=== PATIENT | male | born 1955 | race Caucasian/White ===

== ENCOUNTER 2016-10-04 11:50 | Day surgery (SDC) | payer BC ==
[2016-10-02 17:14] VITALS: BMI 31.6
[~2016-10-04 11:50] MED LIST: LACTATED RINGERS 1,000 ML IV SCH
[2016-10-04 12:15] VITALS: TEMP 97
[2016-10-04] MEDS ORDERED: LIDOCAINE 1% 20 ML VIAL (10MG/ML) FOR IV START INTRADERMA ONE (12:27)
[2016-10-04] MEDS ORDERED: PROPOFOL 10 MG/ML 20 ML VIAL IV ONE (13:26)
[2016-10-04] MEDS ORDERED: LIDOCAINE 1% INJ 10MG/ML (20 ML MDV) ONE (13:26)
--- NOTE | 2016-10-04 13:55 | P.PCN ---
Date of Procedure: 10/04/16 Preoperative Diagnosis: Postoperative Diagnosis: Procedure(s) Performed: Procedure: Esophagogastroduodenoscopy and biopsy. Preoperative diagnosis: Dysphagia. Postoperative diagnosis: 1. Abnormal area in the distal esophagus with slight encroachment on the lumen likely representing cancer multiple biopsies obtained. 2. 2. Hiatal hernia. 3. Gastritis. 4. Multiple biopsies obtained from the antrum as well as from the distal esophagus. Preparation sedation: Were provided by anesthesia. Brief clinical history: The patient is a 61-year-old male who is referred for this evaluation because of dysphagia that he has been experiencing since around [facility]. The patient reports dysphagia to solid food. Has lost around 9 pounds over the last 6 months. There is history of acid reflux for which he has taken acid suppressive therapy. Procedure: With the patient on his left lateral decubitus position and after informed consent and adequate sedation, I passed the Olympus-GIF 160 video upper endoscope through the cricopharyngeus down the esophagus. The distal esophagus starting around 31 cm from the incisors and extending for 4-5 cm showed nodularity and friability and mild encroachment on the lumen. There was a 3 cm hiatal hernia. No definite Stroud's esophagus appreciated as there was exudation covering the distal esophagus and obscuring the mucosa. I then advanced the endoscope into the stomach which was insufflated with air and inspected in detail including the retroflex view in the cardia. There was no mass appreciated in the cardia. There was some mottling and erythema in the antrum with no ulcers or erosions. Pyloric channel, duodenal bulb, post bulbar area and descending duodenum appeared within normal limits. I obtained multiple biopsies from the antrum as well as from the distal esophagus and I obtained a picture from the distal esophagus before the endoscope was withdrawn. The patient tolerated the procedure well. Plan: We will await pathology results and make further recommendations. Implants: Indications for Procedure: Operative Findings: Description of Procedure:
[2016-10-04 14:07] VITALS: BP 140/81; PULSE 85; RESP 18
== END 2016-10-04 14:29 | disposition home or self-care (01) ==
LOC: ORWHC2ENDO 11:50
DX: C15.5 Malignant neoplasm of lower third of esophagus (principal); K29.50 Unspecified chronic gastritis without bleeding; K44.9 Diaphragmatic hernia without obstruction or gangrene; K21.9 Gastro-esophageal reflux disease without esophagitis; I10 Essential (primary) hypertension; E78.5 Hyperlipidemia, unspecified; I47.1 Supraventricular tachycardia; G47.33 Obstructive sleep apnea (adult) (pediatric); Z79.899 Other long term (current) drug therapy
CPT/HCPCS: 88305; 88342; 88341; 43239; J2001; J2704

== ENCOUNTER → 2016-10-20 | Outpatient (CLI) | payer BC ==
--- NOTE | 2016-10-20 19:21 | PE ---
EXAMINATION TYPE: PET CT fusion skull to thigh DATE OF EXAM: 10/20/2016 COMPARISON: NONE HISTORY: Esophageal cancer initial staging study. TECHNIQUE: Following the intravenous administration of 13.67 mCi of F-18 FDG, whole body images are performed from the skull base to the midthigh. Images are reviewed on the computer in the coronal, a xial, and sagittal planes. Reconstructed rotating images are created on independent workstation and reviewed on the computer. A localization and attenuation correction CT is performed in conjunction with the PET scan. SCAN: Initial Scan FINDINGS: SKULL BASE AND NECK: No suspicious hypermetabolic uptake is seen in the neck. CHEST, MEDIASTINUM, AND HILAR REGION: There is hypermetabolic uptake and moderate to severe focal wal l thickening for short segment of esophagus beginning subcarinal level on axial image 102 extending d own to axial image 115, max SUV is 7.62. Length of abnormal hypermetabolic uptake is approximately 6 cm on sagittal images. There is suspicious ametabolic adjacent left paraesophageal lymph node measur ing 12 x 8 mm on axial image 109. There is small to moderate size paraesophageal hiatal hernia distal to this. No additional areas of abnormal hypermetabolic uptake in the thorax are seen. ABDOMEN AND PELVIS: No suspicious hypermetabolic uptake is present in the abdomen or pelvis. OSSEOUS STRUCTURES: No suspicious hypermetabolic uptake is seen in osseous structures OTHER CT: Some linear scarring or atelectasis in the right middle lobe is present. There is mild cardiomegaly identified. Dependent density in gallbladder is consistent with small stones or gallbladder sludge. There are 1-3 small calculi scattered throughout both kidneys measuring 2 mm or smaller in size. Ther e is right-sided pelvic phlebolith. There is oval fat density in the left superior scrotum measuring 4.2 cm transversely on axial image 2 69 suspicious for subcutaneous lipomas there is local mass effect noted. There is facet arthropathy in the lower lumbar spine. Osseous structures are demineralized. There is multilevel spurring in the thoracic spine. IMPRESSION: Biopsy-proven neoplasm in the mid to distal esophagus is confirmed. There is adjacent rachid picious left paraesophageal lymph node based on size without abnormal hypermetabolic uptake. No metas tatic disease is evident.
== END | disposition home or self-care (01) ==
LOC: RADPETMAIN 14:16
PROVIDERS: ATTEND Internal Medicine Hematology & Oncology
DX: C15.5 Malignant neoplasm of lower third of esophagus (principal)
CPT/HCPCS: 78815; A9552

== ENCOUNTER → 2017-01-05 | Outpatient (CLI) | payer BC ==
--- NOTE | 2017-01-06 10:04 | PE ---
EXAMINATION TYPE: PET CT fusion skull to thigh DATE OF EXAM: 01/05/2017 COMPARISON: PET/CT dated 10/20/2016 HISTORY: Esophageal cancer. Undergoing treatment with chemotherapy and radiation with last treatment 3 weeks ago. Follow-up examination. TECHNIQUE: Following the intravenous administration of 15.11 mCi of F-18 FDG, whole body images are performed from the skull base to the midthigh. Images are reviewed on the computer in the coronal, a xial, and sagittal planes. Reconstructed rotating images are created on independent workstation and reviewed on the computer. A localization and attenuation correction CT is performed in conjunction with the PET scan. SCAN: Second FINDINGS: SKULL BASE AND NECK: No suspicious hypermetabolic uptake. CHEST, MEDIASTINUM, AND HILAR REGION: Background mediastinal uptake measures a maximal SUV of 2.4. Although there is again circumferential distal esophageal mucosal thickening measuring up to 1 cm lef t eccentric lead on series 3 image 112 with extent of approximately 6 cm in length extending from the subcarinal region to just above the gastroesophageal junction there is improvement in degree of wall thickening in comparison to the prior. Additionally there is decreased uptake in comparison to the p rior with a maximum SUV of 4.6 as compared to 7.62 on the prior. The prominent left lateral paraesophageal lymph node is decreased in size and no longer hypermetaboli c with a maximum SUV of 1.5. This now measures 0.8 x 0.5 mm and previously measured 12 x 8 mm. There is an unchanged moderate paraesophageal hiatal hernia distally. Prominent right hilar lymph node measures 8 mm in short axis on series 3 image 100 and demonstrates a maximum SUV of 3.3, however this is adjacent to pulmonary vasculature and volume averaging or misreg istration are possible. No additional areas of abnormal hypermetabolic uptake in the thorax are seen. ABDOMEN AND PELVIS: Background abdominal uptake measures a maximal SUV of 3.4. No suspicious areas of hypermetabolic uptake are seen within the abdomen or pelvis. OSSEOUS STRUCTURES: Symmetric sclerosis and lucency are seen at the sacroiliac joints with avidity of the sacroiliac joints up to 2.3 on the left and 1.8 on the right, not above mediastinal background. OTHER CT: Scattered areas of subsegmental atelectasis are seen. New anterior medial right upper lobe opacity has maximal SUV uptake similar to that of mediastinal background with a maximal SUV of 2.5 an d could relate to radiation pneumonitis or pneumonia. No new pulmonary masses are identified. Cardiomegaly is redemonstrated as are multifocal bibasilar pleural parenchymal scars. Within the abdo men there are few layering gallstones within the gallbladder body and redemonstration of punctate non obstructing bilateral renal calculi with a single calculus in the right midpole measuring 2 mm and 2- 3 left lower pole renal calculi measuring 1 to 2 mm. Bilateral renal sinus cysts are again appreciate d. The unenhanced liver, spleen, adrenal glands, and pancreas are unremarkable. Abdominal aorta is of normal course and caliber with minimal atheromatous changes. No evidence of bowel obstruction. Large fat filled left inguinal hernia is noted. Multilevel moderate degenerative change of the thoracolumb ar spine is present as well as the above-mentioned degenerative changes of the sacroiliac joints. IMPRESSION: 1. Response to treatment. Decreasing FDG avidity of the biopsy proven esophageal carcinoma with decre ase in size of the left paraesophageal lymph node that is without hypermetabolic activity. 2. New right upper lobe anterior medial airspace disease that may represent radiation pneumonitis or pneumonia. Correlate with laboratory values and clinical symptoms. 3. Prominent right hilar lymph node that has FDG avidity is similar to that of mediastinal background although it is adjacent to a pulmonary artery and therefore this could represent misregistration or volume averaging. Surveillance is recommended. 4. No evidence of new visceral or osseous metastasis within the chest, abdomen, or pelvis.
== END | disposition home or self-care (01) ==
LOC: RADPETMAIN 08:48
PROVIDERS: ATTEND Radiology Radiation Oncology
DX: C15.5 Malignant neoplasm of lower third of esophagus (principal); K22.8 Other specified diseases of esophagus
CPT/HCPCS: 78815; A9552

== ENCOUNTER 2017-02-19 20:58 | Emergency (ER) | payer BC ==
[2017-02-19] MEDS ORDERED: PANTOPRAZOLE 40 MG/10 ML VIAL IVP ONE (21:07)
[2017-02-19 21:20] LABS: Basophils % (A) 0 %; Eosinophils % (A) 1 %; HCT 29.8 % (39.0-53.0); HGB 9.4 gm/dL (13.0-17.5); Hypochromasia Moderate; Lymphocytes % (A) 14 %; MCH 28.5 pg (25.0-35.0); MCHC 31.6 g/dL (31.0-37.0); MCV 90.3 fL (80.0-100.0); Mean Platelet Volume 8.1; Monocytes # (A) 0.3 k/uL (0-1.0); Monocytes % (A) 5 %; Neutrophils # (A) 5.2 k/uL (1.3-7.7); Neutrophils % (A) 78 %; Platelet Count 288 k/uL (150-450); Poikilocytosis Slight; RDW 15.5 % (11.5-15.5); WBC 6.7 k/uL (3.8-10.6)
[2017-02-19 21:29] LABS: Ammonia <9 umol/L (<30)
--- NOTE | 2017-02-19 21:30 | ED ---
General Adult HPI - General Chief complaint: Nausea/Vomiting/Diarrhea Stated complaint: Vomiting Blood Time Seen by Provider: 02/19/17 21:01 Source: patient, EMS, RN notes reviewed Mode of arrival: EMS Limitations: no limitations - History of Present Illness Initial comments: 62-year-old male with history of esophageal cancer presents with hematemesis and melena. Patient is currently on Lovenox for history of bilateral PEs. He takes for her milligrams Lovenox twice daily. 2 hours prior to arrival patient had 2 episodes of coffee-ground emesis with slight amount of bright red blood. He then had an episode of dark tarry stools. Patient denied any melena or hematemesis prior to these events this evening. He is complaining of some lightheadedness. Patient denies significant shortness of breath. Denies cough. Denies chest pain. Denies abdominal pain. Denies current nausea. - Related Data Home Medications Medication Instructions Recorded Confirmed Flecainide Acetate [Tambocor] 100 mg PO Q12HR 10/02/16 02/19/17 Multivitamins, Thera [Multivitamin 1 tab PO DAILY 10/02/16 02/19/17 (formulary)] Nebivolol HCl [Bystolic] 5 mg PO DAILY 10/02/16 02/19/17 Omeprazole [PriLOSEC] 20 mg PO DAILY 10/02/16 02/19/17 Simvastatin [Zocor] 40 mg PO HS 10/02/16 02/19/17 ALPRAZolam [Xanax] 0.5 mg PO TID PRN 01/20/17 02/19/17 Prochlorperazine [Compazine] 10 mg PO Q8H PRN 01/20/17 02/19/17 Enoxaparin [Lovenox] 100 mg SQ Q12H 02/19/17 02/19/17 Zolpidem [Ambien] 5 mg PO HS 02/19/17 02/19/17 Allergies Allergy/AdvReac Type Severity Reaction Status Date / Time No Known Allergies Allergy Verified 02/19/17 21:22 Review of Systems ROS Statement: Those systems with pertinent positive or pertinent negative responses have been documented in the HPI. ROS Other: All systems not noted in ROS Statement are negative. Past Medical History Past Medical History: Cancer, GERD/Reflux, Hyperlipidemia, Hypertension, Sleep Apnea/CPAP/BIPAP, Supraventricular Tachycardia (SVT) Additional Past Medical History / Comment(s): no cpap used, diff swallowing, esophagial cancer History of Any Multi-Drug Resistant Organisms: None Reported Past Surgical History: Cardiac Ablation, Hernia Repair Additional Past Surgical History / Comment(s): sivakumar inguinal hernia, vasectomy Past Anesthesia/Blood Transfusion Reactions: No Reported Reaction Past Psychological History: Anxiety Smoking Status: Never smoker Past Alcohol Use History: None Reported Past Drug Use History: None Reported - Past Family History Mother Family Medical History: Cancer General Exam Limitations: no limitations General appearance: alert, lethargic Head exam: Present: atraumatic, normocephalic Eye exam: Present: normal appearance, PERRL Neck exam: Present: normal inspection. Absent: tenderness, meningismus Respiratory exam: Present: normal lung sounds bilaterally. Absent: respiratory distress Cardiovascular Exam: Present: tachycardia, irregular rhythm GI/Abdominal exam: Present: soft. Absent: distended, tenderness Rectal exam: Present: heme (+) stool, black stool Extremities exam: Present: normal inspection, normal capillary refill. Absent: pedal edema Neurological exam: Present: alert, oriented X3, CN II-XII intact. Absent: motor sensory deficit Psychiatric exam: Present: normal affect, anxious Skin exam: Present: warm, dry, intact, pallor Course Vital Signs 02/19/17 02/19/17 02/19/17 21:00 21:50 22:12 Temperature 98.0 F Pulse Rate 101 H 116 H 116 H Respiratory 18 18 18 Rate Blood Pressure 117/80 108/71 92/68 O2 Sat by Pulse 97 97 97 Oximetry 02/19/17 22:58 Temperature Pulse Rate 106 H Respiratory 18 Rate Blood Pressure 113/72 O2 Sat by Pulse 96 Oximetry EKG Findings - EKG Comments: EKG Findings:: EKG shows a regular tachycardia interpreted as accelerated junctional rhythm with PVC, there is atrial activity likely sinus tach with PVCs ventricular rate 120, QRS duration 74, QTC prolonged at 604. No ST segment elevation Medical Decision Making - Medical Decision Making 62-year-old male with esophageal cancer presents with hematemesis and melena. Patient is tachycardic and borderline hypotensive. Normal mentation. Hemoglobin 9.4, from recent hemoglobin of 10.6, lactic acid 3.0 rectal exam reveals melanotic stool which is heme positive. Chest x-ray shows unchanged right lower lobe infiltrate. NG tube was recommended however patient refuses awaiting surgical evaluation. patient is transfused 1 unit for vital sign abnormalities and concern for more significant upper GI bleed. He is also given Protonix 80 mg in the emergency department. Case is discussed with general surgery on-call Dr. mullen, given the recent massive pulmonary embolism and complicated lower esophageal carcinoma he recommends transfer for higher level of care. Case is discussed with Dr. Lange, she will accept admission to surgical ICU. Diagnosis: Suspect upper GI bleed, melena, hematemesis, esophageal carcinoma, acute blood loss anemia. - Lab Data Result diagrams: 02/19/17 21:08 02/19/17 21:08 Lab Results 02/19/17 02/19/17 02/19/17 Range/Units 21:08 21:08 21:08 WBC 6.7 (3.8-10.6) k/uL RBC 3.30 L (4.30-5.90) m/uL Hgb 9.4 L (13.0-17.5) gm/dL Hct 29.8 L (39.0-53.0) % MCV 90.3 (80.0-100.0) fL MCH 28.5 (25.0-35.0) pg MCHC 31.6 (31.0-37.0) g/dL RDW 15.5 (11.5-15.5) % Plt Count 288 (150-450) k/uL Neutrophils % 78 % Lymphocytes % 14 % Monocytes % 5 % Eosinophils % 1 % Basophils % 0 % Neutrophils # 5.2 (1.3-7.7) k/uL Lymphocytes # 1.0 (1.0-4.8) k/uL Monocytes # 0.3 (0-1.0) k/uL Eosinophils # 0.0 (0-0.7) k/uL Basophils # 0.0 (0-0.2) k/uL Hypochromasia Moderate Poikilocytosis Slight PT (9.0-12.0) sec INR (<1.2) APTT (22.0-30.0) sec Sodium (137-145) mmol/L Potassium (3.5-5.1) mmol/L Chloride (98-107) mmol/L Carbon Dioxide (22-30) mmol/L Anion Gap mmol/L BUN (9-20) mg/dL Creatinine (0.66-1.25) mg/dL Est GFR (MDRD) Af Amer (>60 ml/min/1.73 sqM) Est GFR (MDRD) Non-Af (>60 ml/min/1.73 sqM) Glucose (74-99) mg/dL Plasma Lactic Acid Colby 3.0 H* (0.7-2.0) mmol/L Calcium (8.4-10.2) mg/dL Magnesium (1.6-2.3) mg/dL Total Bilirubin (0.2-1.3) mg/dL AST (17-59) U/L ALT (21-72) U/L Alkaline Phosphatase (38-126) U/L Ammonia <9 (<30) umol/L Total Creatine Kinase 20 L (55-170) U/L CK-MB (CK-2) <0.2 (0.0-2.4) ng/mL CK-MB (CK-2) Rel Index Troponin I <0.012 (0.000-0.034) ng/mL Total Protein (6.3-8.2) g/dL Albumin (3.5-5.0) g/dL Lipase (23-300) U/L Stool Occult Blood (Negative) Blood Type Blood Type Confirm Blood Type Recheck Antibody Screen Crossmatch Spec Expiration Date 02/19/17 02/19/17 02/19/17 Range/Units 21:08 21:08 21:08 WBC (3.8-10.6) k/uL RBC (4.30-5.90) m/uL Hgb (13.0-17.5) gm/dL Hct (39.0-53.0) % MCV (80.0-100.0) fL MCH (25.0-35.0) pg MCHC (31.0-37.0) g/dL RDW (11.5-15.5) % Plt Count (150-450) k/uL Neutrophils % % Lymphocytes % % Monocytes % % Eosinophils % % Basophils % % Neutrophils # (1.3-7.7) k/uL Lymphocytes # (1.0-4.8) k/uL Monocytes # (0-1.0) k/uL Eosinophils # (0-0.7) k/uL Basophils # (0-0.2) k/uL Hypochromasia Poikilocytosis PT 10.3 (9.0-12.0) sec INR 1.1 (<1.2) APTT 27.5 (22.0-30.0) sec Sodium 140 (137-145) mmol/L Potassium 4.1 (3.5-5.1) mmol/L Chloride 106 (98-107) mmol/L Carbon Dioxide 23 (22-30) mmol/L Anion Gap 11 mmol/L BUN 33 H (9-20) mg/dL Creatinine 0.70 (0.66-1.25) mg/dL Est GFR (MDRD) Af Amer >60 (>60 ml/min/1.73 sqM) Est GFR (MDRD) Non-Af >60 (>60 ml/min/1.73 sqM) Glucose 174 H (74-99) mg/dL Plasma Lactic Acid Colby (0.7-2.0) mmol/L Calcium 9.1 (8.4-10.2) mg/dL Magnesium 1.7 (1.6-2.3) mg/dL Total Bilirubin 0.3 (0.2-1.3) mg/dL AST 36 (17-59) U/L ALT 79 H (21-72) U/L Alkaline Phosphatase 92 (38-126) U/L Ammonia (<30) umol/L Total Creatine Kinase (55-170) U/L CK-MB (CK-2) (0.0-2.4) ng/mL CK-MB (CK-2) Rel Index Troponin I (0.000-0.034) ng/mL Total Protein 6.3 (6.3-8.2) g/dL Albumin 3.3 L (3.5-5.0) g/dL Lipase 55 (23-300) U/L Stool Occult Blood (Negative) Blood Type A Positive Blood Type Confirm Blood Type Recheck CABO Indicated Antibody Screen NEGATIVE Crossmatch See Detail Spec Expiration Date 02/22/2017 - 230702/19/17 02/19/17 Range/Units 21:17 22:11 WBC (3.8-10.6) k/uL RBC (4.30-5.90) m/uL Hgb (13.0-17.5) gm/dL Hct (39.0-53.0) % MCV (80.0-100.0) fL MCH (25.0-35.0) pg MCHC (31.0-37.0) g/dL RDW (11.5-15.5) % Plt Count (150-450) k/uL Neutrophils % % Lymphocytes % % Monocytes % % Eosinophils % % Basophils % % Neutrophils # (1.3-7.7) k/uL Lymphocytes # (1.0-4.8) k/uL Monocytes # (0-1.0) k/uL Eosinophils # (0-0.7) k/uL Basophils # (0-0.2) k/uL Hypochromasia Poikilocytosis PT (9.0-12.0) sec INR (<1.2) APTT (22.0-30.0) sec Sodium (137-145) mmol/L Potassium (3.5-5.1) mmol/L Chloride (98-107) mmol/L Carbon Dioxide (22-30) mmol/L Anion Gap mmol/L BUN (9-20) mg/dL Creatinine (0.66-1.25) mg/dL Est GFR (MDRD) Af Amer (>60 ml/min/1.73 sqM) Est GFR (MDRD) Non-Af (>60 ml/min/1.73 sqM) Glucose (74-99) mg/dL Plasma Lactic Acid Colby (0.7-2.0) mmol/L Calcium (8.4-10.2) mg/dL Magnesium (1.6-2.3) mg/dL Total Bilirubin (0.2-1.3) mg/dL AST (17-59) U/L ALT (21-72) U/L Alkaline Phosphatase (38-126) U/L Ammonia (<30) umol/L Total Creatine Kinase (55-170) U/L CK-MB (CK-2) (0.0-2.4) ng/mL CK-MB (CK-2) Rel Index Troponin I (0.000-0.034) ng/mL Total Protein (6.3-8.2) g/dL Albumin (3.5-5.0) g/dL Lipase (23-300) U/L Stool Occult Blood Positive (Negative) Blood Type Blood Type Confirm A Positive Blood Type Recheck Antibody Screen Crossmatch Spec Expiration Date Critical Care Time Critical Care Time: Yes Total Critical Care Time: 45 Disposition Clinical Impression: Upper GI bleed Disposition: OTHER INSTITUTION NOT DEFINED Condition: Serious Referrals: Shaquille Saeed MD [Primary Care Provider] - 1-2 days - Out of Hospital Transfer - Req. Specs Out of Hospital Transfer - Requested Specifics: Surgical ICU (Transferred to [facility] in [place].)
--- NOTE | 2017-02-19 21:30 | XR ---
EXAMINATION TYPE: XR chest 1V portable DATE OF EXAM: 02/19/2017 COMPARISON: 01/20/2017 HISTORY: Vomiting blood TECHNIQUE: Single frontal view of the chest is obtained. FINDINGS: There is no heart failure. Heart size is normal. There is probably a small infiltrate in t he medial right lower lobe. There is no pleural effusion. There are chest leads. IMPRESSION: There is probably an infiltrate in the right lower lobe similar to last exam. No heart f ailure.
[2017-02-19 21:31] LABS: ALT 79 U/L (21-72); AST 36 U/L (17-59); Albumin 3.3 g/dL (3.5-5.0); Alkaline Phosphatase 92 U/L (38-126); Anion Gap 11 mmol/L; Blood Urea Nitrogen 33 mg/dL (9-20); Calcium 9.1 mg/dL (8.4-10.2); Carbon Dioxide 23 mmol/L (22-30); Chloride 106 mmol/L (98-107); Glucose 174 mg/dL (74-99); INR 1.1 (<1.2); Lipase 55 U/L (23-300); Magnesium 1.7 mg/dL (1.6-2.3); Partial Thromboplastin Time 27.5 sec (22.0-30.0); Prothrombin Time 10.3 sec (9.0-12.0); Sodium 140 mmol/L (137-145); Total Bilirubin 0.3 mg/dL (0.2-1.3); Total Protein 6.3 g/dL (6.3-8.2)
[2017-02-19 21:33] LABS: Potassium 4.1 mmol/L (3.5-5.1)
[2017-02-19] MEDS: LORazepam 2 MG/ML INJ IV STA ×2 (21:47→23:54)
[2017-02-19 21:51] LABS: Creatine Kinase 20 U/L (55-170)
[2017-02-19 22:02] LABS: Creatine Kinase MB <0.2 ng/mL (0.0-2.4); Troponin I <0.012 ng/mL (0.000-0.034)
[2017-02-20] MEDS ORDERED: ONDANSETRON 4 MG/2 ML VIAL IVP STA (00:01)
[2017-02-20 23:14] VITALS: BP 112/70; PULSE 106; RESP 18; TEMP 97.7
== END 2017-02-20 00:05 | disposition short-term general hospital (02) ==
LOC: EC 20:58
DX: K92.2 Gastrointestinal hemorrhage, unspecified (principal); I95.9 Hypotension, unspecified; I47.1 Supraventricular tachycardia; F41.9 Anxiety disorder, unspecified; R91.8 Other nonspecific abnormal finding of lung field; E78.5 Hyperlipidemia, unspecified; I10 Essential (primary) hypertension; K21.9 Gastro-esophageal reflux disease without esophagitis; G47.30 Sleep apnea, unspecified; Z79.01 Long term (current) use of anticoagulants; Z79.899 Other long term (current) drug therapy; Z86.711 Personal history of pulmonary embolism; Z85.01 Personal history of malignant neoplasm of esophagus; Z99.89 Dependence on other enabling machines and devices
CPT/HCPCS: 99291; 96374; 96376; 96375 ×2; 36415; 93005; 86900; 86901; 80053; 82140; 82550; 82553; 83605; 83690; 83735; 84484; 85025; 85610; 85730; 86850; 86920; 82272; 71045; P9016; J2060; J2405; C9113

== ENCOUNTER 2017-03-09 08:19 | Emergency (ER) | payer BC ==
[2017-03-09] MEDS ORDERED: HYDROmorphone 0.5 MG/0.5 ML SYRINGE IVP STA ×4 (08:36→14:19)
[2017-03-09] MEDS ORDERED: ONDANSETRON 4 MG/2 ML VIAL IVP STA (08:36)
[2017-03-09] MEDS ORDERED: RX INFO: IV CONTRAST WAS GIVEN 1 EACH MISC MISCELLANE PRN (08:36)
[2017-03-09] MEDS ORDERED: SODIUM CHLORIDE 0.9% 500 ML IV STA (08:36)
--- NOTE | 2017-03-09 08:43 | ED ---
Abdominal Pain HPI - General Chief Complaint: Abdominal Pain Stated Complaint: pain near feeding tube sight Time Seen by Provider: 03/09/17 08:27 Source: patient, family, RN notes reviewed Mode of arrival: wheelchair Limitations: no limitations - History of Present Illness Initial Comments: This is a pleasant 62-year-old male presents emergency Department with chief complaint of epigastric pain. Patient states pain started around 4 AM this morning. Patient states the pain is unbearable nonradiating. Patient is concerned has he had a recent J-tube placed for feedings secondary to esophageal cancer with malnourishment. Patient states that he does feedings throughout the night. Patient denies any fever, chills, headache, dizziness, chest pain or shortness of breath. Patient states she took some Tylenol prior arrival. The pain has been alleviated his symptoms and also states that he took some Xanax. Patient is currently taking Coumadin secondary to bilateral PE. Patient states his oncologist for his esophageal cancer is . Patient surgery was performed at [facility]. Patient denies any vomiting or nausea. He did say he had normal bowel movement yesterday. - Related Data Home Medications Medication Instructions Recorded Confirmed Flecainide Acetate [Tambocor] 100 mg PO BID 10/02/16 03/09/17 Multivitamins, Thera [Multivitamin 1 tab PO DAILY 10/02/16 03/09/17 (formulary)] Nebivolol HCl [Bystolic] 5 mg PO DAILY 10/02/16 03/09/17 Omeprazole [PriLOSEC] 20 mg PO DAILY 10/02/16 03/09/17 Simvastatin [Zocor] 40 mg PO HS 10/02/16 03/09/17 ALPRAZolam [Xanax] 0.5 mg PO TID PRN 01/20/17 03/09/17 Prochlorperazine [Compazine] 10 mg PO Q8H PRN 01/20/17 03/09/17 DULoxetine HCL [Cymbalta] 20 mg PO DAILY 03/09/17 03/09/17 Lactose-Reduced Food/Fiber [Jevity 6 can PEG/G-TUBE DIRECTED 03/09/17 1.2 Frantz Liquid] Warfarin [Coumadin] 2.5 mg PO DAILY 01/20/18 01/20/18 Zolpidem Tartrate [Ambien] 5 mg PO HS 03/09/17 03/09/17 Previous Rx's Medication Instructions Recorded Amoxicillin/Potassium Clav 1 tab PO Q12HR #20 tab 03/09/17 [Augmentin 875-125 Tablet] HYDROcodone/APAP 10-325MG [[place] 1 tab PO Q6H PRN #20 tab 03/09/17 10-325] Allergies Allergy/AdvReac Type Severity Reaction Status Date / Time No Known Allergies Allergy Verified 03/09/17 12:29 Review of Systems ROS Statement: Those systems with pertinent positive or pertinent negative responses have been documented in the HPI. ROS Other: All systems not noted in ROS Statement are negative. Past Medical History Past Medical History: Cancer, GERD/Reflux, Hyperlipidemia, Hypertension, Sleep Apnea/CPAP/BIPAP, Supraventricular Tachycardia (SVT) Additional Past Medical History / Comment(s): no cpap used, diff swallowing, esophagial cancer History of Any Multi-Drug Resistant Organisms: None Reported Past Surgical History: Cardiac Ablation, Hernia Repair Additional Past Surgical History / Comment(s): sivakumar inguinal hernia, vasectomy, PEG tube placement Past Anesthesia/Blood Transfusion Reactions: No Reported Reaction Past Psychological History: Anxiety Smoking Status: Never smoker Past Alcohol Use History: None Reported Past Drug Use History: None Reported - Past Family History Mother Family Medical History: Cancer General Exam General appearance: alert, in no apparent distress, anxious Head exam: Present: atraumatic, normocephalic, normal inspection Neck exam: Present: normal inspection. Absent: tenderness, meningismus, lymphadenopathy Respiratory exam: Present: normal lung sounds bilaterally. Absent: respiratory distress, wheezes, rales, rhonchi, stridor Cardiovascular Exam: Present: normal rhythm, tachycardia, normal heart sounds. Absent: systolic murmur, diastolic murmur, rubs, gallop, clicks GI/Abdominal exam: Present: soft, tenderness (Moderate epigastric tenderness), normal bowel sounds, other (Multiple healing incisions noted on abdomen with no drainage no erythema feeding tube is in place with no surrounding drainage or erythema). Absent: distended, guarding, rebound, rigid Skin exam: Present: warm, dry, intact, normal color. Absent: rash Course Vital Signs 03/09/17 03/09/17 03/09/17 08:23 10:02 11:14 Temperature 97.0 F L Pulse Rate 136 H 89 89 Respiratory 20 16 16 Rate Blood Pressure 113/67 122/72 137/83 O2 Sat by Pulse 100 97 97 Oximetry 03/09/17 03/09/17 03/09/17 11:42 12:58 14:48 Temperature 97.8 F Pulse Rate 67 78 74 Respiratory 18 18 16 Rate Blood Pressure 128/75 124/66 117/68 O2 Sat by Pulse 98 99 100 Oximetry Medical Decision Making - Medical Decision Making 62-year-old male present emergency Department for abdominal pain. Patient had lab work CT showed cholelithiasis, all son confirms this. Dr. Lynn did evaluate the patient talked to his cardiothoracic surgeon advised him that pain control is recommended at this time that if the patient felt necessary that he could be transferred. Patient prefers not to be transferred. Case discussed with on-call surgeon Dr. Sykes who evaluated the patient had long discussion with the patient recommending no surgery at this time as he is on Coumadin and his prior health issues. She does recommend antibiotics and pain medication. If symptoms worsen he is to be transferred or patient is able to drive to enter [place]. - Lab Data Result diagrams: 03/09/17 09:01 03/09/17 09:01 Lab Results 03/09/17 03/09/17 03/09/17 Range/Units 09:01 09:01 09:01 WBC 7.1 (3.8-10.6) k/uL RBC 3.53 L (4.30-5.90) m/uL Hgb 9.7 L (13.0-17.5) gm/dL Hct 29.6 L (39.0-53.0) % MCV 83.9 D (80.0-100.0) fL MCH 27.6 (25.0-35.0) pg MCHC 32.9 (31.0-37.0) g/dL RDW 16.2 H (11.5-15.5) % Plt Count 344 (150-450) k/uL Neutrophils % 83 % Lymphocytes % 7 % Monocytes % 6 % Eosinophils % 2 % Basophils % 0 % Neutrophils # 5.9 (1.3-7.7) k/uL Lymphocytes # 0.5 L (1.0-4.8) k/uL Monocytes # 0.4 (0-1.0) k/uL Eosinophils # 0.2 (0-0.7) k/uL Basophils # 0.0 (0-0.2) k/uL Hypochromasia Marked Poikilocytosis Moderate Anisocytosis Slight PT (9.0-12.0) sec INR (<1.2) APTT (22.0-30.0) sec Sodium 137 (137-145) mmol/L Potassium 4.1 (3.5-5.1) mmol/L Chloride 101 (98-107) mmol/L Carbon Dioxide 23 (22-30) mmol/L Anion Gap 13 mmol/L BUN 13 (9-20) mg/dL Creatinine 0.64 L (0.66-1.25) mg/dL Est GFR (MDRD) Af Amer >60 (>60 ml/min/1.73 sqM) Est GFR (MDRD) Non-Af >60 (>60 ml/min/1.73 sqM) Glucose 156 H (74-99) mg/dL Plasma Lactic Acid [place] 1.2 (0.7-2.0) mmol/L Calcium 9.3 (8.4-10.2) mg/dL Total Bilirubin 0.4 (0.2-1.3) mg/dL AST 30 (17-59) U/L ALT 52 (21-72) U/L Alkaline Phosphatase 153 H (38-126) U/L Troponin I (0.000-0.034) ng/mL Total Protein 7.3 (6.3-8.2) g/dL Albumin 3.7 (3.5-5.0) g/dL Amylase 41 (30-110) U/L Lipase 66 (23-300) U/L 03/09/17 03/09/17 Range/Units 09:01 09:01 WBC (3.8-10.6) k/uL RBC (4.30-5.90) m/uL Hgb (13.0-17.5) gm/dL Hct (39.0-53.0) % MCV (80.0-100.0) fL MCH (25.0-35.0) pg MCHC (31.0-37.0) g/dL RDW (11.5-15.5) % Plt Count (150-450) k/uL Neutrophils % % Lymphocytes % % Monocytes % % Eosinophils % % Basophils % % Neutrophils # (1.3-7.7) k/uL Lymphocytes # (1.0-4.8) k/uL Monocytes # (0-1.0) k/uL Eosinophils # (0-0.7) k/uL Basophils # (0-0.2) k/uL Hypochromasia Poikilocytosis Anisocytosis PT 19.6 H (9.0-12.0) sec INR 2.2 H (<1.2) APTT 26.1 (22.0-30.0) sec Sodium (137-145) mmol/L Potassium (3.5-5.1) mmol/L Chloride (98-107) mmol/L Carbon Dioxide (22-30) mmol/L Anion Gap mmol/L BUN (9-20) mg/dL Creatinine (0.66-1.25) mg/dL Est GFR (MDRD) Af Amer (>60 ml/min/1.73 sqM) Est GFR (MDRD) Non-Af (>60 ml/min/1.73 sqM) Glucose (74-99) mg/dL Plasma Lactic Acid [place] (0.7-2.0) mmol/L Calcium (8.4-10.2) mg/dL Total Bilirubin (0.2-1.3) mg/dL AST (17-59) U/L ALT (21-72) U/L Alkaline Phosphatase (38-126) U/L Troponin I <0.012 (0.000-0.034) ng/mL Total Protein (6.3-8.2) g/dL Albumin (3.5-5.0) g/dL Amylase (30-110) U/L Lipase (23-300) U/L - EKG Data EKG Comments: EKG performed at 9:23 sinus rhythm with PVC rate of 85 KS 200 QRS 84 QT/QTC 404/ 480 Disposition Clinical Impression: Abdominal pain, Cholelithiasis Disposition: HOME SELF-CARE Condition: Stable Instructions: Gallstones (ED) Additional Instructions: Please return to the Emergency Department if symptoms worsen or any other concerns. Prescriptions: Amoxicillin/Potassium Clav [Augmentin 875-125 Tablet] 1 tab PO Q12HR #20 tab HYDROcodone/APAP 10-325MG [[place] 10-325] 1 tab PO Q6H PRN #20 tab PRN Reason: pain Referrals: Shaquille Saeed MD [Primary Care Provider] - 1-2 days Time of Disposition: 14:52
[2017-03-09 09:18] LABS: Anisocytosis Slight; Basophils % (A) 0 %; Eosinophils # (A) 0.2 k/uL (0-0.7); Eosinophils % (A) 2 %; HCT 29.6 % (39.0-53.0); HGB 9.7 gm/dL (13.0-17.5); Hypochromasia Marked; Lymphocytes # (A) 0.5 k/uL (1.0-4.8); Lymphocytes % (A) 7 %; MCH 27.6 pg (25.0-35.0); MCHC 32.9 g/dL (31.0-37.0); Mean Platelet Volume 7.8; Monocytes # (A) 0.4 k/uL (0-1.0); Monocytes % (A) 6 %; Neutrophils # (A) 5.9 k/uL (1.3-7.7); Neutrophils % (A) 83 %; Platelet Count 344 k/uL (150-450); Poikilocytosis Moderate; RBC 3.53 m/uL (4.30-5.90); RDW 16.2 % (11.5-15.5); WBC 7.1 k/uL (3.8-10.6)
[2017-03-09 09:26] LABS: MCV 83.9 fL (80.0-100.0)
[2017-03-09 09:29] LABS: INR 2.2 (<1.2); Partial Thromboplastin Time 26.1 sec (22.0-30.0); Prothrombin Time 19.6 sec (9.0-12.0)
[2017-03-09 09:33] LABS: ALT 52 U/L (21-72); AST 30 U/L (17-59); Albumin 3.7 g/dL (3.5-5.0); Alkaline Phosphatase 153 U/L (38-126); Amylase 41 U/L (30-110); Anion Gap 13 mmol/L; Blood Urea Nitrogen 13 mg/dL (9-20); Calcium 9.3 mg/dL (8.4-10.2); Carbon Dioxide 23 mmol/L (22-30); Chloride 101 mmol/L (98-107); Glucose 156 mg/dL (74-99); Lipase 66 U/L (23-300); Potassium 4.1 mmol/L (3.5-5.1); Sodium 137 mmol/L (137-145); Total Bilirubin 0.4 mg/dL (0.2-1.3); Total Protein 7.3 g/dL (6.3-8.2)
--- NOTE | 2017-03-09 10:40 | CT ---
INDICATION: Abdominal pain, history of esophageal cancer with PEG tube placement TECHNIQUE: CT acquisition is performed through the abdomen and pelvis following the administration of IV contrast. Additional delayed postcontrast images are acquired through the upper abdomen. Sagittal and coronal reformatted images are provided. DOSE INFORMATION: DLP 1037 mGy-cm. One or more of the following dose reduction techniques were used: automated exposure control, adjustment of the mA and/or kV according to patient size, use of iterative reconstruction technique. COMPARISON: CT abdomen and pelvis with contrast, 01/21/17. FINDINGS: Small right pleural effusion has increased from prior exam. There is compressive atelectasis in the adjacent right lower lobe bibasilar reticular opacities suggesting subsegmental atelectasis/scar. There is a stable hiatal hernia with irregular mural thickening at the gastroesophageal junction. There is a stable 1.5 cm hypoenhancing lesion in the lateral subcapsular right hepatic lobe. There are multiple stable fluid-density lesions in the anterior liver and in the medial portion of hepatic segment 7, likely hepatic cysts. There is cholelithiasis. There is no biliary dilatation. The pancreas, spleen, and adrenal glands are unremarkable. The kidneys enhance symmetrically. There is no hydronephrosis or perinephric stranding. There are bilateral punctate nonobstructing kidney stones and bilateral parapelvic renal cysts. Aorta and IVC are normal. There is no adenopathy. There is a large fat- containing left inguinal hernia. There is a left-sided percutaneous jejunostomy tube. There is no evidence of small or large bowel obstruction. The appendix is not clearly visualized. There is no diverticulitis. Urinary bladder and prostate are unremarkable. There are no acute osseous findings. IMPRESSION: 1. Small right pleural effusion has increased in size from prior exam. There is bibasilar scarring and atelectasis. 2. Stable hiatal hernia with irregular mural thickening near the gastroesophageal junction. 3. Cholelithiasis without convincing CT findings of acute cholecystitis. Correlate clinically. 4. Stable 1.5 cm hypoenhancing lesion in the lateral subcapsular right hepatic lobe, nonspecific, metastasis not excluded. 5. Stable hepatic cysts. 6. Stable large fat-containing left inguinal hernia. 7. Stable nonobstructing renal calculi bilaterally.
--- NOTE | 2017-03-09 11:49 | US ---
EXAMINATION TYPE: US abdomen limited DATE OF EXAM: 03/09/2017 COMPARISON: Previous CT scan dated 03/09/2017. CLINICAL HISTORY: Pain. ABD pain EXAM MEASUREMENTS: Liver Length: 16.7 cm Gallbladder Wall: 0.3 cm CBD: 0.6 cm Right Kidney: 11.9 x 5.7 x 5.3 cm Pancreas: Obscured by bowel gas Liver: Very limited visualization due to overlying bowel gas Gallbladder: Sludge with small gallstones at neck/ wall thickness at upper limits of normal/ pt unab le to roll in LLD position due to weakness Evidence for sonographic Patel's sign: No CBD: wnl Right Kidney: wnl, lower pole gassed out Rt pleural effusion seen The pancreas is obscured. The liver is normal in size without evidence of biliary dilatation. Hepatic lesions noted on CT are n ot visualized on today's examination. There is sludge as well as small stones within the gallbladder. The gallbladder wall measures 3.1 mm. The distal common hepatic duct measures 5.6 mm. Limited views of the right kidney are unremarkable. IMPRESSION: 1. CHOLELITHIASIS WELL SLUDGE WITHIN THE GALLBLADDER. 2. NONVISUALIZATION OF THE APPENDIX AND POOR VISUALIZATION OF THE LIVER AND RIGHT KIDNEY.
[2017-03-09] MEDS ORDERED: FLECAINIDE 50 MG TAB PO STA (12:15)
[2017-03-09 14:49] VITALS: BP 117/68; PULSE 74; RESP 16; TEMP 97.8
--- NOTE | 2017-03-09 15:08 | P.GSCN ---
History of Present Illness Consult date: 03/09/17 History of present illness: CHIEF COMPLAINT: Right upper quadrant abdominal pain for 1 day. HISTORY OF PRESENT ILLNESS: The patient is a 62-year-old gentleman recently diagnosed esophageal cancer in September 2016. He has been having ongoing care [facility]. She has lost a moderate amount of weight in the past 5 months. In fact, he reports being at [facility] in [facility] within the last 2 weeks for pulmonary embolism. He also had GI bleed. He has recently been placed on Coumadin as a result. He also reports having a jejunostomy feeding tube placed within the last 2-3 weeks as well for poor nutrition. Since being at home, he still eats at least 3 meals a day. Feeding tube is really for supplemental nutrition. Last night, he had [employer] food fried rice. By 5 AM this morning, he had acute onset right upper quadrant abdominal pain. At the time of my evaluation, his reports the pain along the right upper side has improved however is bilateral upper abdomen bandlike. His sister at bedside also gives history of family history of gallbladder disorder in his mother who is now over 8 years ago. General surgery is consulted regarding his presentation. PAST MEDICAL HISTORY: See list. PAST SURGICAL HISTORY: See list. CURRENT MEDICATIONS: See list. ALLERGIES: See list. SOCIAL HISTORY: No active tobacco use. FAMILY HISTORY: Denies Crohns disease and ulcerative colitis. REVIEW OF ORGAN SYSTEMS: CONSTITUTIONAL: Denies any fever or chills. Has recent weight loss over 10+ pounds unintentional. HEENT: Denies any trouble with vision, hearing or nosebleeds. LYMPHATIC: The patient denies any lumps and bumps around the neck. ENDOCRINE: Denies any thyroid disorders. Denies any blood sugar glucose intolerance. RESPIRATORY: Denies shortness of breath including chronic cough. CARDIOVASCULAR: Denies history of chest pain with exertion. GASTROINTESTINAL: Past history of GI bleed. Recent jejunostomy feeding tube placement. GENITOURINARY: Denies any blood in urine or increased urinary frequency. MUSCULOSKELETAL: Has current joint arthritis. NEUROLOGIC: Denies any numbness or tingling along the distal extremities. No seizure disorders or headaches. PSYCHIATRIC: Denies any depression or suicidal ideation. HEMATOLOGIC: History of bilateral pulmonary pulmonary embolism or recent Coumadin treatment. PHYSICAL EXAMINATION: GENERAL: Well developed and in no acute distress. HEENT: No sclera icterus. Extraocular movements grossly intact. Moist buccal mucosa. Head is atraumatic, normocephalic. Hears conversational speech. No nasal drainage. NECK: Supple without lymphadenopathy. No JV distention. CHEST: Non-labored respirations and equal bilateral excursions. CARDIOVASCULAR: Regular rate and rhythm. Palpable 2+ radial pulses. ABDOMEN: Soft, tender at the right lower quadrant. No peritonitis. Jejunostomy feeding tube in place. MUSCULOSKELETAL: No clubbing, cyanosis or edema. NEUROLOGIC: No focal or lateralizing signs. PSYCH: Appropriate affect. Alert and oriented to person, place and time. SKIN: Well perfused. Good skin turgor. LABS: Reviewed. STUDIES: CT of the abdomen and pelvis reviewed. I personally reviewed his ultrasound also demonstrating gallbladder sludge. No thickening of the gallbladder either ultrasound or computed tomography scan. ASSESSMENT: 1. Right upper abdominal pain. 2. Biliary colic. 3. Esophageal cancer possible metastatic disease. 4. Recent pulmonary embolism on Coumadin therapy. PLAN: 1. He has ongoing care with his surgeon at [facility] whom he will see in 4 days. I have recommended pain medication including antibiotics until he may see his surgeon. 2. Should his symptoms worsen despite treatment, recommend transfer and care and [facility] as he has ongoing medical and surgical care. 3. Low-fat diet was described in detail to avoid any exacerbating events. 4. He has multiple medical comorbidities including anticoagulation which also puts him at increased risk for surgical complications. Recommend conservative management in the interim. Thank you very much for allowing me to participate in the care of your patient. Past Medical History Past Medical History: Cancer, GERD/Reflux, Hyperlipidemia, Hypertension, Sleep Apnea/CPAP/BIPAP, Supraventricular Tachycardia (SVT) Additional Past Medical History / Comment(s): no cpap used, diff swallowing, esophagial cancer History of Any Multi-Drug Resistant Organisms: None Reported Past Surgical History: Cardiac Ablation, Hernia Repair Additional Past Surgical History / Comment(s): sivakumar inguinal hernia, vasectomy, PEG tube placement Past Anesthesia/Blood Transfusion Reactions: No Reported Reaction Past Psychological History: Anxiety Smoking Status: Never smoker Past Alcohol Use History: None Reported Past Drug Use History: None Reported - Past Family History Mother Family Medical History: Cancer Medications and Allergies Home Medications Medication Instructions Recorded Confirmed Type Flecainide Acetate [Tambocor] 100 mg PO BID 10/02/16 03/09/17 History Multivitamins, Thera [Multivitamin 1 tab PO DAILY 10/02/16 03/09/17 History (formulary)] Nebivolol HCl [Bystolic] 5 mg PO DAILY 10/02/16 03/09/17 History Omeprazole [PriLOSEC] 20 mg PO DAILY 10/02/16 03/09/17 History Simvastatin [Zocor] 40 mg PO HS 10/02/16 03/09/17 History ALPRAZolam [Xanax] 0.5 mg PO TID PRN 01/20/17 03/09/17 History Prochlorperazine [Compazine] 10 mg PO Q8H PRN 01/20/17 03/09/17 History Amoxicillin/Potassium Clav 1 tab PO Q12HR #20 tab 03/09/17 Rx [Augmentin 875-125 Tablet] DULoxetine HCL [Cymbalta] 20 mg PO DAILY 03/09/17 03/09/17 History HYDROcodone/APAP 10-325MG [[place] 1 tab PO Q6H PRN #20 tab 03/09/17 Rx 10-325] Lactose-Reduced Food/Fiber [Jevity 6 can PEG/G-TUBE DIRECTED 03/09/17 History 1.2 Frantz Liquid] Warfarin [Coumadin] 2.5 mg PO DAILY 03/09/17 03/09/17 History Zolpidem Tartrate [Ambien] 5 mg PO HS 03/09/17 03/09/17 History Allergies Allergy/AdvReac Type Severity Reaction Status Date / Time No Known Allergies Allergy Verified 03/09/17 12:29 Surgical - Exam Vital Signs Temp Pulse Resp BP Pulse Ox 97.0 F L 136 H 20 113/67 100 03/09/17 08:23 03/09/17 08:23 03/09/17 08:23 03/09/17 08:23 03/09/17 08:23 Results - Labs 03/09/17 09:01 03/09/17 09:01 Abnormal Lab Results - Last 24 Hours (Table) 03/09/17 03/09/17 03/09/17 Range/Units 09:01 09:01 09:01 RBC 3.53 L (4.30-5.90) m/uL Hgb 9.7 L (13.0-17.5) gm/dL Hct 29.6 L (39.0-53.0) % RDW 16.2 H (11.5-15.5) % Lymphocytes # 0.5 L (1.0-4.8) k/uL PT 19.6 H (9.0-12.0) sec INR 2.2 H (<1.2) Creatinine 0.64 L (0.66-1.25) mg/dL Glucose 156 H (74-99) mg/dL Alkaline Phosphatase 153 H (38-126) U/L Diabetes panel 03/09/17 Range/Units 09:01 Sodium 137 (137-145) mmol/L Potassium 4.1 (3.5-5.1) mmol/L Chloride 101 (98-107) mmol/L Carbon Dioxide 23 (22-30) mmol/L BUN 13 (9-20) mg/dL Creatinine 0.64 L (0.66-1.25) mg/dL Glucose 156 H (74-99) mg/dL Calcium 9.3 (8.4-10.2) mg/dL AST 30 (17-59) U/L ALT 52 (21-72) U/L Alkaline Phosphatase 153 H (38-126) U/L Total Protein 7.3 (6.3-8.2) g/dL Albumin 3.7 (3.5-5.0) g/dL Calcium panel 03/09/17 Range/Units 09:01 Calcium 9.3 (8.4-10.2) mg/dL Albumin 3.7 (3.5-5.0) g/dL Pituitary panel 03/09/17 Range/Units 09:01 Sodium 137 (137-145) mmol/L Potassium 4.1 (3.5-5.1) mmol/L Chloride 101 (98-107) mmol/L Carbon Dioxide 23 (22-30) mmol/L BUN 13 (9-20) mg/dL Creatinine 0.64 L (0.66-1.25) mg/dL Glucose 156 H (74-99) mg/dL Calcium 9.3 (8.4-10.2) mg/dL Adrenal panel 03/09/17 Range/Units 09:01 Sodium 137 (137-145) mmol/L Potassium 4.1 (3.5-5.1) mmol/L Chloride 101 (98-107) mmol/L Carbon Dioxide 23 (22-30) mmol/L BUN 13 (9-20) mg/dL Creatinine 0.64 L (0.66-1.25) mg/dL Glucose 156 H (74-99) mg/dL Calcium 9.3 (8.4-10.2) mg/dL Total Bilirubin 0.4 (0.2-1.3) mg/dL AST 30 (17-59) U/L ALT 52 (21-72) U/L Alkaline Phosphatase 153 H (38-126) U/L Total Protein 7.3 (6.3-8.2) g/dL Albumin 3.7 (3.5-5.0) g/dL - Imaging CT scan - abdomen: report reviewed, image reviewed CT scan - pelvis: report reviewed, image reviewed US - abdomen: report reviewed, image reviewed (Findings consistent with gallbladder sludge. No moderately thickened gallbladder wall or pericholecystic fluid identified.) Assessment and Plan (1) Esophageal carcinoma Current Visit: Yes Status: Acute Code(s): C15.9 - MALIGNANT NEOPLASM OF ESOPHAGUS, UNSPECIFIED SNOMED Code(s): 438472143 (2) Right upper quadrant abdominal pain Current Visit: Yes Status: Acute Code(s): R10.11 - RIGHT UPPER QUADRANT PAIN SNOMED Code(s): 503360289 (3) Anticoagulated Current Visit: Yes Status: Acute Code(s): Z79.01 - [facility] (CURRENT) USE OF ANTICOAGULANTS SNOMED Code(s): 065732211 (4) Pulmonary embolism Current Visit: Yes Status: Acute Code(s): I26.99 - OTHER PULMONARY EMBOLISM WITHOUT ACUTE COR PULMONALE SNOMED Code(s): 31224671 (5) Cholelithiasis Current Visit: Yes Status: Acute Code(s): K80.20 - CALCULUS OF GALLBLADDER W /O CHOLECYSTITIS W/O OBSTRUCTION SNOMED Code(s): 152329133
== END 2017-03-09 15:08 | disposition home or self-care (01) ==
LOC: EC 08:19
DX: K80.20 Calculus of gallbladder without cholecystitis without obstruction (principal); K21.9 Gastro-esophageal reflux disease without esophagitis; E78.5 Hyperlipidemia, unspecified; I10 Essential (primary) hypertension; C15.9 Malignant neoplasm of esophagus, unspecified; G47.30 Sleep apnea, unspecified; Z99.89 Dependence on other enabling machines and devices; F41.9 Anxiety disorder, unspecified; Z86.711 Personal history of pulmonary embolism; Z79.01 Long term (current) use of anticoagulants; Z79.899 Other long term (current) drug therapy
CPT/HCPCS: 36415; 93005; 80053; 82150; 83605; 83690; 84484; 85025; 85610; 85730; 76705; 74177; 99285; 96374; 96375; 96376 ×3; J2405; Q9967; J1170

== ENCOUNTER → 2017-09-04 | Outpatient (CLI) | payer BC ==
--- NOTE | 2017-09-04 14:56 | US ---
EXAMINATION TYPE: US venous doppler duplex LE RT DATE OF EXAM: 09/04/2017 2:26 PM COMPARISON: NONE CLINICAL HISTORY: R22.41 SWELLING OF RIGHT LOWER LIMB. hx of blood clots in right leg and lung in Dec ember. On coumadin. No surgeries. Swelling. SIDE PERFORMED: Right TECHNIQUE: The lower extremity deep venous system is examined utilizing real time linear array sonog darrius with graded compression, doppler sonography and color-flow sonography. VESSELS IMAGED: External Iliac Vein (EIV) Common Femoral Vein Deep Femoral Vein Greater Saphenous Vein * Femoral Vein Popliteal Vein Small Saphenous Vein * Proximal Calf Veins (* superficial vessels) Grayscale, color doppler, spectral doppler imaging performed of the deep veins of the lower extremity . There is normal flow, compressibility, vascular waveforms. Right Leg: Negative for DVT IMPRESSION: Negative for DVT
== END | disposition home or self-care (01) ==
LOC: RADUSWWP 13:51
PROVIDERS: ATTEND Internal Medicine Hematology & Oncology
DX: R22.41 Localized swelling, mass and lump, right lower limb (principal)

== ENCOUNTER → 2017-11-12 | Outpatient (CLI) | payer BC ==
[2017-11-12 11:20] LABS: Blood Urea Nitrogen 19 mg/dL (9-20)
--- NOTE | 2017-11-12 13:14 | CT ---
EXAMINATION TYPE: CT ChestAbdPelvis w con DATE OF EXAM: 11/12/2017 COMPARISON: Outside CT chest and abdomen July 17, 2017 and older CTs. Most recent PET/CT January 05, 2017 and older exams October 20, 2016. 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 History of chemotherapy and radiation treatment September through December [address] DLP: 1455.0 mGycm. Automated Exposure Control for Dose Reduction was Utilized. CONTRAST: CT scan of the thorax, abdomen and pelvis is performed with oral and with IV Contrast, patient inject ed with 100 mL of Isovue 300. FINDINGS: LUNGS: There is stable small right pleural effusion or pleural fluid collection there is persistent b ibasilar linear scarring and/or atelectasis most prominent in the medial aspect. No new concerning pa renchymal nodule or mass is identified. No pneumothorax is seen bilaterally. Tracheobronchial tree is patent. MEDIASTINUM: There are no greater than 1 cm hilar or mediastinal lymph nodes. No pericardial effusi on is seen. There is new right internal jugular Mediport catheter terminating before brachiocephalic confluence superior to the SVC. Just inferior to right thyroid lobe there is heterogeneous hypodense nodule measuring 1.9 x 1.5 cm on axial image 8 felt slightly diminished in size from prior CT were a ccurate measurements 2.3 x 2.1 cm image 14 series 3. There is persistent moderate to severe concentri c wall thickening in the mid to distal esophagus beginning at carinal level extending to the gastroes ophageal junction. There is moderate size hiatal hernia redemonstrated. OTHER: No additional significant abnormality is seen. LIVER/GB: Dependent density in gallbladder consistent with small stones and/or gallbladder sludge is redemonstrated. There is stable 1.0 cm lesion anteriorly in liver axial image 55 to small to further characterize but presumed benign. Slightly larger but vague hypodense lesion posterior right hepatic lobe axial image 56 is not enlarged from older CTs January 21, 2017. It measures roughly 1.8 x 1.2 cm on current exam PANCREAS: No significant abnormality is seen. SPLEEN: Stable small splenule axial image 60. ADRENALS: No significant abnormality is seen. KIDNEYS: There is single 2 mm calculus right kidney axial image 76. There are 4 2 mm calculi scattere d throughout left kidney there is symmetric cortical medullary uptake and excretion with some simple small central parapelvic cysts redemonstrated bilaterally. No hydronephrosis is seen bilaterally. BOWEL: Oral contrast reaches level of the distal transverse colon. There is no suspicious small or la rge bowel dilatation. There is interval removal of left-sided jejunostomy tube. There is mild to mode rate focal concentric wall thickening involving the proximal to mid right colon coronal image 37 over short to borderline moderate length segment. A focal colitis at this level cannot be excluded in ailyn ropriate clinical setting, correlate clinically. GENITAL ORGANS: No gross abnormality seen. LYMPH NODES: No greater than 1cm abdominal or pelvic lymph nodes are appreciated. OSSEOUS STRUCTURES: Multilevel moderate to severe spurring in the mid to lower thoracic spine is rede monstrated. There is facet arthropathy lower lumbar levels. OTHER: There is persistent large fat-containing groin hernia. IMPRESSION: Slightly suboptimal as I only have prior outside study for comparison not outside report. There is improving right anterior superior mediastinal low dense mass or suspected metastatic adeno kimberley from most recent CT. There is persistent suspicious thickening of the mid to distal esophagus i n which residual or recurrent neoplasm cannot be excluded. Liver lesions are stable or not enlarged f rom prior study. No new suspicious masses or adenopathy are noted. Possible new right-sided colitis, correlate clinically.
== END | disposition home or self-care (01) ==
LOC: RADPROMAIN 09:54
PROVIDERS: ATTEND Internal Medicine Hematology & Oncology
DX: C15.5 Malignant neoplasm of lower third of esophagus (principal); K76.9 Liver disease, unspecified
CPT/HCPCS: 82565; 84520; 71260; 74177; J1642; Q9967

== ENCOUNTER → 2017-12-11 | Outpatient (CLI) | payer BC ==
--- NOTE | 2017-12-11 11:10 | ECHOF ---
Referral Reason:C15.5 Esophageal Ca MEASUREMENTS -------- HEIGHT: 185.4 cm WEIGHT: 99.8 kg BP: RVIDd: 3.5 cm (< 3.3) IVSd: 1.1 cm (0.6 - 1.1) LVIDd: 5.3 cm (3.9 - 5.3) LVPWd: 1.3 cm (0.6 - 1.1) IVSs: 1.5 cm LVIDs: 3.8 cm LVPWs: 1.5 cm LAESV Index (A-L): 31.05 ml/m Ao Diam: 3.6 cm (2.0 - 3.7) AV Cusp: 2.1 cm (1.5 - 2.6) LA Diam: 4.6 cm (2.7 - 3.8) MV EXCURSION: 20.304 mm (> 18.000) MV EF SLOPE: 34 mm/s (70 - 150) EPSS: 0.6 cm MV E Niraj: 0.60 m/s MV DecT: 252 ms MV A Niraj: 0.66 m/s MV E/A Ratio: 0.90 RAP: 5.00 mmHg RVSP: 20.59 mmHg FINDINGS -------- Sinus rhythm. This was a technically adequate study. The left ventricular size is normal. There is borderline concentric left ventricular hypertrophy. Overall left ventricular systolic function is normal with, an EF between 55 - 60 %. The right ventricle is mildly enlarged. LA is midly dilated 29-33ml/m2. The right atrium is normal in size. Aortic valve is trileaflet and is mildly thickened. There is no evidence of aortic regurgitation. There is no evidence of aortic stenosis. The mitral valve leaflets are mildly thickened. There is trace mitral regurgitation. Trace tricuspid regurgitation present. Right ventricular systolic pressure is normal at < 35 mmHg. There is no evidence of pulmonary hypertension. The pulmonic valve was not well visualized. The aortic root size is normal. Normal inferior vena cava with normal inspiratory collapse consistent with estimated right atrial pre ssure of 5 mmHg. There is no pericardial effusion. CONCLUSIONS -------- 1. Sinus rhythm. 2. This was a technically adequate study. 3. The left ventricular size is normal. 4. There is borderline concentric left ventricular hypertrophy. 5. Overall left ventricular systolic function is normal with, an EF between 55 - 60 %. 6. The right ventricle is mildly enlarged. 7. LA is midly dilated 29-33ml/m2. 8. Aortic valve is trileaflet and is mildly thickened. 9. The mitral valve leaflets are mildly thickened. 10. There is trace mitral regurgitation. 11. Trace tricuspid regurgitation present. 12. Right ventricular systolic pressure is normal at < 35 mmHg. 13. There is no evidence of pulmonary hypertension. 14. The pulmonic valve was not well visualized. 15. The aortic root size is normal. 16. There is no pericardial effusion. CLAIMS SPECIALIST: Gómez Lowe RDCS
== END | disposition home or self-care (01) ==
LOC: RADECHMAIN 08:02
PROVIDERS: ATTEND Internal Medicine Hematology & Oncology
DX: Z01.818 Encounter for other preprocedural examination (principal); I08.3 Combined rheumatic disorders of mitral, aortic and tricuspid valves; C15.5 Malignant neoplasm of lower third of esophagus
CPT/HCPCS: 93306

== ENCOUNTER → 2018-02-19 | Outpatient (CLI) | payer MEDICARE ==
[2018-02-19 11:02] LABS: Blood Urea Nitrogen 10 mg/dL (9-20)
--- NOTE | 2018-02-19 13:08 | CT ---
EXAMINATION TYPE: CT ChestAbdPelvis w con DATE OF EXAM: 02/19/2018 COMPARISON: 11/12/2017 HISTORY: follow up to esophageal CA CT DLP: 1941 mGycm. Automated Exposure Control for Dose Reduction was Utilized. CONTRAST: CT scan of the thorax, abdomen and pelvis is performed with IV Contrast, patient injected with 100 mL of Isovue 300. FINDINGS: LUNGS: There is slight increase in size of a now moderate right pleural effusion now measuring 5.5 cm in greatest thickness. There is associated subsegmental compressive atelectasis. The lungs are gross ly clear, there is no concerning parenchymal mass or nodule identified. There is no pleural effusio n or pneumothorax seen. The tracheobronchial tree is patent. MEDIASTINUM: There is decrease in size of the previously seen superior mediastinal right paratracheal probable adenopathy currently measuring 7 mm in short axis on image 12 and previously measuring 1.5 x 1.9 cm on the exam of 11/12/2017. No other findings suspicious for mediastinal adenopathy. No axilla ry adenopathy is seen. No supraclavicular adenopathy is present. Right-sided Mediport is again noted. No cardiomegaly is identified. No pericardial effusion is seen. LIVER/GB: There are 5 hypoattenuated hepatic lesions. The largest measures 1.4 cm and appears to repr esent a hepatic cyst on image 57. Additionally on this image within the right hepatic lobe in a subca psular location there is a 1.1 x 1.7 cm ill-defined hepatic lesion. This is overall unchanged from th e prior. Other probable hepatic cysts are seen within the left hepatic lobe on image 49 through 51. PANCREAS: No significant abnormality is seen. SPLEEN: Small splenule is noted near the [place] spleen. [place] spleen is unremarkable. ADRENALS: No significant abnormality is seen. KIDNEYS: There multiple punctate nonobstructing left renal calculi and left renal lesion that is too small to accurately characterize in addition to bilateral renal sinus cysts. Solitary punctate right midpole nonobstructing renal calculus is also seen. Urinary bladder is grossly unremarkable. BOWEL: There is thickening of the mid and distal esophagus with oro measuring up to 1.1 cm dependen tly measured on image 34. There is a moderate hiatal hernia redemonstrated. Findings are overall gini lar to the prior of 11/12/2017. Retained contrast is seen within the esophagus either related to delay ed propulsion or gastroesophageal reflux. LYMPH NODES: No greater than 1cm abdominal or pelvic lymph nodes are appreciated. OSSEOUS STRUCTURES: Mild to moderate multilevel degenerative change is seen of the spine. OTHER: Again there is a large fat-containing left groin hernia. IMPRESSION: 1. Decreased size of the presumed superior mediastinal right paratracheal adenopathy previously measu ring up to 1.9 cm and now currently measuring up to 0.7 cm. 2. Stable nonspecific hepatic lesions. The left hepatic lobe lesions appear as benign cysts and a mynor itary right hepatic lobe lesion is indeterminant but again stable in size. 3. Persistent mid and distal esophageal wall thickening that could relate to esophagitis or the patie nt's known primary neoplasm. Surveillance with PET CT can be determined on a clinical basis. 4. Interval increase in the now moderate right pleural effusion and associated right basilar atelecta sis.
--- NOTE | 2018-02-21 18:44 | ECHOF ---
Referral Reason:c15.5 Esophageal Ca MEASUREMENTS -------- HEIGHT: 154.9 cm WEIGHT: 100.7 kg BP: RVIDd: 3.1 cm (< 3.3) IVSd: 0.8 cm (0.6 - 1.1) LVIDd: 3.8 cm (3.9 - 5.3) LVPWd: 1.1 cm (0.6 - 1.1) IVSs: 1.1 cm LVIDs: 3.0 cm LVPWs: 1.1 cm LAESV Index (A-L): 30.62 ml/m Ao Diam: 3.4 cm (2.0 - 3.7) AV Cusp: 2.5 cm (1.5 - 2.6) LA Diam: 3.6 cm (2.7 - 3.8) MV EXCURSION: 12.885 mm (> 18.000) MV EF SLOPE: 66 mm/s (70 - 150) EPSS: 1.0 cm RAP: 5.00 mmHg RVSP: 22.70 mmHg FINDINGS -------- Sinus rhythm. This was a technically good study. The left ventricular size is normal. Left ventricular wall thickness is normal. Overall left vent ricular systolic function is low-normal with, an EF between 50 - 55 %. The right ventricle is normal in size and function. The left atrium is normal in size. The right atrium is normal in size. The aortic valve is trileaflet and appears structurally normal. Mild mitral regurgitation is present. Mild tricuspid regurgitation present. The right ventricular systolic pressure, as measured by Doppl er, is 22.70mmHg. Pulmonic valve appears structurally normal. The aortic root size is normal. IVC Not well visulized. The pericardium is normal. CONCLUSIONS -------- 1. Sinus rhythm. 2. This was a technically good study. 3. The left ventricular size is normal. 4. Left ventricular wall thickness is normal. 5. Overall left ventricular systolic function is low-normal with, an EF between 50 - 55 %. 6. The right ventricle is normal in size and function. 7. The left atrium is normal in size. 8. The right atrium is normal in size. 9. The aortic valve is trileaflet and appears structurally normal. 10. Mild mitral regurgitation is present. 11. Mild tricuspid regurgitation present. 12. The right ventricular systolic pressure, as measured by Doppler, is 22.70mmHg. 13. Pulmonic valve appears structurally normal. 14. The aortic root size is normal. 15. IVC Not well visulized. 16. The pericardium is normal. BUSINESS DATABASE ANALYST: Violeta Guerrier RDCS
== END | disposition home or self-care (01) ==
LOC: RADPROMAIN 10:19
PROVIDERS: ATTEND Internal Medicine Hematology & Oncology
DX: C18.8 Malignant neoplasm of overlapping sites of colon (principal); K76.9 Liver disease, unspecified; J91.0 Malignant pleural effusion; J98.11 Atelectasis; I08.1 Rheumatic disorders of both mitral and tricuspid valves
CPT/HCPCS: 93306; 82565; 84520; 71260; 74177; 36415; Q9967

== ENCOUNTER → 2018-05-14 | Outpatient (CLI) | payer MEDICARE ==
[2018-05-14 11:14] LABS: Blood Urea Nitrogen 9 mg/dL (9-20)
--- NOTE | 2018-05-14 16:14 | CT ---
EXAMINATION TYPE: CT ChestAbdPelvis w con DATE OF EXAM: 05/14/2018 COMPARISON: 02/19/2018 HISTORY: Esophageal CA CT DLP: 1224.8 mGycm. Automated Exposure Control for Dose Reduction was Utilized. CONTRAST: CT scan of the thorax, abdomen and pelvis is performed with IV Contrast, patient injected with 100 mL of Isovue 300. FINDINGS: LUNGS: There is continued slight increase of the moderate right pleural effusion with scant right int erfissural fluid. Compressive atelectasis is present on the right lower lobe. Linear pleural parenchy mal scarring is seen in the right middle lobe. Atelectasis is seen medially within the lower lobe sparkle t is subsegmental. No new suspicious pulmonary mass. MEDIASTINUM: There is stable size of the superior mediastinal probable lymph node just inferior to th e right lobe of the thyroid gland measuring 6 mm, previously measuring 7 mm. This is within limitatio ns of slice selection. Right-sided Mediport is unchanged. No cardiomegaly. Coronary calcifications ar e mild. No pericardial effusion. LIVER/GB: There are again 5 hypoattenuated hepatic lesions. There is stable size of the suspicious pe ripherally arterial enhancing 1.7 cm centrally hypoattenuated liver lesion that appears to blend with background of the liver on delayed imaging. Additionally there is stable size of the left hepatic lo be cyst on image 50 with adjacent smaller probable cyst and cyst within segment Renato on image 57. No n ew suspicious hepatic lesions are seen. No intrahepatic biliary ductal dilatation. Few gallstones are seen within the gallbladder fundus. PANCREAS: Pancreatic parenchyma atrophy is present without ductal dilatation. SPLEEN: No significant abnormality is seen. Small splenules are seen adjacent to the [place] spleen. ADRENALS: No significant abnormality is seen. KIDNEYS: Punctate nonobstructing bilateral midpole renal calculi are noted in addition to bilateral r enal sinus cysts and too small to accurately characterize punctate hypoattenuated renal lesions. BOWEL: There is a partial intrathoracic stomach with persistent distal esophageal mucosal thickening measuring up to 1.1 cm. Persistent thickening of the gastric antrum and pylorus could relate to spas m or gastritis. Retained oral contrast within the esophagus is seen up to the thoracic inlet and coul d relate to delayed transit or reflux. There is new bowel wall thickening and vasa recta engorgement of the descending colon and proximal si gmoid colon such as on coronal series 8 images 34 through 48 and most pronounced on axial image 113. Given this long segment involvement colitis is a primary diagnostic consideration. LYMPH NODES: No greater than 1cm abdominal or pelvic lymph nodes are appreciated. OSSEOUS STRUCTURES: Old healed fracture deformities are seen of ribs 5, 7 and 8 on the left. No new s uspicious osseous lesion. Multilevel degenerative changes of the spine. Bridging anterior osteophytes suggesting diffuse idiopathic skeletal hyperostosis. There is also osseous demineralization within t he thoracic spine. OTHER: The left inguinal ring is patulous and fat filled. IMPRESSION: 1. Stable size of the presumed superior mediastinal right paratracheal adenopathy measuring 1.9 cm on the exam of 11/12/2017 and currently measuring 7 mm (also measuring 7 mm on the exam of 02/19/2018). 2. Continued stability of the nonspecific hepatic lesions few which appears simple cysts. 3. Redemonstration of mid to distal esophageal wall thickening and partial intrathoracic stomach gini lar to the prior with pyloric esophageal spasm or gastritis. Of note oral contrast is seen up to the thoracic inlet in this patient is at risk for aspiration. 4. Continued slight interval increase of the moderate right pleural effusion with associated right-si ded compressive atelectasis.
--- NOTE | 2018-05-15 12:24 | ECHOF ---
Referral Reason:C15.5, Z01.818 MEASUREMENTS -------- HEIGHT: 186.7 cm WEIGHT: 100.7 kg BP: 104/68 RVIDd: 3.3 cm (< 3.3) IVSd: 1.2 cm (0.6 - 1.1) LVIDd: 4.3 cm (3.9 - 5.3) LVPWd: 1.2 cm (0.6 - 1.1) IVSs: 1.5 cm LVIDs: 3.4 cm LVPWs: 1.4 cm LA Diam: 3.2 cm (2.7 - 3.8) LAESV Index (A-L): 27.57 ml/m Ao Diam: 3.9 cm (2.0 - 3.7) AV Cusp: 2.6 cm (1.5 - 2.6) MV EXCURSION: 18.395 mm (> 18.000) MV EF SLOPE: 46 mm/s (70 - 150) EPSS: 0.9 cm MV E Niraj: 0.51 m/s MV DecT: 199 ms MV A Niraj: 0.67 m/s MV E/A Ratio: 0.76 RAP: 5.00 mmHg RVSP: 21.70 mmHg FINDINGS -------- Sinus rhythm. This was a technically adequate study. The left ventricular size is normal. There is borderline concentric left ventricular hypertrophy. Overall left ventricular systolic function is mildly impaired with, an EF between 45 - 50 %. The right ventricle is mildly enlarged. Normal LA size by volume 22+/-6 ml/m2. The right atrium is normal in size. The aortic valve is trileaflet and appears structurally normal. Mild mitral annular calcification present. Mild tricuspid regurgitation present. Right ventricular systolic pressure is normal at < 35 mmHg. Trace/mild (physiologic) pulmonic regurgitation. The aortic root is dilated measuring 3.9cm. IVC Not well visulized. There is no pericardial effusion. CONCLUSIONS -------- 1. Sinus rhythm. 2. This was a technically adequate study. 3. The left ventricular size is normal. 4. There is borderline concentric left ventricular hypertrophy. 5. Overall left ventricular systolic function is mildly impaired with, an EF between 45 - 50 %. 6. The right ventricle is mildly enlarged. 7. Normal LA size by volume 22+/-6 ml/m2. 8. The right atrium is normal in size. 9. The aortic valve is trileaflet and appears structurally normal. 10. Mild mitral annular calcification present. 11. Mild tricuspid regurgitation present. 12. Right ventricular systolic pressure is normal at < 35 mmHg. 13. Trace/mild (physiologic) pulmonic regurgitation. 14. The aortic root is dilated measuring 3.9cm. 15. IVC Not well visulized. 16. There is no pericardial effusion. EMERGENCY RESPONSE TECHNICIAN: Stacie Hawthorne RDCS
== END ==
LOC: RADPROMAIN 10:09
PROVIDERS: ATTEND Internal Medicine Hematology & Oncology
DX: K76.89 Other specified diseases of liver (principal); K22.4 Dyskinesia of esophagus; J90 Pleural effusion, not elsewhere classified; C15.5 Malignant neoplasm of lower third of esophagus
CPT/HCPCS: 93306; 82565; 84520; 71260; 74177; J1642; Q9967

== ENCOUNTER → 2018-05-23 | Outpatient (CLI) | payer MEDICARE ==
--- NOTE | 2018-05-23 07:42 | MR ---
EXAMINATION TYPE: MR thoracic spine wo/w con DATE OF EXAM: 05/23/2018 COMPARISON: CT chest abdomen and pelvis May 14, 2018 and older CTs. HISTORY: ESOPHOGEAL CANCER, BACK PAIN for 3 months. TECHNIQUE: Multiplanar, multisequence imaging of thoracic spine is performed without and with IV cont rast, patient is injected with 10 cc of gadolinium this. FINDINGS: Spinal cord shows normal course, caliber, and signal as it courses the thoracic spine. Henry tebral body heights and alignment are satisfactory. There is diffuse diminished T1 signal with enhanc ement through the T8 vertebra as well as also involving superior half of the T9 vertebra. There is ar ea of linear diminished T1 signal through the T8 vertebra sagittal image 8. Disc space heights are fa irly well-maintained. Posterior disc herniation T2-T3 level mildly effaces the anterior thecal sac sa gittal imaging 8. Mild multilevel anterior spurring mid to lower thoracic spine is present. Review of the axial images confirms left paracentral disc protrusion and annular tear at T2-T3 level effacing the anterior thecal sac axial image 12 series 701. There is tiny left paracentral disc protrusion effacing the anterior thecal sac at T6-T7 level on axi al image 25 series 601. Review of axial images shows no definitive adjacent soft tissue mass or cortical destruction. There i s overall increased T1 signal of adjacent superior vertebra likely reflecting posttreatment change. N o suspicious disc enhancement is seen to suggest infection or discitis. There is persistent fairly moderate-sized right pleural effusion likely enlarging. Suspect endotrache al mucus axial image 18 near the thoracic inlet. Concentric thickening of esophagus likely correspond s to known neoplasm near level of left atrium. IMPRESSION: Presence of linear signal through the T8 vertebra suggests acute/subacute fracture at thi s level with edema and enhancement. There is additional edema and enhancement involving superior por tion of the T9 vertebra. Adjacent posttreatment change to vertebra above T8 level noted. Pathologic f racture not excluded but felt less likely given no adjacent soft tissue mass and the area of involvem ent is at peak of thoracic curvature. There is no convincing evidence of other areas of abnormal bone marrow signal also noted. No posterior retropulsion is seen. Findings can be correlated with PET/CT or bone scan to ensure no additional osseous lesions which would then favor pathologic fracture.
== END | disposition home or self-care (01) ==
LOC: RADMRIMAIN 06:06
PROVIDERS: ATTEND Internal Medicine Hematology & Oncology
DX: M48.8X4 Other specified spondylopathies, thoracic region (principal); M54.5 Low back pain; C15.5 Malignant neoplasm of lower third of esophagus
CPT/HCPCS: 72157; A9585

== ENCOUNTER → 2018-07-31 | Outpatient (CLI) | payer MEDICARE ==
--- NOTE | 2018-08-01 18:24 | ECHOF ---
Referral Reason:C15.5 Esophageal Cancer,Z01.818 Chemo MEASUREMENTS -------- HEIGHT: 185.4 cm WEIGHT: 98.0 kg BP: RVIDd: 4.0 cm (< 3.3) IVSd: 1.2 cm (0.6 - 1.1) LVIDd: 5.0 cm (3.9 - 5.3) LVPWd: 1.2 cm (0.6 - 1.1) IVSs: 1.7 cm LVIDs: 3.5 cm LVPWs: 1.7 cm LAESV Index (A-L): 21.99 ml/m Ao Diam: 4.0 cm (2.0 - 3.7) AV Cusp: 2.9 cm (1.5 - 2.6) LA Diam: 4.8 cm (2.7 - 3.8) MV EXCURSION: 20.651 mm (> 18.000) MV EF SLOPE: 117 mm/s (70 - 150) EPSS: 1.1 cm MV E Niraj: 0.58 m/s MV DecT: 197 ms MV A Niraj: 0.90 m/s MV E/A Ratio: 0.65 RAP: 5.00 mmHg RVSP: 22.84 mmHg FINDINGS -------- Sinus rhythm. This was a technically adequate study. The left ventricular size is normal. There is mild concentric left ventricular hypertrophy. Overa ll left ventricular systolic function is low-normal with, an EF between 50 - 55 %. The right ventricle is moderately enlarged. Normal LA size by volume 22+/-6 ml/m2. RA appears enlarged. Interatrial and interventricular septum intact. The aortic valve is trileaflet, and appears structurally normal. No aortic stenosis or regurgitation. The mitral valve leaflets are mildly thickened. Mild mitral regurgitation is present. Mild tricuspid regurgitation present. There is no evidence of pulmonary hypertension. The right v entricular systolic pressure, as measured by Doppler, is 22.84mmHg. There is no pulmonic regurgitation present. The aortic root size is normal. IVC Not well visulized. There is no pericardial effusion. CONCLUSIONS -------- 1. Sinus rhythm. 2. This was a technically adequate study. 3. The left ventricular size is normal. 4. There is mild concentric left ventricular hypertrophy. 5. Overall left ventricular systolic function is low-normal with, an EF between 50 - 55 %. 6. The right ventricle is moderately enlarged. 7. Normal LA size by volume 22+/-6 ml/m2. 8. RA appears enlarged. 9. The aortic valve is trileaflet, and appears structurally normal. No aortic stenosis or regurgitati on. 10. The mitral valve leaflets are mildly thickened. 11. Mild mitral regurgitation is present. 12. Mild tricuspid regurgitation present. 13. There is no evidence of pulmonary hypertension. 14. There is no pulmonic regurgitation present. 15. IVC Not well visulized. 16. There is no pericardial effusion. REED CLEANER: Violeta Guerrier RDCS
== END | disposition home or self-care (01) ==
LOC: RADECHMAIN 12:21
PROVIDERS: ATTEND Internal Medicine Hematology & Oncology
DX: Z01.818 Encounter for other preprocedural examination (principal); I08.1 Rheumatic disorders of both mitral and tricuspid valves; C15.5 Malignant neoplasm of lower third of esophagus
CPT/HCPCS: 93306

== ENCOUNTER → 2018-08-04 | Outpatient (CLI) | payer MEDICARE ==
[2018-08-04 13:25] LABS: African American GFR (CKD) >90 (>60 ml/min/1.73 sqM); Blood Urea Nitrogen 15 mg/dL (9-20)
--- NOTE | 2018-08-04 16:03 | CT ---
EXAMINATION TYPE: CT ChestAbdPelvis w con DATE OF EXAM: 08/04/2018 COMPARISON: CT chest abdomen and pelvis May 14, 2018 and older CTs. Prior PET CTs back through Oct HISTORY: Follow up esophageal CA. CT DLP: 1013.9 mGycm. Automated Exposure Control for Dose Reduction was Utilized. CONTRAST: CT scan of the thorax, abdomen and pelvis is performed with oral and with IV Contrast, patient inject ed with 100 mL of Isovue 300. FINDINGS: LUNGS: Small to moderate-sized right pleural effusion felt stable with associated compressive atelect asis in the right lung base. No left-sided effusion. No suspicious new nodules or masses. MEDIASTINUM: There are no greater than 1 cm hilar or mediastinal lymph nodes. No cardiomegaly or pe ricardial effusion is seen. Persistent moderate concentric wall thickening consistent with neoplasm m id thorax beginning above vitaliy axial image 21 extending nearly to level of fixed moderate size hiat al hernia shows more prominent superior extension on current study. OTHER: Stable right internal jugular Mediport catheter terminating before brachiocephalic confluence with some internal jugular coiling. LIVER/GB: Dependent small gallstones and gallbladder are redemonstrated. Fairly stable nodular rim-en hancing lesion in periphery right hepatic lobe axial image 55 favoring hemangioma. PANCREAS: Stable mild generalized atrophy. SPLEEN: Small splenule inferior aspect of spleen axial image 60 is redemonstrated. ADRENALS: No significant abnormality is seen. KIDNEYS: Central simple appearing parapelvic cysts are redemonstrated bilaterally. Small bilateral re nal calculi are again seen more numerous than left kidney versus right kidney. No hydronephrosis is e vident bilaterally. Stable right-sided phlebolith. BOWEL: No significant abnormality is seen. GENITAL ORGANS: No gross abnormality seen. LYMPH NODES: No greater than 1cm abdominal or pelvic lymph nodes are appreciated. OSSEOUS STRUCTURES: Redemonstration of old healed posterior left mid rib fractures. Large bridging os teophytes in thoracic spine are redemonstrated. There is new suspicious sclerosis and lucent lesions involving several thoracic vertebra with diffuse sclerosis centered involving the posterior T8 and mo re diffusely the T9 vertebra. Developing osseous metastatic disease needs to BE considered. Correlate clinically with PET/CT if desired. OTHER: Large fat-containing left inguinal hernia remains present. Stable small fat-containing umbilic al hernia axial image 89. IMPRESSION: Cannot rule out developing osseous metastatic disease. Correlate clinically with PET/CT if desired. Increasing proximal extension of wall thickening in the mid to distal esophagus is sugges tive of local neoplastic progression.
== END | disposition home or self-care (01) ==
LOC: RADPROMAIN 12:40
PROVIDERS: ATTEND Internal Medicine Hematology & Oncology
DX: Z03.89 Encounter for observation for other suspected diseases and conditions ruled out (principal); C15.5 Malignant neoplasm of lower third of esophagus
CPT/HCPCS: 82565; 84520; 36415; 71260; 74177; J1642; Q9967

== ENCOUNTER → 2018-11-11 | Outpatient (CLI) | payer MEDICARE ==
[2018-11-11 11:47] LABS: African American GFR (CKD) >90 (>60 ml/min/1.73 sqM); Blood Urea Nitrogen 15 mg/dL (9-20)
--- NOTE | 2018-11-11 12:33 | ECHOF ---
Referral Reason:C15.5 Malignant neoplasm of lower third of esophag MEASUREMENTS -------- HEIGHT: 186.2 cm WEIGHT: 95.7 kg BP: 139/89 RVIDd: 3.4 cm (< 3.3) IVSd: 1.0 cm (0.6 - 1.1) LVIDd: 4.4 cm (3.9 - 5.3) LVPWd: 1.0 cm (0.6 - 1.1) IVSs: 1.6 cm LVIDs: 3.0 cm LVPWs: 1.8 cm LA Diam: 3.1 cm (2.7 - 3.8) LAESV Index (A-L): 28.01 ml/m Ao Diam: 3.8 cm (2.0 - 3.7) AV Cusp: 2.4 cm (1.5 - 2.6) MV EXCURSION: 18.395 mm (> 18.000) MV EF SLOPE: 47 mm/s (70 - 150) EPSS: 0.8 cm MV E Niraj: 0.48 m/s MV DecT: 324 ms MV A Niraj: 0.66 m/s MV E/A Ratio: 0.73 RAP: 5.00 mmHg RVSP: 24.93 mmHg TAPSE: 23.82 mm FINDINGS -------- Sinus rhythm. This was a technically adequate study. The left ventricular size is normal. Left ventricular wall thickness is normal. Overall left vent ricular systolic function is low-normal with, an EF between 50 - 55 %. The diastolic filling patter n indicates impaired relaxation 10.78. The right ventricle is mildly enlarged. Normal LA size by volume 22+/-6 ml/m2. The right atrial size is normal. Interatrial and interventricular septum intact. The aortic valve is trileaflet, and appears structurally normal. No aortic stenosis or regurgitation. The mitral valve is normal. Mild mitral regurgitation is present. The tricuspid valve appears structurally normal. Trace tricuspid regurgitation present. There is no evidence of pulmonary hypertension. Trace/mild (physiologic) pulmonic regurgitation. The aortic root is dilated measuring 3.8cm. IVC Not well visulized. There is no pericardial effusion. CONCLUSIONS -------- 1. Sinus rhythm. 2. This was a technically adequate study. 3. The left ventricular size is normal. 4. Left ventricular wall thickness is normal. 5. Overall left ventricular systolic function is low-normal with, an EF between 50 - 55 %. 6. The diastolic filling pattern indicates impaired relaxation 10.78.. 7. The right ventricle is mildly enlarged. 8. Normal LA size by volume 22+/-6 ml/m2. 9. The aortic valve is trileaflet, and appears structurally normal. No aortic stenosis or regurgitati on. 10. Mild mitral regurgitation is present. 11. Trace tricuspid regurgitation present. 12. There is no evidence of pulmonary hypertension. 13. Trace/mild (physiologic) pulmonic regurgitation. 14. The aortic root is dilated measuring 3.8cm. 15. IVC Not well visulized. 16. There is no pericardial effusion. LINUX SYSTEMS ENGINEER: Stacie Hawthorne RDCS
--- NOTE | 2018-11-11 13:42 | CT ---
EXAMINATION TYPE: CT ChestAbdPelvis w con DATE OF EXAM: 11/11/2018 COMPARISON: 08/04/2018 and 05/14/2018 HISTORY: 63-year-old male malignant neoplasm of the lower third of esophagus TECHNIQUE: Contiguous axial scanning of the chest, abdomen, and pelvis performed with IV Contrast, pa tient injected with 100 mL of Isovue 300. Delayed images through the kidneys were obtained. Coronal/s agittal reconstructions performed. CT DLP: 150.8 mGycm Automated exposure control for dose reduction was used. FINDINGS: Chest: Heart size without pericardial effusion. Mildly ectatic ascending aorta at 3.7 cm. Conventional arch vessel branching anatomy. Right anterior chest wall injection port with catheter tip looped in the right neck and tip at the lo wer right brachiocephalic vein. No thoracic lymphadenopathy by CT size criteria. There is a moderate-sized hiatal hernia with moderate to moderate to severe circumferential wall thic kening of the distal third thoracic esophagus with wall thickening measuring up to 1.4 cm, relatively similar to 08/04/2018 is slightly increased from 05/14/2018. Some retained oral contrast is present wi thin the mid thoracic esophagus. No thoracic lymphadenopathy by CT size criteria. There is persistent moderate-sized right pleural effusion with adjacent atelectasis. Strandy atelecta sis posterior left mid and lower lung and also within the basilar right middle lobe. ABDOMEN: Hypodense hepatic lesions within the left liver dome measuring up to 1.3 cm are unchanged. Additional 1.8 cm lesion peripheral right liver lobe, axial image 61 show some nodular enhancement along the ma rgin and is overall unchanged from 05/14/2018, likely hemangioma. Tiny layering gallstones within the nondistended gallbladder. Portal venous system is patent. No bili smita ductal dilatation. Adrenal glands, spleen, atrophic pancreas show no gross abnormality. 4 mm nonobstructive right lower pole renal calculus and a couple 3 mm nonobstructive calculi in the l eft kidney. No dilated small bowel, free fluid, or free air. A loop of left upper abdominal jejunum shows circumf erential wall thickening, axial 67. No mesenteric or retroperitoneal lymphadenopathy. Mild overall stool burden. No pericolonic inflammatory change. Pelvis: There seems to be a moderate-sized fat-containing left direct inguinal hernia measuring about 5.9 cm wide and extending up into the upper scrotum. Bladder urine distended. Prostate gland enlargement 5.5 cm wide. A few pelvic phleboliths. No abnormal fluid collection in the pelvis are pelvic lymphadenop athy. Some venous ectasia noted along the anteromedial right upper thigh. Bones: Mild degenerative changes of the hips. Facet arthropathy mid to lower lumbar spine. Changes of DISH a re demonstrated throughout the thoracic spine. Accentuated lower thoracic kyphosis. Persistent horizontally oriented fracture lucency seen at T8 vertebral body. No retropulsion into the spinal canal. Normal variant sternal foramina. IMPRESSION: 1. STABLE MODERATE-SIZED HIATAL HERNIA AND MODERATE CIRCUMFERENTIAL WALL THICKENING OF THE DISTAL THI RD THORACIC ESOPHAGUS RELATIVELY SIMILAR TO 08/04/2018 BUT INCREASED FROM 05/14/2018. FINDINGS PROBABLY REPRESENT POSTTREATMENT CHANGE. CONTINUED FOLLOW-UP RECOMMENDED TO EXCLUDE RECURRENCE. THE DEGREE OF THICKENING CONTINUES TO NARROW THE LUMEN AND MAY CAUSE A MILD RELATIVE OBSTRUCTION. 2. NONSPECIFIC HEPATIC LESIONS ARE STABLE, IN THE LEFT HEPATIC DOME SUSPECTED TO REPRESENT CYSTS AND IN THE RIGHT LOBE LIKELY REPRESENTING A HEMANGIOMA. 3. PERSISTENT HORIZONTALLY ORIENTED FRACTURE LINE ACROSS THE T8 VERTEBRAL BODY ON A BACKGROUND OF DIS H. THIS COULD BE A SITE OF PATHOLOGIC FRACTURE RELATED TO PRIOR RADIATION PORT. CLINICALLY CORRELATE. IN THE SETTING OF PRIOR RADIATION PORT, PATHOLOGIC FRACTURE RELATED TO OSSEOUS METASTATIC DISEASE WO ULD BE UNLIKELY. NOTE THAT THE FRACTURE HAS NOT HEALED. 4. CHOLELITHIASIS, NONOBSTRUCTIVE RENAL CALCULI, AND A MODERATE-SIZED FAT-CONTAINING LEFT DIRECT INGU INAL HERNIA. 5. RIGHT ANTERIOR CHEST WALL INJECTION PORT. THE CATHETER REMAINS LOOPED IN THE NECK AND TIP IN THE L OWER RIGHT BRACHIOCEPHALIC VEIN.
== END | disposition home or self-care (01) ==
LOC: RADPROMAIN 10:15
PROVIDERS: ATTEND Internal Medicine Hematology & Oncology
DX: Z01.818 Encounter for other preprocedural examination (principal); K76.89 Other specified diseases of liver; K80.20 Calculus of gallbladder without cholecystitis without obstruction; N20.0 Calculus of kidney; K40.90 Unilateral inguinal hernia, without obstruction or gangrene, not specified as recurrent; K44.9 Diaphragmatic hernia without obstruction or gangrene; C15.5 Malignant neoplasm of lower third of esophagus; I08.1 Rheumatic disorders of both mitral and tricuspid valves; I08.8 Other rheumatic multiple valve diseases
CPT/HCPCS: 93306; 82565; 84520; 71260; 74177; 36415; J1642; Q9967 ×2

== ENCOUNTER 2018-11-17 17:45 | Emergency (ER) | payer MEDICARE ==
[2018-11-17 17:55] VITALS: RESP 18
--- NOTE | 2018-11-17 19:30 | ED ---
General Adult HPI - General Chief complaint: Skin/Abscess/Foreign Body Stated complaint: esophageal cancer/food in esophagus Time Seen by Provider: 11/17/18 18:00 Source: patient, RN notes reviewed Mode of arrival: ambulatory Limitations: no limitations - History of Present Illness Initial comments: This is a 63-year-old male who presents emergency Department with a past history of esophageal cancer for which she has been treated with radiation and chemotherapy. Patient states he is still on Herceptin patient states that once today he was eating some rice with a little bit every and he states he chewed it well and swallowed it and ever since then he's been unable to swallow saliva or water. Patient denies any discomfort patient denies any difficult breathing or shortness of breath. Patient states this has happened in the past but usually after couple hours to pass. Patient states today he has not yet passed. Patient has no other complaints at this time. - Related Data Home Medications Medication Instructions Recorded Confirmed Flecainide Acetate [Tambocor] 100 mg PO BID 10/02/16 11/17/18 Nebivolol HCl [Bystolic] 5 mg PO DAILY 10/02/16 11/17/18 Omeprazole [PriLOSEC] 20 mg PO BID 10/02/16 11/17/18 Simvastatin [Zocor] 40 mg PO HS 10/02/16 11/17/18 ALPRAZolam [Xanax] 0.5 mg PO HS PRN 01/20/17 11/17/18 DULoxetine HCL [Cymbalta] 20 mg PO DAILY 03/09/17 11/17/18 Apixaban [Eliquis] 5 mg PO BID 11/17/18 11/17/18 Allergies Allergy/AdvReac Type Severity Reaction Status Date / Time No Known Allergies Allergy Verified 11/17/18 19:36 Review of Systems ROS Statement: Those systems with pertinent positive or pertinent negative responses have been documented in the HPI. ROS Other: All systems not noted in ROS Statement are negative. Past Medical History Past Medical History: Cancer, GERD/Reflux, Hyperlipidemia, Hypertension, Sleep Apnea/CPAP/BIPAP, Supraventricular Tachycardia (SVT) Additional Past Medical History / Comment(s): no cpap used, diff swallowing, esophagial cancer History of Any Multi-Drug Resistant Organisms: None Reported Past Surgical History: Cardiac Ablation, Hernia Repair Additional Past Surgical History / Comment(s): sivakumar inguinal hernia, vasectomy, PEG tube placement and removal Past Anesthesia/Blood Transfusion Reactions: No Reported Reaction Past Psychological History: Anxiety Smoking Status: Never smoker Past Alcohol Use History: None Reported Past Drug Use History: None Reported - Past Family History Mother Family Medical History: Cancer General Exam - General Exam Comments Initial Comments: GENERAL: Patient is well-developed and well-nourished. Patient is nontoxic and well- hydrated and is in mild distress. PULMONARY: Unlabored respirations. Good breath sounds bilaterally. No audible rales rhonchi or wheezing was noted. CARDIOVASCULAR: There is a regular rate and rhythm without any murmurs gallops or rubs. SKIN: Skin is clear with no lesions or rashes and otherwise unremarkable. NEUROLOGIC: Patient is alert and oriented x3. Cranial nerves II through XII are grossly intact. MUSCULOSKELETAL: Normal extremities with adequate strength and full range of motion. PSYCHIATRIC: Normal psychiatric evaluation. Limitations: no limitations Course Vital Signs 11/17/18 17:52 Temperature 97.8 F Pulse Rate 80 Respiratory 18 Rate Blood Pressure 131/84 O2 Sat by Pulse 98 Oximetry Medical Decision Making - Medical Decision Making I spoke with Dr. Lau immediately after seeing the patient and she agreed to come in and do an endoscopy and the patient Dr. Lau came in and remove some fluid from the esophagus and slightly dilated esophagus. After this she stated that the patient could swallow water he can follow-up with her as an outpatient. Patient was able to swallow water without problem. Family is comfortable with this and will follow-up with Dr. Lau Disposition Clinical Impression: Esophageal stricture Disposition: HOME SELF-CARE Condition: Good Instructions (If sedation given, give patient instructions): Esophageal Stricture (ED) Is patient prescribed a controlled substance at d/c from ED?: No Referrals: Sallie Lau MD [STAFF PHYSICIAN] - 1-2 days Time of Disposition: 22:11
[2018-11-17] MEDS ORDERED: PROPOFOL 10 MG/ML 20 ML VIAL IV ONE (20:30)
[2018-11-17] MEDS ORDERED: LIDOCAINE 1% INJ 10MG/ML (20 ML MDV) ONE (20:30)
[2018-11-17] MEDS ORDERED: SODIUM CHLORIDE 0.9% 1,000 ML IV ONE (20:40)
[2018-11-17 22:47] VITALS: BP 147/85; PULSE 65; TEMP 97.9
--- NOTE | 2018-11-18 06:23 | PCN ---
PROCEDURE NOTE DATE OF SERVICE: 11/17/2018 REQUESTING PHYSICIAN: and Dr. Durham. BRIEF HISTORY: The patient is a 63-year-old pleasant white male who was diagnosed with esophageal cancer 2 years ago. He is status post chemo and radiation therapy and presently being followed by on an outpatient basis. He had developed radiation induced esophageal stricture and has been taking small bites for the last 1 year. He had a piece of Mong[place]ian food with chicken and peas and could not swallow any further. Came to the emergency room and hence he was scheduled for an upper endoscopy for foreign body removal. PROCEDURE PERFORMED: EGD with foreign body removal. PREOPERATIVE DIAGNOSIS: 1. Acute food impaction. 2. History of esophageal cancer, status post radiation and chemotherapy 18 months ago. ANESTHESIA: IV sedation per anesthesia. DESCRIPTION OF PROCEDURE: After informed consent was obtained from the patient, the procedure was performed in the emergency room at the bedside. The Olympus GF180 video endoscope was inserted into the mouth and esophagus intubated without any difficulty and was gradually advanced to the distal esophagus. At 35 cm from the incisors, there was an esophageal stricture identified and there was a piece of meat and pea identified in the stricture. Using forceps, I was able to extract the pea. Following that, there was a small piece of meat that was impacted in the esophagus, but because of the esophageal stricture the scope could not be advanced any further. Using forceps as well as biopsy forceps, I tried to remove the rest of the food impaction, but at this time there was significant oozing noted because of the Eliquis the patient has been on for history of atrial fibrillation. I tried to remove the piece of meat with the biopsy forceps and as I continued to do it there was more oozing identified and hence at one point I had to stop the procedure because there was no adequate visualization. I was able to pass the biopsy forceps into the stomach without any resistance. At this time, I terminated the procedure and the patient tolerated the procedure well. IMPRESSION: 1. Distal esophageal radiation induced stricture with meat impaction, status post partial removal as described above. 2. Scope could not be advanced beyond the stricture. RECOMMENDATIONS: Findings of this examination were discussed with the patient's family as well as with Dr. Moore. After recovery, the patient can be given liquids and if he is able to swallow without difficulty, he can be discharged home. However, if he is not able to swallow any liquids, he needs to be admitted to the hospital for close observation and plan I will repeat upper endoscopy in 48 hours after the Eliquis is stopped. If he goes home, he was advised to follow up with Dr. Durham for repeat EGD with dilation in the near future. MMADWOA / CODIN: [id number] /
== END 2018-11-17 22:46 | disposition home or self-care (01) ==
LOC: EC 17:45
DX: K22.2 Esophageal obstruction (principal); K21.9 Gastro-esophageal reflux disease without esophagitis; E78.5 Hyperlipidemia, unspecified; I10 Essential (primary) hypertension; F41.9 Anxiety disorder, unspecified; Z79.01 Long term (current) use of anticoagulants; Z79.899 Other long term (current) drug therapy; Z85.01 Personal history of malignant neoplasm of esophagus; Z92.21 Personal history of antineoplastic chemotherapy; Z92.3 Personal history of irradiation; Z86.79 Personal history of other diseases of the circulatory system
CPT/HCPCS: 99284; 44799; J2001; J2704

== ENCOUNTER → 2018-11-19 | Day surgery (SDC) | payer MEDICARE ==
[2018-11-18 14:22] VITALS: BMI 27.8
[~2018-11-19] MED LIST changes: +LACTATED RINGERS 1,000 ML IV ONE; -LACTATED RINGERS 1,000 ML IV SCH; +LIDOCAINE 1% 20 ML VIAL (10MG/ML) FOR IV START INTRADERMA ONE; +LIDOCAINE 1% INJ 10MG/ML (20 ML MDV) ONE; +PROPOFOL 10 MG/ML 20 ML VIAL IV ONE
[2018-11-19 13:03] VITALS: RESP 16; TEMP 98.1
--- NOTE | 2018-11-19 14:06 | P.PCN ---
Date of Procedure: 11/19/18 Procedure(s) Performed: BRIEF HISTORY: Patient is a 63-year-old, pleasant, white male with history of distal esophageal adenocarcinoma diagnosed in 2017 status post chemoradiation therapy and presently on maintenance chemotherapy. He follows with . He came to the emergency room 2 days ago with acute food impaction. He was on a eliquis fpr DVT. He underwent an emergency upper endoscopy And was noted to have a tight distal esophageal stricture with a small piece of the impacted in the stricture that was removed. However was unable to advance the scope through the stricture and because of patient being on There was significant bleeding noted. Hence the patient is scheduled for repeat upper endoscopy with possible dilation today and he has been is 2 days.. PROCEDURE PERFORMED: Esophagogastroduodenoscopy With balloon dilation and biopsy. PREOPERATIVE DIAGNOSIS:Dysphagia/distal esophageal stricture]. IV sedation per anesthesia. PROCEDURE: After informed consent was obtained, the patient was brought into the endoscopy unit. IV sedation was administered by Anesthesia under continuous monitoring. Initially the Olympus GIF-140 video endoscope was inserted into the mouth. Esophagus intubated without any difficulty. It was gradually advanced into thedistal esophagus and there was a tight stricture identified in the scope could not be advanced further. At this time I proceeded with a balloon dilation using 8 and 9 mm TTS balloon for 30 seconds. Following this with some pressure I was able to advance the scope to the stomach and duodenum and carefully examined. The bulb and the second part of the duodenum appeared normal. The scope at this time was withdrawn to the stomach, adequately insufflated with air, and upon careful examination, mucosa of the antrum, body, cardia and the fundus appeared normal. The scope was then withdrawn into the esophagus. Moderate size hiatal hernia noted. The GE junction was located at 39 cm from the incisors. in the distal esophageal stricture extending from 35-39 cm from the incisors and the mucosa appeared extremely friable with exudate and biopsies were done to evaluate for recurrent neoplasm. The rest of the esophagus appeared normal and the patient tolerated the procedure well. IMPRESSION: 1. Distal esophageal stricture extending from 35-40 cm with severe friable mucosa and some exudates suspicious for recurrent neoplasm/radiation-induced stricture , status post balloon dilation using 8-9 mm TTS balloon as described above. 2. Moderate size hiatal hernia RECOMMENDATIONS: The findings of this examination were discussed with the patientas well as his family. He will remain on a clear liquid diet today. He can resume Eliquis tomorrow.
[2018-11-19 14:24] VITALS: BP 123/88; PULSE 64
== END | disposition home or self-care (01) ==
LOC: ORWHC2ENDO 12:12
PROVIDERS: ATTEND Internal Medicine Gastroenterology
DX: K22.2 Esophageal obstruction (principal); C15.5 Malignant neoplasm of lower third of esophagus; Z92.21 Personal history of antineoplastic chemotherapy; Z92.3 Personal history of irradiation; I10 Essential (primary) hypertension; F32.9 Major depressive disorder, single episode, unspecified; F41.9 Anxiety disorder, unspecified; Z79.899 Other long term (current) drug therapy
CPT/HCPCS: 88305; 88312; 43239; 43249; J2001; J2704; C1726

== ENCOUNTER 2019-01-02 13:21 | Day surgery (SDC) | payer MEDICARE ==
[2018-12-31 11:11] VITALS: BMI 27.1
[~2019-01-02 13:21] MED LIST changes: -LACTATED RINGERS 1,000 ML IV ONE; -LIDOCAINE 1% 20 ML VIAL (10MG/ML) FOR IV START INTRADERMA ONE; +LIDOCAINE 1% 20 ML VIAL (10MG/ML) FOR IV START INTRADERMA PRN; -LIDOCAINE 1% INJ 10MG/ML (20 ML MDV) ONE; -PROPOFOL 10 MG/ML 20 ML VIAL IV ONE
[2019-01-02 14:25] VITALS: RESP 16; TEMP 97.8
[2019-01-02] MEDS ORDERED: LIDOCAINE 1% 20 ML VIAL (10MG/ML) FOR IV START SQ ONE (14:27)
[2019-01-02] MEDS: LACTATED RINGERS 1,000 ML IV SCH ×2 (14:27→15:28)
[2019-01-02 14:32] LABS: Glucose,Whole Blood 93 mg/dL (75-99)
[2019-01-02] MEDS ORDERED: PROPOFOL 10 MG/ML 20 ML VIAL IV ONE (15:30)
[2019-01-02] MEDS ORDERED: LIDOCAINE 1% INJ 10MG/ML (20 ML MDV) ONE (15:30)
--- NOTE | 2019-01-02 15:47 | P.PCN ---
Date of Procedure: 01/02/19 Procedure(s) Performed: BRIEF HISTORY: Patient is a 63-year-old, pleasant, male, scheduled for an upper endoscopy with dilation of progressive dysphagia to solids for the last 3 weeks' duration. Patient was diagnosed with distal esophageal adenocarcinoma in 2016, status post radiation and chemotherapy followed by maintenance chemotherapy presently and follows with . He had an upper endoscopy with dilation in November 2018 which revealed a tight distal esophageal stricture with friable mucosa that was dilated from 10-12 mm balloon following which she did well for a few weeks. Now has been having progressive dysphagia and has been only able to tolerate liquids. His and scheduled for repeat upper endoscopy with possible dilation today. PROCEDURE PERFORMED: Esophagoscopy with dilation and biopsy. PREOPERATIVE DIAGNOSIS: Progressive dysphagia to solids. IV sedation per anesthesia. PROCEDURE: After informed consent was obtained, the patient was brought into the endoscopy unit. IV sedation was administered by Anesthesia under continuous monitoring. Initially the Olympus GIF-140 video endoscope was inserted into the mouth. Esophagus intubated without any difficulty. It was gradually advanced into the distal esophagus. There was large amount of thick liquid food retained in the esophagus that was suctioned. The scope was advanced further and at 33 cm from the incisors there was a tight stricture with friable mucosa identified. I was not able to advance the scope distally. At this time I used an 8-10 mm balloon and gently advance the balloon through the lumen and did not meet any resistance. At this time I proceeded with a balloon dilation initially to 8 mm followed by 90 mm and 10 mm in a sequential fashion for total of 90 seconds. Following this I still wasn't able to advance the scope into the stomach. The mucosa appeared extremely friable erythematous with oozing and exudate and biopsies were done from this area. The mid and proximal esophagus appeared normal. The patient tolerated the procedure well. IMPRESSION: 1. Tight distal esophageal stricture with friability of the mucosa, exudates and ulcerations suspicious for recurrent neoplasm status post balloon dilation using 8-10 mm TTS balloon as described above. 2. Retained food in the proximal esophagus that was suctioned. RECOMMENDATIONS: The findings of this examination were discussed with the patient as well as his family. He will be on a clear liquid diet today. Will await the biopsy results. He will resume liquids tomorrow. He'll be seen in office in 2 weeks..
[2019-01-02 16:07] VITALS: BP 108/69; PULSE 66
== END 2019-01-02 16:25 | disposition home or self-care (01) ==
LOC: ORWHC2ENDO 13:21
PROVIDERS: ATTEND Internal Medicine Gastroenterology
DX: C15.5 Malignant neoplasm of lower third of esophagus (principal); K22.2 Esophageal obstruction; I10 Essential (primary) hypertension; E78.5 Hyperlipidemia, unspecified; K21.9 Gastro-esophageal reflux disease without esophagitis; Z92.3 Personal history of irradiation; Z92.21 Personal history of antineoplastic chemotherapy; Z85.01 Personal history of malignant neoplasm of esophagus; Z79.01 Long term (current) use of anticoagulants; Z79.899 Other long term (current) drug therapy
CPT/HCPCS: 43249; 43239; 88305; J2001; J2704; C1726

== ENCOUNTER → 2019-02-03 | Outpatient (CLI) | payer MEDICARE ==
[2019-02-03 12:37] LABS: African American GFR (CKD) >90 (>60 ml/min/1.73 sqM); Blood Urea Nitrogen 14 mg/dL (9-20); Non-African American GFR(CKD) >90 (>60 ml/min/1.73 sqM)
--- NOTE | 2019-02-03 13:00 | ECHOF ---
Referral Reason:C15.5 Esophageal ca,Z01.818 pre chemo,Z03.89 obs MEASUREMENTS -------- HEIGHT: 185.4 cm WEIGHT: 90.7 kg BP: 131/81 RVIDd: 3.2 cm (< 3.3) IVSd: 1.3 cm (0.6 - 1.1) LVIDd: 4.4 cm (3.9 - 5.3) LVPWd: 1.3 cm (0.6 - 1.1) IVSs: 1.7 cm LVIDs: 3.6 cm LVPWs: 1.7 cm LA Diam: 3.7 cm (2.7 - 3.8) LAESV Index (A-L): 22.97 ml/m Ao Diam: 3.6 cm (2.0 - 3.7) AV Cusp: 2.3 cm (1.5 - 2.6) MV EXCURSION: 20.477 mm (> 18.000) MV EF SLOPE: 34 mm/s (70 - 150) EPSS: 0.9 cm MV E Niraj: 0.37 m/s MV DecT: 404 ms MV A Niraj: 0.56 m/s MV E/A Ratio: 0.67 RAP: 5.00 mmHg RVSP: 31.94 mmHg FINDINGS -------- Sinus rhythm. This was a technically adequate study. The left ventricular size is normal. There is mild concentric left ventricular hypertrophy. Overa ll left ventricular systolic function is moderately impaired with, an EF between 35 - 40 %. The right ventricle is normal in size. Normal LA size by volume 22+/-6 ml/m2. The right atrium is normal in size. Interatrial and interventricular septum intact. The aortic valve is trileaflet and appears structurally normal. The mitral valve is normal. Mild tricuspid regurgitation present. Right ventricular systolic pressure is normal at < 35 mmHg. Trace/mild (physiologic) pulmonic regurgitation. The aortic root size is normal. IVC Not well visulized. There is no pericardial effusion. CONCLUSIONS -------- 1. Sinus rhythm. 2. This was a technically adequate study. 3. The left ventricular size is normal. 4. There is mild concentric left ventricular hypertrophy. 5. Overall left ventricular systolic function is moderately impaired with, an EF between 35 - 40 %. 6. The right ventricle is normal in size. 7. Normal LA size by volume 22+/-6 ml/m2. 8. The right atrium is normal in size. 9. Interatrial and interventricular septum intact. 10. The aortic valve is trileaflet and appears structurally normal. 11. The mitral valve is normal. 12. Mild tricuspid regurgitation present. 13. Right ventricular systolic pressure is normal at < 35 mmHg. 14. Trace/mild (physiologic) pulmonic regurgitation. 15. The aortic root size is normal. 16. IVC Not well visulized. 17. There is no pericardial effusion. SEAL DELIVERY VEHICLE TEAM TECHNICIAN: Stacie Hawthorne RDCS
--- NOTE | 2019-02-03 14:33 | CT ---
EXAMINATION TYPE: CT ChestAbdPelvis w con DATE OF EXAM: 02/03/2019 COMPARISON: CT chest abdomen and pelvis November 11, 2018 and older studies. PET/CT October 20 2016 HISTORY: Follow up esophageal cancer and stent placement. CT DLP: 1065 mGycm. Automated Exposure Control for Dose Reduction was Utilized. CONTRAST: CT scan of the thorax, abdomen and pelvis is performed without oral but with IV Contrast, patient inj ected with 100 mL of Isovue 300. FINDINGS: LUNGS: Persistent moderate-sized right pleural effusion or fluid collection is slightly increased in size from most recent CT with associated compressive atelectasis right infrahilar region. Left lung r emains clear. MEDIASTINUM: There are no new greater than 1 cm hilar or mediastinal lymph nodes. No cardiomegaly or pericardial effusion is seen. Some ectasia at the aortic root redemonstrated. Interval placement of metallic stent graft beginning just below level of aortic arch extending to distal esophageal leve l terminating above the diaphragm roughly level of T10-T11 disc space. Distally there is fluid or marley ris within the stent and distally there is no new suspicious surrounding moderate to severe wall thic kening observed likely distal progression of neoplasm towards the diaphragmatic hiatus. Proximal esop hagus before stent shows mild/moderate gas filled prominence increased from prior. OTHER: Stable coiled right internal jugular Mediport catheter terminating before brachiocephalic conf luence. LIVER/GB: Small dependent gallstones in gallbladder. Stable tiny nonspecific subcentimeter hypodense lesions left hepatic dome favored benign. PANCREAS: Moderate generalized atrophy redemonstrated. SPLEEN: No significant abnormality is seen. ADRENALS: No significant abnormality is seen. KIDNEYS: Symmetric cortical medullary uptake and excretion without hydronephrosis bilaterally. Centra l parapelvic cysts in both kidneys redemonstrated. Stable nonobstructing 2 to 3 mm calculus lower lizzette e right kidney coronal image 64 and 2-3 small calculi lower pole left kidney up to 4 mm axial image 7 1 BOWEL: Tumor spread to level of small to moderate-sized hiatal hernia thought present. Stomach poorly distended and thus suboptimally evaluated. No suspicious small or large bowel dilatation. GENITAL ORGANS: Stable mildly prominent prostate gland. LYMPH NODES: No greater than 1cm abdominal or pelvic lymph nodes are appreciated. OSSEOUS STRUCTURES: Osseous structures are demineralized. Mild compression fracture of the T8 level w ith posterior sclerosis and anterior lucency, cannot exclude pathologic fracture at this level. This was present on post recent prior CT study. OTHER: Persistent moderate to large sized fat-containing left inguinal hernia. IMPRESSION: 1. Interval placement of metallic stent mid to distal esophagus but there is suspected tumor progress ion distally past level of distal stent and beginning signs of stent obstruction as there is debris a nd fluid filling the distal stent and causing mild to moderate proximal esophageal dilatation. Enlarg ing moderate-sized right pleural effusion is also consistent with tumor progression.
== END | disposition home or self-care (01) ==
LOC: RADECHMAIN 11:29
PROVIDERS: ATTEND Internal Medicine Hematology & Oncology
DX: Z01.818 Encounter for other preprocedural examination (principal); K22.8 Other specified diseases of esophagus; J90 Pleural effusion, not elsewhere classified; I51.7 Cardiomegaly; I36.1 Nonrheumatic tricuspid (valve) insufficiency; I37.1 Nonrheumatic pulmonary valve insufficiency; C15.5 Malignant neoplasm of lower third of esophagus; Z96.9 Presence of functional implant, unspecified
CPT/HCPCS: 93306; 82565; 84520; 71260; 74177; Q9967

== ENCOUNTER → 2019-04-10 | Outpatient (CLI) | payer MEDICARE ==
[2019-04-10 11:30] LABS: African American GFR (CKD) >90 (>60 ml/min/1.73 sqM); Blood Urea Nitrogen 10 mg/dL (9-20); Non-African American GFR(CKD) >90 (>60 ml/min/1.73 sqM)
--- NOTE | 2019-04-10 13:26 | CT ---
EXAMINATION TYPE: CT ChestAbdPelvis w con DATE OF EXAM: 04/10/2019 COMPARISON: 02/03/2019 HISTORY: Esophageal Cancer CT DLP: 1886 mGycm CONTRAST: CT scan of the chest, abdomen and pelvis is performed without Oral Contrast and with IV Contrast, pat ient injected with 100 ml mL of Isovue 300. CT Chest: LUNGS: Enlarging right-sided pleural effusion. Smaller left-sided pleural effusion. Right infrahilar soft tissue which may reflect atelectatic tissue. Aerated lungs are clear and free of nodule. No mass is seen. MEDIASTINUM: There is esophageal dilatation with stent noted to be in place. Internal debris is redem onstrated. Surrounding soft tissue is noted previously is unchanged. No definite progression is noted with certainty at this time. HILAR STRUCTURES: No evidence for mass. No hilar adenopathy is appreci ated. OTHER: No significant abnormality. CONTRAST CT ABDOMEN AND PELVIS FINDINGS: LIVER/GB: There is evidence of cholelithiasis. No space occupying hepatic lesion. Biliary tree is of normal caliber. PANCREAS: No inflammation. No distinct mass. SPLEEN: No splenic enlargement. No lesion seen. ADRENALS: No nodule. No thickening. KIDNEYS/BLADDER: No hydronephrosis. No nephrolithiasis. No disctinct renal mass. BOWEL: Normal appendix. Normal bowel caliber. No inflammation. GENITAL ORGANS: No gross abnormality. LYMPH NODES: No greater than 1cm abdominal or pelvic lymph nodes are appreciated. AORTA: No significant abnormality. OSSEOUS STRUCTURES: No significant abnormality is seen. OTHER: Left inguinal fat-containing hernia. IMPRESSION: 1. Again noted is esophageal metallic stent with intraluminal debris or soft tissue. Surrounding soft tissue remains essentially unchanged. Again noted is mild/moderate proximal esophageal dilatation. E nlarging right-sided effusion and new small left-sided effusion.
== END | disposition home or self-care (01) ==
LOC: RADPROMAIN 10:49
PROVIDERS: ATTEND Internal Medicine Hematology & Oncology
DX: K22.8 Other specified diseases of esophagus (principal); J90 Pleural effusion, not elsewhere classified; M79.89 Other specified soft tissue disorders; C15.5 Malignant neoplasm of lower third of esophagus
CPT/HCPCS: 82565; 84520; 71260; 74177; 36415; Q9967

== ENCOUNTER → 2019-04-20 | Day surgery (SDC) | payer MEDICARE ==
[2019-04-20 10:19] LABS: Mean Platelet Volume 7.4; Platelet Count 390 k/uL (150-450)
[2019-04-20 10:24] LABS: Prothrombin Time 10.2 sec (9.0-12.0)
[2019-04-20 10:33] VITALS: RESP 18
--- NOTE | 2019-04-20 11:34 | XR ---
EXAMINATION TYPE: XR chest 1V DATE OF EXAM: 04/20/2019 COMPARISON: 02/19/2017 HISTORY: Postthoracentesis TECHNIQUE: Single frontal view of the chest is obtained. FINDINGS: There is right basilar consolidation and small residual pleural effusion. No sizable pneum othorax. Prominence of the right hilum noted and there is a Mediport catheter. Chronic rib deformitie s are seen. Tiny left effusion with basilar consolidation noted. IMPRESSION: 1. No pneumothorax postthoracentesis. Bilateral areas of consolidation and small effusion persist.
[2019-04-20 12:19] VITALS: TEMP 98.3
[2019-04-20 12:21] VITALS: BP 124/70; PULSE 86
--- NOTE | 2019-04-20 12:24 | US ---
Ultrasound-guided therapeutic and diagnostic thoracentesis DATE OF EXAM: 04/20/2019 CLINICAL HISTORY: Right pleural effusion The procedure was discussed with the patient. The risks, complications, benefits, and alternatives we re discussed and any questions were answered. Informed consent was obtained. The patient was placed supine on the ultrasound table and prepped and draped in the usual sterile fas hion. All elements of maximal barrier and sterile technique were utilized. Under ultrasound guidance, access into the pleural space was obtained, via the thoracentesis catheter system and direct ultrasound guidance.Brando roximately 1.5 liters of straw-colored fluid was removed. The patient was stable throughout the procedure and remained stable upon discharge from Department of Radiology. IMPRESSION: 1. Successful therapeutic and diagnostic thoracentesis under ultrasound guidance.
== END ==
LOC: RADPROMAIN 09:40
PROVIDERS: ATTEND Internal Medicine Hematology & Oncology
DX: J90 Pleural effusion, not elsewhere classified (principal); C15.9 Malignant neoplasm of esophagus, unspecified
CPT/HCPCS: 32555; 71045; 85049; 85610; 88108; 88305; 88341; 88342

== ENCOUNTER 2019-05-01 13:35 | Inpatient (IN) | payer MEDICARE ==
[2019-05-01] MEDS ORDERED: ACETAMINOPHEN TAB 500 MG TAB PO STA (13:55)
--- NOTE | 2019-05-01 14:05 | ED ---
General Adult HPI - General Chief complaint: Upper Respiratory Infection Stated complaint: coughing blood Time Seen by Provider: 05/01/19 13:44 Source: patient, family, EMS, RN notes reviewed Mode of arrival: EMS Limitations: no limitations - History of Present Illness Initial comments: Patient is a pleasant 64-year-old male presenting to the emergency department with family with cough. Cough started yesterday. Patient has had hemoptysis starting just the past couple of hours. No significant dyspnea. Fever was not noticed until patient arrived in the emergency department today. Patient does have similar symptoms a couple weeks ago and did have thoracentesis with removal of 1.5 L. Patient does have known esophageal cancer that they believe is contained. Patient does have esophageal stent. Patient does have decreased appetite. - Related Data Home Medications Medication Instructions Recorded Confirmed Flecainide Acetate [Tambocor] 100 mg PO BID 10/02/16 04/16/19 Omeprazole [PriLOSEC] 20 mg PO BID 10/02/16 04/16/19 ALPRAZolam [Xanax] 0.5 mg PO BID PRN 01/20/17 04/16/19 DULoxetine HCL [Cymbalta] 20 mg PO QAM 03/09/17 04/16/19 Apixaban [Eliquis] 5 mg PO BID 11/17/18 04/20/19 Cyanocobalamin (Vitamin B-12) 1,000 mcg PO DAILY 12/31/18 04/16/19 [Vitamin B-12] Multivitamins, Thera [Multivitamin 1 tab PO DAILY 12/31/18 04/16/19 (formulary)] Allergies Allergy/AdvReac Type Severity Reaction Status Date / Time No Known Allergies Allergy Verified 04/20/19 09:57 Review of Systems ROS Statement: Those systems with pertinent positive or pertinent negative responses have been documented in the HPI. ROS Other: All systems not noted in ROS Statement are negative. Constitutional: Reports: as per HPI Eyes: Denies: eye pain ENT: Denies: ear pain Respiratory: Reports: cough, hemoptysis Cardiovascular: Denies: chest pain Endocrine: Reports: fatigue Gastrointestinal: Denies: abdominal pain, vomiting Genitourinary: Denies: dysuria Musculoskeletal: Denies: back pain Skin: Denies: rash Neurological: Denies: weakness Past Medical History Past Medical History: Cancer, CVA/TIA, GERD/Reflux, Hyperlipidemia, Hypertension, Pulmonary Embolus (PE), Sleep Apnea/CPAP/BIPAP, Supraventricular Tachycardia (SVT) Additional Past Medical History / Comment(s): no cpap used, diff swallowing, esophagial [id number] radiation 2017 and chemo-last chemo 11-03-18,steroid Oct 2018, esophageal bleed that he was treated at [facility] and they thought was related to his esophageal tumor History of Any Multi-Drug Resistant Organisms: None Reported Past Surgical History: Cardiac Ablation, Hernia Repair Additional Past Surgical History / Comment(s): sivakumar inguinal hernia, vasectomy, PEG tube placement and removal, mediport, stent in esophagus for esophageal cancer Past Anesthesia/Blood Transfusion Reactions: No Reported Reaction Past Psychological History: Anxiety Smoking Status: Never smoker Past Alcohol Use History: None Reported Past Drug Use History: None Reported - Past Family History Mother Family Medical History: Cancer Additional Family Medical History / Comment(s): uterine General Exam Limitations: no limitations General appearance: alert, in no apparent distress Head exam: Present: normocephalic Eye exam: Present: normal appearance, PERRL ENT exam: Present: mucous membranes dry Neck exam: Present: normal inspection Respiratory exam: Present: rhonchi, decreased breath sounds (Right base) Cardiovascular Exam: Present: regular rate, normal rhythm GI/Abdominal exam: Present: soft. Absent: tenderness Extremities exam: Present: normal inspection. Absent: pedal edema, calf tenderness Neurological exam: Present: alert Psychiatric exam: Present: normal affect, normal mood Skin exam: Present: normal color Course Vital Signs 05/01/19 05/01/19 05/01/19 13:39 13:51 15:09 Temperature 101.0 F H Pulse Rate 104 H 115 H Respiratory 18 28 H Rate Blood Pressure 127/77 O2 Sat by Pulse 92 L Oximetry 05/01/19 05/01/19 15:19 15:25 Temperature 99.5 F Pulse Rate 111 H 117 H Respiratory 24 Rate Blood Pressure 113/80 O2 Sat by Pulse 95 Oximetry - Reevaluation(s) Reevaluation #1: 05/01/19 16:13 There is concern for severe sepsis diagnosed at 1610. Blood culture and lactic acid and fluid bolus ordered. IV antibiotics will be ordered. EKG Findings - EKG Comments: EKG Findings:: Sinus tachycardia 106. For screening AV block VT of 210. QRS 90. QT 324. QTC 4:30. Normal axis. Inferior Q waves. No acute ST change. Medical Decision Making - Medical Decision Making Patient reevaluated and resting comfortably in bed. Patient and family updated on results and plan. Case discussed in detail with Dr. Shay, who will admit for hospital call. and Dr. Hartman have been paged for consult. - Lab Data Result diagrams: 05/01/19 14:21 05/01/19 14:21 Lab Results 05/01/19 05/01/19 05/01/19 Range/Units 14:21 14:21 14:21 WBC 18.4 H (3.8-10.6) k/uL RBC 4.62 (4.30-5.90) m/uL Hgb 13.8 (13.0-17.5) gm/dL Hct 43.1 (39.0-53.0) % MCV 93.2 (80.0-100.0) fL MCH 29.8 (25.0-35.0) pg MCHC 32.0 (31.0-37.0) g/dL RDW 16.8 H (11.5-15.5) % Plt Count 408 (150-450) k/uL Neutrophils % 93 % Lymphocytes % 3 % Monocytes % 2 % Eosinophils % 1 % Basophils % 0 % Neutrophils # 17.1 H (1.3-7.7) k/uL Lymphocytes # 0.6 L (1.0-4.8) k/uL Monocytes # 0.4 (0-1.0) k/uL Eosinophils # 0.2 (0-0.7) k/uL Basophils # 0.0 (0-0.2) k/uL Hypochromasia Slight Anisocytosis Slight PT 11.3 (9.0-12.0) sec INR 1.1 (<1.2) APTT 31.7 H (22.0-30.0) sec Sodium (137-145) mmol/L Potassium (3.5-5.1) mmol/L Chloride (98-107) mmol/L Carbon Dioxide (22-30) mmol/L Anion Gap mmol/L BUN (9-20) mg/dL Creatinine (0.66-1.25) mg/dL Est GFR (CKD-EPI)AfAm (>60 ml/min/1.73 sqM) Est GFR (CKD-EPI)NonAf (>60 ml/min/1.73 sqM) Glucose (74-99) mg/dL Plasma Lactic Acid Colby (0.7-2.0) mmol/L Calcium (8.4-10.2) mg/dL Total Bilirubin (0.2-1.3) mg/dL AST (17-59) U/L ALT (4-49) U/L Alkaline Phosphatase (38-126) U/L Creatine Kinase (55-170) U/L Total Protein (6.3-8.2) g/dL Albumin (3.5-5.0) g/dL Influenza Type A RNA Not Detected (Not Detectd) Influenza Type B (PCR) Not Detected (Not Detectd) 05/01/19 05/01/19 Range/Units 14:21 14:21 WBC (3.8-10.6) k/uL RBC (4.30-5.90) m/uL Hgb (13.0-17.5) gm/dL Hct (39.0-53.0) % MCV (80.0-100.0) fL MCH (25.0-35.0) pg MCHC (31.0-37.0) g/dL RDW (11.5-15.5) % Plt Count (150-450) k/uL Neutrophils % % Lymphocytes % % Monocytes % % Eosinophils % % Basophils % % Neutrophils # (1.3-7.7) k/uL Lymphocytes # (1.0-4.8) k/uL Monocytes # (0-1.0) k/uL Eosinophils # (0-0.7) k/uL Basophils # (0-0.2) k/uL Hypochromasia Anisocytosis PT (9.0-12.0) sec INR (<1.2) APTT (22.0-30.0) sec Sodium 132 L (137-145) mmol/L Potassium 4.5 (3.5-5.1) mmol/L Chloride 100 (98-107) mmol/L Carbon Dioxide 20 L (22-30) mmol/L Anion Gap 12 mmol/L BUN 16 (9-20) mg/dL Creatinine 0.68 (0.66-1.25) mg/dL Est GFR (CKD-EPI)AfAm >90 (>60 ml/min/1.73 sqM) Est GFR (CKD-EPI)NonAf >90 (>60 ml/min/1.73 sqM) Glucose 155 H (74-99) mg/dL Plasma Lactic Acid Colby 2.2 H* (0.7-2.0) mmol/L Calcium 8.4 (8.4-10.2) mg/dL Total Bilirubin 0.9 (0.2-1.3) mg/dL AST 64 H (17-59) U/L ALT 30 (4-49) U/L Alkaline Phosphatase 221 H (38-126) U/L Creatine Kinase 23 L (55-170) U/L Total Protein 7.1 (6.3-8.2) g/dL Albumin 3.1 L (3.5-5.0) g/dL Influenza Type A RNA (Not Detectd) Influenza Type B (PCR) (Not Detectd) - Radiology Data Radiology results: image reviewed (Chest x-ray shows large right effusion and basilar infiltrate) Critical Care Time Critical Care Time: Yes Total Critical Care Time: 32 Disposition Clinical Impression: Pleural effusion, Pneumonia Disposition: ADMITTED IP TO THIS [facility] Condition: Serious Is patient prescribed a controlled substance at d/c from ED?: No Referrals: Fanta Hanna MD [Primary Care Provider] - 1-2 days Decision Time: 16:11
[2019-05-01 14:33] LABS: Anisocytosis Slight; Basophils % (A) 0 %; Eosinophils # (A) 0.2 k/uL (0-0.7); Eosinophils % (A) 1 %; HCT 43.1 % (39.0-53.0); HGB 13.8 gm/dL (13.0-17.5); Hypochromasia Slight; Lymphocytes # (A) 0.6 k/uL (1.0-4.8); Lymphocytes % (A) 3 %; MCH 29.8 pg (25.0-35.0); MCV 93.2 fL (80.0-100.0); Mean Platelet Volume 7.2; Monocytes # (A) 0.4 k/uL (0-1.0); Monocytes % (A) 2 %; Neutrophils # (A) 17.1 k/uL (1.3-7.7); Neutrophils % (A) 93 %; Platelet Count 408 k/uL (150-450); RBC 4.62 m/uL (4.30-5.90); RDW 16.8 % (11.5-15.5); WBC 18.4 k/uL (3.8-10.6)
[2019-05-01 14:43] LABS: INR 1.1 (<1.2); Partial Thromboplastin Time 31.7 sec (22.0-30.0); Prothrombin Time 11.3 sec (9.0-12.0)
[2019-05-01 14:46] LABS: ALT 30 U/L (4-49); AST 64 U/L (17-59); African American GFR (CKD) >90 (>60 ml/min/1.73 sqM); Albumin 3.1 g/dL (3.5-5.0); Alkaline Phosphatase 221 U/L (38-126); Anion Gap 12 mmol/L; Blood Urea Nitrogen 16 mg/dL (9-20); Calcium 8.4 mg/dL (8.4-10.2); Carbon Dioxide 20 mmol/L (22-30); Chloride 100 mmol/L (98-107); Creatine Kinase 23 U/L (55-170); Glucose 155 mg/dL (74-99); Non-African American GFR(CKD) >90 (>60 ml/min/1.73 sqM); Sodium 132 mmol/L (137-145); Total Bilirubin 0.9 mg/dL (0.2-1.3); Total Protein 7.1 g/dL (6.3-8.2)
--- NOTE | 2019-05-01 14:49 | XR ---
EXAMINATION TYPE: XR chest 2V DATE OF EXAM: 05/01/2019 COMPARISON: 04/20/2019 TECHNIQUE: PA and lateral views submitted. HISTORY: Cough and shortness FINDINGS: Hypertrophic and degenerative change of the spine with a moderate compression deformity in the mid to lower thoracic spine. Adjacent mild superior endplate compression. Likely chronic. Esophageal stent noted. There is a moderate to large sized right pleural effusion with consolidation. Tiny left effusi on with basilar infiltrate or atelectasis. Chronic rib deformities noted. No sizable pneumothorax. IMPRESSION: 1. Increasing right-sided pleural effusion. Bilateral infiltrate with tiny left effusion noted.
[2019-05-01] MEDS: SODIUM CHLORIDE 0.9% 1,000 ML IV SCH ×2 (14:56→22:35)
[2019-05-01 14:59] LABS: Potassium 4.5 mmol/L (3.5-5.1)
[2019-05-01] MEDS ORDERED: IPRATROPIUM-ALBUTEROL 3 ML NEB INHALATION STA (15:03)
[2019-05-01] MEDS ORDERED: MORPHINE SULFATE 4 MG/ML SYRINGE IVP STA (15:41)
[2019-05-01] MEDS ORDERED: SODIUM CHLORIDE 0.9% 1,000 ML IV STA ×2 (16:12)
[2019-05-01] MEDS ORDERED: SODIUM CHLORIDE 0.9% 500 ML 500 ML IV STA (16:12)
[2019-05-01] MEDS ORDERED: PIPERACILLIN-TAZOBACTAM 3.375 GM in SODIUM CHLORIDE 0.9% 100 ML IVPB STA (16:13)
[2019-05-01] MEDS ORDERED: IPRATROPIUM-ALBUTEROL 3 ML NEB INHALATION PRN (16:13)
[2019-05-01] MEDS ORDERED: LEVOFLOXACIN 750MG-D5W PMX 750 MG in DEXTROSE/WATER 1 150ML.BAG IVPB STA (16:13)
[2019-05-01] MEDS ORDERED: PNEUMONIA PROTOCOL UTILIZED 1 EACH MISC PO PRN (16:13)
[2019-05-01] MEDS ORDERED: VANCOMYCIN IV PER PHARMACY 1 EACH MISC MISCELLANE PRN (16:22)
[2019-05-01] MEDS ORDERED: VANCOMYCIN 1,500 MG in SODIUM CHLORIDE 0.9% 250 ML IVPB ONE (17:00)
[2019-05-01] MEDS ORDERED: MORPHINE SULFATE 4 MG/ML SYRINGE IVP PRN (17:09)
[2019-05-01] MEDS: IPRATROPIUM-ALBUTEROL 3 ML NEB INHALATION SCH (19:14)
[2019-05-01] MEDS ORDERED: PROCHLORPERAZINE 10 MG TAB PO PRN (21:03)
[2019-05-01] MEDS: ALPRAZolam 0.5 MG TAB PO PRN (22:09)
[2019-05-01 22:44] LABS: Appearance,Urine Cloudy (Clear); Bilirubin,Urine 1+ (Negative); Blood,Urine Negative (Negative); Color,Urine Yellow; Glucose,Urine (UA) Negative (Negative); Hyaline Casts,Urine 13 /lpf (0-2); Ketones,Urine Negative (Negative); Leukocyte Esterase,Urine Negative (Negative); Mucus,Urine Many /hpf; Nitrite,Urine Negative (Negative); PH, Urine 5.5 (5.0-8.0); Protein,Urine 1+ (Negative); RBC,Urine 23 /hpf (0-5); Specific Gravity,Urine 1.031 (1.001-1.035); WBC,Urine 10 /hpf (0-5)
[2019-05-01] MEDS: VANCOMYCIN 1,500 MG in SODIUM CHLORIDE 0.9% 250 ML IVPB SCH (22:49)
--- NOTE | 2019-05-01 23:01 | HP ---
HISTORY AND PHYSICAL DATE OF SERVICE: 05/01/2019 CHIEF COMPLAINTS: Shortness of breath and cough and sputum and change in mental status. HISTORY OF PRESENT ILLNESS: This 64-year-old gentleman with a past medical history of multiple medical problems including history of CVA, TIA, GERD, hypertension, history of pulmonary embolism, history of supraventricular tachycardia, history of esophageal cancer, radiation and chemotherapy, history of esophageal bleed which was treated at [facility] tumor, history of cardiac ablation, hernia repair, being followed by in the outpatient setting was complaining to the family with complaints of cough. The patient apparently had a right pleural effusion which was tapped by Interventional Radiology recently. About 1.5 L of fluid was obtained. Currently the patient had increased shortness of breath. The patient has cough, sputum some hemoptysis and the patient has change in mental status also. The patient was taken to [facility] and admitted for further evaluation treatment. A chest x-ray showed significant opacities in the right side with possibly right pleural effusion. Underlying pneumonia cannot be ruled out, which was reviewed personally by me and the patient evaluation. Interventional Radiology has been contacted. There is no history of any fever, or any rigors. This patient has also history of some fever. PAST MEDICAL HISTORY: History of CVA, TIA, GERD, hypertension, history of pulmonary embolism, sleep apnea, supraventricular tachycardia. MEDICATIONS: Prior to admission home medications are: 1. Compazine 10 mg q.6h p.r.n. 2. Prilosec 20 mg p.o. b.i.d. 3. Multivitamins 1 p.o. daily. 4. Tambocor 100 mg p.o. b.i.d. 5. Cymbalta 20 mg q.a.m. 6. B12 1000 mcg p.o. daily. 7. Eliquis 2.5 mg b.i.d. 8. Xanax 0.5 b.i.d. p.r.n. ALLERGIES: History of uterine cancer in the family. SOCIAL HISTORY: No history of smoking. No history of alcohol. REVIEW OF SYSTEMS: Could not be taken, the patient is slightly confused and drowsy at this time. PHYSICAL EXAM: Pulse is 111. Blood pressure is 92/58, respiration 32, temperature 97.4, pulse ox 92% on 2 L. HEENT: Conjunctivae normal. NECK is no JVD. No carotid bruit. No lymph node enlargement. CARDIOVASCULAR system: S1, S2 muffled. RESPIRATION: Breath sounds diminished in the bases. Bilateral scattered rhonchi and crackles. Expiratory wheezing also present. ABDOMEN: Soft, obese, nontender. LEGS: No edema. No swelling. NERVOUS SYSTEM: Higher function as mentioned earlier. Moves all 4 limbs. No focal motor or sensory deficits. SKIN: No ulcer, no rashes and no bleeding. JOINTS: No active deforming arthropathy. LABS: WBC 18.2, hemoglobin 13.8, sodium 132, potassium 4.5 and lactic acid 2.20 and 0.1. Alkaline phosphatase is 221. Influenza is negative. ASSESSMENT: 1. Acute right-sided pneumonia possibly aspiration, possibly gram-negative with severe sepsis present on admission. 2. Change in mental status acute metabolic encephalopathy secondary to sepsis. 3. Right pleural effusion recurrent. 4. History of recent right thoracocentesis. 5. History of esophageal carcinoma status post radiation chemo. 6. Hypertension. 7. Hyperlipidemia. 8. History of gastroesophageal reflux disease. 9. History of cerebrovascular accident, transient ischemic attack. 10.History of pulmonary embolism. 11.History of sleep apnea. 12.History of gastrointestinal bleed. 13.History of supraventricular tachycardia. 14.History of cardiac ablation. 15.History of PEG tube placement and removal. 16.History of MediPort. 17.History of esophageal stent. 18.History of anxiety. RECOMMENDATIONS AND DISCUSSION: In this 64-year-old gentleman who presented with multiple complex medical issues, at this time I recommend to continue the current medications, symptomatic treatment. Recommend broad-spectrum IV antibiotics and bronchodilators. Consult Dr. Mcdermott and Dr. Hartman. Otherwise, obtain cultures. Resume the home medications. DVT prophylaxis. Incentive spirometry and prognosis guarded because of multiple complex medical issues. Further recommendations to follow. We will hold the apixaban for the thoracocentesis. Otherwise, prognosis guarded. Further recommendations to follow. MMODL / IJN: [id number] / MTDD
--- NOTE | 2019-05-02 00:10 | P.CONS ---
History of Present Illness - Reason for Consult Consult date: 05/01/19 Pleural effusion, sepsis, Esophageal ca - History of Present Illness The patient is a 64-year-old white male well known to our service. He is followed by in the outpatient setting. 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 He was treated with chemotherapy and radiation and was subsequently scheduled for surgery. However prior to surgery he developed extensive PEs and was placed on anticoagulation. He is continued on eliquis since.The patient had also developed pleural effusions at that time which were negative for malignancy. Due to these, and other medical issues surgery was not performed. The patient was then on observation till the follow-up 2018 when he developed progressive dysphagia. He had an EGD in 12/06 revealing a stricture with biopsy negative. Due to persistent symptoms a repeat EGD was done in 01/06, with biopsy now positive for local recurrence. he did have stent placemeThe patient was then started back on treatment with Taxotere and Cyramza. After starting treatment he did develop right-sided pleural effusion with thoracentesis on 04/20/19. Cytology was negative for malignancy and treatment was continued with most recent administration on The patient has had some mild cough off and on, but increased was noted over the past 2 days. Initially sputum was quite clear. However on the day prior to admission the patient developed increasing cough with yellowish sputum, along with chest discomfort. He subsequently developed fevers up to 101 and increasing shortness of breath, especially since the a.m. of admission. He therefore came into the emergency room where he was found on chest x-ray to have significant recurrent right pleural effusion. Other findings included low blood pressure with systolics down into the 90s, elevated heart rate between 100 to 120, as well as elevated respiratory rate. WBC was actually elevated. Case was discussed with the emergency room physician on the phone and subsequently personally. The patient was admitted, and consult placed. The patient was initially evaluated in the emergency room. Due to weakness, and shortness of breath he was unable to provide much history and most information was obtained from his daughter who was at the bedside. The patient had continued on eliquis with most recent dose at 11 AM on the day of admission. The daughter did not recall any episodes of overt choking, but stated that due to difficulty in swallowing, he has had episodes of food sticking, followed by nausea and vomiting. Review of Systems Constitutional: Reports fever, Reports poor appetite, Reports weakness, Reports weight loss Eyes: denies blurred vision, denies pain Ears: deny: decreased hearing, ear discharge, earache, tinnitus Ears, nose, mouth and throat: Denies headache, Denies sore throat Cardiovascular: Reports chest pain, Reports shortness of breath Respiratory: Reports cough with sputum, Reports dyspnea, Reports pain Gastrointestinal: Reports nausea, Reports vomiting Genitourinary: Reports as per HPI Musculoskeletal: Reports muscle weakness Integumentary: Denies pruritus, Denies rash Neurological: Reports weakness Psychiatric: Denies anxiety, Denies depression Endocrine: Reports fatigue, Reports palpitations, Reports weight change Hematologic/Lymphatic: Reports as per HPI Past Medical History Past Medical History: Cancer, CVA/TIA, GERD/Reflux, Hyperlipidemia, Hypertension, Pulmonary Embolus (PE), Sleep Apnea/CPAP/BIPAP, Supraventricular Tachycardia (SVT) Additional Past Medical History / Comment(s): no cpap used, diff swallowing, esophagial [id number] radiation 2017 and chemo-last chemo 11-03-18,steroid Oct 2018, esophageal bleed that he was treated at [facility] and they thought was related to his esophageal tumor History of Any Multi-Drug Resistant Organisms: None Reported Past Surgical History: Cardiac Ablation, Hernia Repair Additional Past Surgical History / Comment(s): sivakumar inguinal hernia, vasectomy, PEG tube placement and removal, mediport, stent in esophagus for esophageal cancer Past Anesthesia/Blood Transfusion Reactions: No Reported Reaction Past Psychological History: Anxiety Smoking Status: Never smoker Past Alcohol Use History: None Reported Past Drug Use History: None Reported - Past Family History Mother Family Medical History: Cancer Additional Family Medical History / Comment(s): uterine Medications and Allergies Home Medications Medication Instructions Recorded Confirmed Type Flecainide Acetate [Tambocor] 100 mg PO BID 10/02/16 05/01/19 History Omeprazole [PriLOSEC] 20 mg PO BID 10/02/16 05/01/19 History ALPRAZolam [Xanax] 0.5 mg PO BID PRN 01/20/17 05/01/19 History DULoxetine HCL [Cymbalta] 20 mg PO QAM 03/09/17 05/01/19 History Apixaban [Eliquis] 2.5 mg PO BID 11/17/18 05/01/19 History Cyanocobalamin (Vitamin B-12) 1,000 mcg PO DAILY 12/31/18 05/01/19 History [Vitamin B-12] Multivitamins, Thera [Multivitamin 1 tab PO DAILY 12/31/18 05/01/19 History (formulary)] Prochlorperazine [Compazine] 10 mg PO Q6H PRN 05/01/19 05/01/19 History Allergies Allergy/AdvReac Type Severity Reaction Status Date / Time No Known Allergies Allergy Verified 05/01/19 16:49 Physical Exam Vitals: Vital Signs Temp Pulse Resp BP BP Pulse Ox 05/01/19 19:48 98.6 F 108 H 22 90/67 97 05/01/19 19:33 104 H 05/01/19 19:14 108 H 05/01/19 18:20 97.4 F L 111 H 32 H 92/58 92 L 05/01/19 17:51 97.6 F 105 H 28 H 97/64 95 05/01/19 17:15 96 05/01/19 17:04 22 118/72 93 L 05/01/19 16:58 99.8 F H 102 H 24 104/64 90 L 05/01/19 15:25 99.5 F 117 H 24 113/80 95 05/01/19 15:19 111 H 05/01/19 15:09 115 H 05/01/19 13:51 28 H 05/01/19 13:39 101.0 F H 104 H 18 127/77 92 L Intake and Output 05/01/19 05/01/19 05/02/19 14:59 22:59 06:59 Intake Total 510 Output Total 200 Balance 310 Intake: Intake, IV Titration 260 Amount Sodium Chloride 0.9% 1, 260 000 ml @ 130 mls/hr IV . Q7H42M [facility] Rx#:[id number] Oral 250 Output: Urine 200 Other: Weight 89.358 kg 89.358 kg - Constitutional General appearance: mild distress - EENT Eyes: EOMI, PERRLA ENT: hearing grossly normal, normal oropharynx - Neck Neck: no lymphadenopathy Thyroid: bilateral: normal size - Respiratory Respiratory: right: diminished, dullness, bilateral: rhonchi - Cardiovascular Rhythm: regular Heart sounds: normal: S1, S2 - Gastrointestinal General gastrointestinal: normal bowel sounds, soft - Integumentary Integumentary: normal - Neurologic Neurologic: CNII-XII intact - Musculoskeletal Musculoskeletal: generalized weakness, strength equal bilaterally - Psychiatric Psychiatric: A&O x's 3, appropriate affect Results CBC & Chem 7: 05/01/19 14:21 05/01/19 14:21 Labs: Abnormal Lab Results - Last 24 Hours (Table) 05/01/19 05/01/19 05/01/19 Range/Units 14:21 14:21 14:21 WBC 18.4 H (3.8-10.6) k/uL RDW 16.8 H (11.5-15.5) % Neutrophils # 17.1 H (1.3-7.7) k/uL Lymphocytes # 0.6 L (1.0-4.8) k/uL APTT 31.7 H (22.0-30.0) sec Sodium 132 L (137-145) mmol/L Carbon Dioxide 20 L (22-30) mmol/L Glucose 155 H (74-99) mg/dL Plasma Lactic Acid Colby (0.7-2.0) mmol/L AST 64 H (17-59) U/L Alkaline Phosphatase 221 H (38-126) U/L Creatine Kinase 23 L (55-170) U/L Albumin 3.1 L (3.5-5.0) g/dL Urine Protein (Negative) Urine Bilirubin (Negative) Urine RBC (0-5) /hpf Urine WBC (0-5) /hpf Hyaline Casts (0-2) /lpf Urine Mucus (None) /hpf 05/01/19 05/01/19 05/01/19 Range/Units 14:21 18:27 21:40 WBC (3.8-10.6) k/uL RDW (11.5-15.5) % Neutrophils # (1.3-7.7) k/uL Lymphocytes # (1.0-4.8) k/uL APTT (22.0-30.0) sec Sodium (137-145) mmol/L Carbon Dioxide (22-30) mmol/L Glucose (74-99) mg/dL Plasma Lactic Acid Colby 2.2 H* 2.1 H* 5.9 H* (0.7-2.0) mmol/L AST (17-59) U/L Alkaline Phosphatase (38-126) U/L Creatine Kinase (55-170) U/L Albumin (3.5-5.0) g/dL Urine Protein (Negative) Urine Bilirubin (Negative) Urine RBC (0-5) /hpf Urine WBC (0-5) /hpf Hyaline Casts (0-2) /lpf Urine Mucus (None) /hpf 05/01/19 Range/Units 21:43 WBC (3.8-10.6) k/uL RDW (11.5-15.5) % Neutrophils # (1.3-7.7) k/uL Lymphocytes # (1.0-4.8) k/uL APTT (22.0-30.0) sec Sodium (137-145) mmol/L Carbon Dioxide (22-30) mmol/L Glucose (74-99) mg/dL Plasma Lactic Acid Colby (0.7-2.0) mmol/L AST (17-59) U/L Alkaline Phosphatase (38-126) U/L Creatine Kinase (55-170) U/L Albumin (3.5-5.0) g/dL Urine Protein 1+ H (Negative) Urine Bilirubin 1+ H (Negative) Urine RBC 23 H (0-5) /hpf Urine WBC 10 H (0-5) /hpf Hyaline Casts 13 H (0-2) /lpf Urine Mucus Many H (None) /hpf Comments: CT scan report from 04/10/19 did not show any metastatic progression Chest x-ray: report reviewed CT scan - abdomen: report reviewed CT scan - chest: report reviewed CT scan - pelvis: report reviewed Assessment and Plan (1) Pleural effusion Narrative/Plan: The patient is presenting with recurrent pleural effusion. He had thoracentesis on 04/20/19, with cytology negative. He has significant progressive respiratory distress. The recurrent pleural effusion is likely a contributor, though based on the clinical presentation sepsis with possible pneumonia is also most likely a cause. On exam the patient did appear to be significant respiratory distress. He felt that he could potentially benefit for drainage of the fluid as he had felt better after his previous thoracentesis. Case was discussed extensively with the emergency room physician. It would be reasonable to try to repeat paracentesis as soon as possible practical possible. The patient was on eliquis previously. Thus the procedure can be done on the day of admission, while holding the p.m. dose of eliquis, and reversing the effect of the a.m. dose with Kcentra Cytology should be repeated on the fluid, along with other tests including culture Current Visit: Yes Status: Acute Code(s): J90 - PLEURAL EFFUSION, NOT ELSEWHERE CLASSIFIED SNOMED Code(s): 14819915 (2) Anticoagulated Narrative/Plan: The patient got a dose at 11 AM on the day of admission. If thoracentesis can be found in the evening, then the effect of the a.m. dose can be reversed with PCC-4. If the procedure is able to be accomplished, and the patient can resume eliquis in the a.m. of 05/02/19. 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 Likely this appears to be due to a pneumonia. It was discussed with family that was ability is include, and require pneumonia, as well as possible aspiration. Another possibility could also be a leak from the esophagus causing a chemical pneumonitis.\ The patient is not neutropenic. Case was discussed with the ER physician, and vision started on antibiotic with Zosyn and vancomycin. If fluid is found to be inflammatory, it would be reasonable to consider barium swallow to rule out a leak. Current Visit: Yes Status: Acute Code(s): A41.9 - SEPSIS, UNSPECIFIED ORGANISM SNOMED Code(s): 12616947 (4) Esophageal carcinoma Narrative/Plan: diagnostic and therapeutistances as described. If the pleural fluid is positive, that would indicate progression and therefore need to consider change of therapy. If fluid is negative for malignancy, the patient can potentially continue his current regimen once acute situation is resolved Current Visit: No Status: Acute Code(s): C15.9 - MALIGNANT NEOPLASM OF ESOPHAGUS, UNSPECIFIED SNOMED Code(s): 033977046 Plan: Therefore to the admitting service for management of his other medical problems
[2019-05-02] MEDS: HYDROcodone/APAP 5-325MG 1 EACH TAB PO PRN (02:36)
[2019-05-02] MEDS: PIPERACILLIN-TAZOBACTAM 3.375 GM in SODIUM CHLORIDE 0.9% 100 ML IVPB SCH ×3 (02:36→18:35)
[2019-05-02 02:38] LABS: Anisocytosis Slight; HGB 12.3 gm/dL (13.0-17.5); Hypochromasia Marked; MCH 30.1 pg (25.0-35.0); MCHC 31.5 g/dL (31.0-37.0); MCV 95.6 fL (80.0-100.0); Mean Platelet Volume 7.8; Platelet Count 312 k/uL (150-450); Poikilocytosis Slight; RBC 4.08 m/uL (4.30-5.90); RDW 16.6 % (11.5-15.5)
[2019-05-02 02:45] LABS: Calcium 7.8 mg/dL (8.4-10.2); Potassium 5.2 mmol/L (3.5-5.1)
[2019-05-02 03:00] LABS: Band Neutrophils % 9 %; Lymphocytes # (M) 0.39 k/uL (1.0-4.8); Monocytes # (M) 0.78 k/uL (0-1.0); Neutrophils % (M) 88 %; Nucleated Red Blood Cells 0 /100 WBC (0-0); Total Cells Counted 200
[2019-05-02] MEDS: PANTOPRAZOLE 40 MG/10 ML VIAL IVP SCH ×3 (03:54→20:17)
[2019-05-02] MEDS: SODIUM CHLORIDE 0.9% 1,000 ML IV SCH ×4 (07:06→20:17)
[2019-05-02] MEDS: IPRATROPIUM-ALBUTEROL 3 ML NEB INHALATION SCH ×4 (07:55→19:03)
--- NOTE | 2019-05-02 08:20 | XR ---
EXAMINATION TYPE: XR chest 2V DATE OF EXAM: 05/02/2019 COMPARISON: 05/01/2019 HISTORY: Pneumonia. Shortness of breath. Follow-up exam. TECHNIQUE: Frontal and lateral views of the chest are obtained. FINDINGS: There is an exaggerated thoracic kyphosis and compression deformity of the mid to lower th oracic spine is seen on the prior. Chronic rib deformities are also seen in the left. Esophageal sten t is again noted as well as right-sided Mediport. Trace left pleural effusion is similar as well as large right pleural effusion and right-sided airspa ce disease shifting the mediastinum to the left. Cardiomediastinal silhouette is largely obscured. IMPRESSION: Similar large right and trace left pleural effusions with near complete opacification of the right hemithorax. Associated airspace disease likely represents atelectasis.
--- NOTE | 2019-05-02 08:39 | P.CNPUL ---
History of Present Illness Consult date: 05/02/19 Reason for consult: dyspnea, pleural effusion History of present illness: The patient is a 64-year-old white male well known to our service. He is followed by in the outpatient setting. 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 He was treated with chemotherapy and radiation and was subsequently scheduled for surgery. However prior to surgery he developed extensive PEs and was placed on anticoagulation. He is continued on eliquis since.The patient had also developed pleural effusions at that time which were negative for malignancy. Due to these, and other medical issues surgery was not performed. The patient was then on observation till the follow-up 2018 when he developed progressive dysphagia. He had an EGD in 12/06 revealing a stricture with biopsy negative. Due to persiste nt symptoms a repeat EGD was done in 01/06, with biopsy now positive for local recurrence. he did have stent placemeThe patient was then started back on treatment with Taxotere and Cyramza. After starting treatment he did develop right-sided pleural effusion with thoracentesis on 04/20/19. Cytology was negative for malignancy and treatment was continued. The patient presented yesterday to the emergency department because of worsening shortness of breath. His breathing has gotten worse over the past 3 days. Had some increased cough along with worsening in this exercise capacity. Unable to bring up any sputum. No chest pain. He had a temperature of 101 and increased shortness of breath/on day of admission. He came into the emergency department. His white cell count was elevated. At some mild lactic acidosis. His chest x- ray showed a large right-sided pleural effusion which is a recurrent problem. His systolic blood pressure was in the low 90s and he was quite tachycardic. Hi s white cell count was also elevated. Based on this, the patient was given fluids and subsequently the fluid was slowed down as the patient was felt to be getting more short of breath. He is currently on a maintenance of 20 mL an hour. He was given a combination of Zosyn and vancomycin as empiric antibiotic coverage in conjunction with Levaquin. This morning, the white cell count is up to 39. He has 93%.. Neutrophilia. The serum bicarb is down to 17. The lactic acid level is down to 4.3. LFTs shows AST of 64 ALT of 30 alkaline phosphatase of 221 CPK is within normal limits. Blood cultures of been sent. Urine analysis shows 10 WBCs. Influenza A and B screen is negative. He is pulse oxing 92% liters of oxygen by nasal cannula. The Eliquis stopped since yesterday.The most recent CAT scan of the chest abdomen and pelvis that was done on 04/10/2019 showed a right-sided pleural effusion. There is a right perihilar soft tissue density that the plaques atelectasis. There is esophageal dilatation with a stent in place noted in place. There is internal debris's. Soft tissue surrounding the esophagus is unchanged. Hilar structures remain unchanged. No distant metastases noted. Review of Systems Constitutional: Reports fever, Reports poor appetite, Reports weakness, Reports weight loss Eyes: denies blurred vision, denies pain Ears: deny: decreased hearing, ear discharge, earache, tinnitus Ears, nose, mouth and throat: Denies headache, Denies sore throat Cardiovascular: Reports chest pain, Reports shortness of breath Respiratory: Reports cough with sputum, Reports dyspnea, Reports pain Gastrointestinal: Reports nausea, Reports vomiting Genitourinary: Reports as per HPI Musculoskeletal: Reports muscle weakness Integumentary: Denies pruritus, Denies rash Neurological: Reports weakness Psychiatric: Denies anxiety, Denies depression Endocrine: Reports fatigue, Reports palpitations, Reports weight change Hematologic/Lymphatic: Reports as per HPI Past Medical History Past Medical History: Cancer, CVA/TIA, Deep Vein Thrombosis (DVT), GERD/Reflux, Hyperlipidemia, Hypertension, Pulmonary Embolus (PE), Sleep Apnea/CPAP/BIPAP, Supraventricular Tachycardia (SVT) Additional Past Medical History / Comment(s): no cpap used, diff swallowing, esophagial [id number] radiation 2017 and chemo-last chemo 11-03-18,steroid Oct 2018, esophageal bleed that he was treated at [facility] and they thought was related to his esophageal tumor History of Any Multi-Drug Resistant Organisms: None Reported Past Surgical History: Cardiac Ablation, Hernia Repair Additional Past Surgical History / Comment(s): sivakumar inguinal hernia, vasectomy, PEG tube placement and removal, mediport, stent in esophagus for esophageal cancer Past Anesthesia/Blood Transfusion Reactions: No Reported Reaction Past Psychological History: Anxiety Smoking Status: Never smoker Past Alcohol Use History: None Reported Past Drug Use History: None Reported - Past Family History Mother Family Medical History: Cancer Additional Family Medical History / Comment(s): uterine Medications and Allergies Home Medications Medication Instructions Recorded Confirmed Type Flecainide Acetate [Tambocor] 100 mg PO BID 10/02/16 05/01/19 History Omeprazole [PriLOSEC] 20 mg PO BID 10/02/16 05/01/19 History ALPRAZolam [Xanax] 0.5 mg PO BID PRN 01/20/17 05/01/19 History DULoxetine HCL [Cymbalta] 20 mg PO QAM 03/09/17 05/01/19 History Apixaban [Eliquis] 2.5 mg PO BID 11/17/18 05/01/19 History Cyanocobalamin (Vitamin B-12) 1,000 mcg PO DAILY 12/31/18 05/01/19 History [Vitamin B-12] Multivitamins, Thera [Multivitamin 1 tab PO DAILY 12/31/18 05/01/19 History (formulary)] Prochlorperazine [Compazine] 10 mg PO Q6H PRN 05/01/19 05/01/19 History Allergies Allergy/AdvReac Type Severity Reaction Status Date / Time No Known Allergies Allergy Verified 05/01/19 16:49 Physical Exam Vitals: Vital Signs Temp Pulse Resp BP BP Pulse Ox 05/02/19 08:11 108 H 05/02/19 07:56 100 05/02/19 06:01 97.8 F 26 H 94/68 92 L 05/02/19 04:00 22 92 L 05/02/19 00:00 22 05/01/19 19:48 98.6 F 108 H 22 90/67 97 05/01/19 19:33 104 H 05/01/19 19:14 108 H 05/01/19 18:20 97.4 F L 111 H 32 H 92/58 92 L 05/01/19 17:51 97.6 F 105 H 28 H 97/64 95 05/01/19 17:15 96 05/01/19 17:04 22 118/72 93 L 05/01/19 16:58 99.8 F H 102 H 24 104/64 90 L 05/01/19 15:25 99.5 F 117 H 24 113/80 95 05/01/19 15:19 111 H 05/01/19 15:09 115 H 05/01/19 13:51 28 H 05/01/19 13:39 101.0 F H 104 H 18 127/77 92 L Intake and Output 05/01/19 05/02/19 05/02/19 22:59 06:59 14:59 Intake Total 510 600 Output Total 200 250 Balance 310 350 Intake: Intake, IV Titration 260 350 Amount Piperacillin-Tazobactam 3 100 .375 gm In Sodium Chloride 0.9% 100 ml @ 25 mls/hr IVPB Q8HR [facility] Rx# :[id number] Sodium Chloride 0.9% 1, 260 000 ml @ 130 mls/hr IV . [id number] [facility] Rx#:[id number] Vancomycin 1,500 mg In 250 Sodium Chloride 0.9% 250 ml @ 125 mls/hr IVPB ONCE ONE Rx#:[id number] Oral 250 250 Output: Urine 200 250 Other: # Voids 1 Weight 89.358 kg Gen. appearance the patient is quite short of breath even at rest. He is tachypneic on evaluation. Head exam was generally normal. There was no scleral icterus or corneal arcus. Mucous membranes were moist. Neck was supple and without jugular venous distension, thyromegaly, or carotid bruits. Carotids were easily palpable bilaterally. There was no adenopathy. Lungs sounds are diminished bilaterally there is significant diminished breath sounds on the right along with dullness to percussion consistent with pleural effusion. The patient is a Mediport over the anterior chest area on the right. Cardiac exam revealed the PMI to be normally situated and sized. The rhythm was regular and no extrasystoles were noted during several minutes of auscultation. The first and second heart sounds were normal and physiologic splitting of the second heart sound was noted. There were no murmurs, rubs, clicks, or gallops. Abdominal exam revealed normal bowel sounds. The abdomen was soft, non-tender, and without masses, organomegaly, or appreciable enlargement of the abdominal aorta. Extremities reveal trace is no cyanosis or clubbing Neurologically the patient is awake and alert is a bit anxious. His neurologic exam is nonfocal and the patient is moving all 4 extremities without any limitation. No significant motor weakness. Results - Laboratory Findings CBC and BMP: 05/02/19 02:24 05/02/19 02:24 PT/INR, D-dimer PT 11.3 sec (9.0-12.0) 05/01/19 14:21 INR 1.1 (<1.2) 05/01/19 14:21 Abnormal lab findings: Abnormal Labs 05/01/19 05/01/19 05/01/19 14:21 14:21 14:21 WBC 18.4 H RBC Hgb RDW 16.8 H Neutrophils # 17.1 H Neutrophils # (Manual) Lymphocytes # 0.6 L Lymphocytes # (Manual) APTT 31.7 H Sodium 132 L Potassium Carbon Dioxide 20 L BUN Glucose 155 H Plasma Lactic Acid Colby Calcium AST 64 H Alkaline Phosphatase 221 H Creatine Kinase 23 L Albumin 3.1 L Urine Protein Urine Bilirubin Urine RBC Urine WBC Hyaline Casts Urine Mucus 05/01/19 05/01/19 05/01/19 14:21 18:27 21:40 WBC RBC Hgb RDW Neutrophils # Neutrophils # (Manual) Lymphocytes # Lymphocytes # (Manual) APTT Sodium Potassium Carbon Dioxide BUN Glucose Plasma Lactic Acid Colby 2.2 H* 2.1 H* 5.9 H* Calcium AST Alkaline Phosphatase Creatine Kinase Albumin Urine Protein Urine Bilirubin Urine RBC Urine WBC Hyaline Casts Urine Mucus 05/01/19 05/02/19 05/02/19 21:43 02:24 02:24 WBC 39.0 H RBC 4.08 L Hgb 12.3 L RDW 16.6 H Neutrophils # Neutrophils # (Manual) 37.80 H Lymphocytes # Lymphocytes # (Manual) 0.39 L APTT Sodium 133 L Potassium 5.2 H Carbon Dioxide 17 L BUN 26 H Glucose 148 H Plasma Lactic Acid Colby Calcium 7.8 L AST Alkaline Phosphatase Creatine Kinase Albumin Urine Protein 1+ H Urine Bilirubin 1+ H Urine RBC 23 H Urine WBC 10 H Hyaline Casts 13 H Urine Mucus Many H 05/02/19 05/02/19 02:24 06:19 WBC RBC Hgb RDW Neutrophils # Neutrophils # (Manual) Lymphocytes # Lymphocytes # (Manual) APTT Sodium Potassium Carbon Dioxide BUN Glucose Plasma Lactic Acid Colby 4.0 H* 4.3 H* Calcium AST Alkaline Phosphatase Creatine Kinase Albumin Urine Protein Urine Bilirubin Urine RBC Urine WBC Hyaline Casts Urine Mucus - Diagnostic Findings Chest x-ray: image reviewed Assessment and Plan Plan: 1 acute hypoxic respiratory failure secondary to a recurrent large right-sided pleural effusion. The patient was drained approximately 10 days ago and he has a recurrent large right-sided pleural effusion. Initial fluid analysis was negative for malignancy. This cannot be however completely excluded. 2 acute febrile illness with lactic acidosis and leukocytosis. Consider underlying sepsis 3 leukocytosis 4 lactic acidosis improving 5 Esophageal cancer, recurrent and currently the patient is on systemic chemotherapy, and the patient has a esophageal stent in place. The patient is currently on systemic chemotherapy. 6 history of DVT and bilateral pulmonary embolism maintained on long-term and to coagulation withEliquis 7 hypertension 8 hyperlipidemia 9 history of obstructive sleep apnea 10 history of CVA Plan We'll proceed with a diagnostic and therapeutic thoracentesis. The right lung with the joint. Eliquis has been stopped yesterday. Nevertheless, taken accoun t the patient's ongoing worsening shortness of breath, the procedure will be done this morning. Consent was obtained and potential complications was extended to the patient. Meanwhile, with some blood cultures, urine cultures, proceed with a Zosyn and vancomycin antibiotic coverage. Restart IV fluids at the rate of 100 mL an hour.. Keep oxygen at 2 L per minute nasal cannula. The fluid will be sent for analysis again. We'll consult cardiothoracic surgery regarding the possibility of a Pleurx catheter insertion in view of the recurrent and the rapid nature of the cardiac ablation in the right-sided pleural effusion. We'll continue to follow.
[2019-05-02] MEDS ORDERED: RX INFO: IV CONTRAST WAS GIVEN 1 EACH MISC MISCELLANE PRN (08:42)
--- NOTE | 2019-05-02 08:47 | P.PCN ---
Date of Procedure: 05/02/19 Preoperative Diagnosis: Right-sided pleural effusion Postoperative Diagnosis: Right-sided pleural effusion Procedure(s) Performed: thoracentesis Anesthesia: local Surgeon: Jacinto Hartman Pathology: other Condition: critical Disposition: ICU Operative Findings: Preoperative Diagnosis: Right-sided pleural effusion Postoperative Diagnosis: Right-sided pleural effusion Procedure(s) Performed: Thoracentesis Anesthesia: local Surgeon: Jacinto Hartman Pathology: other Condition: stable Disposition: ICU Operative Findings: This procedure was done for increased shortness of breath and impending respiratory failure. The patient was quite comfortable taking negative, procedu re. The patient was asked to sit up at the edge of the bed with his arms stretched out a bedside table. Ultrasound marking of the left-sided pleural effusion was obtained. The skin was cleaned using ChloraPrep. Following that, 1% lidocaine was utilized to infiltrate the skin with anesthetics at the level of the ultrasound markings. Following that, an incision was done using a scalpel. I was able to insert a thoracentesis catheter successfully into the left hemithorax and the total amount of fluid of 2400 cc was aspirated from the left lung without any complications. The fluid was turbid yellowish in color. Catheter was removed. There was a loculated right lower lobe pneumothorax noted following the procedure. The upper lobe was still well expanded. The patient will need a CAT scan and possibly a chest tube insertion regarding the recurrent right pleural effusion and directed cardiac ablation of the fluids.. No pneumothorax. No other complications. Patient tolerated the procedure well. The fluid will be sent for analysis.
[2019-05-02] MEDS: MULTIVITAMINS, THERA 1 EACH TAB PO SCH (08:51)
[2019-05-02] MEDS: DULoxetine HCL 20 MG CAPSULE.DR PO SCH (08:52)
[2019-05-02] MEDS: FLECAINIDE 50 MG TAB PO SCH ×2 (08:52→21:59)
[2019-05-02] MEDS: CYANOCOBALAMIN 500 MCG TAB PO SCH (08:52)
--- NOTE | 2019-05-02 09:02 | XR ---
EXAMINATION TYPE: XR chest 1V portable DATE OF EXAM: 05/02/2019 COMPARISON: 05/02/2019 HISTORY: Status post right-sided thoracentesis. TECHNIQUE: Single frontal view of the chest is obtained. FINDINGS: There is a loculated right lateral pneumothorax greater than 20% of the total lung volume with no alteration of the medial right lung base. Right upper lobe does demonstrate lung markings. Le ft lung demonstrates a trace pleural effusion but is otherwise well aerated. Residual trace right ple ural effusion seen. Atelectasis around the right fernando. Enlarged cardiomediastinal silhouette. Right-s ided Mediport is unchanged. No acute osseous pathology seen. IMPRESSION: Loculated right lateral and lower lung pneumothorax estimated at greater than 20% of the total lung volume with no current mediastinal shift seen. A [place] critical message alert has been initiated for Merritt Shay MD via the [email or web address] System on 05/02/2019 9:00 AM. This message alert has been sent to Merritt Shay MD via the preferences provided by the clinician for the receipt of Radiology Critical Findings. Message ID [id number].
[2019-05-02 09:32] LABS: Glucose,Whole Blood 157 mg/dL (75-99)
[2019-05-02] MEDS ORDERED: LIDOCAINE 2% INJ 20 MG/ML (20 ML MDV) ONE (11:30)
--- NOTE | 2019-05-02 11:31 | CT ---
EXAMINATION TYPE: CT chest w con DATE OF EXAM: 05/02/2019 COMPARISON: NONE HISTORY: Right pneumothorax, loculated. Esophageal cancer CT DLP: 411.6 mGycm. Automated Exposure Control for Dose Reduction was Utilized. TECHNIQUE: CT scan of the thorax is performed following with IV Contrast, patient injected with 100 mL of Isovue 300. FINDINGS: LUNGS: There is confirmation of a large loculated right hydropneumothorax now with interval mediastin al shift to the left that was not seen on the prior chest x-ray the same date. This has the largest c omponent of the right lower lung measuring 9.0 cm in transverse dimension. There are large loculated bulla of the right midlung and upper lung and recommendation for chest tube placement as along the lo wer border. Atelectasis along the right mediastinal border and right upper lobe with right-sided pleu ral thickening. Evaluation for any nodule or mass in the right lower lung is nondiagnostic given the extensive atelectasis. Numerous foci of air are seen within the right-sided pleural effusion. There i s also noted around the esophageal stent. Although no direct communication is seen. Therefore if no r esolution after chest tube placement therapy concern for esophageal rupture. However this patient is status post right-sided thoracentesis and therefore that is the most likely etiology. Additionally th ere is no other pneumomediastinum seen. Small left pleural effusion is also noted with compressive at electasis. Patient motion somewhat limits exam. Additionally air was seen around the esophageal stent on the prior of 04/10/2019. MEDIASTINUM: There mediastinum is shifted to the left. Calcifications along the inferior pericardium are seen likely from prior pericarditis. Small left pericardial effusion. OTHER: Small splenule is incidentally noted adjacent to the [place] spleen. Mild degree hepatic steato sis. Cholelithiasis is evident. Nonobstructing 2 mm left renal calculus. Probable bilateral renal sin us cysts although incompletely evaluated on this chest CT only. Globular thickening of the gastroesop hageal junction mucosa. Mid thoracic compression deformities and moderate degenerative change of the spine. Diffuse osseous demineralization. Debris fills nearly the entirety of the esophageal stent. IMPRESSION: 1. Greater than 50% hydropneumothorax with new right to left mediastinal shift. Mediastinal shift is new from the prior chest x-ray. Multifocal compressive atelectasis is seen of the right lung limiting evaluation of the right lung. Bullous emphysematous changes of the right midlung and right lung apex . Chest tube insertion as recommended inferiorly. The patient's nurse Lorrie was called at 11:27am wh o stated that Dr. Hartman was currently placing a chest tube. 2. Redemonstration of esophageal stent occlusion. Air around the esophageal stent is similar to the p rior of 04/10/2019. A [place] critical message alert has been initiated for Merritt Shay MD via the [employer] System on 05/02/2019 11:23 AM. This message alert has been sent to Merritt Shay MD vi a the preferences provided by the clinician for the receipt of Radiology Critical Findings. Message I D [id number].
[2019-05-02] MEDS ORDERED: SODIUM CHLORIDE 0.9% 1,000 ML IV ONE (11:42)
[2019-05-02] MEDS: VANCOMYCIN 1,500 MG in SODIUM CHLORIDE 0.9% 250 ML IVPB SCH (12:00)
[2019-05-02 12:18] LABS: Anisocytosis Slight; HCT 36.9 % (39.0-53.0); HGB 11.6 gm/dL (13.0-17.5); Hypochromasia Slight; MCHC 31.3 g/dL (31.0-37.0); MCV 95.8 fL (80.0-100.0); Mean Platelet Volume 7.6; Platelet Count 351 k/uL (150-450); RBC 3.85 m/uL (4.30-5.90); RDW 16.9 % (11.5-15.5); WBC 42.3 k/uL (3.8-10.6)
--- NOTE | 2019-05-02 12:56 | XR ---
EXAMINATION TYPE: XR chest 1V portable DATE OF EXAM: 05/02/2019 COMPARISON: CT and chest x-ray earlier on the same date HISTORY: Chest tube placement TECHNIQUE: Single frontal view of the chest is obtained. FINDINGS: Right thoracostomy tube has been placed over the right hemidiaphragm. The right inferior l oculated pneumothorax has nearly resolved with small right basilar pneumothorax remaining. Multifocal right-sided atelectasis and right perihilar consolidation remain. Right-sided Mediport is seen. Card iomediastinal silhouette is enlarged. Trace left pleural effusion. Diffuse osseous demineralization. IMPRESSION: Nearly resolved right loculated pneumothorax status post right thoracostomy tube inserti on with trace right basilar pneumothorax remaining. Right perihilar consolidation, multifocal atelect asis and trace left pleural effusion are again seen.
[2019-05-02 14:48] LABS: Appearance,BF Hazy; Color,BF Yellow; Nucleated Cells, Body Fluid 1600 /uL; RBC, Body Fluid 300 /uL
[2019-05-02 14:50] LABS: Mononuclear WBC,Body Fluid 7 %; Polynuclear WBC,Body Fluid 93 %; Total Cells Counted,Body Fluid 100
[2019-05-02] MEDS: LEVOFLOXACIN 750MG-D5W PMX 750 MG in DEXTROSE/WATER 1 150ML.BAG IVPB SCH (14:59)
--- NOTE | 2019-05-02 15:01 | P.GSCN ---
History of Present Illness Consult date: 05/02/19 Reason for Consult: Loculated right sided pneumothorax Requesting physician: Jacinto Hartman History of present illness: This is a 64-year-old gentleman who follows on an outpatient basis with . He has a previous medical history of adenocarcinoma of the esophagus, status post chemo and radiation and esophageal stent placement, pulmonary embolism on Eliquis for anticoagulation, pleural effusions status post thoracentesis, obstructive sleep apnea without home CPAP use, supraventricular tachycardia status post ablation, hypertension, hyperlipidemia, and CVA. He presented to [facility] emergency department yesterday due to worsening shortness of breath over the previous 3 days along with increased cough and decreased activity tolerance. He also reported fever of 10 1F. Upon presentation to the emergency room his white blood cell count was 18.4 with 9% bands climbing to 42.3 today, lactic acid was 2.2 climbing as high as 5.9 but now trending down, last lactic acid 4.1. Chest x-ray demonstrated right-sided pleural effusion with consolidation. He was admitted for evaluation and treatm ent with consultation placed to Dr. Hratman and . This morning he underwent right-sided thoracentesis with removal of 2400 mL turbid yellow fluid removal. Following that procedure a loculated right lower lobe pneumothorax was noted. CT of the chest was completed demonstrating greater than 50% hydropneumothorax to the right lung. The patient was moved to the intensive care unit, chest tube was placed by Dr. Hartman with immediate removal of thin yellow fluid and significant air. The patient remains with right-sided pleural chest tube in place, no air leak currently present. Dr. Pena was consulted for surgical recommendations. Review of Systems Review of systems was completed and was negative except as noted - Constitutional Reports fatigue, Reports fever, Reports lethargy, Reports poor appetite, Reports weakness, Reports weight loss - Cardiovascular Reports chest pain - Respiratory Reports cough with sputum, Reports dyspnea - Gastrointestinal Reports nausea, Reports vomiting Past Medical History Past Medical History: Cancer, CVA/TIA, Deep Vein Thrombosis (DVT), GERD/Reflux, Hyperlipidemia, Hypertension, Pulmonary Embolus (PE), Sleep Apnea/CPAP/BIPAP, Supraventricular Tachycardia (SVT) Additional Past Medical History / Comment(s): no cpap used, diff swallowing, esophagial [id number] radiation 2017 and chemo-last chemo 11-03-18,steroid Oct 2018, esophageal bleed that he was treated at [facility] and they thought was related to his esophageal tumor History of Any Multi-Drug Resistant Organisms: None Reported Past Surgical History: Cardiac Ablation, Hernia Repair Additional Past Surgical History / Comment(s): sivakumar inguinal hernia, vasectomy, PEG tube placement and removal, mediport, stent in esophagus for esophageal cancer Past Anesthesia/Blood Transfusion Reactions: No Reported Reaction Past Psychological History: Anxiety Smoking Status: Never smoker Past Alcohol Use History: None Reported Past Drug Use History: None Reported - Past Family History Mother Family Medical History: Cancer Additional Family Medical History / Comment(s): uterine Medications and Allergies Home Medications Medication Instructions Recorded Confirmed Type Flecainide Acetate [Tambocor] 100 mg PO BID 10/02/16 05/01/19 History Omeprazole [PriLOSEC] 20 mg PO BID 10/02/16 05/01/19 History ALPRAZolam [Xanax] 0.5 mg PO BID PRN 01/20/17 05/01/19 History DULoxetine HCL [Cymbalta] 20 mg PO QAM 03/09/17 05/01/19 History Apixaban [Eliquis] 2.5 mg PO BID 11/17/18 05/01/19 History Cyanocobalamin (Vitamin B-12) 1,000 mcg PO DAILY 12/31/18 05/01/19 History [Vitamin B-12] Multivitamins, Thera [Multivitamin 1 tab PO DAILY 12/31/18 05/01/19 History (formulary)] Prochlorperazine [Compazine] 10 mg PO Q6H PRN 05/01/19 05/01/19 History Allergies Allergy/AdvReac Type Severity Reaction Status Date / Time No Known Allergies Allergy Verified 05/01/19 16:49 Surgical - Exam Vital Signs Temp Pulse Resp BP Pulse Ox 101.0 F H 104 H 18 127/77 92 L 05/01/19 13:39 05/01/19 13:39 05/01/19 13:39 05/01/19 13:39 05/01/19 13:39 - General well developed, well nourished, moderate distress, no pain, chronically ill - Eyes normal ocular movement - ENT no hearing loss - Neck no masses, no bruits, trachea midline - Respiratory Lungs sounds diminished bilaterally, right greater than left. Respirations taccypneic. Currently on 4 L nasal cannula with oxygen saturation 95%. Right sided pleural chest tube present to continuos wall suction, 930 mL serous drainage since insertion, no air leak present. - Cardiovascular S1, S2 present. Tachycardic but regular rate and rhythm, sinus tach on telemetry. Palpable peripheral pulses bilaterally. No edema present. No calf pain or tenderness noted. - Abdomen Abdomen: soft, non tender, bowel sounds - Genitourinary Deferred - Rectum Deferred - Integumentary no rash, no growths, no abnormal pigmentation - Neurologic normal coordination, normal sensation - Musculoskeletal normal posture - Psychiatric oriented to time, oriented to person, oriented to place, speech is normal Results - Labs 05/02/19 11:58 05/02/19 02:24 Abnormal Lab Results - Last 24 Hours (Table) 05/01/19 05/01/19 05/01/19 Range/Units 14:21 14:21 14:21 WBC 18.4 H (3.8-10.6) k/uL RBC (4.30-5.90) m/uL Hgb (13.0-17.5) gm/dL Hct (39.0-53.0) % RDW 16.8 H (11.5-15.5) % Neutrophils # 17.1 H (1.3-7.7) k/uL Neutrophils # (Manual) (1.3-7.7) k/uL Lymphocytes # 0.6 L (1.0-4.8) k/uL Lymphocytes # (Manual) (1.0-4.8) k/uL APTT 31.7 H (22.0-30.0) sec Sodium 132 L (137-145) mmol/L Potassium (3.5-5.1) mmol/L Carbon Dioxide 20 L (22-30) mmol/L BUN (9-20) mg/dL Glucose 155 H (74-99) mg/dL POC Glucose (mg/dL) (75-99) mg/dL Plasma Lactic Acid Colby (0.7-2.0) mmol/L Calcium (8.4-10.2) mg/dL AST 64 H (17-59) U/L Alkaline Phosphatase 221 H (38-126) U/L Creatine Kinase 23 L (55-170) U/L Albumin 3.1 L (3.5-5.0) g/dL Urine Protein (Negative) Urine Bilirubin (Negative) Urine RBC (0-5) /hpf Urine WBC (0-5) /hpf Hyaline Casts (0-2) /lpf Urine Mucus (None) /hpf 05/01/19 05/01/19 05/01/19 Range/Units 14:21 18:27 21:40 WBC (3.8-10.6) k/uL RBC (4.30-5.90) m/uL Hgb (13.0-17.5) gm/dL Hct (39.0-53.0) % RDW (11.5-15.5) % Neutrophils # (1.3-7.7) k/uL Neutrophils # (Manual) (1.3-7.7) k/uL Lymphocytes # (1.0-4.8) k/uL Lymphocytes # (Manual) (1.0-4.8) k/uL APTT (22.0-30.0) sec Sodium (137-145) mmol/L Potassium (3.5-5.1) mmol/L Carbon Dioxide (22-30) mmol/L BUN (9-20) mg/dL Glucose (74-99) mg/dL POC Glucose (mg/dL) (75-99) mg/dL Plasma Lactic Acid Colby 2.2 H* 2.1 H* 5.9 H* (0.7-2.0) mmol/L Calcium (8.4-10.2) mg/dL AST (17-59) U/L Alkaline Phosphatase (38-126) U/L Creatine Kinase (55-170) U/L Albumin (3.5-5.0) g/dL Urine Protein (Negative) Urine Bilirubin (Negative) Urine RBC (0-5) /hpf Urine WBC (0-5) /hpf Hyaline Casts (0-2) /lpf Urine Mucus (None) /hpf 05/01/19 05/02/19 05/02/19 Range/Units 21:43 02:24 02:24 WBC 39.0 H (3.8-10.6) k/uL RBC 4.08 L (4.30-5.90) m/uL Hgb 12.3 L (13.0-17.5) gm/dL Hct (39.0-53.0) % RDW 16.6 H (11.5-15.5) % Neutrophils # (1.3-7.7) k/uL Neutrophils # (Manual) 37.80 H (1.3-7.7) k/uL Lymphocytes # (1.0-4.8) k/uL Lymphocytes # (Manual) 0.39 L (1.0-4.8) k/uL APTT (22.0-30.0) sec Sodium 133 L (137-145) mmol/L Potassium 5.2 H (3.5-5.1) mmol/L Carbon Dioxide 17 L (22-30) mmol/L BUN 26 H (9-20) mg/dL Glucose 148 H (74-99) mg/dL POC Glucose (mg/dL) (75-99) mg/dL Plasma Lactic Acid Colby (0.7-2.0) mmol/L Calcium 7.8 L (8.4-10.2) mg/dL AST (17-59) U/L Alkaline Phosphatase (38-126) U/L Creatine Kinase (55-170) U/L Albumin (3.5-5.0) g/dL Urine Protein 1+ H (Negative) Urine Bilirubin 1+ H (Negative) Urine RBC 23 H (0-5) /hpf Urine WBC 10 H (0-5) /hpf Hyaline Casts 13 H (0-2) /lpf Urine Mucus Many H (None) /hpf 05/02/19 05/02/19 05/02/19 Range/Units 02:24 06:19 09:30 WBC (3.8-10.6) k/uL RBC (4.30-5.90) m/uL Hgb (13.0-17.5) gm/dL Hct (39.0-53.0) % RDW (11.5-15.5) % Neutrophils # (1.3-7.7) k/uL Neutrophils # (Manual) (1.3-7.7) k/uL Lymphocytes # (1.0-4.8) k/uL Lymphocytes # (Manual) (1.0-4.8) k/uL APTT (22.0-30.0) sec Sodium (137-145) mmol/L Potassium (3.5-5.1) mmol/L Carbon Dioxide (22-30) mmol/L BUN (9-20) mg/dL Glucose (74-99) mg/dL POC Glucose (mg/dL) 157 H (75-99) mg/dL Plasma Lactic Acid Colby 4.0 H* 4.3 H* (0.7-2.0) mmol/L Calcium (8.4-10.2) mg/dL AST (17-59) U/L Alkaline Phosphatase (38-126) U/L Creatine Kinase (55-170) U/L Albumin (3.5-5.0) g/dL Urine Protein (Negative) Urine Bilirubin (Negative) Urine RBC (0-5) /hpf Urine WBC (0-5) /hpf Hyaline Casts (0-2) /lpf Urine Mucus (None) /hpf 05/02/19 05/02/19 Range/Units 11:58 11:58 WBC 42.3 H (3.8-10.6) k/uL RBC 3.85 L (4.30-5.90) m/uL Hgb 11.6 L (13.0-17.5) gm/dL Hct 36.9 L (39.0-53.0) % RDW 16.9 H (11.5-15.5) % Neutrophils # (1.3-7.7) k/uL Neutrophils # (Manual) (1.3-7.7) k/uL Lymphocytes # (1.0-4.8) k/uL Lymphocytes # (Manual) (1.0-4.8) k/uL APTT (22.0-30.0) sec Sodium (137-145) mmol/L Potassium (3.5-5.1) mmol/L Carbon Dioxide (22-30) mmol/L BUN (9-20) mg/dL Glucose (74-99) mg/dL POC Glucose (mg/dL) (75-99) mg/dL Plasma Lactic Acid Colby 4.1 H* (0.7-2.0) mmol/L Calcium (8.4-10.2) mg/dL AST (17-59) U/L Alkaline Phosphatase (38-126) U/L Creatine Kinase (55-170) U/L Albumin (3.5-5.0) g/dL Urine Protein (Negative) Urine Bilirubin (Negative) Urine RBC (0-5) /hpf Urine WBC (0-5) /hpf Hyaline Casts (0-2) /lpf Urine Mucus (None) /hpf Diabetes panel 05/01/19 05/02/19 Range/Units 14:21 02:24 Sodium 132 L 133 L (137-145) mmol/L Potassium 4.5 5.2 H (3.5-5.1) mmol/L Chloride 100 105 (98-107) mmol/L Carbon Dioxide 20 L 17 L (22-30) mmol/L BUN 16 26 H (9-20) mg/dL Creatinine 0.68 1.01 (0.66-1.25) mg/dL Glucose 155 H 148 H (74-99) mg/dL Calcium 8.4 7.8 L (8.4-10.2) mg/dL AST 64 H (17-59) U/L ALT 30 (4-49) U/L Alkaline Phosphatase 221 H (38-126) U/L Total Protein 7.1 (6.3-8.2) g/dL Albumin 3.1 L (3.5-5.0) g/dL Calcium panel 05/01/19 05/02/19 Range/Units 14:21 02:24 Calcium 8.4 7.8 L (8.4-10.2) mg/dL Albumin 3.1 L (3.5-5.0) g/dL Pituitary panel 05/01/19 05/02/19 Range/Units 14:21 02:24 Sodium 132 L 133 L (137-145) mmol/L Potassium 4.5 5.2 H (3.5-5.1) mmol/L Chloride 100 105 (98-107) mmol/L Carbon Dioxide 20 L 17 L (22-30) mmol/L BUN 16 26 H (9-20) mg/dL Creatinine 0.68 1.01 (0.66-1.25) mg/dL Glucose 155 H 148 H (74-99) mg/dL Calcium 8.4 7.8 L (8.4-10.2) mg/dL Adrenal panel 05/01/19 05/02/19 Range/Units 14:21 02:24 Sodium 132 L 133 L (137-145) mmol/L Potassium 4.5 5.2 H (3.5-5.1) mmol/L Chloride 100 105 (98-107) mmol/L Carbon Dioxide 20 L 17 L (22-30) mmol/L BUN 16 26 H (9-20) mg/dL Creatinine 0.68 1.01 (0.66-1.25) mg/dL Glucose 155 H 148 H (74-99) mg/dL Calcium 8.4 7.8 L (8.4-10.2) mg/dL Total Bilirubin 0.9 (0.2-1.3) mg/dL AST 64 H (17-59) U/L ALT 30 (4-49) U/L Alkaline Phosphatase 221 H (38-126) U/L Total Protein 7.1 (6.3-8.2) g/dL Albumin 3.1 L (3.5-5.0) g/dL - Imaging Chest x-ray: report reviewed, image reviewed CT scan - chest: report reviewed, image reviewed Assessment and Plan Assessment: 1. Loculated pleural effusion, status post thoracentesis followed by chest tube placement 2. Adenocarcinoma of the esophagus, status post chemo and radiation 3. Acute hypoxic respiratory failure secondary to recurrent right-sided pleural effusion 4. Lactic acidosis on admission, leukocytosis with bandemia 5. History of pulmonary embolism on Eliquis for anticoagulation 6. Hypertension 7. Hyperlipidemia 8. Obstructive sleep apnea without home CPAP use 9. History of CVA Plan: The patient was seen and examined at the bedside with Dr. Pena who was present when chest tube was placed by Dr. Hartman. Chart/diagnostics were reviewed. At this time our recommendation is to continue chest tube to continuous wall suction, we will continue to monitor. Management of other comorbidities per primary care service. More recommendations to follow. Thank you Dr. Hartman for this consult. Time with Patient: Greater than 30
--- NOTE | 2019-05-02 15:55 | P.PCN ---
Date of Procedure: 05/02/19 Preoperative Diagnosis: Right-sided hydropneumothorax Postoperative Diagnosis: Same Procedure(s) Performed: Chest tube insertion Anesthesia: local Surgeon: Jacinto Hartman Estimated Blood Loss (ml): 0 Pathology: other Condition: critical Disposition: ICU Operative Findings: This procedure was done in intensive care unit. The patient already had a thoracentesis that was followed up by development of a pneumothorax ex vacuo. The patient continued to be short of breath. I realize that on earlier chest x- rays, the patient had some reexpansion of the right lung following the thoracentesis. Based on that, I decided to proceed with a chest tube insertion. The right chest was prepped using chlorhexidine and following that the skin over the right lateral chest mid axillary line was infiltrated with lidocaine. A horizontal incision was made and intercostal space was dissected. Initially, introduced a 32-Polish chest tube and the right hemithorax. However, the chest x-ray that was done following the chest tube insertion showed that the tube itself was probably subdiaphragmatic. That she was removed. The skin 1 intercostal space hiatal was now accessed. Lidocaine was used to anesthetize the skin and the intercostal space. Following that, not horizontal incision was done and the subcutaneous tissue was dissected. I was able to introduce a forceps catheter into the right pleural space and my index finger was used to palpate the space. Following that, introduced a 28-Polish chest tube into the right hemithorax. There was adequate deflation of the pneumothorax and the residual pleural effusion that was present in the right hemithorax. A total of 800 mL of pleural fluid was aspirated immediately. There was positive air leak. The chest tube was secured in place and was sutured using point 0 Ethibond suture. Appropriate dressing was applied. Chest x-ray was done and showed near resolution of the right sided loculated pneumothorax post chest tube insertion. There was trace right-sided basilar pneumothorax still present. Chest tube was in a good location. A follow-up CBC will be done to make sure there is no blood loss following the introduction of the first chest tube. Patient tolerated the procedure well. Hemodynamically remained stable and unchanged. Chest x-ray was reviewed.
[2019-05-02] MEDS: guaiFENesin SYRUP 100MG/5ML 200 MG/10 ML CUP PO PRN (20:17)
[2019-05-02] MEDS: ALPRAZolam 0.5 MG TAB PO PRN (20:17)
[2019-05-02] MEDS ORDERED: guaiFENesin 600 MG TABLET.ER PO SCH (21:00)
--- NOTE | 2019-05-02 21:26 | PN ---
PROGRESS NOTE DATE OF SERVICE: 05/02/2019 This 64-year-old gentleman who was admitted with acute right-sided pneumonia with possibly aspiration also had possible sepsis. The patient also had recurrent large right pleural effusion. The patient underwent right-sided thoracocentesis by Dr. Hartman and about 2.5 L of fluid was aspirated from the left lung. Subsequently patient had loculated pneumothorax. The patient had chest tube drainage. Cardiothoracic surgery has been consulted. Patient being closely monitored. PAST MEDICAL HISTORY: Reviewed. REVIEW OF SYSTEMS: Cardiovascular system: As mentioned earlier. Respiratory: As mentioned earlier. GI no nausea or vomiting. no dysuria. Nervous system: No numbness or weakness. CURRENT MEDICATIONS: 1. Sheridan 5 mg q.6h. 2. DuoNeb q.i.d. and p.r.n. 3. Xanax 0.5 b.i.d. 4. Vitamin B 1000 mg mcg daily. 5. Cymbalta. 6. Tambocor. 7. Multivitamins. 8. Protonix. 9. Zosyn IV. 10.Vancomycin. PHYSICAL EXAMINATION: Physical exam: Patient is alert oriented x3. Pulse is 105. Blood pressure 90/64, respiration 36 and temperature 98 degrees, pulse ox 93% on 4 L. HEENT: Conjunctivae normal. NECK: No JVD. CARDIOVASCULAR: S1, S2 muffled. RESPIRATORY: Breath sounds diminished in the bases. Bilateral scattered rhonchi and crackles. Chest tube in the right side. ABDOMEN: Soft, nontender. LEGS: No edema. No swelling. CENTRAL NERVOUS SYSTEM: No focal deficits. LABS: WBC 42.2, hemoglobin 11.6. Lactic acid is 4.3 and sodium is 133. UA noted. Influenza negative. ASSESSMENT: 1. Acute right-sided pneumonia, possibly aspiration, possibly gram-negative with severe sepsis present on admission. 2. Right-sided pleural effusion status post thoracocentesis. 3. Right-sided pneumothorax status post chest tube drainage. 4. Change in mental status acute metabolic encephalopathy secondary to sepsis. 5. History of recent right thoracocentesis. 6. History of esophageal carcinoma status post radiation and chemo. 7. Hypertension. 8. Hyperlipidemia. 9. History of gastroesophageal reflux disease. 10.History of cerebrovascular accident, transient ischemic attack. 11.Gait dysfunction. 12.History of pulmonary embolism. 13.Sleep apnea. 14.History of gastrointestinal bleed. 15.History of supraventricular tachycardia. 16.History of cardiac ablation. 17.History of PEG tube placement and removal. 18.History of MediPort. 19.History of esophageal stent. 20.History of anxiety. 21.FULL CODE. RECOMMENDATIONS AND DISCUSSION: This 64-year-old gentleman who presented with multiple complex medical issues, we will monitor the patient closely, continue the current medications, chest tube drainage. Continue with the bronchodilators. Continue the empiric antibiotics. Otherwise, continue the rest of medications. Prognosis extremely guarded because of multiple complex medical issues. Further recommendations to follow. Closely follow with Dr. Hartman. Continue the antibiotics. As mentioned earlier, cultures are negative so far. We will continue to monitor. Further recommendations to follow. MMODL / IJN: [id number] /
[2019-05-02 23:43] LABS: Amylase, Fluid Source Pleural Fluid; Cholesterol,BF Source Pleural Fluid; Cholesterol,Body Fluid 104 mg/dL; Glucose, BF Source Pleural Fluid; Glucose, Body Fluid <4 mg/dL; LDH, Body Fluid Source Pleural Fluid; Total Protein, Body Fluid 4900 mg/dL
[2019-05-03] MEDS: VANCOMYCIN 1,500 MG in SODIUM CHLORIDE 0.9% 250 ML IVPB SCH ×3 (00:17→22:52)
[2019-05-03] MEDS: PIPERACILLIN-TAZOBACTAM 3.375 GM in SODIUM CHLORIDE 0.9% 100 ML IVPB SCH ×3 (00:18→15:26)
[2019-05-03] MEDS: HYDROcodone/APAP 5-325MG 1 EACH TAB PO PRN ×2 (01:16→15:25)
[2019-05-03 05:23] LABS: Calcium 7.7 mg/dL (8.4-10.2); Potassium 4.4 mmol/L (3.5-5.1)
[2019-05-03 05:28] LABS: Anisocytosis Slight; HCT 31.3 % (39.0-53.0); Hypochromasia Moderate; MCV 93.6 fL (80.0-100.0); Mean Platelet Volume 7.9; Platelet Count 316 k/uL (150-450); Poikilocytosis Slight; RBC 3.34 m/uL (4.30-5.90); RDW 16.8 % (11.5-15.5); WBC 27.9 k/uL (3.8-10.6)
[2019-05-03 05:32] LABS: HGB 9.7 gm/dL (13.0-17.5)
[2019-05-03 05:52] LABS: Band Neutrophils % 1 %; Lymphocytes # (M) 0.84 k/uL (1.0-4.8); Monocytes # (M) 0.56 k/uL (0-1.0); Neutrophils % (M) 94 %; Nucleated Red Blood Cells 0 /100 WBC (0-0); Total Cells Counted 100
[2019-05-03] MEDS ORDERED: VANCOMYCIN TROUGH DUE 1 EACH MISC MISCELLANE ONE ×2 (07:00→22:00)
--- NOTE | 2019-05-03 07:13 | P.PN ---
Subjective Progress Note Date: 05/03/19 On 05/03/2019 and seeing the patient for a follow-up. Clinically the patient looks better. Is less short of breath. Last the Neck and less tachycardic compared to yesterday. The patient is having his breakfast this morning. Note that the patient had a chest tube insertion yesterday. I inserted a chest tube another 1.5 L of fluid came out immediately. The output has been around 500 mL over the past 8 hours. Chest x-ray shows still showing a loculated pneumothorax in the right lung base and the chest tube is still showing some intermittent air leak. His white cell count is down to 27. He is hemodynamically stable. Hemoglobin is at 9.7. Cultures are negative. He has a congested cough. Unable to bring up much sputum. He is still covered with a combination of Zosyn and vancomycin. Objective - Vital Signs Vital signs: Vital Signs Temp 97.7 F 05/03/19 00:00 Pulse 107 H 05/03/19 06:00 Resp 28 H 05/03/19 06:00 BP 96/63 05/03/19 06:00 Pulse Ox 93 L 05/03/19 06:00 Intake & Output 05/02/19 05/03/19 05/03/19 18:59 06:59 18:59 Intake Total 1500 1110 Output Total 1830 1350 Balance -330 -240 Weight 89.5 kg Intake: IV 1500 1110 0.9 kvo 110 Piperacillin-Tazobactam 3 200 100 .375 gm In Sodium Chloride 0.9% 100 ml @ 25 mls/hr IVPB Q8HR [facility] Rx# :[id number] Sodium Chloride 0.9% 1, 300 900 000 ml @ 75 mls/hr IV . [id number] [facility] Rx#:[id number] Sodium Chloride 0.9% 1, 1000 000 ml @ 999 mls/hr IV . Q1H1M [facility] Rx#:[id number] Output: Chest Tube Drainage 1250 810 Right Lateral Chest 1250 810 Urine 580 540 Other: Voiding Method Indwelling Catheter Indwelling Catheter - Exam The patient appeared a elderly male patient post chemotherapy and he has some weight loss. His voice is a bit low patient and he is able to speak up longer sentences on today's evaluation without being interrupted. He does have episodes of a congested cough.. Vital signs as documented. Head exam is unremarkable. No scleral icterus or corneal arcus noted. Neck is without jugular venous distension, thyromegaly, or carotid bruits. Carotid upstrokes are brisk bilaterally. Lungs are dementia sounds patient the right lung base along with scattered rhonchi. There is a right-sided chest tube in place. There is intermittent air leak. Output has been noted.. Cardiac exam reveals the PMI to be normally sized and situated. Rhythm is regular. First and second heart sounds normal. No murmurs, rubs or gallops. Abdominal exam reveals normal bowel sounds, no masses, no organomegaly and no aortic enlargement. Extremities are nonedematous and both femoral and pedal pulses are normal.Examination of the skin revealed no evidence of significant rashes, suspicious appearing nevi or other concerning lesions. Neurologically the patient is awake and alert and is no focal neurological deficits. - Labs CBC & Chem 7: 05/03/19 04:43 05/03/19 04:43 Labs: Abnormal Lab Results - Last 24 Hours (Table) 05/02/19 05/02/19 05/02/19 Range/Units 09:30 11:58 11:58 WBC 42.3 H (3.8-10.6) k/uL RBC 3.85 L (4.30-5.90) m/uL Hgb 11.6 L (13.0-17.5) gm/dL Hct 36.9 L (39.0-53.0) % RDW 16.9 H (11.5-15.5) % Neutrophils # (Manual) (1.3-7.7) k/uL Lymphocytes # (Manual) (1.0-4.8) k/uL Sodium (137-145) mmol/L Carbon Dioxide (22-30) mmol/L BUN (9-20) mg/dL Glucose (74-99) mg/dL POC Glucose (mg/dL) 157 H (75-99) mg/dL Plasma Lactic Acid Colby 4.1 H* (0.7-2.0) mmol/L Calcium (8.4-10.2) mg/dL 05/02/19 05/02/19 05/03/19 Range/Units 15:48 19:57 00:44 WBC (3.8-10.6) k/uL RBC (4.30-5.90) m/uL Hgb (13.0-17.5) gm/dL Hct (39.0-53.0) % RDW (11.5-15.5) % Neutrophils # (Manual) (1.3-7.7) k/uL Lymphocytes # (Manual) (1.0-4.8) k/uL Sodium (137-145) mmol/L Carbon Dioxide (22-30) mmol/L BUN (9-20) mg/dL Glucose (74-99) mg/dL POC Glucose (mg/dL) (75-99) mg/dL Plasma Lactic Acid Colby 3.4 H* 4.2 H* 2.1 H* (0.7-2.0) mmol/L Calcium (8.4-10.2) mg/dL 05/03/19 05/03/19 Range/Units 04:43 04:43 WBC 27.9 H (3.8-10.6) k/uL RBC 3.34 L (4.30-5.90) m/uL Hgb 9.7 L D (13.0-17.5) gm/dL Hct 31.3 L (39.0-53.0) % RDW 16.8 H (11.5-15.5) % Neutrophils # (Manual) 26.50 H (1.3-7.7) k/uL Lymphocytes # (Manual) 0.84 L (1.0-4.8) k/uL Sodium 132 L (137-145) mmol/L Carbon Dioxide 20 L (22-30) mmol/L BUN 35 H (9-20) mg/dL Glucose 106 H (74-99) mg/dL POC Glucose (mg/dL) (75-99) mg/dL Plasma Lactic Acid Colby (0.7-2.0) mmol/L Calcium 7.7 L (8.4-10.2) mg/dL Microbiology - Last 24 Hours (Table) 05/02/19 08:30 Gram Stain - Preliminary Pleural Fluid Body Fluid Culture - Preliminary 05/01/19 14:21 Blood Culture - Preliminary Blood No Growth after 24 hours Assessment and Plan Plan: 1 acute hypoxic respiratory failure secondary to a recurrent large right-sided pleural effusion. The patient was drained approximately 10 days ago and he has a recurrent large right-sided pleural effusion. Initial fluid analysis was negative for malignancy. This cannot be however completely excluded. I performed a thoracentesis on this patient. I took around 2.4 L and subsequently the chest x-ray showed a loculated large right-sided pneumothorax with some residual effusion/a hydropneumothorax. Based on that, inserted a chest tube and output has been considerably high, over 2 L and probably another 500 mL of developed over the past 8 hours. There is intermittent air leak. There is incomplete expansion of the right lung and there is still a small basilar pneumothorax in place. Consider an aspiration pneumonia. As the patient is still having a congested cough. He is covered with a combination of broad- spectrum antibiotics including Zosyn and Levaquin and vancomycin. White cell count is improving. The pleural fluid that was sent is an exudate. There is elevated LDH and low glucose. This is possibly a malignant effusion. Doubt p arapneumonic. 2 acute febrile illness with lactic acidosis and leukocytosis. Consider underlying sepsis, and the patient is afebrile and the white cell count is improving. 3 leukocytosis, improving 4 lactic acidosis improving 5 Esophageal cancer, recurrent and currently the patient is on systemic chemotherapy, and the patient has a esophageal stent in place. The patient is currently on systemic chemotherapy. 6 history of DVT and bilateral pulmonary embolism maintained on long-term and to coagulation with Eliquis 7 hypertension 8 hyperlipidemia 9 history of obstructive sleep apnea 10 history of CVA Plan Send the pleural fluid for triglycerides Send the pleural fluid for cytology Continue Zosyn and vancomycin and Levaquin IV fluids at 75 mL an hour Oxygen 2 L per minute nasal cannula Keep the chest tube in place and consider pleurodesis if the patient develops adequate expansion of the right lung and drop in the fluid output Incentive spirometer and deep breathing We'll continue to follow.
[2019-05-03] MEDS: IPRATROPIUM-ALBUTEROL 3 ML NEB INHALATION SCH ×4 (07:33→19:26)
--- NOTE | 2019-05-03 07:43 | XR ---
EXAMINATION TYPE: XR chest 1V portable DATE OF EXAM: 05/03/2019 COMPARISON: 05/03/2019 HISTORY: Shortness of breath TECHNIQUE: Single frontal view of the chest is obtained. FINDINGS: Mediport catheter seen in the right-sided chest tube with suspected right-sided hydropneum othorax. Bilateral consolidation and pleural effusion. Cardiomegaly. IMPRESSION: Chest tube seen with bilateral consolidation and pleural effusion. Suspect a right sided hydropneumothorax measuring approximately 15-20%.
--- NOTE | 2019-05-03 08:39 | P.PN ---
Subjective Progress Note Date: 05/03/19 Principal diagnosis: Loculated right sided pneumothorax, acute hypoxic respiratory failure, lactic acidosis on admission, leukocytosis with bandemia. Previous medical history of adenocarcinoma of the esophagus, status post chemo and radiation and esophageal stent placement, pulmonary embolism on Eliquis for anticoagulation, recurrent pleural effusions status post thoracentesis, obstructive sleep apnea without home CPAP use, supraventricular tachycardia status post ablation, hypertension, hyperlipidemia, and CVA POD #1 right sided thoracentesis with removal of 2400 mL turbid yellow fluid followed by right-sided chest tube placement by Dr. Hartman The patient is currently sitting up in bed in the intensive care unit in no acute distress eating breakfast. Right-sided pleural chest tube was placed yesterday by Dr. Hartman and the patient has put out more than 2 L serous fluid since chest tube placement. Remains on IV antibiotics. Cultures and cytology pending. He does state his breathing is better than yesterday, denies any pain. No new concerns. Objective - Vital Signs Vital signs: Vital Signs Temp 97.7 F 05/03/19 00:00 Pulse 112 H 05/03/19 08:00 Resp 42 H 05/03/19 08:00 BP 114/76 05/03/19 08:00 Pulse Ox 94 L 05/03/19 08:00 Intake & Output 05/02/19 05/03/19 05/03/19 18:59 06:59 18:59 Intake Total 1500 1110 160 Output Total 1830 1350 120 Balance -330 -240 40 Weight 89.5 kg Intake: IV 1500 1110 160 0.9 kvo 110 10 Piperacillin-Tazobactam 3 200 100 .375 gm In Sodium Chloride 0.9% 100 ml @ 25 mls/hr IVPB Q8HR [facility] Rx# :[id number] Sodium Chloride 0.9% 1, 300 900 150 000 ml @ 75 mls/hr IV . [id number] [facility] Rx#:[id number] Sodium Chloride 0.9% 1, 1000 000 ml @ 999 mls/hr IV . Q1H1M [facility] Rx#:[id number] Output: Chest Tube Drainage 1250 810 30 Right Lateral Chest 1250 810 30 Urine 580 540 90 Other: Voiding Method Indwelling Catheter Indwelling Catheter - Constitutional General appearance: Present: cooperative, no acute distress - Respiratory Details: Lungs sounds diminished bilaterally, right greater than left with coarse rhonchi heard throughout. Respirations even, nonlabored. Currently on 2 L nasal cannula with oxygen saturation 94%. Able to achieve less than 500 mL on his incentive spirometry. Right sided pleural chest tube present to continuous wall suction, 2140 mL serous drainage since insertion, intermittent air leak present. - Cardiovascular Details: S1, S2 present. Tachycardic but regular rate and rhythm, sinus tach on telemetry. Palpable peripheral pulses bilaterally. No edema present. No calf pain or tenderness noted. - Gastrointestinal Gastrointestinal Comment(s): Abdomen soft, nontender, nondistended. Hypoactive bowel sounds present 4 quadrants. Tolerating diet. - Genitourinary Genitourinary Comment(s): Hernández present draining clear, yellow urine. Output 25-50 mL per hour overnight - Integumentary Integumentary Comment(s): Skin is warm and dry without incident perfusion. Right pleural chest tube dressing dry and intact. - Neurologic Neurologic: Present: CNII-XII intact - Musculoskeletal Musculoskeletal: Present: generalized weakness, strength equal bilaterally - Psychiatric Psychiatric: Present: A&O x's 3, appropriate affect, intact judgment & insight - Allied health notes Allied health notes reviewed: nursing - Labs CBC & Chem 7: 05/03/19 04:43 05/03/19 04:43 Labs: Abnormal Lab Results - Last 24 Hours (Table) 05/02/19 05/02/19 05/02/19 Range/Units 09:30 11:58 11:58 WBC 42.3 H (3.8-10.6) k/uL RBC 3.85 L (4.30-5.90) m/uL Hgb 11.6 L (13.0-17.5) gm/dL Hct 36.9 L (39.0-53.0) % RDW 16.9 H (11.5-15.5) % Neutrophils # (Manual) (1.3-7.7) k/uL Lymphocytes # (Manual) (1.0-4.8) k/uL Sodium (137-145) mmol/L Carbon Dioxide (22-30) mmol/L BUN (9-20) mg/dL Glucose (74-99) mg/dL POC Glucose (mg/dL) 157 H (75-99) mg/dL Plasma Lactic Acid Colby 4.1 H* (0.7-2.0) mmol/L Calcium (8.4-10.2) mg/dL 05/02/19 05/02/19 05/03/19 Range/Units 15:48 19:57 00:44 WBC (3.8-10.6) k/uL RBC (4.30-5.90) m/uL Hgb (13.0-17.5) gm/dL Hct (39.0-53.0) % RDW (11.5-15.5) % Neutrophils # (Manual) (1.3-7.7) k/uL Lymphocytes # (Manual) (1.0-4.8) k/uL Sodium (137-145) mmol/L Carbon Dioxide (22-30) mmol/L BUN (9-20) mg/dL Glucose (74-99) mg/dL POC Glucose (mg/dL) (75-99) mg/dL Plasma Lactic Acid Colby 3.4 H* 4.2 H* 2.1 H* (0.7-2.0) mmol/L Calcium (8.4-10.2) mg/dL 05/03/19 05/03/19 Range/Units 04:43 04:43 WBC 27.9 H (3.8-10.6) k/uL RBC 3.34 L (4.30-5.90) m/uL Hgb 9.7 L D (13.0-17.5) gm/dL Hct 31.3 L (39.0-53.0) % RDW 16.8 H (11.5-15.5) % Neutrophils # (Manual) 26.50 H (1.3-7.7) k/uL Lymphocytes # (Manual) 0.84 L (1.0-4.8) k/uL Sodium 132 L (137-145) mmol/L Carbon Dioxide 20 L (22-30) mmol/L BUN 35 H (9-20) mg/dL Glucose 106 H (74-99) mg/dL POC Glucose (mg/dL) (75-99) mg/dL Plasma Lactic Acid Colby (0.7-2.0) mmol/L Calcium 7.7 L (8.4-10.2) mg/dL Microbiology - Last 24 Hours (Table) 05/02/19 08:30 Gram Stain - Preliminary Pleural Fluid Body Fluid Culture - Preliminary 05/01/19 14:21 Blood Culture - Preliminary Blood No Growth after 24 hours - Imaging and Cardiology Chest x-ray: report reviewed, image reviewed Assessment and Plan Assessment: 1. Loculated pleural effusion, status post thoracentesis followed by chest tube placement, cytology and cultures pending 2. History of recurrent pleural effusions, status post thoracentesis with complete reexpansion of the lung 3. Adenocarcinoma of the esophagus, status post chemo and radiation 4. Acute hypoxic respiratory failure secondary to recurrent right-sided pleural effusion 5. Lactic acidosis on admission, leukocytosis with bandemia, improving 6. History of pulmonary embolism on Eliquis for anticoagulation 7. Hypertension 8. Hyperlipidemia 9. Obstructive sleep apnea without home CPAP use 10. History of CVA Plan: 1. Continue right pleural chest tube to suction 2. Wean O2 as tolerated. Encourage is spirometry 10 times every hour while awake 3. Antibiotics, bronchodilators per pulmonology 4. Will monitor daily x-rays. 5. Increase activity as tolerated 6. Medical management of the comorbidities per primary care service 7. More recommendations to follow Time with Patient: Greater than 30
[2019-05-03] MEDS: DULoxetine HCL 20 MG CAPSULE.DR PO SCH (09:44)
[2019-05-03] MEDS: CYANOCOBALAMIN 500 MCG TAB PO SCH (09:44)
[2019-05-03] MEDS: MULTIVITAMINS, THERA 1 EACH TAB PO SCH (09:44)
[2019-05-03] MEDS: FLECAINIDE 50 MG TAB PO SCH ×2 (09:45→21:03)
[2019-05-03] MEDS: PANTOPRAZOLE 40 MG/10 ML VIAL IVP SCH ×2 (09:45→21:03)
[2019-05-03] MEDS: ALPRAZolam 0.5 MG TAB PO PRN (15:25)
[2019-05-03] MEDS: LEVOFLOXACIN 750MG-D5W PMX 750 MG in DEXTROSE/WATER 1 150ML.BAG IVPB SCH (15:26)
[2019-05-03] MEDS: SODIUM CHLORIDE 0.9% 1,000 ML IV SCH (16:50)
[2019-05-03] MEDS ORDERED: DICYCLOMINE 10 MG CAP PO PRN (17:23)
[2019-05-03] MEDS: SCOPOLAMINE 1.5MG/72HR PATCH TRANSDERM SCH (17:49)
--- NOTE | 2019-05-03 18:20 | P.PN ---
Subjective Progress Note Date: 05/03/19 Principal diagnosis: Acute Respiratory Failure He is still presenting with increased respiratory effort although improved since before thoracentesis. Awaiting full hickey cultures, WBC are trending down. He has audible crackles and very difficult time with the increased secretions, he feels they are "choking him" Objective - Vital Signs Vital signs: Vital Signs Temp 98.5 F 05/03/19 12:00 Pulse 102 H 05/03/19 14:00 Resp 30 H 05/03/19 14:00 BP 105/68 05/03/19 14:00 Pulse Ox 95 05/03/19 14:00 Intake & Output 05/02/19 05/03/19 05/03/19 18:59 06:59 18:59 Intake Total 1500 1110 1160 Output Total 1830 1350 580 Balance -330 -240 580 Weight 89.5 kg 89.5 kg Intake: IV 1500 1110 960 0.9 kvo 110 10 Piperacillin-Tazobactam 3 200 100 100 .375 gm In Sodium Chloride 0.9% 100 ml @ 25 mls/hr IVPB Q8HR [facility] Rx# :[id number] Sodium Chloride 0.9% 1, 300 900 600 000 ml @ 75 mls/hr IV . [id number] [facility] Rx#:[id number] Sodium Chloride 0.9% 1, 1000 000 ml @ 999 mls/hr IV . Q1H1M [facility] Rx#:[id number] Vancomycin 1,500 mg In 250 Sodium Chloride 0.9% 250 ml @ 125 mls/hr IVPB Q12H [facility] Rx#:[id number] Oral 200 Output: Chest Tube Drainage 1250 810 250 Right Lateral Chest 1250 810 250 Urine 580 540 330 Other: Voiding Method Indwelling Catheter Indwelling Catheter Indwelling Catheter - Exam - Constitutional General appearance: mild distress, improved since pleurex placed and thoracentesis - EENT Eyes: EOMI, PERRLA ENT: hearing grossly normal, normal oropharynx - Neck Neck: no lymphadenopathy Thyroid: bilateral: normal size - Respiratory Respiratory: right: diminished, dullness, bilateral: rhonchi audible crackles - Cardiovascular Rhythm: regular Heart sounds: normal: S1, S2 - Gastrointestinal General gastrointestinal: normal bowel sounds, soft - Integumentary Integumentary: normal - Neurologic Neurologic: CNII-XII intact - Musculoskeletal Musculoskeletal: generalized weakness, strength equal bilaterally - Psychiatric Psychiatric: A&O x's 3, appropriate affect - Labs CBC & Chem 7: 05/03/19 04:43 05/03/19 04:43 Labs: Abnormal Lab Results - Last 24 Hours (Table) 05/02/19 05/02/19 05/03/19 Range/Units 15:48 19:57 00:44 WBC (3.8-10.6) k/uL RBC (4.30-5.90) m/uL Hgb (13.0-17.5) gm/dL Hct (39.0-53.0) % RDW (11.5-15.5) % Neutrophils # (Manual) (1.3-7.7) k/uL Lymphocytes # (Manual) (1.0-4.8) k/uL Sodium (137-145) mmol/L Carbon Dioxide (22-30) mmol/L BUN (9-20) mg/dL Glucose (74-99) mg/dL Plasma Lactic Acid Colby 3.4 H* 4.2 H* 2.1 H* (0.7-2.0) mmol/L Calcium (8.4-10.2) mg/dL 05/03/19 05/03/19 Range/Units 04:43 04:43 WBC 27.9 H (3.8-10.6) k/uL RBC 3.34 L (4.30-5.90) m/uL Hgb 9.7 L D (13.0-17.5) gm/dL Hct 31.3 L (39.0-53.0) % RDW 16.8 H (11.5-15.5) % Neutrophils # (Manual) 26.50 H (1.3-7.7) k/uL Lymphocytes # (Manual) 0.84 L (1.0-4.8) k/uL Sodium 132 L (137-145) mmol/L Carbon Dioxide 20 L (22-30) mmol/L BUN 35 H (9-20) mg/dL Glucose 106 H (74-99) mg/dL Plasma Lactic Acid Colby (0.7-2.0) mmol/L Calcium 7.7 L (8.4-10.2) mg/dL Microbiology - Last 24 Hours (Table) 05/02/19 08:30 Gram Stain - Preliminary Pleural Fluid Body Fluid Culture - Preliminary 05/01/19 14:21 Blood Culture - Preliminary Blood No Growth after 24 hours Assessment and Plan Plan: Comments: CT scan report from 04/10/19 did not show any metastatic progression Chest x-ray: report reviewed CT scan - abdomen: report reviewed CT scan - chest: report reviewed CT scan - pelvis: report reviewed Assessment and Plan: Acute Respiratory Distress: Secondary to Pleural effusions: - Difficult to cough up secretions - Increased oral secretion, scope patch place Pleural effusion - The patient is presenting with recurrent pleural effusion. Loculated He had thoracentesis on 04/20/19, with cytology negative. He had significant progressive respiratory distress on admission. The recurrent pleural effusion is likely a contributor, though based on the clinical presentation sepsis with possible pneumonia is also most likely a cause. - Today he is breathing better, he is status post 2400cc by Dr. Hartman thorac entesis and pleurex drain placement. Anticoagulated - Resume eliquis as long as no further procedures planned at this point, platelets are stable, no active bleeding. Sepsis: - He presented with Sepsis picture and full hickey cultures were worked up, he continues on antibiotics, WBC are trending down - Another possibility could also be a leak from the esophagus causing a chemical pneumonitis. - The patient is not neutropenic. - Continue Zosyn and vancomycin. - If fluid is found to be inflammatory, it would be reasonable to consider barium swallow to rule out a leak. Esophageal carcinoma: - If the pleural fluid is positive, that would indicate progression and therefore need to consider change of therapy. If fluid is negative for malignancy, the patient can potentially continue his current regimen once acute situation is resolved Normocytic Anemia: - Decreased today although still in safe range, decrease likely secondary to dilution - Monitor Daily CBC Leukocytosis: - Trending down HX: DVTs: - Resume Eliquis if no further invasive procedures planned Discussed with Nursing Continue close monitoring and supportive care Mary Beth Arreguin NP
[2019-05-03] MEDS: ALPRAZolam 0.5 MG TAB PO SCH (21:03)
[2019-05-03] MEDS: guaiFENesin SYRUP 100MG/5ML 200 MG/10 ML CUP PO PRN (21:16)
[2019-05-04] MEDS: ALPRAZolam 0.5 MG TAB PO SCH ×4 (01:08→19:42)
[2019-05-04] MEDS: PIPERACILLIN-TAZOBACTAM 3.375 GM in SODIUM CHLORIDE 0.9% 100 ML IVPB SCH ×4 (01:08→23:59)
[2019-05-04] MEDS: SODIUM CHLORIDE 0.9% 1,000 ML IV SCH ×3 (01:08→14:47)
[2019-05-04 05:26] LABS: Anisocytosis Slight; Basophils % (A) 0 %; Eosinophils # (A) 0.1 k/uL (0-0.7); Eosinophils % (A) 0 %; HCT 27.2 % (39.0-53.0); HGB 8.5 gm/dL (13.0-17.5); Hypochromasia Marked; Lymphocytes # (A) 0.6 k/uL (1.0-4.8); Lymphocytes % (A) 3 %; MCH 29.9 pg (25.0-35.0); MCHC 31.4 g/dL (31.0-37.0); MCV 95.3 fL (80.0-100.0); Monocytes # (A) 0.6 k/uL (0-1.0); Monocytes % (A) 3 %; Neutrophils # (A) 18.2 k/uL (1.3-7.7); Neutrophils % (A) 93 %; Platelet Count 264 k/uL (150-450); RBC 2.85 m/uL (4.30-5.90); WBC 19.7 k/uL (3.8-10.6)
[2019-05-04 05:37] LABS: ALT 51 U/L (4-49); AST 54 U/L (17-59); African American GFR (CKD) >90 (>60 ml/min/1.73 sqM); Albumin 1.8 g/dL (3.5-5.0); Alkaline Phosphatase 128 U/L (38-126); Anion Gap 5 mmol/L; Blood Urea Nitrogen 27 mg/dL (9-20); Calcium 7.5 mg/dL (8.4-10.2); Carbon Dioxide 23 mmol/L (22-30); Chloride 106 mmol/L (98-107); Glucose 122 mg/dL (74-99); Non-African American GFR(CKD) 89 (>60 ml/min/1.73 sqM); Potassium 4.2 mmol/L (3.5-5.1); Sodium 134 mmol/L (137-145); Total Bilirubin 0.4 mg/dL (0.2-1.3); Total Protein 4.4 g/dL (6.3-8.2)
--- NOTE | 2019-05-04 07:23 | XR ---
EXAMINATION TYPE: XR chest 1V portable DATE OF EXAM: 05/04/2019 COMPARISON: 05/03/2019 HISTORY: Shortness of breath TECHNIQUE: Single frontal view of the chest is obtained. FINDINGS: Mediport catheter stable in position. There is a right-sided chest tube with suspected rig ht-sided hydropneumothorax. Bilateral consolidation and pleural effusion. Cardiomegaly. IMPRESSION: 1. Bilateral infiltrate and pleural effusion with stable right small hydropneumothorax. There appears to be increased pleural fluid on the right obscuring the amount of pneumothorax.
--- NOTE | 2019-05-04 07:37 | P.PN ---
Subjective Progress Note Date: 05/04/19 Principal diagnosis: Loculated right sided pneumothorax, acute hypoxic respiratory failure, lactic acidosis on admission, leukocytosis with bandemia. Previous medical history of adenocarcinoma of the esophagus, status post chemo and radiation and esophageal stent placement, pulmonary embolism on Eliquis for anticoagulation, recurrent pleural effusions status post thoracentesis, obstructive sleep apnea without home CPAP use, supraventricular tachycardia status post ablation, hypertension, hyperlipidemia, and CVA POD #2 right sided thoracentesis with removal of 2400 mL turbid yellow fluid followed by right-sided chest tube placement by Dr. Hartman The patient is currently sitting up in a recliner in the intensive care unit in no acute distress eating breakfast. Right-sided pleural chest tube was placed by Dr. Hartman and the patient has put out more than 2 L serous fluid since chest tube placement. Remains on IV antibiotics. Cultures and cytology pending. He does state his breathing is better, denies any pain. No new concerns. Objective - Vital Signs Vital signs: Vital Signs Temp 98.7 F 05/04/19 04:00 Pulse 98 05/04/19 07:00 Resp 28 H 05/04/19 07:00 BP 111/77 05/04/19 07:00 Pulse Ox 95 05/04/19 07:00 Intake & Output 05/03/19 05/04/19 05/04/19 18:59 06:59 18:59 Intake Total 1610 2310 75 Output Total 905 1225 75 Balance 705 1085 0 Weight 89.5 kg 91.5 kg Intake: IV 1410 1350 75 0.9 kvo 10 Levofloxacin 750Mg-D5w 150 Pmx 750 mg In Dextrose/ Water 1 150ml.bag @ 100 mls/hr IVPB Q24H MELISSA Rx#: [id number] Piperacillin-Tazobactam 3 100 200 .375 gm In Sodium Chloride 0.9% 100 ml @ 25 mls/hr IVPB Q8HR MELISSA Rx# :[id number] Sodium Chloride 0.9% 1, 900 900 75 000 ml @ 75 mls/hr IV . [id number] MELISSA Rx#:[id number] Vancomycin 1,500 mg In 250 250 Sodium Chloride 0.9% 250 ml @ 125 mls/hr IVPB Q12H MELISSA Rx#:[id number] Oral 200 960 Output: Chest Tube Drainage 250 570 Right Lateral Chest 250 570 Urine 655 655 75 Other: Voiding Method Indwelling Catheter Indwelling Catheter # Bowel Movements 1 - Constitutional General appearance: Present: cooperative, no acute distress - Respiratory Details: Lungs sounds diminished bilaterally, right greater than left. Respirations even, nonlabored. Currently on 2 L nasal cannula with oxygen saturation 96%. Able to achieve less than 500 mL on his incentive spirometry. Right sided pleural chest tube present to continuous wall suction, 410 mL serous drainage overnight, 800 mL in the last 24 hours, intermittent air leak present. - Cardiovascular Details: S1, S2 present. Regular rate and rhythm, sinus rhythm on telemetry. Palpable peripheral pulses bilaterally. No edema present. No calf pain or tenderness noted. - Gastrointestinal Gastrointestinal Comment(s): Abdomen soft, nontender, nondistended. Hypoactive bowel sounds present 4 quadrants. Tolerating diet. - Genitourinary Genitourinary Comment(s): Hernández present draining clear, yellow urine. Output 30-60 mL per hour overnight - Integumentary Integumentary Comment(s): Skin is warm and dry without incident perfusion. Right pleural chest tube dressing dry and intact. - Neurologic Neurologic: Present: CNII-XII intact - Musculoskeletal Musculoskeletal: Present: gait normal, generalized weakness, strength equal bilaterally - Psychiatric Psychiatric: Present: A&O x's 3, appropriate affect, intact judgment & insight - Allied health notes Allied health notes reviewed: nursing - Labs CBC & Chem 7: 05/04/19 04:43 05/04/19 04:43 Labs: Abnormal Lab Results - Last 24 Hours (Table) 05/04/19 05/04/19 Range/Units 04:43 04:43 WBC 19.7 H (3.8-10.6) k/uL RBC 2.85 L (4.30-5.90) m/uL Hgb 8.5 L (13.0-17.5) gm/dL Hct 27.2 L (39.0-53.0) % RDW 17.0 H (11.5-15.5) % Neutrophils # 18.2 H (1.3-7.7) k/uL Lymphocytes # 0.6 L (1.0-4.8) k/uL Sodium 134 L (137-145) mmol/L BUN 27 H (9-20) mg/dL Glucose 122 H (74-99) mg/dL Calcium 7.5 L (8.4-10.2) mg/dL ALT 51 H (4-49) U/L Alkaline Phosphatase 128 H (38-126) U/L Total Protein 4.4 L (6.3-8.2) g/dL Albumin 1.8 L (3.5-5.0) g/dL Microbiology - Last 24 Hours (Table) 05/01/19 14:21 Blood Culture - Preliminary Blood No Growth after 48 hours 05/02/19 08:30 Gram Stain - Preliminary Pleural Fluid Body Fluid Culture - Preliminary - Imaging and Cardiology Chest x-ray: report reviewed, image reviewed Assessment and Plan Assessment: 1. Loculated pleural effusion, status post thoracentesis followed by chest tube placement, cytology and cultures pending 2. History of recurrent pleural effusions, status post thoracentesis with complete reexpansion of the lung 3. Adenocarcinoma of the esophagus, status post chemo and radiation 4. Acute hypoxic respiratory failure secondary to recurrent right-sided pleural effusion 5. Lactic acidosis on admission, leukocytosis with bandemia, improving 6. History of pulmonary embolism on Eliquis for anticoagulation 7. Hypertension 8. Hyperlipidemia 9. Obstructive sleep apnea without home CPAP use 10. History of CVA Plan: 1. Continue right pleural chest tube to suction, await culture and cytology 2. Wean O2 as tolerated. Encourage is spirometry 10 times every hour while awake 3. Antibiotics, bronchodilators per pulmonology 4. Will monitor daily x-rays. 5. Increase activity as tolerated 6. Medical management of the comorbidities per primary care service 7. More recommendations to follow Time with Patient: Greater than 30
[2019-05-04] MEDS: CYANOCOBALAMIN 500 MCG TAB PO SCH (08:23)
[2019-05-04] MEDS: PANTOPRAZOLE 40 MG/10 ML VIAL IVP SCH (08:24)
[2019-05-04] MEDS: FLECAINIDE 50 MG TAB PO SCH ×2 (08:24→19:42)
[2019-05-04] MEDS: DULoxetine HCL 20 MG CAPSULE.DR PO SCH (08:24)
[2019-05-04] MEDS: MULTIVITAMINS, THERA 1 EACH TAB PO SCH (08:24)
[2019-05-04] MEDS: IPRATROPIUM-ALBUTEROL 3 ML NEB INHALATION SCH ×4 (08:26→21:04)
--- NOTE | 2019-05-04 08:48 | PN ---
PROGRESS NOTE DATE OF SERVICE: 05/03/2019 This 64-year-old gentleman who was admitted with acute right-sided pneumonia with possibly aspiration also had significant features of sepsis. The patient also had a large pleural effusion. The patient underwent a thoracocentesis, and the patient also had a pneumothorax. The patient had chest tube drainage. The most recent chest x-ray done showed only 50-90% right-sided hydropneumothorax. The patient is closely monitored. Dr. Hartman is following the patient closely. The patient is also complaining of some hallucinations. The patient is seeing 2 people, mostly women, standing by his side, while closing the eyes. No chest pain or palpitations. PAST MEDICAL HISTORY: Reviewed. REVIEW OF SYSTEMS: Cardiovascular system: As mentioned earlier. Respiratory: As mentioned earlier. GI no nausea or vomiting. no dysuria. Nervous system: No numbness or weakness. CURRENT MEDICATIONS: Current medications are reviewed and include: 1. [place] 5 mg. 2. DuoNeb q.i.d. and p.r.n. 3. Xanax. 4. Vitamin B12 1000 mcg. 5. Cymbalta 20 mg 6. Tambocor 100 mg p.o. b.i.d. 7. Robitussin. 8. Levaquin daily. 9. Multivitamin. 10.Protonix. 11.Zosyn 12.Compazine. 13.Vancomycin daily. PHYSICAL EXAMINATION: Patient is alert and oriented x 3. Pulse is 108. Blood pressure 97/72, respirations 24, and temperature 98.4, and pulse oximetry 94%. HEENT: Conjunctivae normal. NECK: No JVD. CARDIOVASCULAR: S1, S2 muffled. RESPIRATORY: Breath sounds diminished in the bases. Bilateral scattered rhonchi and crackles. Chest tube in the right side. ABDOMEN: Soft, obese, nontender. LEGS: No edema. No swelling. CENTRAL NERVOUS SYSTEM: No focal deficits. LABS: WBC is 27., hemoglobin is ntd, sodium 132. Lactic acid ntd ASSESSMENT: 1. Acute right-sided pneumonia, possibly aspiration, possibly gram-negative with severe sepsis present on admission. 2. Right-sided pleural effusion status post thoracocentesis. 3. Right-sided hydropneumothorax status post chest tube drainage. 4. Change in mental status, acute metabolic encephalopathy, secondary to sepsis. 5. Acute delirium. 6. History of recent right thoracocentesis. 7. History of esophageal carcinoma status post radiation and chemo. 8. Hypertension. 9. Hyperlipidemia. 10.History of gastroesophageal reflux disease. 11.History of cerebrovascular accident and transient ischemic attack. 12.Gait dysfunction. 13.History of pulmonary embolism. 14.Sleep apnea. 15.History of gastrointestinal bleed. 16.History of supraventricular tachycardia. 17.History of cardiac ablation. 18.History of PEG tube placement and removal. 19.History of MediPort. 20.History of esophageal stent. 21.History of anxiety. 22.FULL CODE. RECOMMENDATIONS AND DISCUSSION: Recommend to continue current meds. Continue with the antibiotics, vitamins, and we will watch for any worsening of the delirium. Otherwise, he will receive Zofran for nausea. I would also recommend he use Dilaudid in a small dosage with the [place]. Guarded prognosis. Further recommendations to follow. MMODL / IJN: [id number] / MTDD
--- NOTE | 2019-05-04 10:49 | P.PN ---
Subjective Progress Note Date: 05/04/19 Principal diagnosis: Acute hypoxic respiratory failure secondary to large right sided pleural effusion, exact etiology is not clear. Patient was reevaluated today on 05/04/19, patient remains in the intensive care unit, continues to have significant amount of drainage from the right sided pleural chest tube. About 500 mL overnight. Thoracic surgery is considering placement of a Pleurx catheter. Cultures on the fluid remain negative so far. Cytology on the pleural effusion is pending. In the meantime the patient seems to be doing fairly well, asymptomatic, denies any shortness of breath, fluid from the right sided chest tube seems to be yellow and turbid. Nonbloody. WBC count is down to 19.7 hemoglobin is 8.5. Electrolytes and renal profile are normal. Lactic acid normalized. Chest x-ray continues to show some loculated right-sided pleural effusion/small bowel. Objective - Vital Signs Vital signs: Vital Signs Temp 97.7 F 05/04/19 08:00 Pulse 87 05/04/19 10:00 Resp 23 05/04/19 10:00 BP 110/64 05/04/19 10:00 Pulse Ox 96 05/04/19 10:00 Intake & Output 05/03/19 05/04/19 05/04/19 18:59 06:59 18:59 Intake Total 1610 2310 400 Output Total 905 1225 195 Balance 705 1085 205 Weight 89.5 kg 91.5 kg Intake: IV 1410 1350 400 0.9 kvo 10 Levofloxacin 750Mg-D5w 150 Pmx 750 mg In Dextrose/ Water 1 150ml.bag @ 100 mls/hr IVPB Q24H MELISSA Rx#: [id number] Piperacillin-Tazobactam 3 100 200 100 .375 gm In Sodium Chloride 0.9% 100 ml @ 25 mls/hr IVPB Q8HR MELISSA Rx# :[id number] Sodium Chloride 0.9% 1, 900 900 300 000 ml @ 75 mls/hr IV . [id number] MELISSA Rx#:[id number] Vancomycin 1,500 mg In 250 250 Sodium Chloride 0.9% 250 ml @ 125 mls/hr IVPB Q12H MELISSA Rx#:[id number] Oral 200 960 Output: Chest Tube Drainage 250 570 Right Lateral Chest 250 570 Urine 655 655 195 Other: Voiding Method Indwelling Catheter Indwelling Catheter Indwelling Catheter # Bowel Movements 1 - Exam Physical Exam: Revealed a 64-year-old white male in no distress. Head: Atraumatic, normocephalic. HEENT:[Neck is supple.] [No neck masses.] [No thyromegaly.] [No JVD.] Chest: [Symmetrical chest expansion, right-sided chest tube is noted, intermittent air leak is noted. Crackles at the right base noted. Cardiac Exam: [Normal S1 and S2, no S3 gallop, no murmur.] Abdomen: [Soft, nontender, no megaly, no rebound, no guarding, normal bowel sounds.] Extremities: [No clubbing, no edema, no cyanosis.] Neurological Exam: [No focal neurologic deficit.] Alert and oriented 3. Psychiatric: Normal mood affect and normal mental status examination. Skin: No rashes. - Labs CBC & Chem 7: 05/04/19 04:43 05/04/19 04:43 Labs: Abnormal Lab Results - Last 24 Hours (Table) 05/04/19 05/04/19 Range/Units 04:43 04:43 WBC 19.7 H (3.8-10.6) k/uL RBC 2.85 L (4.30-5.90) m/uL Hgb 8.5 L (13.0-17.5) gm/dL Hct 27.2 L (39.0-53.0) % RDW 17.0 H (11.5-15.5) % Neutrophils # 18.2 H (1.3-7.7) k/uL Lymphocytes # 0.6 L (1.0-4.8) k/uL Sodium 134 L (137-145) mmol/L BUN 27 H (9-20) mg/dL Glucose 122 H (74-99) mg/dL Calcium 7.5 L (8.4-10.2) mg/dL ALT 51 H (4-49) U/L Alkaline Phosphatase 128 H (38-126) U/L Total Protein 4.4 L (6.3-8.2) g/dL Albumin 1.8 L (3.5-5.0) g/dL Microbiology - Last 24 Hours (Table) 05/01/19 14:21 Blood Culture - Preliminary Blood No Growth after 48 hours 05/02/19 08:30 Gram Stain - Preliminary Pleural Fluid Body Fluid Culture - Preliminary Assessment and Plan Assessment: Impression: Acute hypoxic respiratory failure secondary to recurrent right-sided pleural effusion, exudative in nature, negative for malignancy on previous tapping. However considering the fluid is exudative, malignancy is not entirely ruled out. Right sided hydropneumothorax, improving with chest tube to suction. Acute febrile illness with lactic acidosis on presentation, improving. History of esophageal cancer on systemic chemotherapy and previous esophageal stent placement. 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 Benign essential hypertension Obstructive sleep apnea syndrome Previous history of CVA. Recommendation: Await further analysis on the pleural effusion. Likely malignant Continue antibiotics including Zosyn and vancomycin and Levaquin Continue oxygen at 2 L/m. Continue chest tube to wall suction. Continue incentive spirometry. Thoracic surgery is considering thorax catheter placement, especially the patient continues to have significant output from the chest tube. We'll continue to follow. Long-term prognosis is guarded considering his esophageal cancer Time with Patient: Less than 30
--- NOTE | 2019-05-04 11:01 | CDI ---
Documentation Clarification Form Date: 05/04/2019 10:06:19 AM From: Kristina Abbott RN, CCDS Admit Date: 05/01/2019 04:14:00 PM Patient Name: Gopal Hull Visit Number: [id number] Discharge Date: ATTENTION: The Clinical Documentation Specialists (CDI) and [facility] Coding Staff appreciate your assistance in clarifying documentation. Please respond to the clarification below the line at the bottom and electronically sign. The CDI & [facility] Coding staff will review the response and follow-up if needed. Please note: Queries are made part of the Legal Health Record. If you have any questions, please contact the author of this message via ITS. Dr. Jacinto Hartman 05/01 a loculated right-sided pneumothorax is documented in the procedure note following a right-sided thoracentesis for a right-sided pleural effusion and further clarification is requested. Patients Admitting Diagnosis: Right-sided pleural effusion Post-Operative Diagnosis: Same Procedure performed: Right-sided thoracentesis History/Risk Factors: Recurrent right-sided pleural effusion, Esophageal adenocarcinoma, Pulmonary Embolism, Dysphagia Clinical Indicators: 64-year-old presented with worsening shortness of breath, cough. 04/30 Chest x-ray: Increasing right-sided pleural effusion. Bilateral infiltrate with tiny left effusion noted. 05/01 Chest x-ray: Large right and trace left pleural effusions with near complete opacification of the right hemithorax. 05/01 CT scan: Greater than 50 % p hydropneumothorax with new right to left mediastinial shift. Treatment: Thoracentesis 2400cc was aspirated Right Chest tube insertion Zosyn 3.375 mg IV Q8, Levaquin 750 mg IV Q day, Vancomycin 1.250 IV Q12 Oxygen 2/L per nasal cannula Keep chest tube in place monitor for expansion of right lung Incentive spirometer and deep breathing In order to accurately reflect this patients severity of illness, please clarify if the right-sided pneumothorax after the thoracentesis is? -is a complication of surgical procedure -is an expected outcome of the surgical procedure -is related to co-morbid condition(s) of the patient -Other please specify -Unable to determine (Last Revision: March 2019) is an expected outcome of the surgical procedure MTDD
[2019-05-04] MEDS: VANCOMYCIN 1,250 MG in SODIUM CHLORIDE 0.9% 250 ML IVPB SCH ×2 (11:20→22:08)
[2019-05-04] MEDS: THIAMINE 100 MG TAB PO SCH (11:22)
[2019-05-04] MEDS: FOLIC ACID 1 MG TAB PO SCH (11:22)
[2019-05-04] MEDS: HYDROcodone/APAP 5-325MG 1 EACH TAB PO PRN (14:06)
[2019-05-04] MEDS: LEVOFLOXACIN 750 MG TAB PO SCH (16:40)
--- NOTE | 2019-05-04 19:19 | PN ---
PROGRESS NOTE DATE OF SERVICE: 05/04/2019 This 64-year-old gentleman who was admitted acute right-sided pneumonia also had possible aspiration and pleural effusion. The patient had recurrent pleural effusion, thoracocentesis. Patient developed hydropneumothorax on the right side. Dr. Ca is following the patient closely and recommending possible pleurodesis. The most recent chest x-ray was reviewed by me. Cytology is pending at this time. The patient has loculated pleural effusion as well. The patient also has history of adenocarcinoma and is status post chemoradiation. Cytology from the fluid is pending at this time. Past medical history reviewed. REVIEW OF SYSTEMS: CARDIOVASCULAR SYSTEM: No angina, palpitations. RESPIRATORY SYSTEM: As mentioned earlier. GI: As mentioned earlier. : No dysuria or retention. NERVOUS SYSTEM: No numbness, weakness. MEDICATIONS: Reviewed. They include: 1. [place] 5 mg q.6 p.r.n. 2. DuoNeb q.i.d. and p.r.n. 3. Xanax 0.5 q.6 p.r.n. 4. Vitamin B12 1000 mcg p.o. daily. 5. Bentyl 10 mg q.i.d. p.r.n. 6. Cymbalta 20 mg each morning. 7. Tambocor 100 mg p.o. b.i.d. 8. Folic acid 1 mg p.o. daily. 9. Robitussin 200 mg p.o. t.i.d. 10.Levaquin 750 mg p.o. daily. 11.Multivitamins 1 p.o. daily. 12.Zofran. 13.Protonix. 14.Zosyn 3.375 IV q.8. 15.Vitamin B1. 16.Vancomycin IV. PHYSICAL EXAMINATION: Patient is alert, oriented x2. Pulse 89, pressure 101/60, respiration 35, temperature normal, pulse ox 99% on 2 L. HEENT: Conjunctivae normal. NECK: No jugular venous distention. CARDIOVASCULAR SYSTEM: S1, S2 muffled. RESPIRATORY SYSTEM: Breath sounds diminished at the bases. A few scattered rhonchi and crackles. Breath sounds are diminished on the right side. ABDOMEN: Soft, nontender. LEGS: No edema. No swelling. NERVOUS SYSTEM: No focal deficit. LABS: WBC 19.7, hemoglobin is 8.5. Sodium 134, potassium 4.2. ALT is 51. Lactic acid 1.5. ASSESSMENT: 1. Acute right-sided pleural effusion and hydropneumothorax, status post thoracocentesis and chest tube drainage. 2. Possible right-sided pneumonia, possibly aspiration, with Gram-negative with severe sepsis, present on admission. 3. Change in mental status, acute metabolic encephalopathy secondary to sepsis. 4. Acute delirium. 5. History of recent right thoracocentesis. 6. History of esophageal carcinoma, adenocarcinoma, status post radiation and chemo. 7. Hypertension. 8. Hyperlipidemia. 9. History of gastroesophageal reflux disease. 10.History of cerebrovascular accident, transient ischemic attack. 11.Gait dysfunction. 12.History of pulmonary embolism. 13.History of sleep apnea. 14.History of gastrointestinal bleed. 15.History of supraventricular tachycardia. 16.History of cardiac ablation. 17.History of PEG tube placement and removal. 18.History of MediPort. 19.History of esophageal stent. 20.History of anxiety. 21.FULL CODE. RECOMMENDATIONS AND DISCUSSION: In this 64-year-old gentleman who presented with multiple complex medical issues, we will monitor the patient closely, continue the current medications, continue with symptomatic treatment. Otherwise at this time I recommend continuing with broad- spectrum IV antibiotics. Cardiothoracic surgery input appreciated. Closely follow with Pulmonology. Sodium is 134. WBC is 19.7. Cultures are negative so far. Continue the antibiotics. Guarded prognosis because of multiple complex medical issues. Further recommendations to follow. MMODL / IJN: [id number] /
[2019-05-04] MEDS: PANTOPRAZOLE 40 MG TABLET PO SCH (19:43)
[2019-05-05 04:26] LABS: Anisocytosis Slight; Basophils % (A) 0 %; Eosinophils # (A) 0.1 k/uL (0-0.7); Eosinophils % (A) 1 %; HGB 8.8 gm/dL (13.0-17.5); Hypochromasia Moderate; Lymphocytes # (A) 0.8 k/uL (1.0-4.8); Lymphocytes % (A) 6 %; MCH 29.3 pg (25.0-35.0); MCHC 31.5 g/dL (31.0-37.0); MCV 93.1 fL (80.0-100.0); Mean Platelet Volume 8.2; Monocytes # (A) 0.7 k/uL (0-1.0); Monocytes % (A) 5 %; Neutrophils # (A) 12.1 k/uL (1.3-7.7); Neutrophils % (A) 88 %; Platelet Count 231 k/uL (150-450); RDW 17.1 % (11.5-15.5); WBC 13.8 k/uL (3.8-10.6)
[2019-05-05 04:38] LABS: African American GFR (CKD) >90 (>60 ml/min/1.73 sqM); Anion Gap 4 mmol/L; Blood Urea Nitrogen 23 mg/dL (9-20); Carbon Dioxide 23 mmol/L (22-30); Chloride 109 mmol/L (98-107); Glucose 122 mg/dL (74-99); Non-African American GFR(CKD) >90 (>60 ml/min/1.73 sqM); Potassium 4.2 mmol/L (3.5-5.1); Sodium 136 mmol/L (137-145)
[2019-05-05] MEDS: ALPRAZolam 0.5 MG TAB PO SCH ×4 (04:40→20:14)
[2019-05-05] MEDS: PANTOPRAZOLE 40 MG TABLET PO SCH ×2 (06:45→16:45)
--- NOTE | 2019-05-05 07:18 | P.PN ---
Subjective Progress Note Date: 05/05/19 Principal diagnosis: Loculated right sided pneumothorax, acute hypoxic respiratory failure, lactic acidosis on admission, leukocytosis with bandemia. Previous medical history of adenocarcinoma of the esophagus, status post chemo and radiation and esophageal stent placement, pulmonary embolism on Eliquis for anticoagulation, recurrent pleural effusions status post thoracentesis, obstructive sleep apnea without home CPAP use, supraventricular tachycardia status post ablation, hypertension, hyperlipidemia, and CVA POD #3 right sided thoracentesis with removal of 2400 mL turbid yellow fluid followed by right-sided chest tube placement by Dr. Hartman The patient is currently sitting up in bed in the intensive care unit in no acute distress. Right-sided pleural chest tube continues to drain cloudy serous fluid. Remains on IV antibiotics. Cultures and cytology pending. He does state his breathing is better, denies any pain. No new concerns. Objective - Vital Signs Vital signs: Vital Signs Temp 97.4 F L 05/05/19 04:00 Pulse 86 05/05/19 06:00 Resp 28 H 05/05/19 06:00 BP 102/62 05/05/19 06:00 Pulse Ox 97 05/05/19 06:00 Intake & Output 05/04/19 05/05/19 05/05/19 18:59 06:59 18:59 Intake Total 1130 1060 Output Total 1080 990 Balance 50 70 Weight 90 kg Intake: IV 1130 580 Piperacillin-Tazobactam 3 200 100 .375 gm In Sodium Chloride 0.9% 100 ml @ 25 mls/hr IVPB Q8HR [facility] Rx# :[id number] Sodium Chloride 0.9% 1, 20 230 000 ml @ 20 mls/hr IV . Q24H [facility] Rx#:[id number] Sodium Chloride 0.9% 1, 660 000 ml @ 75 mls/hr IV . [id number] [facility] Rx#:[id number] Vancomycin 1,500 mg In 250 250 Sodium Chloride 0.9% 250 ml @ 125 mls/hr IVPB Q12H [facility] Rx#:[id number] Oral 480 Output: Chest Tube Drainage 250 360 Right Lateral Chest 250 360 Urine 830 630 Other: Voiding Method Indwelling Catheter Indwelling Catheter # Bowel Movements 1 - Constitutional General appearance: Present: cooperative, no acute distress - Respiratory Details: Lungs sounds diminished bilaterally, right greater than left. Respirations even, nonlabored. Currently on 2 L nasal cannula with oxygen saturation 96%. Able to achieve less than 500 mL on his incentive spirometry. Right sided pleural chest tube present to continuous wall suction, 170 mL serous drainage overnight, 650 mL in the last 24 hours, intermittent air leak present with c oughing. - Cardiovascular Details: S1, S2 present. Regular rate and rhythm, sinus rhythm on telemetry. Palpable peripheral pulses bilaterally. No edema present. No calf pain or tenderness noted. - Gastrointestinal Gastrointestinal Comment(s): Abdomen soft, nontender, nondistended. Active bowel sounds present 4 quadrants. Tolerating diet. Positive bowel movement yesterday - Genitourinary Genitourinary Comment(s): Hernández present draining clear, yellow urine. Output 40-70 mL per hour overnight - Integumentary Integumentary Comment(s): Skin is warm and dry with evidence of good perfusion. Right pleural chest tube dressing dry and intact. - Neurologic Neurologic: Present: CNII-XII intact - Musculoskeletal Musculoskeletal: Present: generalized weakness, strength equal bilaterally - Psychiatric Psychiatric: Present: A&O x's 3, appropriate affect, intact judgment & insight - Allied health notes Allied health notes reviewed: nursing - Labs CBC & Chem 7: 05/05/19 03:46 05/05/19 03:46 Labs: Abnormal Lab Results - Last 24 Hours (Table) 05/05/19 05/05/19 Range/Units 03:46 03:46 WBC 13.8 H (3.8-10.6) k/uL RBC 3.00 L (4.30-5.90) m/uL Hgb 8.8 L (13.0-17.5) gm/dL Hct 28.0 L (39.0-53.0) % RDW 17.1 H (11.5-15.5) % Neutrophils # 12.1 H (1.3-7.7) k/uL Lymphocytes # 0.8 L (1.0-4.8) k/uL Sodium 136 L (137-145) mmol/L Chloride 109 H (98-107) mmol/L BUN 23 H (9-20) mg/dL Glucose 122 H (74-99) mg/dL Calcium 8.0 L (8.4-10.2) mg/dL Microbiology - Last 24 Hours (Table) 05/01/19 14:21 Blood Culture - Preliminary Blood No Growth after 72 hours 05/02/19 08:30 Gram Stain - Preliminary Pleural Fluid Body Fluid Culture - Preliminary - Imaging and Cardiology Chest x-ray: image reviewed Assessment and Plan Assessment: 1. Loculated pleural effusion, status post thoracentesis followed by chest tube placement, cytology and cultures pending 2. History of recurrent pleural effusions, status post thoracentesis with complete reexpansion of the lung 3. Adenocarcinoma of the esophagus, status post chemo and radiation 4. Acute hypoxic respiratory failure secondary to recurrent right-sided pleural effusion 5. Lactic acidosis on admission, leukocytosis with bandemia, improving 6. History of pulmonary embolism on Eliquis for anticoagulation 7. Hypertension 8. Hyperlipidemia 9. Obstructive sleep apnea without home CPAP use 10. History of CVA Plan: 1. Continue right pleural chest tube to suction, await culture and cytology. May consider PleurX cath if patient continues to have large amounts of drainage from CT 2. Wean O2 as tolerated. Encourage is spirometry 10 times every hour while awake 3. Antibiotics, bronchodilators per pulmonology 4. Will monitor daily x-rays. 5. Increase activity as tolerated 6. Medical management of the comorbidities per primary care service 7. More recommendations to follow Time with Patient: Greater than 30
[2019-05-05] MEDS: IPRATROPIUM-ALBUTEROL 3 ML NEB INHALATION SCH ×4 (07:53→20:29)
--- NOTE | 2019-05-05 07:59 | XR ---
EXAMINATION TYPE: XR chest 1V portable DATE OF EXAM: 05/05/2019 COMPARISON: Prior chest x-ray 05/04/2019 HISTORY: Pneumothorax, right chest tube TECHNIQUE: Single frontal view of the chest is obtained. FINDINGS: The right-sided Port-A-Cath is removed via a right jugular approach, distal tip is overlyi ng superior vena cava region. Right-sided chest tube is in place, there are overlying cardiac leads. Pleural parenchymal changes are similar to prior exam, heart size is likely stable but is partially o bscured. Aorta is dense. Minimal right apical pneumothorax suspected. Esophageal stent is in place. IMPRESSION: Findings are similar to prior exam.
[2019-05-05] MEDS: CYANOCOBALAMIN 500 MCG TAB PO SCH (08:54)
[2019-05-05] MEDS: FLECAINIDE 50 MG TAB PO SCH (08:54)
[2019-05-05] MEDS: DULoxetine HCL 20 MG CAPSULE.DR PO SCH (08:54)
[2019-05-05] MEDS: MULTIVITAMINS, THERA 1 EACH TAB PO SCH (08:54)
[2019-05-05] MEDS: PIPERACILLIN-TAZOBACTAM 3.375 GM in SODIUM CHLORIDE 0.9% 100 ML IVPB SCH ×3 (08:55→23:55)
--- NOTE | 2019-05-05 11:17 | P.PN ---
Subjective Progress Note Date: 05/05/19 Principal diagnosis: Acute hypoxic respiratory failure secondary to large right sided pleural effusion, exact etiology is not clear. Patient was reevaluated today on 05/04/19, patient remains in the intensive care unit, continues to have significant amount of drainage from the right sided pleural chest tube. About 500 mL overnight. Thoracic surgery is considering placement of a Pleurx catheter. Cultures on the fluid remain negative so far. Cytology on the pleural effusion is pending. In the meantime the patient seems to be doing fairly well, asymptomatic, denies any shortness of breath, fluid from the right sided chest tube seems to be yellow and turbid. Nonbloody. WBC count is down to 19.7 hemoglobin is 8.5. Electrolytes and renal profile are normal. Lactic acid normalized. Chest x-ray continues to show some loculated right-sided pleural effusion. Reevaluated today on 05/05/19, patient remains in the intensive care unit, he is postoperative day #3, right sided thoracentesis and removal of 2400 MLS turbid yellow fluid, followed by chest tube insertion. Patient continues to have some cloudy serous drainage, remains on antibiotics, cultures and cytology remain pending. Overall the patient is breathing easier, denies any fever or chill denies any chest pain, hence I plan to transfer the patient out of the ICU today to a regular medical floor. WBC count is 13.8 hemoglobin is 8.8. Electrodes are normal. Renal profile is normal. Gram stain on the pleural effusion is negative blood cultures remain negative Objective - Vital Signs Vital signs: Vital Signs Temp 97.4 F L 05/05/19 04:00 Pulse 90 05/05/19 08:04 Resp 10 L 05/05/19 07:00 BP 100/70 05/05/19 07:00 Pulse Ox 95 05/05/19 07:00 Intake & Output 05/04/19 05/05/19 05/05/19 18:59 06:59 18:59 Intake Total 1130 1060 180 Output Total 1080 990 330 Balance 50 70 -150 Weight 90 kg Intake: IV 1130 580 180 Piperacillin-Tazobactam 3 200 100 100 .375 gm In Sodium Chloride 0.9% 100 ml @ 25 mls/hr IVPB Q8HR [facility] Rx# :[id number] Sodium Chloride 0.9% 1, 20 230 80 000 ml @ 20 mls/hr IV . Q24H [facility] Rx#:[id number] Sodium Chloride 0.9% 1, 660 000 ml @ 75 mls/hr IV . [id number] [facility] Rx#:[id number] Vancomycin 1,500 mg In 250 250 Sodium Chloride 0.9% 250 ml @ 125 mls/hr IVPB Q12H [facility] Rx#:[id number] Oral 480 Output: Chest Tube Drainage 250 360 70 Right Lateral Chest 250 360 70 Urine 830 630 260 Other: Voiding Method Indwelling Catheter Indwelling Catheter # Bowel Movements 1 - Exam Physical Exam: Revealed a 64-year-old white male, pleasant, asymptomatic Head: Atraumatic, normocephalic. HEENT:[Neck is supple.] [No neck masses.] [No thyromegaly.] [No JVD.] Chest: [Symmetrical chest expansion, right-sided chest tube is noted, no leak noted, crackles at the bases noted Cardiac Exam: [Normal S1 and S2, no S3 gallop, no murmur.] Abdomen: [Soft, nontender, no megaly, no rebound, no guarding, normal bowel sounds.] Extremities: [No clubbing, no edema, no cyanosis.] Neurological Exam: [No focal neurologic deficit.] Alert and oriented 3. Psychiatric: Normal mood affect and normal mental status examination. Skin: No rashes. - Labs CBC & Chem 7: 05/05/19 03:46 05/05/19 03:46 Labs: Abnormal Lab Results - Last 24 Hours (Table) 05/05/19 05/05/19 Range/Units 03:46 03:46 WBC 13.8 H (3.8-10.6) k/uL RBC 3.00 L (4.30-5.90) m/uL Hgb 8.8 L (13.0-17.5) gm/dL Hct 28.0 L (39.0-53.0) % RDW 17.1 H (11.5-15.5) % Neutrophils # 12.1 H (1.3-7.7) k/uL Lymphocytes # 0.8 L (1.0-4.8) k/uL Sodium 136 L (137-145) mmol/L Chloride 109 H (98-107) mmol/L BUN 23 H (9-20) mg/dL Glucose 122 H (74-99) mg/dL Calcium 8.0 L (8.4-10.2) mg/dL Microbiology - Last 24 Hours (Table) 05/01/19 14:21 Blood Culture - Preliminary Blood No Growth after 72 hours 05/02/19 08:30 Gram Stain - Preliminary Pleural Fluid Body Fluid Culture - Preliminary Assessment and Plan Assessment: Impression: Acute hypoxic respiratory failure secondary to recurrent right-sided pleural effusion, exudative in nature, negative for malignancy on previous tapping. However considering the fluid is exudative, malignancy is not entirely ruled out. Right sided hydropneumothorax, improving with chest tube to suction. Acute febrile illness with lactic acidosis on presentation, resolved. History of esophageal cancer on systemic chemotherapy and previous esophageal stent placement. 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 Benign essential hypertension Obstructive sleep apnea syndrome Previous history of CVA. Recommendation: Awaiting cytology on the pleural effusion in the meantime we'll continue chest tube to suction. May require a Pleurx catheter placement. Continue antibiotics including Zosyn and vancomycin and Levaquin Continue oxygen at 2 L/m. Continue chest tube to wall suction. Continue incentive spirometry. We'll continue to follow. Will transfer patient out of the ICU to a regular medical floor today. Time with Patient: Less than 30
[2019-05-05] MEDS ORDERED: DEXTROSE 5% IN WATER 100 ML with AMIODARONE 150 MG IV ONE (12:45)
[2019-05-05] MEDS: VANCOMYCIN 1,250 MG in SODIUM CHLORIDE 0.9% 250 ML IVPB SCH ×2 (13:13→22:34)
[2019-05-05] MEDS: AMIODARONE 360 MG in DEXTROSE 5% IN WATER 200 ML IV ONE ×4 (13:14→14:34)
[2019-05-05] MEDS: THIAMINE 100 MG TAB PO SCH (13:14)
[2019-05-05] MEDS: METOPROLOL TARTRATE 12.5 MG TAB PO SCH ×2 (13:14→21:50)
[2019-05-05] MEDS: FOLIC ACID 1 MG TAB PO SCH (13:14)
[2019-05-05] MEDS: HYDROcodone/APAP 5-325MG 1 EACH TAB PO PRN (13:41)
[2019-05-05] MEDS: guaiFENesin SYRUP 100MG/5ML 200 MG/10 ML CUP PO PRN (13:42)
--- NOTE | 2019-05-05 13:55 | ECHOF ---
Referral Reason:LV function MEASUREMENTS -------- HEIGHT: 180.3 cm WEIGHT: 89.8 kg BP: RVIDd: 2.3 cm (< 3.3) IVSd: 1.1 cm (0.6 - 1.1) LVIDd: 3.9 cm (3.9 - 5.3) LVPWd: 1.3 cm (0.6 - 1.1) IVSs: 1.7 cm LVIDs: 2.9 cm LVPWs: 1.6 cm Ao Diam: 3.6 cm (2.0 - 3.7) AV Cusp: 2.2 cm (1.5 - 2.6) LA Diam: 3.3 cm (2.7 - 3.8) RAP: 5.00 mmHg RVSP: 27.33 mmHg FINDINGS -------- Atrial fibrillation. This was a technically adequate study. The left ventricular size is normal. There is mild concentric left ventricular hypertrophy. Overa ll left ventricular systolic function is mildly impaired with, an EF between 45 - 50 %. Left ventri cular fillimg pressure cannot be estimated due to Atrial fibrillation. The right ventricle is normal in size. The left atrial size is normal. The right atrial size is normal. The aortic valve is trileaflet and appears structurally normal. The mitral valve is normal. Mild mitral regurgitation is present. The tricuspid valve appears structurally normal. Mild tricuspid regurgitation present. Right vent ricular systolic pressure is normal at < 35 mmHg. There is no pulmonic regurgitation present. The aortic root is dilated measuring 3.8 cm There is a small, generalized pericardial effusion present. CONCLUSIONS -------- 1. Atrial fibrillation. 2. This was a technically adequate study. 3. The left ventricular size is normal. 4. There is mild concentric left ventricular hypertrophy. 5. Overall left ventricular systolic function is mildly impaired with, an EF between 45 - 50 %. 6. Left ventricular fillimg pressure cannot be estimated due to Atrial fibrillation. 7. The right ventricle is normal in size. 8. The left atrial size is normal. 9. The right atrial size is normal. 10. The aortic valve is trileaflet and appears structurally normal. 11. The mitral valve is normal. 12. Mild mitral regurgitation is present. 13. The tricuspid valve appears structurally normal. 14. Mild tricuspid regurgitation present. 15. Right ventricular systolic pressure is normal at < 35 mmHg. 16. There is no pulmonic regurgitation present. 17. The aortic root is dilated measuring 3.8 cm. 18. There is a small, generalized pericardial effusion present. CALENDER INSPECTOR: Violeta Guerrier RDCS
[2019-05-05] MEDS ORDERED: HEPARIN SODIUM,PORCINE 5,000 UNIT/ML 1 ML VIAL IV ONE (14:31)
[2019-05-05] MEDS ORDERED: HEPARIN SODIUM,PORCINE 5,000 UNIT/ML 1 ML VIAL IV PRN (14:31)
[2019-05-05] MEDS: SODIUM CHLORIDE 0.9% 1,000 ML IV SCH (14:45)
[2019-05-05 15:40] LABS: INR 0.9 (<1.2); Partial Thromboplastin Time 32.6 sec (22.0-30.0); Prothrombin Time 9.5 sec (9.0-12.0)
--- NOTE | 2019-05-05 15:55 | CONS ---
CONSULTATION Mr. Hull is a 64-year-old gentleman who is seen in the intensive care unit for atrial fibrillation and rapid ventricular response. His electronic medical records as well as his old chart is reviewed. This patient was admitted and is being treated for pneumonia and right-sided pleural effusion. The patient underwent a right chest thoracentesis. Subsequently, the patient had a pneumothorax and had a chest tube placed in. The patient has had a past history of atrial fibrillation. He had been on flecainide in the past. He gives a history that he had an ablation done before about 10 years ago. He does not follow with any accounts receivable coordinator regularly. The patient has been on flecainide twice a day. The patient had an echocardiogram on 02/05. At that time, his ejection fraction was 35%. At present, the patient denies chest pain, denies any significant shortness of breath. PAST MEDICAL HISTORY: Past medical history includes a history of cancer, history of deep venous thrombosis, history of pulmonary embolism, sleep apnea, and supraventricular tachycardia. The patient also had a history of esophageal bleed which was thought to be due to the esophageal tumor. Bilateral inguinal hernia repair. The patient had a prior percutaneous endoscopic gastrostomy tube placement for the esophageal cancer. PHYSICAL EXAMINATION: At present reveals a 64-year-old gentleman who is not in any acute respiratory distress. The patient's heart rate is 134 per minute, blood pressure is 100/80 mmHg. HEENT: Examination is negative. Neck is supple. There is no increase in jugular venous pressure. Both the carotid pulses are felt. There is no bruit. Chest is symmetrical. Heart: The PMI is not felt. First and second heart sounds are heard. Lungs reveal bilateral scattered wheezes. Abdomen is negative. Extremities: Peripheral pulsations are 1+. Monitor pattern shows atrial fibrillation with rapid ventricular response. The patient's electrolytes are normal. Creatinine is normal. White count is 13,800. FINAL IMPRESSION: The patient has atrial fibrillation with rapid ventricular response. Patient currently is being treated for pneumonia, sepsis, and right pleural effusion with antibiotics. Patient's previous echocardiogram shows moderately impaired left ventricular systolic function. RECOMMENDATIONS: In view of the abnormal left ventricular systolic functions, we will discontinue flecainide and start the patient on intravenous amiodarone. We would recommend to initiate the anticoagulation, Lopressor 12.5 mg two times a day is started, and we will repeat the echocardiogram to assess the left ventricular systolic function. IFTIKHAR / CODIN: [id number] /
[2019-05-05] MEDS: HEPARIN SOD,PORK IN 0.45% NACL 25,000 UNIT in 0.45% NACL 1 250ML.BAG IV SCH (16:22)
[2019-05-05] MEDS: LEVOFLOXACIN 750 MG TAB PO SCH (16:24)
--- NOTE | 2019-05-05 18:11 | P.PN ---
Subjective Progress Note Date: 05/05/19 Principal diagnosis: PHOEBE, pleural effusion Patient is sitting up in the chair eating his dinner, complains of a very congested cough, hard to catch his breath, difficulty in breathing with even mild activity. Denies fevers, vomiting, no pain to report Objective - Vital Signs Vital signs: Vital Signs Temp 97.4 F L 05/05/19 04:00 Pulse 79 05/05/19 16:16 Resp 10 L 05/05/19 07:00 BP 100/70 05/05/19 07:00 Pulse Ox 95 05/05/19 07:00 Intake & Output 05/04/19 05/05/19 05/05/19 18:59 06:59 18:59 Intake Total 1130 1060 180 Output Total 1080 990 330 Balance 50 70 -150 Weight 90 kg 90 kg Intake: IV 1130 580 180 Piperacillin-Tazobactam 3 200 100 100 .375 gm In Sodium Chloride 0.9% 100 ml @ 25 mls/hr IVPB Q8HR [facility] Rx# :[id number] Sodium Chloride 0.9% 1, 20 230 80 000 ml @ 20 mls/hr IV . Q24H [facility] Rx#:[id number] Sodium Chloride 0.9% 1, 660 000 ml @ 75 mls/hr IV . [id number] [facility] Rx#:[id number] Vancomycin 1,500 mg In 250 250 Sodium Chloride 0.9% 250 ml @ 125 mls/hr IVPB Q12H [facility] Rx#:[id number] Oral 480 Output: Chest Tube Drainage 250 360 70 Right Lateral Chest 250 360 70 Urine 830 630 260 Other: Voiding Method Indwelling Catheter Indwelling Catheter # Bowel Movements 1 - Constitutional General appearance: Present: average body habitus, cooperative, mild distress - EENT Eyes: Present: anicteric sclerae, EOMI ENT: Present: hearing grossly normal - Respiratory Respiratory: bilateral: diminished - Cardiovascular Heart sounds: normal: S1, S2 - Peripheral edema leg Peripheral Edema: bilateral: Trace - Gastrointestinal General gastrointestinal: Present: normal bowel sounds, soft - Neurologic Neurologic: Present: CNII-XII intact - Musculoskeletal Musculoskeletal: Present: generalized weakness - Psychiatric Psychiatric: Present: A&O x's 3, appropriate affect - Labs CBC & Chem 7: 05/05/19 03:46 05/05/19 03:46 Labs: Abnormal Lab Results - Last 24 Hours (Table) 05/05/19 05/05/19 05/05/19 Range/Units 03:46 03:46 15:04 WBC 13.8 H (3.8-10.6) k/uL RBC 3.00 L (4.30-5.90) m/uL Hgb 8.8 L (13.0-17.5) gm/dL Hct 28.0 L (39.0-53.0) % RDW 17.1 H (11.5-15.5) % Neutrophils # 12.1 H (1.3-7.7) k/uL Lymphocytes # 0.8 L (1.0-4.8) k/uL APTT 32.6 H (22.0-30.0) sec Sodium 136 L (137-145) mmol/L Chloride 109 H (98-107) mmol/L BUN 23 H (9-20) mg/dL Glucose 122 H (74-99) mg/dL Calcium 8.0 L (8.4-10.2) mg/dL Microbiology - Last 24 Hours (Table) 05/01/19 14:21 Blood Culture - Preliminary Blood No Growth after 96 hours 05/02/19 08:30 Gram Stain - Preliminary Pleural Fluid Body Fluid Culture - Preliminary Assessment and Plan (1) Pleural effusion Narrative/Plan: Status post thoracentesis with postprocedure pneumothorax and current chest tube placement, still draining copious amounts of fluid. Pulmonary managing, possible pleurx cath placement. Pleural effusion path pending Current Visit: Yes Status: Acute Priority: High Code(s): J90 - PLEURAL E FFUSION, NOT ELSEWHERE CLASSIFIED SNOMED Code(s): 90102963 (2) Esophageal carcinoma Narrative/Plan: There were concerns for disease progression prior to admit. Pending the thoracentesis. Further treatment recommendations to follow based on results. Current Visit: No Status: Acute Code(s): C15.9 - MALIGNANT NEOPLASM OF ESOPHAGUS, UNSPECIFIED SNOMED Code(s): 996598913 (3) Pulmonary embolism Narrative/Plan: Patient had an episode of A. fib with RVR, he is now on a heparin drip. Will resume eliquis post procedures and when cleared of any potential procedures. Current Visit: Yes Status: Acute Priority: High Code(s): I26.99 - OTHER PULMONARY EMBOLISM WITHOUT ACUTE COR PULMONALE SNOMED Code(s): 66897607
--- NOTE | 2019-05-05 18:58 | PN ---
PROGRESS NOTE DATE OF SERVICE: 05/05/2019 This 64-year-old gentleman admitted with right-sided pneumonia also had possible aspiration. The patient had pleural effusion also. He had thoracocentesis subsequently with hydropneumothorax. Multiple consultants are following the patient closely. The patient also was found to be slightly confused. A 2D echo with Doppler was done which showed ejection fraction 45% to 50%. Cardiology has also been consulted. Cardiothoracic Surgery is following the patient closely as well as Pulmonary, Dr. Rogers. The most recent chest x-ray, which was reviewed personally by me, was unchanged. Dr. Rogers is awaiting the cytology from the pleural fluid. Currently on antibiotics, which are also being continued. The patient is being closely monitored. Past medical history reviewed. REVIEW OF SYSTEMS: CARDIOVASCULAR SYSTEM: No angina, palpitations. RESPIRATORY SYSTEM: As mentioned earlier. GI: As mentioned earlier. : No dysuria or retention. NERVOUS SYSTEM: No numbness, weakness. CURRENT MEDICATIONS: Reviewed. They include: 1. [place] 5 mg q.6 p.r.n. 2. DuoNeb q.i.d. and p.r.n. 3. Xanax 0.5 q.6. 4. Amiodarone drip. 5. Vitamin B12 1000 mcg p.o. daily. 6. Bentyl 10 mg q.i.d. p.r.n. 7. Cymbalta 20 mg each morning. 8. Folic acid 1 mg daily. 9. Robitussin. 10.Heparin. 11.Levaquin 750 p.o. daily. 12.Lopressor 12.5 mg b.i.d. 13.Vancomycin. 14.Multivitamins. 15.Zofran. 16.Protonix. 17.Zosyn 3.375 IV q.6. 18.Scopolamine patch. 19.Thiamine 100 mg. 20.Vancomycin b.i.d. PHYSICAL EXAMINATION: Patient is alert, oriented x3. Pulse is 134, blood pressure 100/70, respiration 10, temperature normal, pulse ox 95% on 2 L. HEENT: Conjunctivae normal. NECK: No jugular venous distention. CARDIOVASCULAR SYSTEM: S1, S2 muffled. RESPIRATORY SYSTEM: Breath sounds diminished at the bases. Bilateral scattered rhonchi and crackles. ABDOMEN: Soft, non-tender. No mass palpable. LEGS: No edema. No swelling. NERVOUS SYSTEM: No focal deficit. Examination of the right chest: Status post chest tube drainage. LABS: WBC 13.8, hemoglobin is 8.8. Sodium 136. ASSESSMENT: 1. Acute right-sided pleural effusion and hydropneumothorax, status post thoracocentesis and chest tube drainage. 2. Possible right-sided pneumonia, possibly aspiration with Gram-negative with severe sepsis, present on admission. 3. Atrial fibrillation with rapid ventricular response. 4. Change in mental status with acute metabolic encephalopathy secondary to sepsis. 5. Possible congestive heart failure with acute on chronic systolic dysfunction, ejection fraction 45% to 50%. 6. Acute delirium. 7. History of recent right thoracocentesis. 8. History of esophageal carcinoma, adenocarcinoma, status post radiation and chemo. 9. Hypertension. 10.Hyperlipidemia. 11.History of gastroesophageal reflux disease. 12.History of cerebrovascular accident, transient ischemic attack. 13.Gait dysfunction. 14.History of pulmonary embolism. 15.History of sleep apnea. 16.History of gastrointestinal bleed. 17.History of recurrent tachycardia. 18.History of cardiac ablation. 19.History of PEG tube placement and removal. 20.History of MediPort. 21.History of esophageal stent. 22.History of anxiety. 23.FULL CODE. RECOMMENDATIONS AND DISCUSSION: I recommend to continue current medications, continue with the monitoring, symptomatic treatment. Otherwise at this time I recommend a BNP. Two-D echo with Doppler noted. Cardiology is following the patient closely. I would also recommend a small dose of Lasix. Renal functions are well maintained. The prognosis is guarded. Further recommendations to follow. Plasma lactic acid was elevated, but currently it is normal. Cultures are negative so far. The patient is also on heparin per cardiology recommendations for atrial fibrillation. The flecainide was discontinued and IV amiodarone was given as well as beta blockers. MMODL / IJN: [id number] / [facility]
[2019-05-05] MEDS: FUROSEMIDE 10 MG/ML 4 ML VIAL IV SCH (19:07)
[2019-05-05] MEDS: AMIODARONE 300 MG in DEXTROSE 5% IN WATER 250 ML IV SCH ×2 (20:05)
[2019-05-06] MEDS: ALPRAZolam 0.5 MG TAB PO SCH ×4 (02:07→20:46)
[2019-05-06 05:06] LABS: Anisocytosis Slight; Basophils % (A) 0 %; Eosinophils # (A) 0.1 k/uL (0-0.7); Eosinophils % (A) 1 %; HGB 8.6 gm/dL (13.0-17.5); Hypochromasia Moderate; Lymphocytes # (A) 0.6 k/uL (1.0-4.8); Lymphocytes % (A) 5 %; MCH 29.2 pg (25.0-35.0); MCHC 30.7 g/dL (31.0-37.0); Mean Platelet Volume 7.9; Monocytes # (A) 0.8 k/uL (0-1.0); Monocytes % (A) 6 %; Neutrophils % (A) 86 %; Platelet Count 213 k/uL (150-450); RBC 2.94 m/uL (4.30-5.90); RDW 17.7 % (11.5-15.5); WBC 12.7 k/uL (3.8-10.6)
[2019-05-06 05:34] LABS: African American GFR (CKD) >90 (>60 ml/min/1.73 sqM); Anion Gap 6 mmol/L; Blood Urea Nitrogen 21 mg/dL (9-20); Calcium 7.6 mg/dL (8.4-10.2); Carbon Dioxide 25 mmol/L (22-30); Chloride 102 mmol/L (98-107); Glucose 136 mg/dL (74-99); Non-African American GFR(CKD) 86 (>60 ml/min/1.73 sqM); Potassium 3.8 mmol/L (3.5-5.1); Sodium 133 mmol/L (137-145)
[2019-05-06] MEDS: HYDROcodone/APAP 5-325MG 1 EACH TAB PO PRN (06:03)
[2019-05-06] MEDS ORDERED: Potassium Replacement Protocol 1 EACH MISC MISCELLANE PRN (06:30)
[2019-05-06] MEDS ORDERED: POTASSIUM CHLORIDE ER 20 MEQ TAB.ER PO ONE (07:00)
[2019-05-06] MEDS: PANTOPRAZOLE 40 MG TABLET PO SCH ×2 (07:14→17:04)
--- NOTE | 2019-05-06 07:31 | XR ---
EXAMINATION TYPE: XR chest 1V portable DATE OF EXAM: 05/06/2019 COMPARISON: 05/05/2019 HISTORY: Pneumothorax. Follow-up exam. TECHNIQUE: Single frontal view of the chest is obtained. FINDINGS: Right-sided thoracostomy tube is seen overlying the right lower lung similar position in t he prior. There is improved aeration of the right lung. Small bilateral pleural effusions and bibasil ar airspace disease are again seen. Right-sided Mediport is similar in position. Enlarged cardiac med iastinal silhouette. IMPRESSION: Improving aeration of the right lung is stable small pleural effusions and underlying ba silar atelectasis.
[2019-05-06] MEDS: IPRATROPIUM-ALBUTEROL 3 ML NEB INHALATION SCH ×4 (07:50→19:36)
--- NOTE | 2019-05-06 07:51 | P.PN ---
Subjective Progress Note Date: 05/06/19 Principal diagnosis: Loculated right sided pneumothorax, acute hypoxic respiratory failure, lactic acidosis on admission, leukocytosis with bandemia. 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 Hartman The patient is currently sitting up in bed in the intensive care unit in no acute distress. Right-sided pleural chest tube continues to drain cloudy serous fluid. Remains on IV antibiotics. Cultures and cytology still pending. Went into A. fib RVR yesterday, placed on IV amiodarone and heparin, currently in normal sinus rhythm Objective - Vital Signs Vital signs: Vital Signs Temp 97.7 F 05/06/19 04:00 Pulse 85 05/06/19 07:00 Resp 30 H 05/06/19 07:00 BP 92/65 05/06/19 07:00 Pulse Ox 96 05/06/19 07:00 Intake & Output 05/05/19 05/06/19 05/06/19 18:59 06:59 18:59 Intake Total 927.02 714.115 20 Output Total 856 2570 75 Balance 71.02 -1855.885 -55 Weight 90 kg 87.2 kg Intake: IV 440 610 20 Piperacillin-Tazobactam 3 200 200 .375 gm In Sodium Chloride 0.9% 100 ml @ 25 mls/hr IVPB Q8HR [facility] Rx# :[id number] Sodium Chloride 0.9% 1, 240 160 20 000 ml @ 20 mls/hr IV . Q24H [facility] Rx#:[id number] Vancomycin 1,250 mg In 250 Sodium Chloride 0.9% 250 ml @ 125 mls/hr IVPB Q12H [facility] Rx#:[id number] Intake, IV Titration 250.02 104.115 Amount Amiodarone 360 mg In 150.02 33.33 Dextrose 5% in Water 200 ml @ 1 MG/MIN 33.333 mls/ hr IV .Q6H [facility] Rx#: [id number] Dextrose 5% in Water 100 100 ml @ 618 mls/hr IV .Q10M ONE with Amiodarone 150 mg Rx#:[id number] Heparin Sod,Pork in 0.45% 70.785 NaCl 25,000 unit In 0.45 % NaCl 1 250ml.bag @ 11 UNITS/KG/HR 9.9 mls/hr IV .Q24H [facility] Rx#:[id number] Oral 237 Output: Chest Tube Drainage 210 225 Right Lateral Chest 210 225 Urine 645 2345 75 Urine/Stool Mix 1 Other: Voiding Method Indwelling Catheter Indwelling Catheter - Constitutional General appearance: Present: cooperative, no acute distress - Respiratory Details: Lungs sounds diminished bilaterally, right greater than left, coarse on the right side. Respirations even, nonlabored. Currently on 2 L nasal cannula with oxygen saturation 92%. Able to achieve less than 500 mL on his incentive spirometry. Right sided pleural chest tube present to continuous wall suction, 175 mL serous drainage overnight, 480 mL in the last 24 hours, no air leak present. - Cardiovascular Details: S1, S2 present. Regular rate and rhythm, sinus rhythm on telemetry. Palpable peripheral pulses bilaterally. No edema present. No calf pain or tenderness noted. - Gastrointestinal Gastrointestinal Comment(s): Abdomen soft, nontender, nondistended. Active bowel sounds present 4 quadrants. Tolerating diet. Positive bowel movement - Genitourinary Genitourinary Comment(s): Hernández present draining clear, yellow urine. Output 100-300 mL per hour overnight, IV Lasix started yesterday - Integumentary Integumentary Comment(s): Skin is warm and dry with evidence of good perfusion. Right pleural chest tube dressing dry and intact. - Neurologic Neurologic: Present: CNII-XII intact - Musculoskeletal Musculoskeletal: Present: generalized weakness, strength equal bilaterally - Psychiatric Psychiatric: Present: A&O x's 3, appropriate affect, intact judgment & insight - Allied health notes Allied health notes reviewed: nursing - Labs CBC & Chem 7: 05/06/19 04:28 05/06/19 04:28 Labs: Abnormal Lab Results - Last 24 Hours (Table) 05/05/19 05/05/19 05/06/19 Range/Units 15:04 22:16 04:28 WBC 12.7 H (3.8-10.6) k/uL RBC 2.94 L (4.30-5.90) m/uL Hgb 8.6 L (13.0-17.5) gm/dL Hct 28.0 L (39.0-53.0) % MCHC 30.7 L (31.0-37.0) g/dL RDW 17.7 H (11.5-15.5) % Neutrophils # 11.0 H (1.3-7.7) k/uL Lymphocytes # 0.6 L (1.0-4.8) k/uL APTT 32.6 H 40.8 H (22.0-30.0) sec Sodium (137-145) mmol/L BUN (9-20) mg/dL Glucose (74-99) mg/dL Calcium (8.4-10.2) mg/dL 05/06/19 05/06/19 Range/Units 04:28 04:28 WBC (3.8-10.6) k/uL RBC (4.30-5.90) m/uL Hgb (13.0-17.5) gm/dL Hct (39.0-53.0) % MCHC (31.0-37.0) g/dL RDW (11.5-15.5) % Neutrophils # (1.3-7.7) k/uL Lymphocytes # (1.0-4.8) k/uL APTT 45.2 H (22.0-30.0) sec Sodium 133 L (137-145) mmol/L BUN 21 H (9-20) mg/dL Glucose 136 H (74-99) mg/dL Calcium 7.6 L (8.4-10.2) mg/dL Microbiology - Last 24 Hours (Table) 05/01/19 14:21 Blood Culture - Preliminary Blood No Growth after 96 hours - Imaging and Cardiology Chest x-ray: report reviewed, image reviewed Assessment and Plan Assessment: 1. Loculated pleural effusion, status post thoracentesis followed by chest tube placement, cytology and cultures pending 2. History of recurrent pleural effusions, status post thoracentesis with complete reexpansion of the lung 3. Adenocarcinoma of the esophagus, status post chemo and radiation 4. Acute hypoxic respiratory failure secondary to recurrent right-sided pleural effusion 5. Lactic acidosis on admission, leukocytosis with bandemia, improving 6. History of pulmonary embolism on Eliquis for anticoagulation 7. Hypertension 8. Hyperlipidemia 9. Obstructive sleep apnea without home CPAP use 10. History of CVA 11. New-onset paroxysmal atrial fibrillation, currently in normal sinus rhythm Plan: 1. Continue right pleural chest tube to suction, await culture and cytology. May consider PleurX cath if patient continues to have large amounts of drainage from chest tube 2. Wean O2 as tolerated. Encourage is spirometry 10 times every hour while awake 3. A. fib management per cardiology 4. Antibiotics, bronchodilators per pulmonology 5. Will monitor daily x-rays. 6. Increase activity as tolerated, up to chair 7. Medical management of the comorbidities per primary care service 8. Patient may transfer out of ICU from cardiothoracic surgery standpoint when okay with other services 9. More recommendations to follow Time with Patient: Greater than 30
[2019-05-06] MEDS: PIPERACILLIN-TAZOBACTAM 3.375 GM in SODIUM CHLORIDE 0.9% 100 ML IVPB SCH ×3 (09:05→23:45)
[2019-05-06] MEDS: DULoxetine HCL 20 MG CAPSULE.DR PO SCH (09:05)
[2019-05-06] MEDS: METOPROLOL TARTRATE 12.5 MG TAB PO SCH ×2 (09:05→20:47)
[2019-05-06] MEDS: CYANOCOBALAMIN 500 MCG TAB PO SCH (09:05)
[2019-05-06] MEDS: MULTIVITAMINS, THERA 1 EACH TAB PO SCH (09:05)
[2019-05-06] MEDS: FUROSEMIDE 10 MG/ML 4 ML VIAL IV SCH (09:06)
[2019-05-06] MEDS ORDERED: VANCOMYCIN TROUGH DUE 1 EACH MISC MISCELLANE ONE (10:00)
[2019-05-06] MEDS: guaiFENesin SYRUP 100MG/5ML 200 MG/10 ML CUP PO PRN (10:37)
--- NOTE | 2019-05-06 11:12 | P.PN ---
Subjective This is a pleasant 64 years old male with past medical history of CVA/TIA, GERD, DVT and pulmonary embolism, hypertension, hyperlipidemia, sleep apnea, SVT, esophageal cancer status post radiation and chemotherapy in 2018 and 2019, upper GI bleed treated at [facility]. Presents with pneumonia and suspected for aspiration pneumonia. Patient remains in the ICU and his been on IV antibiotics with Zosyn and vancomycin as well as oral Levaquin of 750 mg, is also been on heparin drip comfortable Eliquis 2.5 mg at home, also his Protonix twice daily, cardiology started him on amiodarone and low-dose Lopressor while flecainide was discontinued as its thought to contribute to his heart problem. This morning he was lying in bed comfortable with no dyspnea., Blood pressure 98/67, saturating 94% on 2 L oxygen via nasal cannula, lap showed sodium 133, creatinine 0.9, WBC 12.7 K, hemoglobin 8.6, platelets 213 Patient might benefit from ECF for subacute rehab upon discharge. Cytology of pleural fluid is still pending. As per game moderator patient may need a Pleurx catheter, In the meantime he remains on heparin drip Review of systems CONSTITUTIONAL: No fever, no malaise, no fatigue. HEENT: No recent visual problems or hearing problems. Denied any sore throat. CARDIOVASCULAR: No orthopnea, PND, no palpitations, no syncope. GASTROINTESTINAL: No diarrhea, no nausea, no vomiting, no abdominal pain. Normoactive bowel sounds. NEUROLOGICAL: No headaches, no weakness, no numbness. HEMATOLOGICAL: Denies any bleeding or petechiae. GENITOURINARY: Denies any burning micturition, frequency, or urgency. MUSCULOSKELETAL/RHEUMATOLOGICAL: Denies any joint pain, swelling, or any muscle pain. Active Medications Generic Name Dose Route Start Last Admin Trade Name Freq PRN Reason Stop Dose Admin Hydrocodone Bitart/Acetaminophen 1 each 05/01/19 21:05 05/06/19 06:03 [place] 5-325 PO 1 each Q6HR PRN Administration Pain Albuterol/Ipratropium 3 ml 05/01/19 20:00 05/06/19 07:50 Duoneb 0.5 Mg-3 Mg/3 Ml Soln INHALATION 3 ml RT-QID [facility] Administration Albuterol/Ipratropium 3 ml 05/01/19 16:13 Duoneb 0.5 Mg-3 Mg/3 Ml Soln INHALATION RT-Q4H PRN shortness of breath Alprazolam 0.5 mg 05/03/19 20:00 05/06/19 09:05 Xanax PO 0.5 mg Q6H [facility] Administration Cyanocobalamin 1,000 mcg 05/02/19 09:00 05/06/19 09:05 Vitamin B-12 PO 1,000 mcg DAILY [facility] Administration Dicyclomine HCl 10 mg 05/03/19 17:23 Bentyl PO QID PRN Dyspepsia Duloxetine HCl 20 mg 05/02/19 09:00 05/06/19 09:05 Cymbalta PO 20 mg QAM [facility] Administration Folic Acid 1 mg 05/04/19 12:00 05/05/19 13:14 Folic Acid PO 1 mg DAILY@1200 [facility] Administration Furosemide 40 mg 05/05/19 18:00 05/06/19 09:06 Lasix IV 40 mg DAILY [facility] Administration Guaifenesin 200 mg 05/02/19 20:08 05/06/19 10:37 Robitussin PO 200 mg TID PRN Administration Cough Heparin Sodium (Porcine) 0 unit 05/05/19 14:31 05/05/19 23:30 Heparin IV 2,250 unit PER PROTOCOL PRN Administration Low PTT Protocol Piperacillin Sod/Tazobactam 100 mls @ 25 mls/hr 05/02/19 00:00 05/06/19 09:05 Sod 3.375 gm/ Sodium Chloride IVPB 05/12/19 00:01 25 mls/hr Q8HR [facility] Administration Vancomycin HCl 1,250 mg/ 250 mls @ 125 mls/hr 05/04/19 11:00 05/05/19 22:34 Sodium Chloride IVPB 125 mls/hr Q12H [facility] Administration Sodium Chloride 1,000 mls @ 20 mls/hr 05/04/19 14:45 05/05/19 14:45 Saline 0.9% IV 20 mls/hr .Q24H [facility] Administration Amiodarone HCl 300 mg/ 250 mls @ 25 mls/hr 05/05/19 19:00 05/05/19 20:05 Dextrose/Water IV 05/06/19 12:59 0.5 mg/min .Q10H [facility] 25 mls/hr Administration Protocol 0.5 MG/MIN Heparin Sodium/Sodium Chloride 250 mls @ 9.9 mls/hr 05/05/19 14:45 05/05/19 23:31 25,000 unit/ Sodium Chloride IV 13 units/kg/hr .Q24H [facility] 11.7 mls/hr Titration Protocol 11 UNITS/KG/HR Levofloxacin 750 mg 05/04/19 16:00 05/05/19 16:24 Levaquin PO 05/14/19 16:01 750 mg DAILY@1600 [facility] Administration Metoprolol Tartrate 12.5 mg 05/05/19 12:45 05/06/19 09:05 Lopressor PO 12.5 mg BID [facility] Administration Miscellaneous Information 1 each 05/01/19 16:13 Pneumonia Protocol Utilized PO ONCE PRN Per Protocol Miscellaneous Information 1 each 05/06/19 06:30 Potassium Per Protocol MISCELLANE DAILY PRN Per Protocol Protocol Multivitamins 1 each 05/02/19 09:00 05/06/19 09:05 Theragran PO 1 each DAILY [facility] Administration Ondansetron HCl 4 mg 05/03/19 14:41 Zofran IVP Q6HR PRN Nausea And Vomiting Pantoprazole Sodium 40 mg 05/04/19 17:30 05/06/19 07:14 Protonix PO 40 mg AC-BID [facility] Administration Scopolamine 1 patch 05/03/19 17:30 05/03/19 17:49 Transderm-Scop 1.5mg/72hr Patch TRANSDERM 1 patch Q72H [facility] Administration Thiamine HCl 100 mg 05/04/19 12:00 05/05/19 13:14 Vitamin B-1 PO 100 mg DAILY@1200 [facility] Administration Objective - Vital Signs Vital signs: Vital Signs Temp 97.5 F L 05/06/19 08:00 Pulse 96 05/06/19 10:00 Resp 35 H 05/06/19 10:00 BP 98/67 05/06/19 10:00 Pulse Ox 94 L 05/06/19 10:00 Intake & Output 05/05/19 05/06/19 05/06/19 18:59 06:59 18:59 Intake Total 927.02 714.115 300 Output Total 856 2570 612 Balance 71.02 -1855.885 -312 Weight 90 kg 87.2 kg Intake: IV 440 610 180 Piperacillin-Tazobactam 3 200 200 100 .375 gm In Sodium Chloride 0.9% 100 ml @ 25 mls/hr IVPB Q8HR [facility] Rx# :[id number] Sodium Chloride 0.9% 1, 240 160 80 000 ml @ 20 mls/hr IV . Q24H [facility] Rx#:[id number] Vancomycin 1,250 mg In 250 Sodium Chloride 0.9% 250 ml @ 125 mls/hr IVPB Q12H [facility] Rx#:[id number] Intake, IV Titration 250.02 104.115 Amount Amiodarone 360 mg In 150.02 33.33 Dextrose 5% in Water 200 ml @ 1 MG/MIN 33.333 mls/ hr IV .Q6H [facility] Rx#: [id number] Dextrose 5% in Water 100 100 ml @ 618 mls/hr IV .Q10M [facility] with Amiodarone 150 mg Rx#:[id number] Heparin Sod,Pork in 0.45% 70.785 NaCl 25,000 unit In 0.45 % NaCl 1 250ml.bag @ 11 UNITS/KG/HR 9.9 mls/hr IV .Q24H [facility] Rx#:[id number] Oral 237 120 Output: Chest Tube Drainage 210 225 52 Right Lateral Chest 210 225 52 Urine 645 2345 560 Urine/Stool Mix 1 Other: Voiding Method Indwelling Catheter Indwelling Catheter - Exam GENERAL: The patient is alert and oriented x3, not in any acute distress. Well developed, well nourished. HEENT: Pupils are round and equally reacting to light. EOMI. No scleral icterus. No conjunctival pallor. Normocephalic, atraumatic. No pharyngeal erythema. No thyromegaly. CARDIOVASCULAR: S1 and S2 present. No murmurs, rubs, or gallops. -PULMONARY: Chest is clear to auscultation, no wheezing or crackles. little tachypneic, right side chest tube ABDOMEN: Soft, nontender, nondistended, normoactive bowel sounds. No palpable organomegaly. MUSCULOSKELETAL: No joint swelling or deformity. EXTREMITIES: No cyanosis, clubbing, or pedal edema. NEUROLOGICAL: Gross neurological examination did not reveal any focal deficits. SKIN: No rashes. no petechiae. - Labs CBC & Chem 7: 05/06/19 04:28 05/06/19 04:28 Labs: Abnormal Lab Results - Last 24 Hours (Table) 05/05/19 05/05/19 05/06/19 Range/Units 15:04 22:16 04:28 WBC 12.7 H (3.8-10.6) k/uL RBC 2.94 L (4.30-5.90) m/uL Hgb 8.6 L (13.0-17.5) gm/dL Hct 28.0 L (39.0-53.0) % MCHC 30.7 L (31.0-37.0) g/dL RDW 17.7 H (11.5-15.5) % Neutrophils # 11.0 H (1.3-7.7) k/uL Lymphocytes # 0.6 L (1.0-4.8) k/uL APTT 32.6 H 40.8 H (22.0-30.0) sec Sodium (137-145) mmol/L BUN (9-20) mg/dL Glucose (74-99) mg/dL Calcium (8.4-10.2) mg/dL 05/06/19 05/06/19 Range/Units 04:28 04:28 WBC (3.8-10.6) k/uL RBC (4.30-5.90) m/uL Hgb (13.0-17.5) gm/dL Hct (39.0-53.0) % MCHC (31.0-37.0) g/dL RDW (11.5-15.5) % Neutrophils # (1.3-7.7) k/uL Lymphocytes # (1.0-4.8) k/uL APTT 45.2 H (22.0-30.0) sec Sodium 133 L (137-145) mmol/L BUN 21 H (9-20) mg/dL Glucose 136 H (74-99) mg/dL Calcium 7.6 L (8.4-10.2) mg/dL Microbiology - Last 24 Hours (Table) 05/02/19 08:30 Gram Stain - Preliminary Pleural Fluid Body Fluid Culture - Preliminary Diphtheroid species Diphtheroid species#2 05/01/19 14:21 Blood Culture - Preliminary Blood No Growth after 96 hours Assessment and Plan Assessment: Pneumonia suspicious for aspiration Right pleural effusion, and right hydropneumothorax status post chest tube A. fib with RVR and SVT Hypertension Hyperlipidemia History of CVA/TIA DVT/PE GERD Sleep apnea Plan: This is a pleasant 64 years old male who presents with possible aspiration pneumonia and A. fib and RVR. Continue with heparin drip, continue with antibiotics. Patient has been followed closely by cardiology and pulmonary service, we'll keep monitor the patient. Continue with Lopressor and Protonix Follow-up WBC count and hemoglobin Labs and medication were reviewed.. Continue same treatment. Continue with symptomatic treatment. Resume home medication. Monitor lytes and vitals. DVT and GI prophylaxis. Further recommendations of the clinical course of the patie nt DVT prophylaxis: heparin GI Prophylaxis: Protonix Prognosis is guarded
--- NOTE | 2019-05-06 11:16 | P.PN ---
Subjective Progress Note Date: 05/06/19 Principal diagnosis: Acute hypoxic respiratory failure secondary to large right sided pleural effusion, exact etiology is not clear. Patient was reevaluated today on 05/04/19, patient remains in the intensive care unit, continues to have significant amount of drainage from the right sided pleural chest tube. About 500 mL overnight. Thoracic surgery is considering placement of a Pleurx catheter. Cultures on the fluid remain negative so far. Cytology on the pleural effusion is pending. In the meantime the patient seems to be doing fairly well, asymptomatic, denies any shortness of breath, fluid from the right sided chest tube seems to be yellow and turbid. Nonbloody. WBC count is down to 19.7 hemoglobin is 8.5. Electrolytes and renal profile are normal. Lactic acid normalized. Chest x-ray continues to show some loculated right-sided pleural effusion. Reevaluated today on 05/05/19, patient remains in the intensive care unit, he is postoperative day #3, right sided thoracentesis and removal of 2400 MLS turbid yellow fluid, followed by chest tube insertion. Patient continues to have some cloudy serous drainage, remains on antibiotics, cultures and cytology remain pending. Overall the patient is breathing easier, denies any fever or chill denies any chest pain, hence I plan to transfer the patient out of the ICU today to a regular medical floor. WBC count is 13.8 hemoglobin is 8.8. Electrodes are normal. Renal profile is normal. Gram stain on the pleural effusion is negative blood cultures remain negative Reevaluated today on 05/06/19, patient remains in the ICU, he was about to be transferred yesterday from the ICU, however the patient developed an episode of atrial fibrillation with RVR, placed on amiodarone drip, and transfer was canceled. Patient remains on amiodarone as per cardiology. He is presently in sinus rhythm, feeling better, breathing a bit easier, continues to have significant amount of drainage in the right sided chest tube. Continues to have some air leak. Lung is fully expanded on chest x-ray, clearly he has some loculated effusion on the right side in spite of chest tube in place. Cytology is pending on the pleural effusion, culture is positive for diphtheroids, this is likely contamination. Objective - Vital Signs Vital signs: Vital Signs Temp 97.5 F L 05/06/19 08:00 Pulse 96 03/18/20 10:00 Resp 35 H 05/06/19 10:00 BP 98/67 05/06/19 10:00 Pulse Ox 94 L 05/06/19 10:00 Intake & Output 05/05/19 05/06/19 05/06/19 18:59 06:59 18:59 Intake Total 927.02 714.115 300 Output Total 856 2570 612 Balance 71.02 -1855.885 -312 Weight 90 kg 87.2 kg Intake: IV 440 610 180 Piperacillin-Tazobactam 3 200 200 100 .375 gm In Sodium Chloride 0.9% 100 ml @ 25 mls/hr IVPB Q8HR [facility] Rx# :[id number] Sodium Chloride 0.9% 1, 240 160 80 000 ml @ 20 mls/hr IV . Q24H [facility] Rx#:[id number] Vancomycin 1,250 mg In 250 Sodium Chloride 0.9% 250 ml @ 125 mls/hr IVPB Q12H [facility] Rx#:[id number] Intake, IV Titration 250.02 104.115 Amount Amiodarone 360 mg In 150.02 33.33 Dextrose 5% in Water 200 ml @ 1 MG/MIN 33.333 mls/ hr IV .Q6H [facility] Rx#: [id number] Dextrose 5% in Water 100 100 ml @ 618 mls/hr IV .Q10M [facility] with Amiodarone 150 mg Rx#:[id number] Heparin Sod,Pork in 0.45% 70.785 NaCl 25,000 unit In 0.45 % NaCl 1 250ml.bag @ 11 UNITS/KG/HR 9.9 mls/hr IV .Q24H [facility] Rx#:[id number] Oral 237 120 Output: Chest Tube Drainage 210 225 52 Right Lateral Chest 210 225 52 Urine 645 2345 560 Urine/Stool Mix 1 Other: Voiding Method Indwelling Catheter Indwelling Catheter Indwelling Catheter - Exam Physical Exam: Revealed a 64-year-old white male, pleasant, asymptomatic Head: Atraumatic, normocephalic. HEENT:[Neck is supple.] [No neck masses.] [No thyromegaly.] [No JVD.] Chest: [Symmetrical chest expansion, right-sided chest tube is noted, positive air leak, crackles at the right base noted. Cardiac Exam: [Normal S1 and S2, no S3 gallop, no murmur.] Abdomen: [Soft, nontender, no megaly, no rebound, no guarding, normal bowel sounds.] Extremities: [No clubbing, no edema, no cyanosis.] Neurological Exam: [No focal neurologic deficit.] Alert and oriented 3. Psychiatric: Normal mood affect and normal mental status examination. Skin: No rashes. - Labs CBC & Chem 7: 05/06/19 04:28 05/06/19 04:28 Labs: Abnormal Lab Results - Last 24 Hours (Table) 05/05/19 05/05/19 05/06/19 Range/Units 15:04 22:16 04:28 WBC 12.7 H (3.8-10.6) k/uL RBC 2.94 L (4.30-5.90) m/uL Hgb 8.6 L (13.0-17.5) gm/dL Hct 28.0 L (39.0-53.0) % MCHC 30.7 L (31.0-37.0) g/dL RDW 17.7 H (11.5-15.5) % Neutrophils # 11.0 H (1.3-7.7) k/uL Lymphocytes # 0.6 L (1.0-4.8) k/uL APTT 32.6 H 40.8 H (22.0-30.0) sec Sodium (137-145) mmol/L BUN (9-20) mg/dL Glucose (74-99) mg/dL Calcium (8.4-10.2) mg/dL 05/06/19 05/06/19 Range/Units 04:28 04:28 WBC (3.8-10.6) k/uL RBC (4.30-5.90) m/uL Hgb (13.0-17.5) gm/dL Hct (39.0-53.0) % MCHC (31.0-37.0) g/dL RDW (11.5-15.5) % Neutrophils # (1.3-7.7) k/uL Lymphocytes # (1.0-4.8) k/uL APTT 45.2 H (22.0-30.0) sec Sodium 133 L (137-145) mmol/L BUN 21 H (9-20) mg/dL Glucose 136 H (74-99) mg/dL Calcium 7.6 L (8.4-10.2) mg/dL Microbiology - Last 24 Hours (Table) 05/02/19 08:30 Gram Stain - Preliminary Pleural Fluid Body Fluid Culture - Preliminary Diphtheroid species Diphtheroid species#2 05/01/19 14:21 Blood Culture - Preliminary Blood No Growth after 96 hours Assessment and Plan Assessment: Impression: Acute hypoxic respiratory failure secondary to recurrent right-sided pleural effusion, exudative in nature, felt to be malignant unless proven otherwise Right sided hydropneumothorax, improving with chest tube to suction. Acute febrile illness with lactic acidosis on presentation, resolved. History of esophageal cancer on systemic chemotherapy and previous esophageal stent placement. 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 Benign essential hypertension Obstructive sleep apnea syndrome Previous history of CVA. Atrial fibrillation with RVR, presently on amiodarone, and kept in the intensive care unit instead of transferring the patient. Recommendation: Awaiting cytology on the pleural effusion in the meantime we'll continue chest tube to suction. May require a Pleurx catheter placement. Continue antibiotics including Zosyn and vancomycin and Levaquin Continue oxygen at 2 L/m. Continue chest tube to wall suction. Continue incentive spirometry. We'll continue to follow. Hold on transferring the patient for today, continue amiodarone drip. Cardiology is following. Time with Patient: Less than 30
[2019-05-06] MEDS: AMIODARONE 200 MG TAB PO SCH ×3 (12:52→21:44)
[2019-05-06] MEDS: FOLIC ACID 1 MG TAB PO SCH (12:54)
[2019-05-06] MEDS: THIAMINE 100 MG TAB PO SCH (12:54)
--- NOTE | 2019-05-06 13:37 | PN ---
PROGRESS NOTE This patient is treated for pneumonia, sepsis, and the right hydronephrosis. The patient went into atrial fibrillation with a rapid ventricular response yesterday. The patient was started on IV amiodarone. He is now converted to the normal sinus rhythm. Blood pressure is 115/73 mmHg. Respiratory rate is 20. Heart rate is 90 per minute. The patient's lab tests are reviewed. At present, patient is getting IV heparin. We will switch him to the p.o. amiodarone 200 mg 3 times a day. MMODL / IJN: [id number] /
[2019-05-06] MEDS: AMIODARONE 300 MG in DEXTROSE 5% IN WATER 250 ML IV SCH ×2 (14:50)
[2019-05-06] MEDS: HEPARIN SOD,PORK IN 0.45% NACL 25,000 UNIT in 0.45% NACL 1 250ML.BAG IV SCH (14:51)
[2019-05-06] MEDS: LEVOFLOXACIN 750 MG TAB PO SCH (16:59)
[2019-05-06] MEDS: VANCOMYCIN 1,250 MG in SODIUM CHLORIDE 0.9% 250 ML IVPB SCH (17:02)
[2019-05-06] MEDS: SCOPOLAMINE 1.5MG/72HR PATCH TRANSDERM SCH (17:05)
[2019-05-06] MEDS: DILTIAZEM 125 MG in SODIUM CHLORIDE 0.9% 100 ML IV SCH (22:22)
[2019-05-07] MEDS: HYDROcodone/APAP 5-325MG 1 EACH TAB PO PRN ×2 (01:24→20:11)
[2019-05-07] MEDS: ALPRAZolam 0.5 MG TAB PO SCH ×4 (02:44→20:11)
[2019-05-07] MEDS: SODIUM CHLORIDE 0.9% 1,000 ML IV SCH ×2 (04:45→16:56)
[2019-05-07 05:50] LABS: Anisocytosis Slight; Basophils % (A) 0 %; Eosinophils # (A) 0.2 k/uL (0-0.7); Eosinophils % (A) 2 %; HCT 25.9 % (39.0-53.0); HGB 8.2 gm/dL (13.0-17.5); Hypochromasia Moderate; Lymphocytes # (A) 0.7 k/uL (1.0-4.8); Lymphocytes % (A) 6 %; MCH 29.6 pg (25.0-35.0); MCHC 31.6 g/dL (31.0-37.0); MCV 93.8 fL (80.0-100.0); Mean Platelet Volume 8.7; Monocytes # (A) 0.8 k/uL (0-1.0); Monocytes % (A) 8 %; Neutrophils # (A) 8.8 k/uL (1.3-7.7); Neutrophils % (A) 82 %; Platelet Count 259 k/uL (150-450); RBC 2.76 m/uL (4.30-5.90); RDW 17.5 % (11.5-15.5); WBC 10.7 k/uL (3.8-10.6)
[2019-05-07 06:40] LABS: African American GFR (CKD) >90 (>60 ml/min/1.73 sqM); Anion Gap 3 mmol/L; Blood Urea Nitrogen 20 mg/dL (9-20); Calcium 7.4 mg/dL (8.4-10.2); Carbon Dioxide 28 mmol/L (22-30); Chloride 102 mmol/L (98-107); Glucose 130 mg/dL (74-99); Non-African American GFR(CKD) 78 (>60 ml/min/1.73 sqM); Potassium 3.9 mmol/L (3.5-5.1); Sodium 133 mmol/L (137-145)
[2019-05-07] MEDS: PANTOPRAZOLE 40 MG TABLET PO SCH ×2 (06:51→16:53)
[2019-05-07] MEDS: IPRATROPIUM-ALBUTEROL 3 ML NEB INHALATION SCH ×4 (07:23→19:03)
--- NOTE | 2019-05-07 07:56 | XR ---
EXAMINATION TYPE: XR chest 1V portable DATE OF EXAM: 05/07/2019 COMPARISON: Prior chest x-ray 05/06/2019 HISTORY: Pneumothorax, chest tube TECHNIQUE: Single frontal view of the chest is obtained. FINDINGS: Findings are similar to prior exam, right-sided chest tube remains in place, pleural-paren chymal changes are similar. No evident pneumothorax. Heart remains enlarged. IMPRESSION: Essentially stable findings
--- NOTE | 2019-05-07 09:07 | P.PN ---
Subjective Progress Note Date: 05/07/19 Principal diagnosis: Loculated right sided pneumothorax, acute hypoxic respiratory failure, lactic acidosis on admission, leukocytosis with bandemia. Past medical history significant for adenocarcinoma of the esophagus, status post chemotherapy, radiation and esophageal stent placement, pulmonary embolism on Eliquis for anticoagulation, recurrent pleural effusions status post thoracentesis, obstructive sleep apnea without home CPAP use, supraventricular tachycardia status post ablation, hypertension, hyperlipidemia, and CVA. POD #5 right sided thoracentesis with removal of 2.4 L turbid yellow fluid, followed by right-sided chest tube placement by Dr. Hartman. The patient is currently sitting up in bed in the intensive care unit and is in no acute distress. Right-sided pleural chest tube continues to drain cloudy serous fluid. No air leak is present. Drainage continues to decrease daily with 70 mL output in the last 8 hours and 220 mL output in the last 24 hours. Remains on IV antibiotics. Pleural fluid Gram stain shows diphtheroid species and pleural fluid cytology shows dense acute inflammatory cells consistent with empyema, reactive mesothelial cells and macrophages and no cytologically malignant cells were identified. The patient's bedside telemetry showing normal sinus rhythm heart rate 84, continues on heparin drip per protocol and Cardizem drip at 5 mg per hour. Objective - Vital Signs Vital signs: Vital Signs Temp 97.7 F 05/07/19 04:00 Pulse 83 05/07/19 07:33 Resp 23 05/07/19 05:00 BP 88/58 05/07/19 05:00 Pulse Ox 96 05/07/19 05:00 Intake & Output 05/06/19 05/07/19 05/07/19 18:59 06:59 18:59 Intake Total 719.215 600 Output Total 1617 710 Balance -897.785 -110 Weight 90.8 kg Intake: IV 300 360 Piperacillin-Tazobactam 3 100 100 .375 gm In Sodium Chloride 0.9% 100 ml @ 25 mls/hr IVPB Q8HR [facility] Rx# :[id number] Sodium Chloride 0.9% 1, 200 260 000 ml @ 20 mls/hr IV . Q24H [facility] Rx#:[id number] Intake, IV Titration 179.215 Amount Heparin Sod,Pork in 0.45% 179.215 NaCl 25,000 unit In 0.45 % NaCl 1 250ml.bag @ 11 UNITS/KG/HR 9.9 mls/hr IV .Q24H [facility] Rx#:[id number] Oral 240 240 Output: Chest Tube Drainage 102 70 Right Lateral Chest 102 70 Urine 1515 640 Other: Voiding Method Indwelling Catheter Indwelling Catheter - Constitutional General appearance: Present: average body habitus, cooperative, no acute distress - Respiratory Details: Lungs sounds with some few scattered rhonchi throughout, diminished to his right lower lobe. Respirations are symmetrical and nonlabored. Currently on 2 L nasal cannula with oxygen saturation 96%. Achieving less than 500 mL on his incentive spirometry with encouragement. Right sided pleural chest tube in place with continuous low wall suction. No air leak is present 70 mL serous drainage in the last 8 hours, 220 mL in the last 24 hours. - Cardiovascular Details: Regular rhythm and rate. S1 and S2 present, negative for S3, gallop or murmur. Bedside telemetry showing normal sinus rhythm heart rate 84. Trace edema to his bilateral lower extremities. Knee-high sequential compression devices in place to his bilateral lower extremities. - Gastrointestinal Gastrointestinal Comment(s): Abdomen is soft, nontender and nondistended. Active bowel sounds present in all 4 abdominal quadrants. Tolerating oral intake. No guarding or rigidity. Passing flatus. - Genitourinary Genitourinary Comment(s): Hernández catheter for accurate I&O. Draining clear yellow urine. 370 mL output in the last 8 hours. - Integumentary Integumentary Comment(s): Skin is warm and dry. No clubbing or cyanosis is present. Dressing is clean, dry and intact to his right pleural chest tube site. - Neurologic Neurologic: Present: CNII-XII intact - Musculoskeletal Musculoskeletal: Present: generalized weakness, strength equal bilaterally - Psychiatric Psychiatric: Present: A&O x's 3, appropriate affect, intact judgment & insight - Allied health notes Allied health notes reviewed: nursing - Labs CBC & Chem 7: 05/07/19 05:35 05/07/19 05:35 Labs: Abnormal Lab Results - Last 24 Hours (Table) 05/07/19 05/07/19 05/07/19 Range/Units 05:35 05:35 05:35 WBC 10.7 H (3.8-10.6) k/uL RBC 2.76 L (4.30-5.90) m/uL Hgb 8.2 L (13.0-17.5) gm/dL Hct 25.9 L (39.0-53.0) % RDW 17.5 H (11.5-15.5) % Neutrophils # 8.8 H (1.3-7.7) k/uL Lymphocytes # 0.7 L (1.0-4.8) k/uL APTT 50.5 H (22.0-30.0) sec Sodium 133 L (137-145) mmol/L Glucose 130 H (74-99) mg/dL Calcium 7.4 L (8.4-10.2) mg/dL Microbiology - Last 24 Hours (Table) 05/01/19 14:21 Blood Culture - Preliminary Blood No Growth after 120 hours 05/02/19 08:30 Gram Stain - Preliminary Pleural Fluid Body Fluid Culture - Preliminary Diphtheroid species Diphtheroid species#2 - Imaging and Cardiology Chest x-ray: report reviewed, image reviewed Assessment and Plan Assessment: 1. Loculated pleural effusion, status post thoracentesis followed by chest tube placement, cytology and cultures pending 2. History of recurrent pleural effusions, status post thoracentesis with incomplete reexpansion of the lung 3. Adenocarcinoma of the esophagus, status post chemotherapy, radiation and esophageal stent placement 4. Acute hypoxic respiratory failure secondary to recurrent right-sided pleural effusion 5. Lactic acidosis on admission, leukocytosis with bandemia, improving 6. History of pulmonary embolism on Eliquis for anticoagulation 7. Hypertension 8. Hyperlipidemia 9. Obstructive sleep apnea without home CPAP use 10. History of CVA 11. New-onset paroxysmal atrial fibrillation, currently in normal sinus rhythm Plan: 1. Continue right pleural chest tube to low continuous wall suction at -20 cm H2O. His right pleural chest tube may be discontinued within the next 24 hours as his drainage continues to decrease on a daily basis. 2. Wean O2 as tolerated. Encourage is spirometry 10 times every hour while awake. 3. Atrial fibrillation management per cardiology recommendations. 4. Antibiotics, bronchodilators per pulmonology management. 5. Will monitor daily chest x-rays. 6. Increase activity as tolerated, up to chair as tolerated. 7. Medical management of the comorbidities per primary care service. 8. Patient may transfer out of ICU from cardiothoracic surgery standpoint when okay with other services. 9. Pleural fluid Gram stain shows diphtheroid species and pleural fluid cytology shows dense acute inflammatory cells consistent with empyema, reactive mesothelial cells and macrophages and no cytologically malignant cells were identified. 10. More recommendations to follow based on patient's clinical course. Time with Patient: Greater than 30
[2019-05-07] MEDS: FOLIC ACID 1 MG TAB PO SCH (11:03)
[2019-05-07] MEDS: PIPERACILLIN-TAZOBACTAM 3.375 GM in SODIUM CHLORIDE 0.9% 100 ML IVPB SCH ×3 (11:03→23:11)
[2019-05-07] MEDS: THIAMINE 100 MG TAB PO SCH (11:03)
[2019-05-07] MEDS: METOPROLOL TARTRATE 12.5 MG TAB PO SCH ×2 (11:03→20:11)
[2019-05-07] MEDS: MULTIVITAMINS, THERA 1 EACH TAB PO SCH (11:04)
[2019-05-07] MEDS: CYANOCOBALAMIN 500 MCG TAB PO SCH (11:04)
[2019-05-07] MEDS: FUROSEMIDE 10 MG/ML 4 ML VIAL IV SCH (11:04)
[2019-05-07] MEDS: AMIODARONE 200 MG TAB PO SCH ×3 (11:04→20:11)
--- NOTE | 2019-05-07 11:10 | PN ---
PROGRESS NOTE This patient's electronic medical record is reviewed. Patient has been treated for pneumonia and a hydrothorax possible empyema. He is doing well. The patient remains in normal sinus rhythm. Patient remains stable cardiac-peter. Blood pressure is 90/60 mmHg. First and second heart sounds are normal. Lungs reveal bilateral diminished air entry. At present we will recommend to continue the patient on amiodarone 200 mg 3 times a day and when it is okay with Pulmonary Critical Care and Cardiothoracic Service to start the patient on anticoagulation. MMODL / IJN: [id number] /
--- NOTE | 2019-05-07 11:58 | P.PN ---
Subjective Progress Note Date: 05/07/19 Principal diagnosis: Acute hypoxic respiratory failure secondary to large right sided pleural effusion, exact etiology is not clear. Patient was reevaluated today on 05/04/19, patient remains in the intensive care unit, continues to have significant amount of drainage from the right sided pleural chest tube. About 500 mL overnight. Thoracic surgery is considering placement of a Pleurx catheter. Cultures on the fluid remain negative so far. Cytology on the pleural effusion is pending. In the meantime the patient seems to be doing fairly well, asymptomatic, denies any shortness of breath, fluid from the right sided chest tube seems to be yellow and turbid. Nonbloody. WBC count is down to 19.7 hemoglobin is 8.5. Electrolytes and renal profile are normal. Lactic acid normalized. Chest x-ray continues to show some loculated right-sided pleural effusion. Reevaluated today on 05/05/19, patient remains in the intensive care unit, he is postoperative day #3, right sided thoracentesis and removal of 2400 MLS turbid yellow fluid, followed by chest tube insertion. Patient continues to have some cloudy serous drainage, remains on antibiotics, cultures and cytology remain pending. Overall the patient is breathing easier, denies any fever or chill denies any chest pain, hence I plan to transfer the patient out of the ICU today to a regular medical floor. WBC count is 13.8 hemoglobin is 8.8. Electrodes are normal. Renal profile is normal. Gram stain on the pleural effusion is negative blood cultures remain negative Reevaluated today on 05/06/19, patient remains in the ICU, he was about to be transferred yesterday from the ICU, however the patient developed an episode of atrial fibrillation with RVR, placed on amiodarone drip, and transfer was canceled. Patient remains on amiodarone as per cardiology. He is presently in sinus rhythm, feeling better, breathing a bit easier, continues to have significant amount of drainage in the right sided chest tube. Continues to have some air leak. Lung is fully expanded on chest x-ray, clearly he has some loculated effusion on the right side in spite of chest tube in place. Cytology is pending on the pleural effusion, culture is positive for diphtheroids, this is likely contamination. Reevaluated today on 05/07/19, remains in the intensive care unit, patient remains on Cardizem drip as per cardiology. He is on 5 mg per hour. He is also on heparin. Continues to have significant amount of drainage from the right sided chest tube. The fluid is cloudy serous fluid. Had roughly 220 mL output in the last 24 hours. Remains empirically on antibiotics, although the fluid had no clear culture and the diphtheroids in the fluid is more of a contamination. Again the fluid is exudative, could be parapneumonic, or could be malignant. But doesn't seem to be empyema. Objective - Vital Signs Vital signs: Vital Signs Temp 97.7 F 05/07/19 04:00 Pulse 83 05/07/19 07:33 Resp 23 05/07/19 05:00 BP 88/58 05/07/19 05:00 Pulse Ox 96 05/07/19 05:00 Intake & Output 05/06/19 05/07/19 05/07/19 18:59 06:59 18:59 Intake Total 719.215 600 120 Output Total 1617 710 125 Balance -897.785 -110 -5 Weight 90.8 kg Intake: IV 300 360 120 Piperacillin-Tazobactam 3 100 100 100 .375 gm In Sodium Chloride 0.9% 100 ml @ 25 mls/hr IVPB Q8HR [facility] Rx# :[id number] Sodium Chloride 0.9% 1, 200 260 20 000 ml @ 20 mls/hr IV . Q24H [facility] Rx#:[id number] Intake, IV Titration 179.215 Amount Heparin Sod,Pork in 0.45% 179.215 NaCl 25,000 unit In 0.45 % NaCl 1 250ml.bag @ 11 UNITS/KG/HR 9.9 mls/hr IV .Q24H [facility] Rx#:[id number] Oral 240 240 Output: Chest Tube Drainage 102 70 Right Lateral Chest 102 70 Urine 1515 640 125 Other: Voiding Method Indwelling Catheter Indwelling Catheter Indwelling Catheter - Exam Physical Exam: Revealed a 64-year-old white male, pleasant, asymptomatic Head: Atraumatic, normocephalic. HEENT:[Neck is supple.] [No neck masses.] [No thyromegaly.] [No JVD.] Chest: [Symmetrical chest expansion, right-sided chest tube is noted, positive air leak, crackles at the right base noted. Cardiac Exam: [Normal S1 and S2, no S3 gallop, no murmur.] Abdomen: [Soft, nontender, no megaly, no rebound, no guarding, normal bowel sounds.] Extremities: [No clubbing, no edema, no cyanosis.] Neurological Exam: [No focal neurologic deficit.] Alert and oriented 3. Psychiatric: Normal mood affect and normal mental status examination. Skin: No rashes. - Labs CBC & Chem 7: 05/07/19 05:35 05/07/19 05:35 Labs: Abnormal Lab Results - Last 24 Hours (Table) 05/07/19 05/07/19 05/07/19 Range/Units 05:35 05:35 05:35 WBC 10.7 H (3.8-10.6) k/uL RBC 2.76 L (4.30-5.90) m/uL Hgb 8.2 L (13.0-17.5) gm/dL Hct 25.9 L (39.0-53.0) % RDW 17.5 H (11.5-15.5) % Neutrophils # 8.8 H (1.3-7.7) k/uL Lymphocytes # 0.7 L (1.0-4.8) k/uL APTT 50.5 H (22.0-30.0) sec Sodium 133 L (137-145) mmol/L Glucose 130 H (74-99) mg/dL Calcium 7.4 L (8.4-10.2) mg/dL Microbiology - Last 24 Hours (Table) 05/02/19 08:30 Gram Stain - Final Pleural Fluid Body Fluid Culture - Final Diphtheroid species Diphtheroid species#2 05/01/19 14:21 Blood Culture - Preliminary Blood No Growth after 120 hours Assessment and Plan Assessment: Impression: Acute hypoxic respiratory failure secondary to recurrent right-sided pleural effusion, exudative in nature, either malignant but not proven by cytology or parapneumonic, but based on the cultures is not empyema. Right sided hydropneumothorax, improving with chest tube to suction. Acute febrile illness with lactic acidosis on presentation, resolved. History of esophageal cancer on systemic chemotherapy and previous esophageal stent placement. 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 Benign essential hypertension Obstructive sleep apnea syndrome Previous history of CVA. Atrial fibrillation with RVR, presently on Cardizem drip. Being followed by cardiology. Recommendation: Continue antibiotics including Zosyn and vancomycin and Levaquin Continue oxygen at 2 L/m. Continue chest tube to wall suction. Continue incentive spirometry. Discussed his condition with cardiothoracic surgery on the case. Considering removing his chest tube, however if removed most likely the patient will need to be drained on a regular basis. Considering the amount of drainage noted from the chest tube. We'll continue to follow. Overall prognosis is extremely poor and guarded. Time with Patient: Less than 30
[2019-05-07] MEDS: VANCOMYCIN 1,250 MG in SODIUM CHLORIDE 0.9% 250 ML IVPB SCH ×3 (12:32→23:15)
[2019-05-07] MEDS: DULoxetine HCL 20 MG CAPSULE.DR PO SCH (12:33)
--- NOTE | 2019-05-07 13:10 | P.PN ---
Subjective This is a pleasant 64 years old male with past medical history of CVA/TIA, GERD, DVT and pulmonary embolism, hypertension, hyperlipidemia, sleep apnea, SVT, esophageal cancer status post radiation and chemotherapy in 2018 and 2019, upper GI bleed treated at [facility]. Presents with pneumonia and suspected for aspiration pneumonia. Patient remains in the ICU and his been on IV antibiotics with Zosyn and vancomycin as well as oral Levaquin of 750 mg, is also been on heparin drip comfortable Eliquis 2.5 mg at home, also his Protonix twice daily, cardiology started him on amiodarone and low-dose Lopressor while flecainide was discontinued as its thought to contribute to his heart problem. This morning he was lying in bed comfortable with no dyspnea., Blood pressure 98/67, saturating 94% on 2 L oxygen via nasal cannula, lap showed sodium 133, creatinine 0.9, WBC 12.7 K, hemoglobin 8.6, platelets 213 Patient might benefit from ECF for subacute rehab upon discharge. Cytology of pleural fluid is still pending. As per medical reviewer patient may need a Pleurx catheter, In the meantime he remains on heparin drip 05/07/2019 Patient remains in the ICU, is fully awake and oriented. Remains on Cardizem drip 5 mg per hour per cardiology who found it is closely. His left shoulder blade BC of 10.7 K, hemoglobin 8.2 which is stable. He remains on heparin drip as well. Sodium 133 and creatinine normal Chest tube remains to gravity on the right side, Still draining. Patient is followed by cardiothoracic surgery Patient remains on Zosyn, vancomycin, Lasix 40 mg IV twice daily, aspirin and Plavix, heparin drip and Cardizem drip Objective - Vital Signs Vital signs: Vital Signs Temp 98 F 05/07/19 08:00 Pulse 91 05/07/19 12:00 Resp 10 L 05/07/19 12:00 BP 110/72 05/07/19 12:00 Pulse Ox 97 05/07/19 12:00 Intake & Output 05/06/19 05/07/19 05/07/19 18:59 06:59 18:59 Intake Total 719.215 600 120 Output Total 1617 710 125 Balance -897.785 -110 -5 Weight 90.8 kg Intake: IV 300 360 120 Piperacillin-Tazobactam 3 100 100 100 .375 gm In Sodium Chloride 0.9% 100 ml @ 25 mls/hr IVPB Q8HR [facility] Rx# :[id number] Sodium Chloride 0.9% 1, 200 260 20 000 ml @ 20 mls/hr IV . Q24H [facility] Rx#:[id number] Intake, IV Titration 179.215 Amount Heparin Sod,Pork in 0.45% 179.215 NaCl 25,000 unit In 0.45 % NaCl 1 250ml.bag @ 11 UNITS/KG/HR 9.9 mls/hr IV .Q24H [facility] Rx#:[id number] Oral 240 240 Output: Chest Tube Drainage 102 70 Right Lateral Chest 102 70 Urine 1515 640 125 Other: Voiding Method Indwelling Catheter Indwelling Catheter Indwelling Catheter - Exam GENERAL: The patient is alert and oriented x3, not in any acute distress. Well developed, well nourished. HEENT: Pupils are round and equally reacting to light. EOMI. No scleral icterus. No conjunctival pallor. Normocephalic, atraumatic. No pharyngeal erythema. No thyromegaly. CARDIOVASCULAR: S1 and S2 present. No murmurs, rubs, or gallops. -PULMONARY: Chest is clear to auscultation, no wheezing or crackles. little tachypneic, right side chest tube ABDOMEN: Soft, nontender, nondistended, normoactive bowel sounds. No palpable organomegaly. MUSCULOSKELETAL: No joint swelling or deformity. EXTREMITIES: No cyanosis, clubbing, or pedal edema. NEUROLOGICAL: Gross neurological examination did not reveal any focal deficits. SKIN: No rashes. no petechiae. - Labs CBC & Chem 7: 05/07/19 05:35 05/07/19 05:35 Labs: Abnormal Lab Results - Last 24 Hours (Table) 05/07/19 05/07/19 05/07/19 Range/Units 05:35 05:35 05:35 WBC 10.7 H (3.8-10.6) k/uL RBC 2.76 L (4.30-5.90) m/uL Hgb 8.2 L (13.0-17.5) gm/dL Hct 25.9 L (39.0-53.0) % RDW 17.5 H (11.5-15.5) % Neutrophils # 8.8 H (1.3-7.7) k/uL Lymphocytes # 0.7 L (1.0-4.8) k/uL APTT 50.5 H (22.0-30.0) sec Sodium 133 L (137-145) mmol/L Glucose 130 H (74-99) mg/dL Calcium 7.4 L (8.4-10.2) mg/dL Microbiology - Last 24 Hours (Table) 05/02/19 08:30 Gram Stain - Final Pleural Fluid Body Fluid Culture - Final Diphtheroid species Diphtheroid species#2 05/01/19 14:21 Blood Culture - Preliminary Blood No Growth after 120 hours Assessment and Plan Assessment: Pneumonia suspicious for aspiration Right pleural effusion, and right hydropneumothorax status post chest tube A. fib with RVR and SVT Hypertension Hyperlipidemia History of CVA/TIA DVT/PE GERD Sleep apnea Plan: This is a pleasant 64 years old male who presents with possible aspiration pneumonia and A. fib and RVR. Continue with heparin drip, continue with antibiotics. Patient has been followed closely by cardiology and pulmonary service, we'll keep monitor the patient. Continue with Lopressor and Protonix Follow-up WBC count and hemoglobin Labs and medication were reviewed.. Continue same treatment. Continue with symptomatic treatment. Resume home medication. Monitor lytes and vitals. DVT and GI prophylaxis. Further recommendations of the clinical course of the patient DVT prophylaxis: heparin GI Prophylaxis: Protonix Prognosis is guarded
--- NOTE | 2019-05-07 16:05 | P.PN ---
Subjective Progress Note Date: 05/07/19 Principal diagnosis: Acute Respiratory Failure Patient sitting up in bed, no new complaints, Reviewed results of pleural fluid, no obvious malignant cells identified in fluid Objective - Vital Signs Vital signs: Vital Signs Temp 98 F 05/07/19 08:00 Pulse 91 05/07/19 12:00 Resp 10 L 05/07/19 12:00 BP 110/72 05/07/19 12:00 Pulse Ox 97 05/07/19 12:00 Intake & Output 05/06/19 05/07/19 05/07/19 18:59 06:59 18:59 Intake Total 719.215 600 120 Output Total 1617 710 125 Balance -897.785 -110 -5 Weight 90.8 kg Intake: IV 300 360 120 Piperacillin-Tazobactam 3 100 100 100 .375 gm In Sodium Chloride 0.9% 100 ml @ 25 mls/hr IVPB Q8HR [facility] Rx# :[id number] Sodium Chloride 0.9% 1, 200 260 20 000 ml @ 20 mls/hr IV . Q24H [facility] Rx#:[id number] Intake, IV Titration 179.215 Amount Heparin Sod,Pork in 0.45% 179.215 NaCl 25,000 unit In 0.45 % NaCl 1 250ml.bag @ 11 UNITS/KG/HR 9.9 mls/hr IV .Q24H [facility] Rx#:[id number] Oral 240 240 Output: Chest Tube Drainage 102 70 Right Lateral Chest 102 70 Urine 1515 640 125 Other: Voiding Method Indwelling Catheter Indwelling Catheter Indwelling Catheter - Exam - Constitutional General appearance: mild distress, improved since pleurex placed and thoracentesis - EENT Eyes: EOMI, PERRLA ENT: hearing grossly normal, normal oropharynx - Neck Neck: no lymphadenopathy Thyroid: bilateral: normal size - Respiratory Respiratory: right: diminished, dullness, bilateral: rhonchi audible crackles - Cardiovascular Rhythm: regular Heart sounds: normal: S1, S2 - Gastrointestinal General gastrointestinal: normal bowel sounds, soft - Integumentary Integumentary: normal - Neurologic Neurologic: CNII-XII intact - Musculoskeletal Musculoskeletal: generalized weakness, strength equal bilaterally - Psychiatric Psychiatric: A&O x's 3, appropriate affect - Labs CBC & Chem 7: 05/07/19 05:35 05/07/19 05:35 Labs: Abnormal Lab Results - Last 24 Hours (Table) 05/07/19 05/07/19 05/07/19 Range/Units 05:35 05:35 05:35 WBC 10.7 H (3.8-10.6) k/uL RBC 2.76 L (4.30-5.90) m/uL Hgb 8.2 L (13.0-17.5) gm/dL Hct 25.9 L (39.0-53.0) % RDW 17.5 H (11.5-15.5) % Neutrophils # 8.8 H (1.3-7.7) k/uL Lymphocytes # 0.7 L (1.0-4.8) k/uL APTT 50.5 H (22.0-30.0) sec Sodium 133 L (137-145) mmol/L Glucose 130 H (74-99) mg/dL Calcium 7.4 L (8.4-10.2) mg/dL Microbiology - Last 24 Hours (Table) 05/02/19 08:30 Gram Stain - Final Pleural Fluid Body Fluid Culture - Final Diphtheroid species Diphtheroid species#2 05/01/19 14:21 Blood Culture - Preliminary Blood No Growth after 120 hours Assessment and Plan Plan: Comments: CT scan report from 04/10/19 did not show any metastatic progression Chest x-ray: report reviewed CT scan - abdomen: report reviewed CT scan - chest: report reviewed CT scan - pelvis: report reviewed Assessment and Plan: Acute Respiratory Distress: Secondary to Pleural effusions: - Difficult to cough up secretions - Increased oral secretion, scope patch placed Pleural effusion - The patient is presenting with recurrent pleural effusion. Loculated He had thoracentesis on 04/20/19, with cytology negative. He had significant progressive respiratory distress on admission. The recurrent pleural effusion is likely a contributor, though based on the clinical presentation sepsis with possible pneumonia is also most likely a cause. - Today he is breathing better, he is status post 2400cc by Dr. Hartman thoracentesis and pleurex drain placement. - He has had conrinued amount of fluid removed, pathology resulted without obvious signs of metstatic disease to pleura Anticoagulated - Resume eliquis as long as no further procedures planned at this point, platelets are stable, no active bleeding. Sepsis: - He presented with Sepsis picture and full hickey cultures were worked up, he continues on antibiotics, WBC are trending down - Another possibility could also be a leak from the esophagus causing a chemical pneumonitis. - The patient is not neutropenic. - Continue abx per ID - If fluid is found to be inflammatory, it would be reasonable to consider barium swallow to rule out a leak. Esophageal carcinoma: - Follow-up with after discharge for treatment plan Normocytic Anemia: - Monitor Daily CBC Leukocytosis: - Trending down HX: DVTs: - Resume Eliquis if no further invasive procedures planned Discussed with Nursing and discussed with killian. Patient will possibly move to medical floor today. Decrease xanax to bid Continue close monitoring and supportive care Mary Beth Arreguin NP
[2019-05-07] MEDS: LEVOFLOXACIN 750 MG TAB PO SCH (16:53)
[2019-05-07] MEDS: HEPARIN SOD,PORK IN 0.45% NACL 25,000 UNIT in 0.45% NACL 1 250ML.BAG IV SCH (16:55)
[2019-05-07] MEDS: DILTIAZEM 125 MG in SODIUM CHLORIDE 0.9% 100 ML IV SCH (17:01)
[2019-05-07] MEDS: VANCOMYCIN 1,500 MG in SODIUM CHLORIDE 0.9% 250 ML IVPB SCH (22:26)
[2019-05-08] MEDS: HYDROcodone/APAP 5-325MG 1 EACH TAB PO PRN ×2 (02:30→18:11)
[2019-05-08 06:27] LABS: Anisocytosis Slight; Basophils % (A) 0 %; Eosinophils # (A) 0.2 k/uL (0-0.7); Eosinophils % (A) 3 %; HGB 8.2 gm/dL (13.0-17.5); Hypochromasia Moderate; Lymphocytes # (A) 0.6 k/uL (1.0-4.8); Lymphocytes % (A) 7 %; MCH 28.8 pg (25.0-35.0); MCHC 30.4 g/dL (31.0-37.0); MCV 94.9 fL (80.0-100.0); Monocytes # (A) 0.6 k/uL (0-1.0); Monocytes % (A) 7 %; Neutrophils # (A) 6.6 k/uL (1.3-7.7); Neutrophils % (A) 81 %; Platelet Count 246 k/uL (150-450); RBC 2.85 m/uL (4.30-5.90); RDW 17.7 % (11.5-15.5); WBC 8.1 k/uL (3.8-10.6)
[2019-05-08] MEDS: PANTOPRAZOLE 40 MG TABLET PO SCH ×2 (06:30→18:11)
[2019-05-08 06:35] LABS: ALT 27 U/L (4-49); AST 33 U/L (17-59); African American GFR (CKD) >90 (>60 ml/min/1.73 sqM); Albumin 1.8 g/dL (3.5-5.0); Alkaline Phosphatase 284 U/L (38-126); Anion Gap 4 mmol/L; Blood Urea Nitrogen 21 mg/dL (9-20); Calcium 7.5 mg/dL (8.4-10.2); Carbon Dioxide 29 mmol/L (22-30); Chloride 101 mmol/L (98-107); Glucose 135 mg/dL (74-99); Non-African American GFR(CKD) 82 (>60 ml/min/1.73 sqM); Potassium 4.2 mmol/L (3.5-5.1); Sodium 134 mmol/L (137-145); Total Bilirubin 0.4 mg/dL (0.2-1.3); Total Protein 4.6 g/dL (6.3-8.2)
[2019-05-08] MEDS: IPRATROPIUM-ALBUTEROL 3 ML NEB INHALATION SCH ×4 (08:01→20:07)
[2019-05-08] MEDS: ALPRAZolam 0.5 MG TAB PO SCH ×3 (09:48→20:30)
[2019-05-08] MEDS: MULTIVITAMINS, THERA 1 EACH TAB PO SCH (09:48)
[2019-05-08] MEDS: FOLIC ACID 1 MG TAB PO SCH (09:48)
[2019-05-08] MEDS: METOPROLOL TARTRATE 12.5 MG TAB PO SCH ×2 (09:48→20:30)
[2019-05-08] MEDS: DULoxetine HCL 20 MG CAPSULE.DR PO SCH (09:48)
[2019-05-08] MEDS: CYANOCOBALAMIN 500 MCG TAB PO SCH (09:48)
[2019-05-08] MEDS: AMIODARONE 200 MG TAB PO SCH ×3 (09:49→20:30)
[2019-05-08] MEDS: FUROSEMIDE 10 MG/ML 4 ML VIAL IV SCH ×2 (09:49→20:31)
[2019-05-08] MEDS: PIPERACILLIN-TAZOBACTAM 3.375 GM in SODIUM CHLORIDE 0.9% 100 ML IVPB SCH ×3 (09:49→23:19)
--- NOTE | 2019-05-08 12:25 | P.PN ---
Subjective Progress Note Date: 05/08/19 Patient was reevaluated today on 05/04/19, patient remains in the intensive care unit, continues to have significant amount of drainage from the right sided pleural chest tube. About 500 mL overnight. Thoracic surgery is considering placement of a Pleurx catheter. Cultures on the fluid remain negative so far. Cytology on the pleural effusion is pending. In the meantime the patient seems to be doing fairly well, asymptomatic, denies any shortness of breath, fluid from the right sided chest tube seems to be yellow and turbid. Nonbloody. WBC count is down to 19.7 hemoglobin is 8.5. Electrolytes and renal profile are normal. Lactic acid normalized. Chest x-ray continues to show some loculated right-sided pleural effusion. Reevaluated today on 05/05/19, patient remains in the intensive care unit, he is postoperative day #3, right sided thoracentesis and removal of 2400 MLS turbid yellow fluid, followed by chest tube insertion. Patient continues to have some cloudy serous drainage, remains on antibiotics, cultures and cytology remain pending. Overall the patient is breathing easier, denies any fever or chill denies any chest pain, hence I plan to transfer the patient out of the ICU today to a regular medical floor. WBC count is 13.8 hemoglobin is 8.8. Electrodes are normal. Renal profile is normal. Gram stain on the pleural effusion is negative blood cultures remain negative Reevaluated today on 05/06/19, patient remains in the ICU, he was about to be transferred yesterday from the ICU, however the patient developed an episode of atrial fibrillation with RVR, placed on amiodarone drip, and transfer was canceled. Patient remains on amiodarone as per cardiology. He is presently in sinus rhythm, feeling better, breathing a bit easier, continues to have significant amount of drainage in the right sided chest tube. Continues to have some air leak. Lung is fully expanded on chest x-ray, clearly he has some loculated effusion on the right side in spite of chest tube in place. Cytology is pending on the pleural effusion, culture is positive for diphtheroids, this i s likely contamination. Reevaluated today on 05/07/19, remains in the intensive care unit, patient r christian on Cardizem drip as per cardiology. He is on 5 mg per hour. He is also on heparin. Continues to have significant amount of drainage from the right sided chest tube. The fluid is cloudy serous fluid. Had roughly 220 mL output in the last 24 hours. Remains empirically on antibiotics, although the fluid had no clear culture and the diphtheroids in the fluid is more of a contamination. Again the fluid is exudative, could be parapneumonic, or could be malignant. But doesn't seem to be empyema. On 05/08/2019 patient seen in follow-up on selective care unit. He is awake and alert, oriented 3, he is resting comfortably in bed, in no acute distress pulse ox on 2 L of oxygen is 96-99%, hemodynamically patient stable, his been afebrile, he is going 500 mL on his incentive spirometer today, lung sounds are positive for bibasilar rhonchi, no wheezing, there has been a total of 140 ML of yellowish colored output from the right-sided chest tube, there is no air leak, CT surgery is following, no new chest x-ray today, per CT surgery. His right- sided chest tube will be discontinued today. Pleural fluid culture showed diphtheroid species only, which is thought to be contamination, cytology was negative. Yesterday this and had episode of A. fib RVR, he is on amiodarone and IV Cardizem at 5 mg per hour in addition to heparin infusion. Today patient converted to sinus rhythm with a controlled rate, cardiology is following, anticipate discontinuation of the Cardizem drip. No worsening dyspnea, but patient is very weak, did get up to the chair with physical therapy and set up for 2 hours. Objective - Vital Signs Vital signs: Vital Signs Temp 97.5 F L 05/08/19 08:00 Pulse 88 05/08/19 11:35 Resp 20 05/08/19 08:00 BP 105/59 05/08/19 08:00 Pulse Ox 99 05/08/19 08:00 Intake & Output 05/07/19 05/08/19 05/08/19 18:59 06:59 18:59 Intake Total 463.25 Output Total 475 590 525 Balance -11.75 -590 -525 Weight 90.8 kg Intake: IV 120 Piperacillin-Tazobactam 3 100 .375 gm In Sodium Chloride 0.9% 100 ml @ 25 mls/hr IVPB Q8HR [facility] Rx# :[id number] Sodium Chloride 0.9% 1, 20 000 ml @ 20 mls/hr IV . Q24H [facility] Rx#:[id number] Intake, IV Titration 343.25 Amount Diltiazem 125 mg In 93.25 Sodium Chloride 0.9% 100 ml @ 5 MG/HR 5 mls/hr IV .Q24H [facility] Rx#:[id number] Heparin Sod,Pork in 0.45% 250 NaCl 25,000 unit In 0.45 % NaCl 1 250ml.bag @ 11 UNITS/KG/HR 9.9 mls/hr IV .Q24H [facility] Rx#:[id number] Output: Chest Tube Drainage 100 40 Right Lateral Chest 100 40 Urine 375 550 525 Other: Voiding Method Urinal Urinal Urinal # Voids 1 - Exam GENERAL EXAM: Alert, weak, 64-year-old white male resting in bed on 2 L of oxygen with a pulse ox of 99%comfortable in no apparent distress. HEAD: Normocephalic/atraumatic. EYES: Normal reaction of pupils, equal size. Conjunctiva pink, sclera white. NOSE: Clear with pink turbinates. THROAT: No erythema or exudates. NECK: No masses, no JVD, no thyroid enlargement, no adenopathy. CHEST: No chest wall deformity. Symmetrical expansion. right chest tube in place, to waterseal, no air leak, yellowish colored output in the chest tube, a total of 130 mL overnight LUNGS: Equal air entry with no crackles, wheeze, or dullness. Present scattered bibasilar rhonchi CVS: Regular rate and rhythm, normal S1 and S2, no gallops, no murmurs, no rubs ABDOMEN: Soft, nontender. No hepatosplenomegaly, normal bowel sounds, no g uarding or rigidity. EXTREMITIES: No clubbing, no edema, no cyanosis, 2+ pulses and upper and lower extremities. MUSCULOSKELETAL: Muscle strength and tone normal. SPINE: No scoliosis or deformity SKIN: No rashes, left forearm IV infiltrated site is erythematous and warm, IV have been discontinued CENTRAL NERVOUS SYSTEM: Alert and oriented -3. No focal deficits, tone is normal in all 4 extremities. PSYCHIATRIC: Alert and oriented -3. Appropriate affect. Intact judgment and insight. - Labs CBC & Chem 7: 05/08/19 05:16 05/08/19 05:16 Labs: Abnormal Lab Results - Last 24 Hours (Table) 05/08/19 05/08/19 05/08/19 Range/Units 05:16 05:16 05:16 RBC 2.85 L (4.30-5.90) m/uL Hgb 8.2 L (13.0-17.5) gm/dL Hct 27.0 L (39.0-53.0) % MCHC 30.4 L (31.0-37.0) g/dL RDW 17.7 H (11.5-15.5) % Lymphocytes # 0.6 L (1.0-4.8) k/uL APTT 43.5 H (22.0-30.0) sec Sodium 134 L (137-145) mmol/L BUN 21 H (9-20) mg/dL Glucose 135 H (74-99) mg/dL Calcium 7.5 L (8.4-10.2) mg/dL Alkaline Phosphatase 284 H (38-126) U/L Total Protein 4.6 L (6.3-8.2) g/dL Albumin 1.8 L (3.5-5.0) g/dL Microbiology - Last 24 Hours (Table) 05/01/19 14:21 Blood Culture - Final Blood No Growth after 144 hours 05/02/19 08:30 Gram Stain - Final Pleural Fluid Body Fluid Culture - Final Diphtheroid species Diphtheroid species#2 Assessment and Plan Plan: assessment: Acute hypoxic respiratory failure secondary to recurrent right-sided pleural effusion, exudative in nature, either malignant but not proven by cytology or parapneumonic, but based on the cultures is not empyema. Right sided hydropneumothorax, improving with chest tube to suction. Acute febrile illness with lactic acidosis on presentation, resolved. History of esophageal cancer on systemic chemotherapy and previous esophageal stent placement. 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 Benign essential hypertension Obstructive sleep apnea syndrome Previous history of CVA. Atrial fibrillation with RVR, presently on Cardizem drip. Being followed by cardiology. converted to sinus rhythm Plan: Continue current antibiotics, so far we diphtheroid and the pleural fluid cultures, likely contaminated specimen, output from the right-sided chest tube has decreased, and CT surgery is planning on removing the chest tube. Discussed the case with cardiology, Arabella londonip will be discontinued, patient has converted to sinus rhythm, heparin infusion will be discontinued and after discontinuation of the chest tube Eliquis will be started tonight at 5 mg twice daily. Encourage deep breathing and coughing, incentive spirometry use. We'll obtain follow-up chest x-ray tomorrow. We'll continue to follow I performed a history & physical examination of the patient and discussed their management with my nurse practitioner, Amanda Le. I reviewed the nurse practitioner's note and agree with the documented findings and plan of care. Lung sounds are positive for diminished breath sounds at the bases, with scattered rhonchi. The findings and the impression was discussed with the patient. I attest to the documentation by the nurse practitioner. Time with Patient: Less than 30
--- NOTE | 2019-05-08 13:04 | P.PN ---
Subjective Progress Note Date: 05/08/19 Principal diagnosis: Loculated right sided pneumothorax, acute hypoxic respiratory failure, lactic acidosis on admission, leukocytosis with bandemia. Past medical history significant for adenocarcinoma of the esophagus, status post chemotherapy, radiation and esophageal stent placement, pulmonary embolism on Eliquis for anticoagulation, recurrent pleural effusions status post thoracentesis, obstructive sleep apnea without home CPAP use, supraventricular tachycardia status post ablation, hypertension, hyperlipidemia, and CVA. POD #6 right sided thoracentesis with removal of 2.4 L turbid yellow fluid, followed by right-sided chest tube placement by Dr. Hartman. The patient is currently lying in bed on the cardiac stepdown unit. He is in no acute distress. Right-sided pleural chest tube continues to drain thin cloudy serous fluid. No air leak is present. Drainage continues to decrease daily with 170 mL output in the in the last 24 hours. Remains on IV antibiotics Zosyn and vancomycin is also receiving by mouth Levaquin. Oxygen saturation is 96% on 3 L nasal cannula and he is achieving less than 500 mL on his incentive spirometry. Objective - Vital Signs Vital signs: Vital Signs Temp 97.6 F 05/08/19 03:10 Pulse 80 05/08/19 08:10 Resp 20 05/08/19 03:10 BP 101/66 05/08/19 03:10 Pulse Ox 96 05/08/19 03:10 Intake & Output 05/07/19 05/08/19 05/08/19 18:59 06:59 18:59 Intake Total 463.25 Output Total 475 590 225 Balance -11.75 -590 -225 Intake: IV 120 Piperacillin-Tazobactam 3 100 .375 gm In Sodium Chloride 0.9% 100 ml @ 25 mls/hr IVPB Q8HR [facility] Rx# :[id number] Sodium Chloride 0.9% 1, 20 000 ml @ 20 mls/hr IV . Q24H [facility] Rx#:[id number] Intake, IV Titration 343.25 Amount Diltiazem 125 mg In 93.25 Sodium Chloride 0.9% 100 ml @ 5 MG/HR 5 mls/hr IV .Q24H [facility] Rx#:[id number] Heparin Sod,Pork in 0.45% 250 NaCl 25,000 unit In 0.45 % NaCl 1 250ml.bag @ 11 UNITS/KG/HR 9.9 mls/hr IV .Q24H [facility] Rx#:[id number] Output: Chest Tube Drainage 100 40 Right Lateral Chest 100 40 Urine 375 550 225 Other: Voiding Method Urinal Urinal - Constitutional General appearance: Present: average body habitus, cooperative, no acute distre ss - Respiratory Details: Lung sounds with few scattered rhonchi throughout, diminished to his bilateral bases right greater than left. Respirations are symmetrical and nonlabored. Oxygen saturation is 96% on 3 L nasal cannula. Achieving less than 500 mL on his incentive spirometry with encouragement. Right pleural chest tube remains in place to low continuous wall suction, draining thin serosanguineous drainage with 170 mL output in the last 24 hours. No air leak is present. - Cardiovascular Details: Regular rhythm and rate. S1 and S2 present, negative for S3, gallop or murmur. Trace edema to his bilateral lower extremities. Knee-high sequential compression devices in place to his bilateral lower extremities. - Gastrointestinal Gastrointestinal Comment(s): Abdomen is soft, nontender and nondistended. Active bowel sounds present in all 4 abdominal quadrants. Tolerating oral intake. No guarding or rigidity. - Genitourinary Genitourinary Comment(s): Voiding clear yellow urine. - Integumentary Integumentary Comment(s): Skin is warm and dry. No clubbing or cyanosis is present. Dressing is clean, dry and intact to his right chest tube insertion site. - Neurologic Neurologic: Present: CNII-XII intact - Musculoskeletal Musculoskeletal: Present: generalized weakness, strength equal bilaterally - Psychiatric Psychiatric Comment(s): Flat affect. Psychiatric: Present: A&O x's 3, intact judgment & insight - Allied health notes Allied health notes reviewed: nursing - Labs CBC & Chem 7: 05/08/19 05:16 05/08/19 05:16 Labs: Abnormal Lab Results - Last 24 Hours (Table) 05/08/19 05/08/19 05/08/19 Range/Units 05:16 05:16 05:16 RBC 2.85 L (4.30-5.90) m/uL Hgb 8.2 L (13.0-17.5) gm/dL Hct 27.0 L (39.0-53.0) % MCHC 30.4 L (31.0-37.0) g/dL RDW 17.7 H (11.5-15.5) % Lymphocytes # 0.6 L (1.0-4.8) k/uL APTT 43.5 H (22.0-30.0) sec Sodium 134 L (137-145) mmol/L BUN 21 H (9-20) mg/dL Glucose 135 H (74-99) mg/dL Calcium 7.5 L (8.4-10.2) mg/dL Alkaline Phosphatase 284 H (38-126) U/L Total Protein 4.6 L (6.3-8.2) g/dL Albumin 1.8 L (3.5-5.0) g/dL Microbiology - Last 24 Hours (Table) 05/01/19 14:21 Blood Culture - Final Blood No Growth after 144 hours 05/02/19 08:30 Gram Stain - Final Pleural Fluid Body Fluid Culture - Final Diphtheroid species Diphtheroid species#2 - Imaging and Cardiology Chest x-ray: report reviewed, image reviewed Assessment and Plan Assessment: 1. Loculated pleural effusion, status post thoracentesis followed by chest tube placement, cytology and cultures pending 2. History of recurrent pleural effusions, status post thoracentesis with incomplete reexpansion of the lung 3. Adenocarcinoma of the esophagus, status post chemotherapy, radiation and eso phageal stent placement 4. Acute hypoxic respiratory failure secondary to recurrent right-sided pleural effusion 5. Lactic acidosis on admission, leukocytosis with bandemia, improving 6. History of pulmonary embolism on Eliquis for anticoagulation 7. Hypertension 8. Hyperlipidemia 9. Obstructive sleep apnea without home CPAP use 10. History of CVA 11. New-onset paroxysmal atrial fibrillation, currently in normal sinus rhythm Plan: 1. We will remove his right pleural chest tube today. The patient be discharged home when okay with primary care service by the cardiothoracic surgery standpoint. He can follow-up on an outpatient basis with Dr. Milan Ca in the office next 05/14/2019 at 1 PM. The patient has been given a prescription for a chest x-ray to be obtained prior to his follow-up visit. 2. Wean O2 as tolerated. Encourage is spirometry 10 times every hour while awake. 3. Atrial fibrillation management per cardiology recommendations. 4. Antibiotics, bronchodilators per pulmonology management. 5. Will monitor daily chest x-rays. 6. Increase activity as tolerated, up to chair as tolerated. 7. Medical management of the comorbidities per primary care service. 8. More recommendations to follow based on patient's clinical course. Time with Patient: Greater than 30
--- NOTE | 2019-05-08 13:17 | P.PN ---
Subjective Progress Note Date: 05/08/19 Principal diagnosis: Acute Respiratory Failure Overall improving, still with large amount of fluid. I spoke to his Killian last evening and his oncologist today. would like to monitor through weekend current treatment with taxol and cyramza remains on hold. Cardiothoracic surgery removed right sided chest tube today. Would like to ask if CTS could plan to place pleurex for home drainage? Objective - Vital Signs Vital signs: Vital Signs Temp 97.5 F L 05/08/19 08:00 Pulse 88 05/08/19 11:35 Resp 20 05/08/19 08:00 BP 105/59 05/08/19 08:00 Pulse Ox 99 05/08/19 08:00 Intake & Output 05/07/19 05/08/19 05/08/19 18:59 06:59 18:59 Intake Total 463.25 Output Total 475 590 825 Balance -11.75 -590 -825 Weight 90.8 kg Intake: IV 120 Piperacillin-Tazobactam 3 100 .375 gm In Sodium Chloride 0.9% 100 ml @ 25 mls/hr IVPB Q8HR [facility] Rx# :[id number] Sodium Chloride 0.9% 1, 20 000 ml @ 20 mls/hr IV . Q24H [facility] Rx#:[id number] Intake, IV Titration 343.25 Amount Diltiazem 125 mg In 93.25 Sodium Chloride 0.9% 100 ml @ 5 MG/HR 5 mls/hr IV .Q24H [facility] Rx#:[id number] Heparin Sod,Pork in 0.45% 250 NaCl 25,000 unit In 0.45 % NaCl 1 250ml.bag @ 11 UNITS/KG/HR 9.9 mls/hr IV .Q24H [facility] Rx#:[id number] Output: Chest Tube Drainage 100 40 Right Lateral Chest 100 40 Urine 375 550 825 Other: Voiding Method Urinal Urinal Urinal # Voids 1 - Exam - Constitutional General appearance: mild distress, improved since pleurex placed and thoracentesis - EENT Eyes: EOMI, PERRLA ENT: hearing grossly normal, normal oropharynx - Neck Neck: no lymphadenopathy Thyroid: bilateral: normal size - Respiratory Respiratory: right: diminished, dullness, bilateral: rhonchi audible crackles - Cardiovascular Rhythm: regular Heart sounds: normal: S1, S2 - Gastrointestinal General gastrointestinal: normal bowel sounds, soft - Integumentary Integumentary: normal - Neurologic Neurologic: CNII-XII intact - Musculoskeletal Musculoskeletal: generalized weakness, strength equal bilaterally - Psychiatric Psychiatric: A&O x's 3, appropriate affect - Labs CBC & Chem 7: 05/08/19 05:16 05/08/19 05:16 Labs: Abnormal Lab Results - Last 24 Hours (Table) 05/08/19 05/08/19 05/08/19 Range/Units 05:16 05:16 05:16 RBC 2.85 L (4.30-5.90) m/uL Hgb 8.2 L (13.0-17.5) gm/dL Hct 27.0 L (39.0-53.0) % MCHC 30.4 L (31.0-37.0) g/dL RDW 17.7 H (11.5-15.5) % Lymphocytes # 0.6 L (1.0-4.8) k/uL APTT 43.5 H (22.0-30.0) sec Sodium 134 L (137-145) mmol/L BUN 21 H (9-20) mg/dL Glucose 135 H (74-99) mg/dL Calcium 7.5 L (8.4-10.2) mg/dL Alkaline Phosphatase 284 H (38-126) U/L Total Protein 4.6 L (6.3-8.2) g/dL Albumin 1.8 L (3.5-5.0) g/dL Microbiology - Last 24 Hours (Table) 05/01/19 14:21 Blood Culture - Final Blood No Growth after 144 hours 05/02/19 08:30 Gram Stain - Final Pleural Fluid Body Fluid Culture - Final Diphtheroid species Diphtheroid species#2 Assessment and Plan Plan: Comments: CT scan report from 04/10/19 did not show any metastatic progression Chest x-ray: report reviewed CT scan - abdomen: report reviewed CT scan - chest: report reviewed CT scan - pelvis: report reviewed Assessment and Plan: Acute Respiratory Distress: Secondary to Pleural effusions: - Difficult to cough up secretions - Increased oral secretion, scope patch placed Pleural effusion - The patient is presenting with recurrent pleural effusion. Loculated He had thoracentesis on 04/20/19, with cytology negative. He had significant progressive respiratory distress on admission. The recurrent pleural effusion is likely a contributor, though based on the clinical presentation sepsis with possible pneumonia is also most likely a cause. - Today he is breathing better, he is status post 2400cc by Dr. Hartman thoracentesis and pleurex drain placement. - He has had continued amount of fluid removed, pathology resulted without obvious signs of metastatic disease to pleura Anticoagulated - Resume eliquis as long as no further procedures planned at this point, platelets are stable, no active bleeding. Sepsis: - He presented with Sepsis picture and full hickey cultures were worked up, he continues on antibiotics, WBC are trending down - Another possibility could also be a leak from the esophagus causing a chemical pneumonitis. - The patient is not neutropenic. - Continue abx per ID - If fluid is found to be inflammatory, it would be reasonable to consider barium swallow to rule out a leak. Esophageal carcinoma: - Follow-up with after discharge for treatment plan Normocytic Anemia: - Monitor Daily CBC Leukocytosis: - Trending down HX: DVTs A-fib with RVR: - Currently receing heparin drip, will go back on eliquis after discharge Discussed with Nursing and discussed with killian. Patient will possibly move to medical floor today. Decrease xanax to bid Continue close monitoring and supportive care Mary Beth Arreguin NP
--- NOTE | 2019-05-08 13:54 | P.PN ---
<Mariposa Domínguez - Last Filed: 05/08/19 13:36> Subjective Progress Note Date: 05/08/19 Principal diagnosis: This is a pleasant 64 years old male with past medical history of CVA/TIA, GERD, DVT and pulmonary embolism, hypertension, hyperlipidemia, sleep apnea, SVT, esophageal cancer status post radiation and chemotherapy in 2018 and 2019, upper GI bleed treated at [facility]. Presents with pneumonia and suspected for aspiration pneumonia. Patient remains in the ICU and his been on IV antibiotics with Zosyn and vancomycin as well as oral Levaquin of 750 mg, is also been on heparin drip comfortable Eliquis 2.5 mg at home, also his Protonix twice daily, cardiology started him on amiodarone and low-dose Lopressor while flecainide was discontinued as its thought to contribute to his heart problem. This morning he was lying in bed comfortable with no dyspnea., Blood pressure 98/67, saturating 94% on 2 L oxygen via nasal cannula, lap showed sodium 133, creatinine 0.9, WBC 12.7 K, hemoglobin 8.6, platelets 213 Patient might benefit from ECF for subacute rehab upon discharge. Cytology of pleural fluid is still pending. As per cad designer patient may need a Pleurx catheter, In the meantime he remains on heparin drip 05/07/2019 Patient remains in the ICU, is fully awake and oriented. Remains on Cardizem drip 5 mg per hour per cardiology who found it is closely. His left shoulder blade BC of 10.7 K, hemoglobin 8.2 which is stable. He remains on heparin drip as well. Sodium 133 and creatinine normal Chest tube remains to gravity on the right side, Still draining. Patient is followed by cardiothoracic surgery Patient remains on Zosyn, vancomycin, Lasix 40 mg IV twice daily, aspirin and Plavix, heparin drip and Cardizem drip 05/08/2019 Patient is seen and evaluated in follow-up today in the selected unit and has transitioned out of ICU. Per nursing staff cardiothoracic surgery will be removing right side chest tube today. Patient continues to be weak but is a little more awake and alert. Patient has been working with physical therapy and was up to the chair for short period today. Also medical consultations are following. Patient is now off the Cardizem drip and heparin drip and Eliquis May possibly be resumed tonight. Will repeat chest x-ray tomorrow. Discussed with the patient about continuing to use the incentive spirometer at least 10 times every hour while awake. Patient continues to achieve a little under 500. Patient remains on 2 L via nasal cannula. Currently no reports of chest pain except for chest wall tenderness near the chest tube site, worsening shortness of breath, or palpitations. Patient is afebrile. No reports of nausea or vomiting and patient is tolerating diet. Hemoglobin is 8.2. Patient remains on IV antibiotics in the form of vancomycin and Zosyn along with oral Levaquin and will continue at this time. Will continue to monitor closely. Objective - Vital Signs Vital signs: Vital Signs Temp 97.5 F L 05/08/19 08:00 Pulse 88 05/08/19 11:35 Resp 20 05/08/19 08:00 BP 105/59 05/08/19 08:00 Pulse Ox 99 05/08/19 08:00 Intake & Output 05/07/19 05/08/19 05/08/19 18:59 06:59 18:59 Intake Total 463.25 Output Total 475 590 825 Balance -11.75 -590 -825 Weight 90.8 kg Intake: IV 120 Piperacillin-Tazobactam 3 100 .375 gm In Sodium Chloride 0.9% 100 ml @ 25 mls/hr IVPB Q8HR MELISSA Rx# :[id number] Sodium Chloride 0.9% 1, 20 000 ml @ 20 mls/hr IV . Q24H MELISSA Rx#:[id number] Intake, IV Titration 343.25 Amount Diltiazem 125 mg In 93.25 Sodium Chloride 0.9% 100 ml @ 5 MG/HR 5 mls/hr IV .Q24H MELISSA Rx#:[id number] Heparin Sod,Pork in 0.45% 250 NaCl 25,000 unit In 0.45 % NaCl 1 250ml.bag @ 11 UNITS/KG/HR 9.9 mls/hr IV .Q24H MELISSA Rx#:[id number] Output: Chest Tube Drainage 100 40 Right Lateral Chest 100 40 Urine 375 550 825 Other: Voiding Method Urinal Urinal Urinal # Voids 1 - Exam GENERAL: The patient is alert and oriented x3, not in any acute distress. Well developed, well nourished. HEENT: Pupils are round and equally reacting to light. EOMI. No scleral icterus. No conjunctival pallor. Normocephalic, atraumatic. No pharyngeal erythema. No thyromegaly. CARDIOVASCULAR: S1 and S2 present. No murmurs, rubs, or gallops. -PULMONARY: Diminished breath sounds at the bases with a few scattered rhonchi noted, right side chest tube being removed. No wheezing noted on exam. ABDOMEN: Soft, nontender, nondistended, normoactive bowel sounds. No palpable organomegaly. MUSCULOSKELETAL: No joint swelling or deformity. EXTREMITIES: No cyanosis, clubbing, or pedal edema. NEUROLOGICAL: Gross neurological examination did not reveal any focal deficits. SKIN: No rashes. no petechiae. - Labs CBC & Chem 7: 05/08/19 05:16 05/08/19 05:16 Labs: Abnormal Lab Results - Last 24 Hours (Table) 05/08/19 05/08/19 05/08/19 Range/Units 05:16 05:16 05:16 RBC 2.85 L (4.30-5.90) m/uL Hgb 8.2 L (13.0-17.5) gm/dL Hct 27.0 L (39.0-53.0) % MCHC 30.4 L (31.0-37.0) g/dL RDW 17.7 H (11.5-15.5) % Lymphocytes # 0.6 L (1.0-4.8) k/uL APTT 43.5 H (22.0-30.0) sec Sodium 134 L (137-145) mmol/L BUN 21 H (9-20) mg/dL Glucose 135 H (74-99) mg/dL Calcium 7.5 L (8.4-10.2) mg/dL Alkaline Phosphatase 284 H (38-126) U/L Total Protein 4.6 L (6.3-8.2) g/dL Albumin 1.8 L (3.5-5.0) g/dL Microbiology - Last 24 Hours (Table) 05/01/19 14:21 Blood Culture - Final Blood No Growth after 144 hours 05/02/19 08:30 Gram Stain - Final Pleural Fluid Body Fluid Culture - Final Diphtheroid species Diphtheroid species#2 Assessment and Plan Assessment: Pneumonia suspicious for aspiration Right pleural effusion, and right hydropneumothorax status post chest tube A. fib with RVR and SVT Hypertension Hyperlipidemia History of CVA/TIA DVT/PE GERD Sleep apnea Plan: This is a pleasant 64 years old male who presents with possible aspiration pneumonia and A. fib and RVR. Currently has converted to sinus rhythm and heparin drip and Cardizem drip had been discontinued. To continue with antibiotics. Patient has been followed closely by cardiology and pulmonary service, we'll continue to monitor the patient. Continue with Lopressor and Protonix. Right side chest tube removed today by cardiothoracic surgery. Follow-up WBC count and hemoglobin. White blood count today is 8.1 and trending down along with hemoglobin stable at 8.2. Patient will be resumed on Eliquis. Labs and medication were reviewed.. Continue same treatment. Continue with symptomatic treatment. Resume home medication. Monitor lytes and vitals. DVT and GI prophylaxis. Further recommendations of the clinical course of the patient DVT prophylaxis: heparin GI Prophylaxis: Protonix Prognosis is guarded <Fletcher Cm E - Last Filed: 05/08/19 21:20> Subjective Principal diagnosis: I have discussed the plan and I have reviewed the note with NIKI silva and I agree with it except what is mentioned below Pt is seen and examined by me at bed side Objective - Vital Signs Vital signs: Vital Signs Temp 97.5 F L 05/08/19 08:00 Pulse 96 05/08/19 20:18 Resp 20 05/08/19 08:00 BP 105/59 05/08/19 08:00 Pulse Ox 98 05/08/19 20:07 Intake & Output 05/08/19 05/08/19 05/09/19 06:59 18:59 06:59 Intake Total 236 Output Total 590 1325 200 Balance -590 -1089 -200 Weight 90.8 kg Intake: Oral 236 Output: Chest Tube Drainage 40 Right Lateral Chest 40 Urine 550 1325 200 Other: Voiding Method Urinal Urinal # Voids 1 - Labs CBC & Chem 7: 05/08/19 05:16 05/08/19 05:16 Labs: Abnormal Lab Results - Last 24 Hours (Table) 05/08/19 05/08/19 05/08/19 Range/Units 05:16 05:16 05:16 RBC 2.85 L (4.30-5.90) m/uL Hgb 8.2 L (13.0-17.5) gm/dL Hct 27.0 L (39.0-53.0) % MCHC 30.4 L (31.0-37.0) g/dL RDW 17.7 H (11.5-15.5) % Lymphocytes # 0.6 L (1.0-4.8) k/uL APTT 43.5 H (22.0-30.0) sec Sodium 134 L (137-145) mmol/L BUN 21 H (9-20) mg/dL Glucose 135 H (74-99) mg/dL Calcium 7.5 L (8.4-10.2) mg/dL Alkaline Phosphatase 284 H (38-126) U/L Total Protein 4.6 L (6.3-8.2) g/dL Albumin 1.8 L (3.5-5.0) g/dL
[2019-05-08] MEDS: LEVOFLOXACIN 750 MG TAB PO SCH (18:10)
[2019-05-08] MEDS: THIAMINE 100 MG TAB PO SCH (18:11)
[2019-05-08] MEDS: VANCOMYCIN 1,250 MG in SODIUM CHLORIDE 0.9% 250 ML IVPB SCH (18:12)
[2019-05-08] MEDS: SODIUM CHLORIDE 0.9% 1,000 ML IV SCH (18:12)
[2019-05-09 06:09] LABS: Anisocytosis Slight; Basophils % (A) 0 %; Eosinophils # (A) 0.1 k/uL (0-0.7); Eosinophils % (A) 1 %; Hypochromasia Moderate; Lymphocytes # (A) 0.6 k/uL (1.0-4.8); Lymphocytes % (A) 6 %; MCH 29.5 pg (25.0-35.0); MCHC 31.2 g/dL (31.0-37.0); MCV 94.6 fL (80.0-100.0); Mean Platelet Volume 7.9; Monocytes # (A) 0.4 k/uL (0-1.0); Monocytes % (A) 4 %; Neutrophils % (A) 86 %; Platelet Count 315 k/uL (150-450); RBC 3.06 m/uL (4.30-5.90); RDW 17.3 % (11.5-15.5); WBC 10.4 k/uL (3.8-10.6)
--- NOTE | 2019-05-09 06:23 | XR ---
EXAMINATION TYPE: XR chest 1V portable DATE OF EXAM: 05/09/2019 HISTORY: Post-chest tube removal.. REFERENCE: Previous study dated 05/07/2019. FINDINGS: There is a MediPort in place via a right internal jugular approach. Its tip is in the super ior vena cava. The patient's right pleural drain has been removed. I do not see evidence of pneumotho rax. There is bibasilar airspace disease, worse on the right than the left. There are bilateral effusions, greater on the right than the left. Heart size is obscured. IMPRESSION: NO SIGNIFICANT INTERVAL CHANGE IN THE APPEARANCE OF THE CHEST.
[2019-05-09] MEDS: ONDANSETRON 4 MG/2 ML VIAL IVP PRN ×2 (06:25→15:04)
[2019-05-09 06:31] LABS: Calcium 7.9 mg/dL (8.4-10.2); Potassium 4.1 mmol/L (3.5-5.1)
[2019-05-09] MEDS: HYDROcodone/APAP 5-325MG 1 EACH TAB PO PRN ×2 (06:31→21:21)
[2019-05-09] MEDS: PANTOPRAZOLE 40 MG TABLET PO SCH ×2 (06:45→17:41)
[2019-05-09] MEDS: IPRATROPIUM-ALBUTEROL 3 ML NEB INHALATION SCH ×4 (08:24→19:30)
--- NOTE | 2019-05-09 08:38 | P.PN ---
Subjective Progress Note Date: 05/09/19 Principal diagnosis: Loculated right sided pneumothorax, acute hypoxic respiratory failure, lactic acidosis on admission, leukocytosis with bandemia. Past medical history significant for adenocarcinoma of the esophagus, status post chemotherapy, radiation and esophageal stent placement, pulmonary embolism on Eliquis for anticoagulation, recurrent pleural effusions status post thoracentesis, obstructive sleep apnea without home CPAP use, supraventricular tachycardia status post ablation, hypertension, hyperlipidemia, and CVA. POD #6 right sided thoracentesis with removal of 2.4 L turbid yellow fluid, followed by right-sided chest tube placement by Dr. Hartman. The patient is currently lying in bed on the cardiac stepdown unit. He is in no acute distress. Right-sided pleural chest tube was removed yesterday 05/08/2019. Remains on IV antibiotic vancomycin is also receiving by mouth Levaquin. Oxygen saturation is 97% on 3 L nasal cannula and he is achieving less than 500 mL on his incentive spirometry. Chest x-ray was completed this morning which shows no significant interval change. The patient reports that he has had some nausea this morning. Objective - Vital Signs Vital signs: Vital Signs Temp 97.9 F 05/09/19 03:05 Pulse 85 05/09/19 08:24 Resp 20 05/09/19 03:05 BP 117/67 05/09/19 03:05 Pulse Ox 97 05/09/19 03:05 Intake & Output 05/08/19 05/09/19 05/09/19 18:59 06:59 18:59 Intake Total 236 Output Total 1325 900 Balance -1089 -900 Weight 90.8 kg 90.582 kg Intake: Oral 236 Output: Urine 1325 900 Other: Voiding Method Urinal Urinal # Voids 1 1 - Constitutional General appearance: Present: average body habitus, cooperative, no acute distress - Respiratory Details: Lungs sounds essentially clear to his bilateral upper lobes, diminished to his bilateral bases right greater than left. Respirations are symmetrical and nonlabored. Oxygen saturation 97% on 3 L nasal cannula. Achieving 500 mL on his incentive spirometry. - Cardiovascular Details: Regular rhythm and rate. S1 and S2 present, negative for S3, gallop or murmur. - Gastrointestinal Gastrointestinal Comment(s): Soft, nontender and nondistended. Hypoactive bowel sounds present in all 4 abdominal quadrants. No guarding or rigidity. No organomegaly appreciated. - Genitourinary Genitourinary Comment(s): Continues to void clear esequiel urine. - Integumentary Integumentary Comment(s): Skin is warm and dry. No clubbing or cyanosis is present. Dressing is clean, dry and intact to his right chest tube insertion site. - Neurologic Neurologic: Present: CNII-XII intact - Musculoskeletal Musculoskeletal: Present: generalized weakness, strength equal bilaterally - Psychiatric Psychiatric Comment(s): Flat affect Psychiatric: Present: A&O x's 3, intact judgment & insight - Allied health notes Allied health notes reviewed: nursing - Labs CBC & Chem 7: 05/09/19 05:38 05/09/19 05:38 Labs: Abnormal Lab Results - Last 24 Hours (Table) 05/09/19 05/09/19 Range/Units 05:38 05:38 RBC 3.06 L (4.30-5.90) m/uL Hgb 9.0 L (13.0-17.5) gm/dL Hct 29.0 L (39.0-53.0) % RDW 17.3 H (11.5-15.5) % Neutrophils # 9.0 H (1.3-7.7) k/uL Lymphocytes # 0.6 L (1.0-4.8) k/uL Sodium 133 L (137-145) mmol/L Chloride 96 L (98-107) mmol/L BUN 23 H (9-20) mg/dL Glucose 150 H (74-99) mg/dL Calcium 7.9 L (8.4-10.2) mg/dL - Imaging and Cardiology Chest x-ray: report reviewed, image reviewed Assessment and Plan Assessment: 1. Loculated pleural effusion, status post thoracentesis followed by chest tube placement, cytology and cultures pending 2. History of recurrent pleural effusions, status post thoracentesis with incomplete reexpansion of the lung 3. Adenocarcinoma of the esophagus, status post chemotherapy, radiation and esophageal stent placement 4. Acute hypoxic respiratory failure secondary to recurrent right-sided pleural effusion 5. Lactic acidosis on admission, leukocytosis with bandemia, improving 6. History of pulmonary embolism on Eliquis for anticoagulation 7. Hypertension 8. Hyperlipidemia 9. Obstructive sleep apnea without home CPAP use 10. History of CVA 11. New-onset paroxysmal atrial fibrillation, currently in normal sinus rhythm Plan: 1. The patient be discharged home/rehab will continue to follow the patient on an as-needed basis. when okay with primary care service by the cardiothoracic surgery standpoint. He can follow-up on an outpatient basis with Dr. Milan Ca in the office next 05/14/2019 at 1 PM. The patient has been given a prescription for a chest x-ray to be obtained prior to his follow-up visit. 2. Wean O2 as tolerated. Encourage is spirometry 10 times every hour while awake. 3. Atrial fibrillation management per cardiology recommendations. 4. Antibiotics, bronchodilators per pulmonology management. 5. Will monitor daily chest x-rays. 6. Increase activity as tolerated, up to chair as tolerated. 7. Medical management of the comorbidities per primary care service. 8. We will continue to follow the patient on an as-needed basis. Please call cardiothoracic surgery services for any further questions. Time with Patient: Greater than 30
[2019-05-09] MEDS: FOLIC ACID 1 MG TAB PO SCH (09:30)
[2019-05-09] MEDS: ALPRAZolam 0.5 MG TAB PO SCH ×2 (09:30→21:21)
[2019-05-09] MEDS: MULTIVITAMINS, THERA 1 EACH TAB PO SCH (09:30)
[2019-05-09] MEDS: DULoxetine HCL 20 MG CAPSULE.DR PO SCH (09:31)
[2019-05-09] MEDS: METOPROLOL TARTRATE 12.5 MG TAB PO SCH ×2 (09:31→21:21)
[2019-05-09] MEDS: APIXABAN 5 MG TAB PO SCH ×2 (09:31→21:21)
[2019-05-09] MEDS: AMIODARONE 200 MG TAB PO SCH ×3 (09:31→21:21)
[2019-05-09] MEDS: CYANOCOBALAMIN 500 MCG TAB PO SCH (09:31)
[2019-05-09] MEDS: FUROSEMIDE 10 MG/ML 4 ML VIAL IV SCH ×2 (09:32→21:22)
[2019-05-09] MEDS: VANCOMYCIN 1,250 MG in SODIUM CHLORIDE 0.9% 250 ML IVPB SCH ×2 (09:39→23:04)
--- NOTE | 2019-05-09 14:45 | P.PN ---
Subjective This is a pleasant 64 years old male with past medical history of CVA/TIA, GERD, DVT and pulmonary embolism, hypertension, hyperlipidemia, sleep apnea, SVT, esophageal cancer status post radiation and chemotherapy in 2018 and 2019, upper GI bleed treated at [facility]. Presents with pneumonia and suspected for aspiration pneumonia. Patient remains in the ICU and his been on IV antibiotics with Zosyn and vancomycin as well as oral Levaquin of 750 mg, is also been on heparin drip comfortable Eliquis 2.5 mg at home, also his Protonix twice daily, cardiology started him on amiodarone and low-dose Lopressor while flecainide was discontinued as its thought to contribute to his heart problem. This morning he was lying in bed comfortable with no dyspnea., Blood pressure 98/67, saturating 94% on 2 L oxygen via nasal cannula, lap showed sodium 133, creatinine 0.9, WBC 12.7 K, hemoglobin 8.6, platelets 213 Patient might benefit from ECF for subacute rehab upon discharge. Cytology of pleural fluid is still pending. As per jewelry designer patient may need a Pleurx catheter, In the meantime he remains on heparin drip 05/07/2019 Patient remains in the ICU, is fully awake and oriented. Remains on Cardizem drip 5 mg per hour per cardiology who found it is closely. His left shoulder blade BC of 10.7 K, hemoglobin 8.2 which is stable. He remains on heparin drip as well. Sodium 133 and creatinine normal Chest tube remains to gravity on the right side, Still draining. Patient is followed by cardiothoracic surgery Patient remains on Zosyn, vancomycin, Lasix 40 mg IV twice daily, aspirin and Plavix, heparin drip and Cardizem drip 05/08/2019 Patient is seen and evaluated in follow-up today in the selected unit and has transitioned out of ICU. Per nursing staff cardiothoracic surgery will be removing right side chest tube today. Patient continues to be weak but is a little more awake and alert. Patient has been working with physical therapy and was up to the chair for short period today. Also medical consultations are foll owing. Patient is now off the Cardizem drip and heparin drip and Eliquis May possibly be resumed tonight. Will repeat chest x-ray tomorrow. Discussed with the patient about continuing to use the incentive spirometer at least 10 times every hour while awake. Patient continues to achieve a little under 500. Patient remains on 2 L via nasal cannula. Currently no reports of chest pain except for chest wall tenderness near the chest tube site, worsening shortness of breath, or palpitations. Patient is afebrile. No reports of nausea or vomiting and patient is tolerating diet. Hemoglobin is 8.2. Patient remains on IV antibiotics in the form of vancomycin and Zosyn along with oral Levaquin and will continue at this time. Will continue to monitor closely. 05/09/2019 Patient is lying comfortably in the selected unit, his breathing somewhat better however his lung sounds still showing crepitation. And he still tachypneic. Since last night he was in A. fib in and out, currently his heart rate is controlled. He is still on 3 L oxygen via nasal cannula and saturating 94-96 , of note the patient was not on home oxygen. He is urinating without problem. Discussed with staff to check for bladder scan Other than that Vitas looks stable. C normal 10.4, sodium 133, creatinine 1.0 Objective - Vital Signs Vital signs: Vital Signs Temp 97.9 F 05/09/19 03:05 Pulse 85 05/09/19 11:35 Resp 20 05/09/19 03:05 BP 117/67 05/09/19 03:05 Pulse Ox 97 05/09/19 03:05 Intake & Output 05/08/19 05/09/19 05/09/19 18:59 06:59 18:59 Intake Total 236 120 Output Total 1325 900 600 Balance -2705 -900 -234 Weight 90.8 kg 90.582 kg Intake: Oral 236 120 Output: Urine 1325 900 600 Other: Voiding Method Urinal Urinal # Voids 1 1 1 - Exam GENERAL: The patient is alert and oriented x3, not in any acute distress. Well developed, well nourished. HEENT: Pupils are round and equally reacting to light. EOMI. No scleral icterus. No conjunctival pallor. Normocephalic, atraumatic. No pharyngeal erythema. No thyromegaly. CARDIOVASCULAR: S1 and S2 present. No murmurs, rubs, or gallops. -PULMONARY: Chest is clear to auscultation, no wheezing or crackles. little tachypneic, right side chest tube ABDOMEN: Soft, nontender, nondistended, normoactive bowel sounds. No palpable organomegaly. MUSCULOSKELETAL: No joint swelling or deformity. EXTREMITIES: No cyanosis, clubbing, or pedal edema. NEUROLOGICAL: Gross neurological examination did not reveal any focal deficits. SKIN: No rashes. no petechiae. - Labs CBC & Chem 7: 05/09/19 05:38 05/09/19 05:38 Labs: Abnormal Lab Results - Last 24 Hours (Table) 05/09/19 05/09/19 Range/Units 05:38 05:38 RBC 3.06 L (4.30-5.90) m/uL Hgb 9.0 L (13.0-17.5) gm/dL Hct 29.0 L (39.0-53.0) % RDW 17.3 H (11.5-15.5) % Neutrophils # 9.0 H (1.3-7.7) k/uL Lymphocytes # 0.6 L (1.0-4.8) k/uL Sodium 133 L (137-145) mmol/L Chloride 96 L (98-107) mmol/L BUN 23 H (9-20) mg/dL Glucose 150 H (74-99) mg/dL Calcium 7.9 L (8.4-10.2) mg/dL Assessment and Plan Assessment: Pneumonia suspicious for aspiration Right pleural effusion, and right hydropneumothorax status post chest tube A. fib with RVR and SVT Hypertension Hyperlipidemia History of CVA/TIA DVT/PE GERD Sleep apnea Plan: This is a pleasant 64 years old male who presents with possible aspiration pneumonia and A. fib and RVR. Continue with heparin drip, continue with antibiotics. Patient has been followed closely by cardiology and pulmonary service, we'll keep monitor the patient. Continue with Lopressor and Protonix Follow-up WBC count and hemoglobin Labs and medication were reviewed.. Continue same treatment. Continue with symptomatic treatment. Resume home medication. Monitor lytes and vitals. DVT and GI prophylaxis. Further recommendations of the clinical course of the patient DVT prophylaxis: heparin GI Prophylaxis: Protonix Prognosis is guarded
[2019-05-09] MEDS: SCOPOLAMINE 1.5MG/72HR PATCH TRANSDERM SCH (17:41)
[2019-05-09] MEDS: THIAMINE 100 MG TAB PO SCH (17:46)
[2019-05-09] MEDS: LEVOFLOXACIN 750 MG TAB PO SCH (17:46)
[2019-05-09] MEDS: METOCLOPRAMIDE 5 MG/ML 2 ML VIAL IVP PRN (20:26)
[2019-05-10] MEDS: SODIUM CHLORIDE 0.9% 1,000 ML IV SCH ×2 (00:22→16:27)
[2019-05-10] MEDS: METOCLOPRAMIDE 5 MG/ML 2 ML VIAL IVP PRN (03:10)
[2019-05-10] MEDS: HYDROcodone/APAP 5-325MG 1 EACH TAB PO PRN ×3 (03:10→20:32)
[2019-05-10] MEDS: PANTOPRAZOLE 40 MG TABLET PO SCH ×2 (06:09→16:25)
[2019-05-10] MEDS: IPRATROPIUM-ALBUTEROL 3 ML NEB INHALATION SCH ×6 (07:38→21:10)
[2019-05-10] MEDS: METOPROLOL TARTRATE 12.5 MG TAB PO SCH ×2 (09:01→20:33)
[2019-05-10] MEDS: CYANOCOBALAMIN 500 MCG TAB PO SCH (09:01)
[2019-05-10] MEDS: DULoxetine HCL 20 MG CAPSULE.DR PO SCH (09:01)
[2019-05-10] MEDS: APIXABAN 5 MG TAB PO SCH ×2 (09:02→20:34)
[2019-05-10] MEDS: FOLIC ACID 1 MG TAB PO SCH (09:02)
[2019-05-10] MEDS: THIAMINE 100 MG TAB PO SCH (09:02)
[2019-05-10] MEDS: AMIODARONE 200 MG TAB PO SCH ×3 (09:02→20:32)
[2019-05-10] MEDS: ALPRAZolam 0.5 MG TAB PO SCH ×2 (09:02→20:33)
[2019-05-10] MEDS: MULTIVITAMINS, THERA 1 EACH TAB PO SCH (09:02)
[2019-05-10] MEDS: FUROSEMIDE 10 MG/ML 4 ML VIAL IV SCH ×2 (09:03→20:32)
--- NOTE | 2019-05-10 11:21 | P.PN ---
Subjective This is a pleasant 64 years old male with past medical history of CVA/TIA, GERD, DVT and pulmonary embolism, hypertension, hyperlipidemia, sleep apnea, SVT, esophageal cancer status post radiation and chemotherapy in 2018 and 2019, upper GI bleed treated at [facility]. Presents with pneumonia and suspected for aspiration pneumonia. Patient remains in the ICU and his been on IV antibiotics with Zosyn and vancomycin as well as oral Levaquin of 750 mg, is also been on heparin drip comfortable Eliquis 2.5 mg at home, also his Protonix twice daily, cardiology started him on amiodarone and low-dose Lopressor while flecainide was discontinued as its thought to contribute to his heart problem. This morning he was lying in bed comfortable with no dyspnea., Blood pressure 98/67, saturating 94% on 2 L oxygen via nasal cannula, lap showed sodium 133, creatinine 0.9, WBC 12.7 K, hemoglobin 8.6, platelets 213 Patient might benefit from ECF for subacute rehab upon discharge. Cytology of pleural fluid is still pending. As per lay out machine operator patient may need a Pleurx catheter, In the meantime he remains on heparin drip 05/07/2019 Patient remains in the ICU, is fully awake and oriented. Remains on Cardizem drip 5 mg per hour per cardiology who found it is closely. His left shoulder blade BC of 10.7 K, hemoglobin 8.2 which is stable. He remains on heparin drip as well. Sodium 133 and creatinine normal Chest tube remains to gravity on the right side, Still draining. Patient is followed by cardiothoracic surgery Patient remains on Zosyn, vancomycin, Lasix 40 mg IV twice daily, aspirin and Plavix, heparin drip and Cardizem drip 05/08/2019 Patient is seen and evaluated in follow-up today in the selected unit and has transitioned out of ICU. Per nursing staff cardiothoracic surgery will be removing right side chest tube today. Patient continues to be weak but is a little more awake and alert. Patient has been working with physical therapy and was up to the chair for short period today. Also medical consultations are foll owing. Patient is now off the Cardizem drip and heparin drip and Eliquis May possibly be resumed tonight. Will repeat chest x-ray tomorrow. Discussed with the patient about continuing to use the incentive spirometer at least 10 times every hour while awake. Patient continues to achieve a little under 500. Patient remains on 2 L via nasal cannula. Currently no reports of chest pain except for chest wall tenderness near the chest tube site, worsening shortness of breath, or palpitations. Patient is afebrile. No reports of nausea or vomiting and patient is tolerating diet. Hemoglobin is 8.2. Patient remains on IV antibiotics in the form of vancomycin and Zosyn along with oral Levaquin and will continue at this time. Will continue to monitor closely. 05/09/2019 Patient is lying comfortably in the selected unit, his breathing somewhat better however his lung sounds still showing crepitation. And he still tachypneic. Since last night he was in A. fib in and out, currently his heart rate is controlled. He is still on 3 L oxygen via nasal cannula and saturating 94-96 , of note the patient was not on home oxygen. He is urinating without problem. Discussed with staff to check for bladder scan Other than that Vitas looks stable. C normal 10.4, sodium 133, creatinine 1.0 05/10/2019 Patient comfortable in bed, chest tube has been taken off since yesterday, he was started on Eliquis 2.5 mg twice a day as per bulk tank driver recommendation. He still slightly tachycardic around 116-120, as since yesterday is been on and off A. fib. He saturating 94% and 2 L oxygen via nasal cannula. Creatinine normal at 1.1 He remains on Zosyn, IV vancomycin, Levaquin, IV Lasix. he Is also on metoprolol and amiodarone Objective - Vital Signs Vital signs: Vital Signs Temp 98.2 F 05/10/19 03:10 Pulse 116 H 05/10/19 07:50 Resp 20 05/10/19 03:10 BP 102/68 05/10/19 03:10 Pulse Ox 95 05/10/19 03:10 Intake & Output 05/09/19 05/10/19 05/10/19 18:59 06:59 18:59 Intake Total 1320 358 Output Total 1067 1000 600 Balance 253 -1000 -242 Weight 85.9 kg Intake: Oral 1320 358 Output: Urine 850 1000 600 Post Void Residual 217 Other: Voiding Method Urinal Urinal # Voids 1 2 - Labs CBC & Chem 7: 05/09/19 05:38 03/22/20 05:36 Assessment and Plan Assessment: Pneumonia suspicious for aspiration Right pleural effusion, and right hydropneumothorax status post chest tube A. fib with RVR and SVT Hypertension Hyperlipidemia History of CVA/TIA DVT/PE GERD Sleep apnea Plan: This is a pleasant 64 years old male who presents with possible aspiration pneumonia and A. fib and RVR. Continue with heparin drip, continue with antibiotics. Patient has been followed closely by cardiology and pulmonary service, we'll keep monitor the patient. Continue with Lopressor and Protonix Follow-up WBC count and hemoglobin Labs and medication were reviewed.. Continue same treatment. Continue with symptomatic treatment. Resume home medication. Monitor lytes and vitals. DVT and GI prophylaxis. Further recommendations of the clinical course of the patient DVT prophylaxis: heparin GI Prophylaxis: Protonix Prognosis is guarded
[2019-05-10] MEDS: LEVOFLOXACIN 750 MG TAB PO SCH (16:25)
[2019-05-10] MEDS: VANCOMYCIN 1,250 MG in SODIUM CHLORIDE 0.9% 250 ML IVPB SCH (16:25)
--- NOTE | 2019-05-10 20:44 | P.PN ---
Subjective Progress Note Date: 05/10/19 64-year-old gentleman with stroke, TIA GERD, history of DVT PE currently on anticoagulation, hypertension hyperlipidemia diagnosed with esophageal cancer status post chemotherapy and radiation in 2018 and 2019 with upper GI bleeding currently admitted with aspiration pneumonia. The patient is still fatigued and weak and continues to be on antibiotics. Overall improving, still with large amount of fluid. Patient continues to have shortness of breath, weak fatigued, status post pleural effusion drainage. Objective - Vital Signs Vital signs: Vital Signs Temp 97.9 F 05/10/19 16:00 Pulse 112 H 05/10/19 16:00 Resp 20 05/10/19 16:00 BP 125/73 05/10/19 16:00 Pulse Ox 95 05/10/19 16:00 Intake & Output 05/10/19 05/10/19 05/11/19 06:59 18:59 06:59 Intake Total 1078 Output Total 1000 1125 Balance -1000 -47 Weight 85.9 kg Intake: Oral 1078 Output: Urine 1000 1125 Other: Voiding Method Urinal Urinal # Voids 2 300 # Bowel Movements 1 - Exam The patient appeared well nourished and normally developed. Vital signs as documented. Head exam is unremarkable. No scleral icterus or corneal arcus noted. Neck is without jugular venous distension, thyromegaly, or carotid bruits. Carotid upstrokes are brisk bilaterally. Lungs are clear to auscultation and percussion. Cardiac exam reveals the PMI to be normally sized and situated. Rhythm is regular. First and second heart sounds normal. No murmurs, rubs or gallops. Abdominal exam reveals normal bowel sounds, no masses, no organomegaly and no aortic enlargement. Extremities are nonedematous and both femoral and pedal pulses are normal. - Labs CBC & Chem 7: 05/09/19 05:38 05/10/19 05:36 Assessment and Plan Assessment: Impression and plan : #1. Respiratory distress with pleural effusions Patient continues to have trouble breathing, status post thoracentesis and Pleurx drain placement. Possibility of malignancy however pathology negative. Continue pulmonary care. Antibiotics. #2. History of DVT PE: Also history of atrial fibrillation with RVR. Continues to be on Eliquis. #3. Sepsis/pneumonia: Continues to be on antibiotics and infectious disease following. #4. Esophageal carcinoma. - History for the last couple of years. Status post chemotherapy and radiation. Outpatient follow-up were #5. Normocytic anemia Transfusions as needed. Discussed the care and plan of action with RN. Thank you for consult. Molly Colvin M.D. Hematology oncology
[2019-05-11] MEDS: HYDROcodone/APAP 5-325MG 1 EACH TAB PO PRN (03:41)
[2019-05-11] MEDS: PANTOPRAZOLE 40 MG TABLET PO SCH ×2 (06:12→17:05)
[2019-05-11 06:33] LABS: Anisocytosis Slight; Basophils % (A) 0 %; Eosinophils # (A) 0.1 k/uL (0-0.7); Eosinophils % (A) 1 %; HCT 29.8 % (39.0-53.0); HGB 9.2 gm/dL (13.0-17.5); Hypochromasia Moderate; Lymphocytes # (A) 0.7 k/uL (1.0-4.8); Lymphocytes % (A) 4 %; MCH 28.9 pg (25.0-35.0); MCV 93.4 fL (80.0-100.0); Mean Platelet Volume 8.5; Monocytes # (A) 0.6 k/uL (0-1.0); Monocytes % (A) 4 %; Neutrophils # (A) 15.1 k/uL (1.3-7.7); Neutrophils % (A) 90 %; Platelet Count 305 k/uL (150-450); RDW 17.2 % (11.5-15.5); WBC 16.8 k/uL (3.8-10.6)
[2019-05-11 06:48] LABS: Calcium 8.1 mg/dL (8.4-10.2); Potassium 4.3 mmol/L (3.5-5.1)
[2019-05-11] MEDS ORDERED: VANCOMYCIN TROUGH DUE 1 EACH MISC MISCELLANE ONE (07:00)
[2019-05-11] MEDS: IPRATROPIUM-ALBUTEROL 3 ML NEB INHALATION SCH ×4 (07:27→19:45)
[2019-05-11] MEDS: FUROSEMIDE 10 MG/ML 4 ML VIAL IV SCH ×2 (09:02→20:30)
[2019-05-11] MEDS: VANCOMYCIN 1,250 MG in SODIUM CHLORIDE 0.9% 250 ML IVPB SCH ×2 (09:03→23:57)
[2019-05-11] MEDS: APIXABAN 5 MG TAB PO SCH ×2 (09:03→20:30)
[2019-05-11] MEDS: AMIODARONE 200 MG TAB PO SCH ×3 (09:03→20:29)
[2019-05-11] MEDS: ALPRAZolam 0.5 MG TAB PO SCH ×2 (09:03→20:30)
[2019-05-11] MEDS: METOPROLOL TARTRATE 12.5 MG TAB PO SCH (09:04)
[2019-05-11] MEDS: CYANOCOBALAMIN 500 MCG TAB PO SCH (09:04)
[2019-05-11] MEDS: MULTIVITAMINS, THERA 1 EACH TAB PO SCH (09:04)
[2019-05-11] MEDS: DULoxetine HCL 20 MG CAPSULE.DR PO SCH (09:05)
[2019-05-11] MEDS: METOPROLOL TARTRATE 25 MG TAB PO SCH ×2 (10:11→20:30)
[2019-05-11 10:45] VITALS: BMI 25.7
--- NOTE | 2019-05-11 12:02 | P.PN ---
Subjective This is a pleasant 64 years old male with past medical history of CVA/TIA, GERD, DVT and pulmonary embolism, hypertension, hyperlipidemia, sleep apnea, SVT, esophageal cancer status post radiation and chemotherapy in 2018 and 2019, upper GI bleed treated at [facility]. Presents with pneumonia and suspected for aspiration pneumonia. Patient remains in the ICU and his been on IV antibiotics with Zosyn and vancomycin as well as oral Levaquin of 750 mg, is also been on heparin drip comfortable Eliquis 2.5 mg at home, also his Protonix twice daily, cardiology started him on amiodarone and low-dose Lopressor while flecainide was discontinued as its thought to contribute to his heart problem. This morning he was lying in bed comfortable with no dyspnea., Blood pressure 98/67, saturating 94% on 2 L oxygen via nasal cannula, lap showed sodium 133, creatinine 0.9, WBC 12.7 K, hemoglobin 8.6, platelets 213 Patient might benefit from ECF for subacute rehab upon discharge. Cytology of pleural fluid is still pending. As per kids club attendant patient may need a Pleurx catheter, In the meantime he remains on heparin drip 05/07/2019 Patient remains in the ICU, is fully awake and oriented. Remains on Cardizem drip 5 mg per hour per cardiology who found it is closely. His left shoulder blade BC of 10.7 K, hemoglobin 8.2 which is stable. He remains on heparin drip as well. Sodium 133 and creatinine normal Chest tube remains to gravity on the right side, Still draining. Patient is followed by cardiothoracic surgery Patient remains on Zosyn, vancomycin, Lasix 40 mg IV twice daily, aspirin and Plavix, heparin drip and Cardizem drip 05/08/2019 Patient is seen and evaluated in follow-up today in the selected unit and has transitioned out of ICU. Per nursing staff cardiothoracic surgery will be removing right side chest tube today. Patient continues to be weak but is a little more awake and alert. Patient has been working with physical therapy and was up to the chair for short period today. Also medical consultations are foll owing. Patient is now off the Cardizem drip and heparin drip and Eliquis May possibly be resumed tonight. Will repeat chest x-ray tomorrow. Discussed with the patient about continuing to use the incentive spirometer at least 10 times every hour while awake. Patient continues to achieve a little under 500. Patient remains on 2 L via nasal cannula. Currently no reports of chest pain except for chest wall tenderness near the chest tube site, worsening shortness of breath, or palpitations. Patient is afebrile. No reports of nausea or vomiting and patient is tolerating diet. Hemoglobin is 8.2. Patient remains on IV antibiotics in the form of vancomycin and Zosyn along with oral Levaquin and will continue at this time. Will continue to monitor closely. 05/09/2019 Patient is lying comfortably in the selected unit, his breathing somewhat better however his lung sounds still showing crepitation. And he still tachypneic. Since last night he was in A. fib in and out, currently his heart rate is controlled. He is still on 3 L oxygen via nasal cannula and saturating 94-96 , of note the patient was not on home oxygen. He is urinating without problem. Discussed with staff to check for bladder scan Other than that Vitas looks stable. C normal 10.4, sodium 133, creatinine 1.0 05/10/2019 Patient comfortable in bed, chest tube has been taken off since yesterday, he was started on Eliquis 2.5 mg twice a day as per supportive employment case manager recommendation. He still slightly tachycardic around 116-120, as since yesterday is been on and off A. fib. He saturating 94% and 2 L oxygen via nasal cannula. Creatinine normal at 1.1 He remains on Zosyn, IV vancomycin, Levaquin, IV Lasix. he Is also on metoprolol and amiodarone 05/11/2019 Patient is awake, his breathing quietly, his heart rate went into A. fib several times with rates up to 130-140, Lopressor has been increased from 12.5 to 25 mg twice a day, he remains on Lopressor 2.5 mg, he has little of nosebleeds, he saturating 91% on room air however he might become hypoxic on exertion, discussed with bed side nurse to check oxygen on exertion. He still tachycardic at 115, slightly tachypneic and 20, blood pressure 119/72, rest saturation 94% on 2 L. His WBC went up today to 16.8 K, hemoglobin 9.2, sodium 132 Is on several medications including Eliquis 2.5 mg, Levaquin and IV vancomycin, Lasix 40 mg IV, also he is on metoprolol increased to 25 as well as amiodarone 200 mg 3 times a day while flecainide was discontinued as thought it might attributed to his arrhythmia Objective - Vital Signs Vital signs: Vital Signs Temp 98.3 F 05/11/19 10:53 Pulse 115 H 05/11/19 10:53 Resp 20 05/11/19 10:53 BP 119/79 05/11/19 10:53 Pulse Ox 94 L 05/11/19 10:53 Intake & Output 05/10/19 05/11/19 05/11/19 18:59 06:59 18:59 Intake Total 1078 360 Output Total 1125 425 Balance -47 -65 Weight 85.9 kg 88.5 kg 88.5 kg Intake: Oral 1078 360 Output: Urine 1125 425 Other: Voiding Method Urinal Urinal # Voids 300 0 # Bowel Movements 1 0 - Exam GENERAL: The patient is alert and oriented x3, not in any acute distress. Well developed, well nourished. HEENT: Pupils are round and equally reacting to light. EOMI. No scleral icterus. No conjunctival pallor. Normocephalic, atraumatic. No pharyngeal erythema. No thyromegaly. CARDIOVASCULAR: S1 and S2 present. No murmurs, rubs, or gallops. -PULMONARY: Chest is clear to auscultation, no wheezing or crackles. little tachypneic, right side chest tube ABDOMEN: Soft, nontender, nondistended, normoactive bowel sounds. No palpable organomegaly. MUSCULOSKELETAL: No joint swelling or deformity. EXTREMITIES: No cyanosis, clubbing, or pedal edema. NEUROLOGICAL: Gross neurological examination did not reveal any focal deficits. SKIN: No rashes. no petechiae. - Labs CBC & Chem 7: 05/11/19 06:19 05/11/19 06:19 Labs: Abnormal Lab Results - Last 24 Hours (Table) 05/11/19 05/11/19 Range/Units 06:19 06:19 WBC 16.8 H (3.8-10.6) k/uL RBC 3.20 L (4.30-5.90) m/uL Hgb 9.2 L (13.0-17.5) gm/dL Hct 29.8 L (39.0-53.0) % RDW 17.2 H (11.5-15.5) % Neutrophils # 15.1 H (1.3-7.7) k/uL Lymphocytes # 0.7 L (1.0-4.8) k/uL Sodium 132 L (137-145) mmol/L Chloride 90 L (98-107) mmol/L Carbon Dioxide 37 H (22-30) mmol/L BUN 29 H (9-20) mg/dL Glucose 191 H (74-99) mg/dL Calcium 8.1 L (8.4-10.2) mg/dL Assessment and Plan Assessment: Pneumonia suspicious for aspiration Right pleural effusion, and right hydropneumothorax status post chest tube removal A. fib with RVR and SVT, started on small dose Eliquis Chronic kidney disease stage II, getting close to stage III Hypertension Hyperlipidemia History of CVA/TIA DVT/PE GERD Sleep apnea Plan: This is a pleasant 64 years old male who presents with possible aspiration pneumonia and A. fib and RVR. Continue with eliquis, continue with antibiotics. Patient has been followed closely by cardiology and pulmonary service, we'll keep monitor the patient. Continue with Lopressor at decreased dose and Protonix Follow-up WBC count and hemoglobin Labs and medication were reviewed.. Continue same treatment. Continue with symptomatic treatment. Resume home medication. Monitor lytes and vitals. DVT and GI prophylaxis. Further recommendations of the clinical course of the patient DVT prophylaxis: heparin GI Prophylaxis: Protonix Prognosis is guarded
[2019-05-11] MEDS: FOLIC ACID 1 MG TAB PO SCH (12:09)
[2019-05-11] MEDS: THIAMINE 100 MG TAB PO SCH (12:09)
--- NOTE | 2019-05-11 13:39 | CDI ---
Documentation Clarification Form Date: 05/11/2019 01:27:54 PM From: Kristina Abbott RN, CCDS Admit Date: 05/01/2019 04:14:00 PM Patient Name: Gopal Hull Visit Number: [id number] Discharge Date: ATTENTION: The Clinical Documentation Specialists (CDI) and [facility] Coding Staff appreciate your assistance in clarifying documentation. Please respond to the clarification below the line at the bottom and electronically sign. The CDI & [facility] Coding staff will review the response and follow-up if needed. Please note: Queries are made part of the Legal Health Record. If you have any questions, please contact the author of this message via ITS. Dr. Bynum E Sheet The diagnosis Sepsis was documented in the H&P and subsequent progress note on 05/04, but is not noted in subsequent documentation starting on 05/05. 05/01 H/P Acute right-sided pneumonia possible aspiration, possibly gram-negative with severe sepsis present on admission. History/Risk Factors: Pneumonia, Pleural effusion, Esophageal cancer Clinical Indicators: 64 year old male who present to ED on 04/30 with cough, hemoptysis, fatigue and change in mental status. 04/30 Vital signs: 127/77 104 18 101.0 92 % 04/30 ED note: concern for severe sepsis, WBC 18.4, Lactic acid 2.2, 2.1, 5.9 04/30 Chest x-ray: large right effusion and basilar infiltrate 05/01 Oncology consult (Dr. Mcdermott) the patient is presenting with a sepsis-type picture as described in the HPI. Likely this appears to be due to a pneumonia, possible aspiration. Another possibility could also be a leak from the esophagus causing a chemical pneumonitis. Treatment: Blood culture: 04/30 No growth Monitor CBC, Duoneb 0.5 mg Q4 PRN Levaquin IV daily (change to PO on 05/03) Vancomycin 1,250 mg IV Q16H Please clarify if the Sepsis was: Present/active this admission Treated and resolved this admission Ruled out Other, please specify Clinically unable to determine (Last Query Form Revision: October 2018) sepsis was present on admission MTDD
[2019-05-11] MEDS: LEVOFLOXACIN 750 MG TAB PO SCH (17:06)
[2019-05-11] MEDS: METOCLOPRAMIDE 5 MG/ML 2 ML VIAL IVP PRN (18:21)
--- NOTE | 2019-05-11 19:29 | P.PN ---
Subjective Progress Note Date: 05/11/19 Principal diagnosis: Acute Respiratory Failure He is doing ok today, he is breathing with increased effort today. Chest tube was removed on Saturday. Continues to have episodes of a fib with RVR. Eliquis was restarted. On IV heparin drip prior. Objective - Vital Signs Vital signs: Vital Signs Temp 97.9 F 05/11/19 15:09 Pulse 103 H 05/11/19 15:09 Resp 20 05/11/19 15:16 BP 110/72 05/11/19 15:09 Pulse Ox 94 L 05/11/19 10:53 Intake & Output 05/10/19 05/11/19 05/11/19 18:59 06:59 18:59 Intake Total 1078 480 Output Total 1125 550 Balance -47 -70 Weight 85.9 kg 88.5 kg 88.5 kg Intake: Oral 1078 480 Output: Urine 1125 550 Other: Voiding Method Urinal Urinal Urinal # Voids 300 0 # Bowel Movements 1 1 - Exam - Constitutional General appearance: mild distress, improved since pleurex placed and thoracentesis - EENT Eyes: EOMI, PERRLA ENT: hearing grossly normal, normal oropharynx - Neck Neck: no lymphadenopathy Thyroid: bilateral: normal size - Respiratory Respiratory: right: diminished, dullness, bilateral: rhonchi audible crackles - Cardiovascular Rhythm: regular Heart sounds: normal: S1, S2 - Gastrointestinal General gastrointestinal: normal bowel sounds, soft - Integumentary Integumentary: normal - Neurologic Neurologic: CNII-XII intact - Musculoskeletal Musculoskeletal: generalized weakness, strength equal bilaterally - Psychiatric Psychiatric: A&O x's 3, appropriate affect - Labs CBC & Chem 7: 05/11/19 06:19 05/11/19 06:19 Labs: Abnormal Lab Results - Last 24 Hours (Table) 05/11/19 05/11/19 Range/Units 06:19 06:19 WBC 16.8 H (3.8-10.6) k/uL RBC 3.20 L (4.30-5.90) m/uL Hgb 9.2 L (13.0-17.5) gm/dL Hct 29.8 L (39.0-53.0) % RDW 17.2 H (11.5-15.5) % Neutrophils # 15.1 H (1.3-7.7) k/uL Lymphocytes # 0.7 L (1.0-4.8) k/uL Sodium 132 L (137-145) mmol/L Chloride 90 L (98-107) mmol/L Carbon Dioxide 37 H (22-30) mmol/L BUN 29 H (9-20) mg/dL Glucose 191 H (74-99) mg/dL Calcium 8.1 L (8.4-10.2) mg/dL Assessment and Plan Plan: Comments: CT scan report from 04/10/19 did not show any metastatic progression Chest x-ray: report reviewed CT scan - abdomen: report reviewed CT scan - chest: report reviewed CT scan - pelvis: report reviewed Assessment and Plan: Acute Respiratory Distress: Secondary to Pleural effusions: - Difficult to cough up secretions - Increased oral secretion, scope patch placed Pleural effusion - The patient is presenting with recurrent pleural effusion. Loculated He had thoracentesis on 04/20/19, with cytology negative. He had significant progressive respiratory distress on admission. The recurrent pleural effusion is likely a contributor, though based on the clinical presentation sepsis with possible pneumonia is also most likely a cause. - Today he is breathing better, he is status post 2400cc by Dr. Hartman thoracentesis and pleurex drain placement. - He has had continued amount of fluid removed, pathology resulted without obvious signs of metastatic disease to pleura Anticoagulated - Resume eliquis as long as no further procedures planned at this point, platelets are stable, no active bleeding. Sepsis: - He presented with Sepsis picture and full hickey cultures were worked up, he continues on antibiotics, WBC are trending down - Another possibility could also be a leak from the esophagus causing a dandre mical pneumonitis. - The patient is not neutropenic. - Continue abx per ID - If fluid is found to be inflammatory, it would be reasonable to consider barium swallow to rule out a leak. Esophageal carcinoma: - Follow-up with after discharge for treatment plan Normocytic Anemia: - Monitor Daily CBC Leukocytosis: - Trending down HX: DVTs A-fib with RVR: - Eliquis restarted this weekend Discussed with killian. Plan to repeat chest xray for possible pleurex placement prior to discharge. Continue close monitoring and supportive care Plan home with homecare, PT/OT Mary Beth Arreguin NP
[2019-05-11] MEDS: SODIUM CHLORIDE 0.9% 1,000 ML IV SCH (22:02)
[2019-05-12] MEDS: guaiFENesin SYRUP 100MG/5ML 200 MG/10 ML CUP PO PRN ×2 (02:47→21:03)
--- NOTE | 2019-05-12 07:38 | XR ---
EXAMINATION TYPE: XR chest 2V DATE OF EXAM: 05/12/2019 COMPARISON: Chest x-ray 3 days ago told her x-ray. CT chest May 02, 2019. HISTORY: Pleural effusion. TECHNIQUE: Frontal and lateral views of the chest are obtained. FINDINGS: Osseous structures redemonstrated demineralized. Exaggerated thoracic kyphosis with chroni c mild compression type fracture mid thoracic spine redemonstrated. There is persistent mild cardiome cyrstal with large metallic stent graft in the esophagus. There is poor visualization of the right inter nal jugular Mediport catheter. There is persistent small left pleural effusion and associated left ba silar atelectasis and/or infiltrate. There is persistent right basilar hydropneumothorax with air-flu id levels occupying roughly lower one half of the right thorax. No new mediastinal shift. IMPRESSION: As above. No significant change from most recent x-ray. Persistent right lower thoracic l ikely multiloculated hydropneumothorax with multiple air-fluid levels and associated right lung atele ctasis and/or infiltrate. Persistent small left pleural effusion and associated left basilar atelecta sis and/or infiltrate. No mediastinal shift. No significant interval change from most recent x-ray.
[2019-05-12] MEDS: METOCLOPRAMIDE 5 MG/ML 2 ML VIAL IVP PRN ×2 (07:51→15:53)
[2019-05-12] MEDS: FUROSEMIDE 10 MG/ML 4 ML VIAL IV SCH (08:36)
[2019-05-12] MEDS: DULoxetine HCL 20 MG CAPSULE.DR PO SCH (08:37)
[2019-05-12] MEDS: CYANOCOBALAMIN 500 MCG TAB PO SCH (08:37)
[2019-05-12] MEDS: APIXABAN 5 MG TAB PO SCH ×2 (08:37→21:02)
[2019-05-12] MEDS: MULTIVITAMINS, THERA 1 EACH TAB PO SCH (08:38)
[2019-05-12] MEDS: AMIODARONE 200 MG TAB PO SCH ×3 (08:38→21:02)
[2019-05-12] MEDS: ALPRAZolam 0.5 MG TAB PO SCH ×2 (08:38→21:02)
[2019-05-12] MEDS: METOPROLOL TARTRATE 25 MG TAB PO SCH ×2 (08:38→21:02)
[2019-05-12] MEDS: PANTOPRAZOLE 40 MG TABLET PO SCH ×2 (08:38→18:32)
[2019-05-12] MEDS: IPRATROPIUM-ALBUTEROL 3 ML NEB INHALATION SCH ×4 (08:43→20:07)
[2019-05-12 09:45] LABS: Anisocytosis Slight; HCT 28.8 % (39.0-53.0); HGB 8.8 gm/dL (13.0-17.5); Hypochromasia Slight; MCHC 30.6 g/dL (31.0-37.0); MCV 94.5 fL (80.0-100.0); Mean Platelet Volume 8.1; Platelet Count 314 k/uL (150-450); RBC 3.05 m/uL (4.30-5.90); RDW 17.5 % (11.5-15.5); WBC 22.3 k/uL (3.8-10.6)
[2019-05-12 09:51] LABS: Potassium 3.5 mmol/L (3.5-5.1)
[2019-05-12] MEDS: FOLIC ACID 1 MG TAB PO SCH (11:33)
[2019-05-12] MEDS: THIAMINE 100 MG TAB PO SCH (11:33)
--- NOTE | 2019-05-12 13:34 | P.PN ---
Subjective Progress Note Date: 05/12/19 Principal diagnosis: Acute Respiratory Failure review of his Chest xray appeared stable since previous. He is stitting in chair eating lunch. He is still weak although his breathing is less labored today. Objective - Vital Signs Vital signs: Vital Signs Temp 97.9 F 05/12/19 11:24 Pulse 92 05/12/19 11:24 Resp 20 05/12/19 11:24 BP 109/59 05/12/19 11:24 Pulse Ox 97 05/12/19 11:24 Intake & Output 05/11/19 05/12/19 05/12/19 18:59 06:59 18:59 Intake Total 600 240 Output Total 580 850 375 Balance 20 -850 -135 Weight 88.5 kg 85 kg Intake: Oral 600 240 Output: Urine 550 850 375 Emesis 30 Other: Voiding Method Urinal Urinal # Voids 1 1 # Bowel Movements 1 - Exam - Constitutional General appearance: mild distress, improved since pleurex placed and thor acentesis - EENT Eyes: EOMI, PERRLA ENT: hearing grossly normal, normal oropharynx - Neck Neck: no lymphadenopathy Thyroid: bilateral: normal size - Respiratory Respiratory: right: diminished, dullness, bilateral: rhonchi audible crackles - Cardiovascular Rhythm: regular Heart sounds: normal: S1, S2 - Gastrointestinal General gastrointestinal: normal bowel sounds, soft - Integumentary Integumentary: normal - Neurologic Neurologic: CNII-XII intact - Musculoskeletal Musculoskeletal: generalized weakness, strength equal bilaterally - Psychiatric Psychiatric: A&O x's 3, appropriate affect - Labs CBC & Chem 7: 05/12/19 09:18 05/12/19 09:18 Labs: Abnormal Lab Results - Last 24 Hours (Table) 05/12/19 05/12/19 Range/Units 09:18 09:18 WBC 22.3 H (3.8-10.6) k/uL RBC 3.05 L (4.30-5.90) m/uL Hgb 8.8 L (13.0-17.5) gm/dL Hct 28.8 L (39.0-53.0) % MCHC 30.6 L (31.0-37.0) g/dL RDW 17.5 H (11.5-15.5) % Sodium 131 L (137-145) mmol/L Chloride 87 L (98-107) mmol/L Carbon Dioxide 38 H (22-30) mmol/L BUN 35 H (9-20) mg/dL Creatinine 1.29 H (0.66-1.25) mg/dL Glucose 281 H (74-99) mg/dL Calcium 8.0 L (8.4-10.2) mg/dL Assessment and Plan Plan: Comments: CT scan report from 04/10/19 did not show any metastatic progression Chest x-ray: report reviewed CT scan - abdomen: report reviewed CT scan - chest: report reviewed CT scan - pelvis: report reviewed Assessment and Plan: Acute Respiratory Distress: Secondary to Pleural effusions: - Difficult to cough up secretions - Increased oral secretion, scope patch placed Pleural effusion - The patient is presenting with recurrent pleural effusion. Loculated He had thoracentesis on 04/20/19, with cytology negative. He had significant progressive respiratory distress on admission. The recurrent pleural effusion is likely a contributor, though based on the clinical presentation sepsis with possible pneumonia is also most likely a cause. - Today he is breathing better, he is status post 2400cc by Dr. Hartman thoracentesis and pleurex drain placement. - He has had continued amount of fluid removed, pathology resulted without obvious signs of metastatic disease to pleura Anticoagulated - Resume eliquis as long as no further procedures planned at this point, platelets are stable, no active bleeding. Sepsis: - He presented with Sepsis picture and full hickey cultures were worked up, he continues on antibiotics, WBC are trending down - Another possibility could also be a leak from the esophagus causing a chemical pneumonitis. - The patient is not neutropenic. - Continue abx per ID - If fluid is found to be inflammatory, it would be reasonable to consider barium swallow to rule out a leak. Esophageal carcinoma: - Follow-up with after discharge for treatment plan Normocytic Anemia: - Monitor Daily CBC Leukocytosis: - Trending down HX: DVTs A-fib with RVR: - Eliquis restarted this weekend Discussed with killian. Plan to repeat chest xray for possible pleurex placement prior to discharge. Continue close monitoring and supportive care Plan home with homecare, PT/OT Will plan Telemed follow-up within the next couple weeks while he is working on increasing strength. Mary Beth Arreguin NP
--- NOTE | 2019-05-12 14:33 | P.PN ---
Subjective 64 years old male with past medical history of CVA/TIA, GERD, DVT and pulmonary embolism, hypertension, hyperlipidemia, sleep apnea, SVT, esophageal cancer status post radiation and chemotherapy in 2018 and 2019, upper GI bleed treated at [facility]. Presents with pneumonia and suspected for aspiration pneumonia. Patient remains in the ICU and his been on IV antibiotics with Zosyn and vancomycin as well as oral Levaquin of 750 mg, is also been on heparin drip comfortable Eliquis 2.5 mg at home, also his Protonix twice daily, cardiology started him on amiodarone and low-dose Lopressor while flecainide was discontinued as its thought to contribute to his heart problem. This morning he was lying in bed comfortable with no dyspnea., Blood pressure 98/67, saturating 94% on 2 L oxygen via nasal cannula, lap showed sodium 133, creatinine 0.9, WBC 12.7 K, hemoglobin 8.6, platelets 213 Patient might benefit from ECF for subacute rehab upon discharge. Cytology of pleural fluid is still pending. As per clinical physician assistant patient may need a Pleurx catheter, In the meantime he remains on heparin drip 05/07/2019 Patient remains in the ICU, is fully awake and oriented. Remains on Cardizem drip 5 mg per hour per cardiology who found it is closely. His left shoulder blade BC of 10.7 K, hemoglobin 8.2 which is stable. He remains on heparin drip as well. Sodium 133 and creatinine normal Chest tube remains to gravity on the right side, Still draining. Patient is followed by cardiothoracic surgery Patient remains on Zosyn, vancomycin, Lasix 40 mg IV twice daily, aspirin and Plavix, heparin drip and Cardizem drip 05/08/2019 Patient is seen and evaluated in follow-up today in the selected unit and has transitioned out of ICU. Per nursing staff cardiothoracic surgery will be removing right side chest tube today. Patient continues to be weak but is a little more awake and alert. Patient has been working with physical therapy and was up to the chair for short period today. Also medical consultations are following. Patient is now off the Cardizem drip and heparin drip and Eliquis May possibly be resumed tonight. Will repeat chest x-ray tomorrow. Discussed with the patient about continuing to use the incentive spirometer at least 10 times every hour while awake. Patient continues to achieve a little under 500. Patient remains on 2 L via nasal cannula. Currently no reports of chest pain except for chest wall tenderness near the chest tube site, worsening shortness of breath, or palpitations. Patient is afebrile. No reports of nausea or vomiting and patient is tolerating diet. Hemoglobin is 8.2. Patient remains on IV antibiotics in the form of vancomycin and Zosyn along with oral Levaquin and will continue at this time. Will continue to monitor closely. 05/09/2019 Patient is lying comfortably in the selected unit, his breathing somewhat better however his lung sounds still showing crepitation. And he still tachypneic. Since last night he was in A. fib in and out, currently his heart rate is contro lled. He is still on 3 L oxygen via nasal cannula and saturating 94-96 , of note the patient was not on home oxygen. He is urinating without problem. Discussed with staff to check for bladder scan Other than that Vitas looks stable. C normal 10.4, sodium 133, creatinine 1.0 05/10/2019 Patient comfortable in bed, chest tube has been taken off since yesterday, he was started on Eliquis 2.5 mg twice a day as per certified medical asst recommendation. He still slightly tachycardic around 116-120, as since yesterday is been on and off A. fib. He saturating 94% and 2 L oxygen via nasal cannula. Creatinine normal at 1.1 He remains on Zosyn, IV vancomycin, Levaquin, IV Lasix. he Is also on metoprolol and amiodarone 05/11/2019 Patient is awake, his breathing quietly, his heart rate went into A. fib several times with rates up to 130-140, Lopressor has been increased from 12.5 to 25 mg twice a day, he remains on Lopressor 2.5 mg, he has little of nosebleeds, he saturating 91% on room air however he might become hypoxic on exertion, discussed with bed side nurse to check oxygen on exertion. He still tachycardic at 115, slightly tachypneic and 20, blood pressure 119/72, rest saturation 94% on 2 L. His WBC went up today to 16.8 K, hemoglobin 9.2, sodium 132 Is on several medications including Eliquis 2.5 mg, Levaquin and IV vancomycin, Lasix 40 mg IV, also he is on metoprolol increased to 25 as well as amiodarone 200 mg 3 times a day while flecainide was discontinued as thought it might a ttributed to his arrhythmia 05/12/2019 Patient's serum sodium is going down slowly and today is 131 patient is on Lasix which is being discontinued and patient was started on normal saline 50 mL of IV normal saline and will watch him. Patient still has right-sided pleural effusion discussed with the nurse practitioner from cardiothoracic surgery apparently patient will follow with The thoracic on the as an outpatient. Constitutional: Denied any fatigue denied any fever. Cardio vascular: denied any chest pain, palpitations Gastrointestinal denied any nausea vomiting Pulmonary: Denied any shortness of breath cough Neurologic denied any new focal deficits All inpatient medications were reviewed and appropriate changes in these medications as dictated in the interval history and assessment and plan. Objective - Vital Signs Vital signs: Vital Signs Temp 97.9 F 05/12/19 11:24 Pulse 92 05/12/19 11:24 Resp 20 05/12/19 11:24 BP 109/59 05/12/19 11:24 Pulse Ox 97 05/12/19 11:24 Intake & Output 05/11/19 05/12/19 05/12/19 18:59 06:59 18:59 Intake Total 600 240 Output Total 580 850 375 Balance 20 -850 -135 Weight 88.5 kg 85 kg Intake: Oral 600 240 Output: Urine 550 850 375 Emesis 30 Other: Voiding Method Urinal Urinal # Voids 1 1 # Bowel Movements 1 - Exam GENERAL: The patient is alert and oriented x3, not in any acute distress. Sitting up in generalized weakness HEENT: Pupils are round and equally reacting to light. EOMI. No scleral icterus. No conjunctival pallor. Normocephalic, atraumatic. No pharyngeal erythema. No thyromegaly. CARDIOVASCULAR: S1 and S2 present. No murmurs, rubs, or gallops. -PULMONARY: Diffuse bilateral rhonchi ABDOMEN: Soft, nontender, nondistended, normoactive bowel sounds. No palpable organomegaly. MUSCULOSKELETAL: No joint swelling or deformity. EXTREMITIES: No cyanosis, clubbing, or pedal edema. NEUROLOGICAL: Gross neurological examination did not reveal any focal deficits. SKIN: No rashes. no petechiae. - Labs CBC & Chem 7: 05/12/19 09:18 05/12/19 09:18 Labs: Abnormal Lab Results - Last 24 Hours (Table) 05/12/19 05/12/19 Range/Units 09:18 09:18 WBC 22.3 H (3.8-10.6) k/uL RBC 3.05 L (4.30-5.90) m/uL Hgb 8.8 L (13.0-17.5) gm/dL Hct 28.8 L (39.0-53.0) % MCHC 30.6 L (31.0-37.0) g/dL RDW 17.5 H (11.5-15.5) % Sodium 131 L (137-145) mmol/L Chloride 87 L (98-107) mmol/L Carbon Dioxide 38 H (22-30) mmol/L BUN 35 H (9-20) mg/dL Creatinine 1.29 H (0.66-1.25) mg/dL Glucose 281 H (74-99) mg/dL Calcium 8.0 L (8.4-10.2) mg/dL Assessment and Plan Plan: Patient had right-sided pleural effusion mostly secondary to his cancer patient can use to have this effusion and patient will be discharged tomorrow and patient will follow-up with the cardiac thoracic surgery. Possibility of pneumonia is low although will continue the antibiotics for now possibility of this being parapneumonic effusion is low -Hyponatremia secondary to IV Lasix which will be discontinued will recheck the basic metabolic profile tomorrow Right pleural effusion, and right hydropneumothorax status post chest tube removal A. fib with RVR and SVT, started on small dose Eliquis Chronic kidney disease stage II, getting close to stage III Hypertension Hyperlipidemia History of CVA/TIA DVT/PE GERD Sleep apnea -Severe generalized deconditioning and a lengthy discussion with the family regarding subacute rehabilitation that not willing to send him to subacute rehab as patient does well psychologically at home with the family. -esophageal cancer metastatic, patient is being evaluated for biologic agents as an outpatient
[2019-05-12] MEDS: SODIUM CHLORIDE 0.9% 1,000 ML IV SCH (14:53)
[2019-05-12] MEDS: VANCOMYCIN 1,250 MG in SODIUM CHLORIDE 0.9% 250 ML IVPB SCH (15:53)
[2019-05-12 16:21] LABS: Glucose,Whole Blood 334 mg/dL (75-99)
[2019-05-12 17:30] LABS: Glucose,Whole Blood 307 mg/dL (75-99)
[2019-05-12] MEDS ORDERED: METOPROLOL TARTRATE 25 MG TAB PO STA (18:28)
[2019-05-12] MEDS: INSULIN ASPART (NovoLOG) 100 UNIT/ML VIAL SQ SCH ×2 (18:32→21:01)
[2019-05-12] MEDS ORDERED: INSULIN DETEMIR (LEVEMIR) 100 UNIT/ML SYR SQ SCH (21:00)
[2019-05-12] MEDS: SCOPOLAMINE 1.5MG/72HR PATCH TRANSDERM SCH (21:02)
[2019-05-12 21:10] LABS: Glucose,Whole Blood 267 mg/dL (75-99)
[2019-05-13 05:19] VITALS: BP 102/58; RESP 18; TEMP 98.4
[2019-05-13 07:05] LABS: Glucose,Whole Blood 89 mg/dL (75-99)
[2019-05-13] MEDS: IPRATROPIUM-ALBUTEROL 3 ML NEB INHALATION SCH ×2 (07:43→11:22)
[2019-05-13] MEDS: INSULIN ASPART (NovoLOG) 100 UNIT/ML VIAL SQ SCH (07:47)
[2019-05-13 07:59] LABS: Anisocytosis Slight; HGB 8.7 gm/dL (13.0-17.5); Hypochromasia Slight; MCH 29.4 pg (25.0-35.0); MCV 94.7 fL (80.0-100.0); Platelet Count 318 k/uL (150-450); RBC 2.96 m/uL (4.30-5.90); RDW 17.4 % (11.5-15.5); WBC 19.7 k/uL (3.8-10.6)
[2019-05-13] MEDS: VANCOMYCIN 1,250 MG in SODIUM CHLORIDE 0.9% 250 ML IVPB SCH (08:14)
[2019-05-13] MEDS: CYANOCOBALAMIN 500 MCG TAB PO SCH (08:15)
[2019-05-13] MEDS: MULTIVITAMINS, THERA 1 EACH TAB PO SCH (08:15)
[2019-05-13] MEDS: APIXABAN 5 MG TAB PO SCH (08:15)
[2019-05-13] MEDS: METOPROLOL TARTRATE 25 MG TAB PO SCH (08:15)
[2019-05-13] MEDS: PANTOPRAZOLE 40 MG TABLET PO SCH (08:16)
[2019-05-13] MEDS: FOLIC ACID 1 MG TAB PO SCH (08:16)
[2019-05-13] MEDS: THIAMINE 100 MG TAB PO SCH (08:16)
[2019-05-13] MEDS: AMIODARONE 200 MG TAB PO SCH (08:16)
[2019-05-13] MEDS: DULoxetine HCL 20 MG CAPSULE.DR PO SCH (08:16)
[2019-05-13] MEDS: ALPRAZolam 0.5 MG TAB PO SCH (08:16)
[2019-05-13 08:33] LABS: Calcium 8.1 mg/dL (8.4-10.2); Potassium 3.8 mmol/L (3.5-5.1)
[2019-05-13] MEDS: SODIUM CHLORIDE 0.9% 1,000 ML IV SCH (10:45)
[2019-05-13 11:26] VITALS: PULSE 80
--- NOTE | 2019-05-13 12:35 | P.DS ---
Providers Date of admission: 05/01/19 16:14 Expected date of discharge: 05/13/19 Attending physician: Merritt Shay Consults: 05/01/19 16:15 Consult Physician Urgent Consulting Provider: Jacinto Hartman Consult Reason/Comments: Dyspnea, pleural effusion, pneumonia Do you want consulting provider notified?: Yes Consult Physician Urgent Consulting Provider: Fanta Hanna Consult Reason/Comments: oncological care Do you want consulting provider notified?: Yes 05/02/19 09:11 Consult Physician Routine Consulting Provider: Josue Pena Consult Reason/Comments: Loculated right sided pneumothorax Do you want consulting provider notified?: Already Contacted 05/05/19 12:27 Consult Physician Stat Consulting Provider: Laura Reed Consult Reason/Comments: Afib RVR Do you want consulting provider notified?: Already Contacted Primary care physician: Fanta Hanna [facility] Course: Final diagnosis -right-sided pleural effusion mostly secondary to his cancer -Hyponatremia secondary to IV Lasix -Right pleural effusion, and right hydropneumothorax status post chest tube removal -A. fib with RVR and SVT -Chronic kidney disease stage II, getting close to stage III -Hypertension -Hyperlipidemia -History of CVA/TIA -DVT/PE -GERD -Sleep apnea -Severe generalized deconditioning -esophageal cancer metastatic Discharge disposition Patient is being discharged in stable condition with poor and guarded prognosis to home and will continue with home care in the outpatient setting. Patient will follow-up with Dr. Milan Ca along with in the outpatient setting. Patient will continue on a short course of oral antibiotics in the form of Ceftin twice daily for the next 5 days and then may discontinue. Total time taken is 35 minutes. History of present illness This is a 64-year-old male who was recently admitted with pneumonia and suspected aspiration pneumonia and was being closely monitored. Patient was in the ICU for some time and has been treated with IV antibiotics and had a chest tube placed in the right side for pleural effusion. Chest tube has been removed and patient is tolerating well. There is been discussion with possible o utpatient Pleurx catheter. Patient will follow up with cardiothoracic surgery in the outpatient setting. Patient is following with oncology and will continue to follow in the outpatient setting. During hospitalization patient continues to be in A. fib and is going in and out of RVR and will continue in the outpatient setting on amiodarone oral along with anticoagulant Eliquis. Patient continues to be quite weak and lethargic and discussed with him about possible rehab and patient and family are not willing to go to rehab or fci facility at this time. Patient would like to go home and continue with home care with possible discussion of hospice in the near future. Currently no reports of chest pain, worsening shortness of breath, or palpitations. Patient is afebrile. No reports of nausea or vomiting and patient is tolerating diet. Patient will need repeat labs in the outpatient setting to monitor creatinine and sodium levels. Patient will be discharged today with continued home care and possible discussion of hospice in the outpatient setting. On exam vital signs are stable. Temp is 98.4F, pulse is 81, respirations are 18, blood pressure is 102/58, oxygen saturation is 96% on 2 L via nasal cannula. Cardio S1, S2 are present. Respiratory system shows diminished breath sounds at the bases with some scattered rhonchi noted. Abdomen is soft and nontender. Nervous system shows no focal deficits. Please refer to medication reconciliation sheet for a list of medications. Patient Condition at Discharge: Poor Plan - Discharge Summary Discharge Rx Participant: Yes New Discharge Prescriptions: New Cefuroxime Axetil [Ceftin] 500 mg PO BID 5 Days #10 tab Amiodarone [Cordarone] 200 mg PO TID 30 Days #90 tab Metoprolol Tartrate [Lopressor] 25 mg PO BID 30 Days #60 tab guaiFENesin SYRUP 100MG/5ML [Robitussin] 200 mg PO TID PRN #21 ml PRN Reason: Cough Scopolamine [Scopolamine 1 MG/72 HR patch] 1 patch TRANSDERM Q72H #10 patch Continue Omeprazole [PriLOSEC] 20 mg PO BID ALPRAZolam [Xanax] 0.5 mg PO BID PRN PRN Reason: Anxiety DULoxetine HCL [Cymbalta] 20 mg PO QAM Apixaban [Eliquis] 2.5 mg PO BID Multivitamins, Thera [Multivitamin (formulary)] 1 tab PO DAILY Cyanocobalamin (Vitamin B-12) [Vitamin B-12] 1,000 mcg PO DAILY Prochlorperazine [Compazine] 10 mg PO Q6H PRN PRN Reason: Nausea Discontinued Flecainide Acetate [Tambocor] 100 mg PO BID Discharge Medication List Omeprazole [PriLOSEC] 20 mg PO BID 10/02/16 [History] ALPRAZolam [Xanax] 0.5 mg PO BID PRN 01/20/17 [History] DULoxetine HCL [Cymbalta] 20 mg PO QAM 03/09/17 [History] Apixaban [Eliquis] 2.5 mg PO BID 11/17/18 [History] Cyanocobalamin (Vitamin B-12) [Vitamin B-12] 1,000 mcg PO DAILY 12/31/18 [History] Multivitamins, Thera [Multivitamin (formulary)] 1 tab PO DAILY 12/31/18 [History] Prochlorperazine [Compazine] 10 mg PO Q6H PRN 05/01/19 [History] Amiodarone [Cordarone] 200 mg PO TID 30 Days #90 tab 05/13/19 [Rx] Cefuroxime Axetil [Ceftin] 500 mg PO BID 5 Days #10 tab 05/13/19 [Rx] Metoprolol Tartrate [Lopressor] 25 mg PO BID 30 Days #60 tab 05/13/19 [Rx] Scopolamine [Scopolamine 1 MG/72 HR patch] 1 patch TRANSDERM Q72H #10 patch 05/13/19 [Rx] guaiFENesin SYRUP 100MG/5ML [Robitussin] 200 mg PO TID PRN #21 ml 05/13/19 [Rx] Follow up Appointment(s)/Referral(s): [facility] [NON-STAFF] - As Needed Milan Ca MD [STAFF PHYSICIAN] - 05/14/19 1:00 pm [facility] Visiting Nurse, [NON-STAFF] - 1-2 Days Fanta Hanna MD [Primary Care Provider] - 1-2 days (Please call office to make hospital follow up appointment ) Ambulatory/Diagnostic Orders: XR chest 2V [RAD.AMB] Time Frame: 05/14/19, Facility: [facility], Location: [facility] Patient Instructions/Handouts: Community Acquired Pneumonia (DC), Thoracentesis (DC) Activity/Diet/Wound Care/Special Instructions: Activity limited until follow up follow up with pcp upon discharge continue with home care continue current diet continue with antibiotics for 5 days until finished Discharge Disposition: HOME WITH HOME HEALTH SERVICES
--- NOTE | 2019-05-13 13:50 | P.PN ---
Subjective Progress Note Date: 05/13/19 Principal diagnosis: Acute Respiratory Failure Planning to be discharged this afternoon with home care Objective - Vital Signs Vital signs: Vital Signs Temp 98.4 F 05/13/19 05:18 Pulse 80 05/13/19 11:37 Resp 18 05/13/19 05:18 BP 102/58 05/13/19 05:18 Pulse Ox 96 05/13/19 05:18 Intake & Output 05/12/19 05/13/19 05/13/19 18:59 06:59 18:59 Intake Total 240 540 250 Output Total 375 Balance -135 540 250 Weight 68.5 kg 88.5 kg Intake: IV 250 Vancomycin 1,250 mg In 250 Sodium Chloride 0.9% 250 ml @ 125 mls/hr IVPB Q16H [facility] Rx#:[id number] Oral 240 540 Output: Urine 375 Other: Voiding Method Urinal # Voids 0 # Bowel Movements 1 - Exam - Constitutional General appearance: mild distress, improved since pleurex placed and thoracentesis - EENT Eyes: EOMI, PERRLA ENT: hearing grossly normal, normal oropharynx - Neck Neck: no lymphadenopathy Thyroid: bilateral: normal size - Respiratory Respiratory: right: diminished, dullness, bilateral: rhonchi audible crackles - Cardiovascular Rhythm: regular Heart sounds: normal: S1, S2 - Gastrointestinal General gastrointestinal: normal bowel sounds, soft - Integumentary Integumentary: normal - Neurologic Neurologic: CNII-XII intact - Musculoskeletal Musculoskeletal: generalized weakness, strength equal bilaterally - Psychiatric Psychiatric: A&O x's 3, appropriate affect - Labs CBC & Chem 7: 05/13/19 07:36 05/13/19 07:36 Labs: Abnormal Lab Results - Last 24 Hours (Table) 05/12/19 05/12/19 05/12/19 Range/Units 16:19 16:58 20:58 WBC (3.8-10.6) k/uL RBC (4.30-5.90) m/uL Hgb (13.0-17.5) gm/dL Hct (39.0-53.0) % RDW (11.5-15.5) % Sodium (137-145) mmol/L Chloride (98-107) mmol/L Carbon Dioxide (22-30) mmol/L BUN (9-20) mg/dL Glucose (74-99) mg/dL POC Glucose (mg/dL) 334 H 307 H 267 H (75-99) mg/dL Calcium (8.4-10.2) mg/dL 05/13/19 05/13/19 Range/Units 07:36 07:36 WBC 19.7 H (3.8-10.6) k/uL RBC 2.96 L (4.30-5.90) m/uL Hgb 8.7 L (13.0-17.5) gm/dL Hct 28.0 L (39.0-53.0) % RDW 17.4 H (11.5-15.5) % Sodium 133 L (137-145) mmol/L Chloride 90 L (98-107) mmol/L Carbon Dioxide 38 H (22-30) mmol/L BUN 32 H (9-20) mg/dL Glucose 118 H (74-99) mg/dL POC Glucose (mg/dL) (75-99) mg/dL Calcium 8.1 L (8.4-10.2) mg/dL Assessment and Plan Plan: Comments: CT scan report from 04/10/19 did not show any metastatic progression Chest x-ray: report reviewed CT scan - abdomen: report reviewed CT scan - chest: report reviewed CT scan - pelvis: report reviewed Assessment and Plan: Acute Respiratory Distress: Secondary to Pleural effusions: - Difficult to cough up secretions - Increased oral secretion, scope patch placed Pleural effusion - The patient is presenting with recurrent pleural effusion. Loculated He had thoracentesis on 04/20/19, with cytology negative. He had significant progressive respiratory distress on admission. The recurrent pleural effusion is likely a contributor, though based on the clinical presentation sepsis with possible pneumonia is also most likely a cause. - Today he is breathing better, he is status post 2400cc by Dr. Hartman thoracentesis and pleurex drain placement. - He has had continued amount of fluid removed, pathology resulted without obvious signs of metastatic disease to pleura Anticoagulated - Resume eliquis as long as no further procedures planned at this point, platelets are stable, no active bleeding. Sepsis: - He presented with Sepsis picture and full hickey cultures were worked up, he continues on antibiotics, WBC are trending down - Another possibility could also be a leak from the esophagus causing a chemical pneumonitis. - The patient is not neutropenic. - Continue abx per ID - If fluid is found to be inflammatory, it would be reasonable to consider barium swallow to rule out a leak. Esophageal carcinoma: - Follow-up with after discharge for treatment plan Normocytic Anemia: - Monitor Daily CBC Leukocytosis: - Trending down HX: DVTs A-fib with RVR: - Eliquis restarted this weekend Discussed with killian. Plan to repeat chest xray for possible pleurex placement prior to discharge. Continue close monitoring and supportive care Plan home with homecare, PT/OT Will have a hospital follow-up telemed visit to continue to assess a hopefully improving performance status. Mary Beth Arreguin NP
[2019-05-13 18:56] LABS: Hemoglobin A1C 6.5 % (4.0-6.0)
== END 2019-05-13 12:28 | disposition home health service (06) | DRG 871 ==
LOC: EC 13:35 → 5NMEDONC 16:14 → 3SCARD 18:40 → 2SICU 05-02 09:21 → 3SCARD 05-07 14:18 → 6NMEDSUR 05-12 16:40
PROVIDERS: ADMIT Hospitalist; ATTEND Hospitalist
PROC: 0W993ZX Drainage of Right Pleural Cavity, Percutaneous Approach, Diagnostic (ICD-10-PCS; principal; 2019-05-02)
PROC: 0W9930Z Drainage of Right Pleural Cavity with Drainage Device, Percutaneous Approach (ICD-10-PCS; 2019-05-02)
DX: A41.50 Gram-negative sepsis, unspecified (principal); J69.0 Pneumonitis due to inhalation of food and vomit; J96.01 Acute respiratory failure with hypoxia; G93.41 Metabolic encephalopathy; I26.99 Other pulmonary embolism without acute cor pulmonale; I63.9 Cerebral infarction, unspecified; J86.9 Pyothorax without fistula; J91.8 Pleural effusion in other conditions classified elsewhere; C15.5 Malignant neoplasm of lower third of esophagus; E87.1 Hypo-osmolality and hyponatremia; E87.2 Acidosis; I47.1 Supraventricular tachycardia; J98.11 Atelectasis; N13.30 Unspecified hydronephrosis; J94.2 Hemothorax; R65.20 Severe sepsis without septic shock; D64.9 Anemia, unspecified; E78.5 Hyperlipidemia, unspecified; G47.33 Obstructive sleep apnea (adult) (pediatric); I12.9 Hypertensive chronic kidney disease with stage 1 through stage 4 chronic kidney disease, or unspecified chronic kidney disease; I48.0 Paroxysmal atrial fibrillation; K21.9 Gastro-esophageal reflux disease without esophagitis; N18.2 Chronic kidney disease, stage 2 (mild); R13.10 Dysphagia, unspecified; T50.1X5A Adverse effect of loop [high-ceiling] diuretics, initial encounter; Z79.01 Long term (current) use of anticoagulants; Z79.899 Other long term (current) drug therapy; Z86.711 Personal history of pulmonary embolism; Z86.718 Personal history of other venous thrombosis and embolism; Z86.73 Personal history of transient ischemic attack (TIA), and cerebral infarction without residual deficits; Z92.21 Personal history of antineoplastic chemotherapy; Z92.3 Personal history of irradiation; Z87.01 Personal history of pneumonia (recurrent); Z80.49 Family history of malignant neoplasm of other genital organs
CPT/HCPCS: 36415; 71045; 71046; 71260; 80048; 80053; 80202; 81001; 82150; 82272; 82465; 82550; 82565; 82945; 83036; 83605; 83615; 83880; 84157; 84478; 85025; 85027; 85610; 85730; 87040; 87070; 87205; 87324; 87502; 88108; 88305; 88341; 88342; 89050; 93005; 93306; 94640; 94760; 96365; 96366; 96367; 96375; 99285

== ENCOUNTER → 2019-05-21 | Outpatient (CLI) | payer MEDICARE ==
--- NOTE | 2019-05-21 09:36 | XR ---
EXAMINATION TYPE: XR chest 2V DATE OF EXAM: 05/21/2019 COMPARISON: 05/12/2019 HISTORY: Cough, congestion, shortness of breath. TECHNIQUE: Frontal and lateral views of the chest are obtained. FINDINGS: Moderate right pleural effusion and small left pleural effusion are unchanged from the [place]red[place] or with multiple air-fluid levels on the right indicating loculation. Right apical airspace disease i s stable and associated bibasilar airspace disease. Again there is poor visualization of the right-si ded Mediport. Exaggerated thoracic kyphosis with diffuse osseous demineralization and mid thoracic co mpression deformity are redemonstrated. The known cardiomegaly is largely obscured with thoracic aort ic stent seen on the lateral view. IMPRESSION: Exam is stable from the prior of 05/12/2019 with moderate loculated right pleural effusio n or hydropneumothorax and small left pleural effusion is also multifocal airspace disease.
== END | disposition home or self-care (01) ==
LOC: RADXRMAIN 09:18
PROVIDERS: ATTEND Thoracic Surgery (Cardiothoracic Vascular Surgery)
DX: J98.4 Other disorders of lung (principal); J90 Pleural effusion, not elsewhere classified
CPT/HCPCS: 71046

== ENCOUNTER 2019-06-05 16:32 | Inpatient (IN) | payer MEDICARE ==
[2019-06-05] MEDS ORDERED: RX INFO: IV CONTRAST WAS GIVEN 1 EACH MISC MISCELLANE PRN (16:38)
--- NOTE | 2019-06-05 17:16 | ED ---
General Adult HPI - General Chief complaint: Skin/Abscess/Foreign Body Stated complaint: infection Time Seen by Provider: 06/05/19 16:35 Source: patient Mode of arrival: wheelchair Limitations: physical limitation - History of Present Illness Initial comments: Dictation was produced using [employer] dictation software. please excuse any grammatical, word or spelling errors. This patient was cared for during a federal and state declared state of [facility] rgency secondary to Covid 19 Chief Complaint: 64-year-old male past medical history of esophageal cancer, pleuritis presents with purulent drainage from chest tube insertion site. History of Present Illness: Patient is 64-year-old nice past medical history of esophageal cancer. Patient currently undergoing cancer treatment. Today he was told to come to the emergency department after instruction by theatrical scenic designer. Cardiac theatrical scenic designer patient has been having purulent drainage from the chest tube insertion site concerning for infection. Patient initially had thoracentesis for infected pleural effusion. Patient had their centesis 3 weeks ago. Patient states that today he's been having low-grade temperatures and feeling weak. Denies any chest pain or shortness of breath. The ROS documented in this emergency department record has been reviewed and confirmed by me. Those systems with pertinent positive or negative responses have been documented in the HPI. All other systems are other negative and/or noncontributory. PHYSICAL EXAM: General Impression: Alert and oriented x3, not in acute distress HEENT: Normocephalic atraumatic, extra-ocular movements intact, pupils equal and reactive to light bilaterally, mucous membranes moist. Cardiovascular: Heart regular rate and rhythm Chest: Able to complete full sentences, no retractions, no tachypnea. Chest tube insertion site clean dry and tach however there is purulent smelling fluid saturating the dressing Abdomen: Bowel sounds present, abdomen soft, non-tender, non-distended, no organomegaly Musculoskeletal: Pulses present and equal in all extremities, no peripheral edema Motor: no focal deficits noted Neurological: CN II-XII grossly intact, no focal motor or sensory deficits noted Skin: Intact with no visualized rashes Psych: Normal affect and mood ED course: 64-year-old male presents with purulent drainage from chest tube insertion site vital signs upon arrival are within acceptable limits. Laboratory evaluation obtained. Hemoglobin 7.8. This around patient's baseline. Coag panel unremarkable. Metabolic panel shows findings within acceptable limits. Computed tomography scan of the chest shows loculated pleural effusion that appears to be redemonstrated. It is assumed that this fluid is infected considering characteristics of the fluid draining from the old chest tube site. Pending Covid testing. Patient started on broad-spectrum antibiotics. Patient given vancomycin and cefepime. Discussed patient case with Dr. Patel who is aware of the patient. Patient reevaluated at bedside he is stable appearing at this time. No indication for ICU admission. Patient will be admitted to [facility] hospitalist group. Discussed patient case with Jose Eduardo was went except patient's care. EKG interpretation: Ventricular rate 92, sinus rhythm,. Interval to 16, QRS 90, QTC 479. No VT prolongation, no QTC prolongation, no ST or T-wave changes noted. EKG compared to May 01 2019 showing no changes. Overall, this EKG is unremarkable - Related Data Home Medications Medication Instructions Recorded Confirmed Omeprazole [PriLOSEC] 20 mg PO BID 10/02/16 05/01/19 ALPRAZolam [Xanax] 0.5 mg PO BID PRN 01/20/17 05/01/19 DULoxetine HCL [Cymbalta] 20 mg PO QAM 03/09/17 05/01/19 Apixaban [Eliquis] 2.5 mg PO BID 11/17/18 05/01/19 Cyanocobalamin (Vitamin B-12) 1,000 mcg PO DAILY 12/31/18 05/01/19 [Vitamin B-12] Multivitamins, Thera [Multivitamin 1 tab PO DAILY 12/31/18 05/01/19 (formulary)] Prochlorperazine [Compazine] 10 mg PO Q6H PRN 05/01/19 05/01/19 Previous Rx's Medication Instructions Recorded Amiodarone [Cordarone] 200 mg PO TID 30 Days #90 tab 05/13/19 Cefuroxime Axetil [Ceftin] 500 mg PO BID 5 Days #10 tab 05/13/19 Metoprolol Tartrate [Lopressor] 25 mg PO BID 30 Days #60 tab 05/13/19 Scopolamine [Scopolamine 1 MG/72 1 patch TRANSDERM Q72H #10 patch 05/13/19 HR patch] guaiFENesin SYRUP 100MG/5ML 200 mg PO TID PRN #21 ml 05/13/19 [Robitussin] Allergies Allergy/AdvReac Type Severity Reaction Status Date / Time ondansetron [From Zofran] AdvReac Rapid Verified 06/05/19 16:38 Heart Rate Review of Systems ROS Statement: Those systems with pertinent positive or pertinent negative responses have been documented in the HPI. ROS Other: All systems not noted in ROS Statement are negative. Past Medical History Past Medical History: Cancer, CVA/TIA, Deep Vein Thrombosis (DVT), GERD/Reflux, Hyperlipidemia, Hypertension, Pulmonary Embolus (PE), Sleep Apnea/CPAP/BIPAP, Supraventricular Tachycardia (SVT) Additional Past Medical History / Comment(s): no cpap used, diff swallowing, esophagial cnxjac-deuvihqem-dyzt radiation 2017 and chemo-last chemo 11-03-18,steroid Oct 2018, esophageal bleed that he was treated at [facility] and they thought was related to his esophageal tumor History of Any Multi-Drug Resistant Organisms: None Reported Past Surgical History: Cardiac Ablation, Hernia Repair Additional Past Surgical History / Comment(s): sivakumar inguinal hernia, vasectomy, PEG tube placement and removal, mediport, stent in esophagus for esophageal cancer Past Anesthesia/Blood Transfusion Reactions: No Reported Reaction Past Psychological History: Anxiety Smoking Status: Never smoker Past Alcohol Use History: None Reported Past Drug Use History: None Reported - Past Family History Mother Family Medical History: Cancer Additional Family Medical History / Comment(s): uterine General Exam Limitations: physical limitation Course Vital Signs 06/05/19 06/05/19 16:36 18:49 Temperature 98.5 F Pulse Rate 92 88 Respiratory 18 28 H Rate Blood Pressure 135/80 131/77 O2 Sat by Pulse 95 96 Oximetry Medical Decision Making - Lab Data Result diagrams: 06/05/19 17:30 06/05/19 17:30 Lab Results 06/05/19 06/05/19 06/05/19 Range/Units 17:30 17:30 17:30 WBC 9.3 (3.8-10.6) k/uL RBC 2.90 L (4.30-5.90) m/uL Hgb 7.8 L (13.0-17.5) gm/dL Hct 25.4 L (39.0-53.0) % MCV 87.4 D (80.0-100.0) fL MCH 26.7 (25.0-35.0) pg MCHC 30.6 L (31.0-37.0) g/dL RDW 17.1 H (11.5-15.5) % Plt Count 493 H (150-450) k/uL Neutrophils % 80 % Lymphocytes % 8 % Monocytes % 9 % Eosinophils % 0 % Basophils % 0 % Neutrophils # 7.5 (1.3-7.7) k/uL Lymphocytes # 0.8 L (1.0-4.8) k/uL Monocytes # 0.8 (0-1.0) k/uL Eosinophils # 0.0 (0-0.7) k/uL Basophils # 0.0 (0-0.2) k/uL Hypochromasia Moderate Anisocytosis Slight PT 11.0 (9.0-12.0) sec INR 1.1 (<1.2) APTT 42.6 H (22.0-30.0) sec Sodium 132 L (137-145) mmol/L Potassium 3.8 (3.5-5.1) mmol/L Chloride 95 L (98-107) mmol/L Carbon Dioxide 32 H (22-30) mmol/L Anion Gap 5 mmol/L BUN 10 (9-20) mg/dL Creatinine 0.76 (0.66-1.25) mg/dL Est GFR (CKD-EPI)AfAm >90 (>60 ml/min/1.73 sqM) Est GFR (CKD-EPI)NonAf >90 (>60 ml/min/1.73 sqM) Glucose 125 H (74-99) mg/dL Plasma Lactic Acid Colby (0.7-2.0) mmol/L Calcium 8.0 L (8.4-10.2) mg/dL Total Bilirubin 0.3 (0.2-1.3) mg/dL AST 34 (17-59) U/L ALT 43 (4-49) U/L Alkaline Phosphatase 755 H (38-126) U/L Total Protein 7.3 (6.3-8.2) g/dL Albumin 2.5 L (3.5-5.0) g/dL 06/05/19 Range/Units 17:30 WBC (3.8-10.6) k/uL RBC (4.30-5.90) m/uL Hgb (13.0-17.5) gm/dL Hct (39.0-53.0) % MCV (80.0-100.0) fL MCH (25.0-35.0) pg MCHC (31.0-37.0) g/dL RDW (11.5-15.5) % Plt Count (150-450) k/uL Neutrophils % % Lymphocytes % % Monocytes % % Eosinophils % % Basophils % % Neutrophils # (1.3-7.7) k/uL Lymphocytes # (1.0-4.8) k/uL Monocytes # (0-1.0) k/uL Eosinophils # (0-0.7) k/uL Basophils # (0-0.2) k/uL Hypochromasia Anisocytosis PT (9.0-12.0) sec INR (<1.2) APTT (22.0-30.0) sec Sodium (137-145) mmol/L Potassium (3.5-5.1) mmol/L Chloride (98-107) mmol/L Carbon Dioxide (22-30) mmol/L Anion Gap mmol/L BUN (9-20) mg/dL Creatinine (0.66-1.25) mg/dL Est GFR (CKD-EPI)AfAm (>60 ml/min/1.73 sqM) Est GFR (CKD-EPI)NonAf (>60 ml/min/1.73 sqM) Glucose (74-99) mg/dL Plasma Lactic Acid Colby 1.0 (0.7-2.0) mmol/L Calcium (8.4-10.2) mg/dL Total Bilirubin (0.2-1.3) mg/dL AST (17-59) U/L ALT (4-49) U/L Alkaline Phosphatase (38-126) U/L Total Protein (6.3-8.2) g/dL Albumin (3.5-5.0) g/dL Disposition Clinical Impression: Loculated pleural effusion Disposition: ADMITTED IP TO THIS [facility] Condition: Fair Referrals: Fanta Hanna MD [Primary Care Provider] - 1-2 days Decision Time: 19:14
[2019-06-05 17:48] LABS: Anisocytosis Slight; Basophils % (A) 0 %; Eosinophils % (A) 0 %; HCT 25.4 % (39.0-53.0); HGB 7.8 gm/dL (13.0-17.5); Hypochromasia Moderate; Lymphocytes # (A) 0.8 k/uL (1.0-4.8); Lymphocytes % (A) 8 %; MCH 26.7 pg (25.0-35.0); MCHC 30.6 g/dL (31.0-37.0); Mean Platelet Volume 7.6; Monocytes # (A) 0.8 k/uL (0-1.0); Monocytes % (A) 9 %; Neutrophils # (A) 7.5 k/uL (1.3-7.7); Neutrophils % (A) 80 %; Platelet Count 493 k/uL (150-450); RDW 17.1 % (11.5-15.5); WBC 9.3 k/uL (3.8-10.6)
[2019-06-05 17:52] LABS: MCV 87.4 fL (80.0-100.0)
[2019-06-05 18:01] LABS: ALT 43 U/L (4-49); AST 34 U/L (17-59); African American GFR (CKD) >90 (>60 ml/min/1.73 sqM); Albumin 2.5 g/dL (3.5-5.0); Alkaline Phosphatase 755 U/L (38-126); Anion Gap 5 mmol/L; Blood Urea Nitrogen 10 mg/dL (9-20); Carbon Dioxide 32 mmol/L (22-30); Chloride 95 mmol/L (98-107); Glucose 125 mg/dL (74-99); Non-African American GFR(CKD) >90 (>60 ml/min/1.73 sqM); Potassium 3.8 mmol/L (3.5-5.1); Sodium 132 mmol/L (137-145); Total Bilirubin 0.3 mg/dL (0.2-1.3); Total Protein 7.3 g/dL (6.3-8.2)
[2019-06-05 18:23] LABS: INR 1.1 (<1.2); Partial Thromboplastin Time 42.6 sec (22.0-30.0)
[2019-06-05] MEDS ORDERED: CEFEPIME 2 GM in SODIUM CHLORIDE 0.9% 100 ML IVPB STA (18:49)
[2019-06-05] MEDS ORDERED: VANCOMYCIN IV PER PHARMACY 1 EACH MISC MISCELLANE PRN (18:49)
--- NOTE | 2019-06-05 18:52 | CT ---
EXAMINATION TYPE: CT chest w con DATE OF EXAM: 06/05/2019 COMPARISON: 05/02/2019 HISTORY: 64-year-old male pleural effusion, chest tube removed 3 weeks ago, history of esophageal can cer. TECHNIQUE: Contiguous axial scanning of the chest after the administration of 100 mL of Isovue 300. Coronal/sagittal reconstructions performed. CT DLP: 371.1 mGycm. Automatic exposure control utilized for a dose reduction. FINDINGS: Right anterior chest wall injection port with catheter tip at the lower SVC. Heart upper limits of normal in size without significant pericardial effusion. Aorta normal caliber with conventional arterial supply to anatomy. Scattered nonenlarged mediastinal lymph nodes measure up to 7 mm in the paratracheal region. Redemonstrated hydropneumothorax on the right. The pneumothorax involves approximately 50% occupying the mid and lower portion of the hemithorax and layering fluid fills half the pneumothorax. Improved aeration and some involution of pneumothorax at the apex. Some of the pleural fluid loculation at the anterior medial right base has resolved. A 1.1 cm centrally located nodular density in the right upper lobe could be inflammatory. A couple 5 mm pulmonary nodules right upper lobe, axial image 13 and 15. There is some focal subpleural opacity measuring 2.2 cm posteromedial left lower lobe, axial image 32 . Persistent volume loss and consolidation involving the right middle lobe. Right lower lobe appears completely collapsed, finding has progressed from 05/02/2019. A few scattered patchy peripheral groundglass densities in the left lung with resolution of previous left effusion. Distal gastroesophageal stent redemonstrated. There is now air within the superior half of the stent but opacification within the inferior half of the stent and some 1 cm hyperdense material also within the distal stent. There seems to be some soft tissue thickening of the upper third thoracic aorta abutting the proximal end of the stent, reference axial image 19 and coronal image 58. Small to moderate size hiatal hernia. Indeterminate hypodense lesions left liver lobe numbering approximately 3 measuring up to 8 mm Some parapelvic cysts in the left kidney and nonobstructive left renal calculus measuring 3 mm. Bones: Accentuated thoracic kyphosis. There is DISH with redemonstrated horizontal fracture of the T8 level. Air-filled fracture cleft is present along here and mild anterior wedging is unchanged. No re tropulsion into the spinal canal. IMPRESSION: 1. Redemonstrated moderate to large right-sided hydropneumothorax occupying approximately 50% of the hemithorax, decreased in size from 05/02/2019. There is no longer any mass effect on the heart and the pleural air within the upper hemithorax has resolved. The loculated pleural fluid along the anterome dial right base has also resolved. 2. Pleural fluid continues to fill half of the pneumothorax. There is worsening, now complete right l ower lobe collapse and persistent volume loss and consolidation involving the entire right middle lob e. 3. New patchy peripheral groundglass infiltrates in the left lung. 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 4. Metallic esophageal stent redemonstrated. There is continued abnormal esophageal thickening abutti ng the proximal end of the stent that could represent neoplasm. The proximal half of the stent has cl eared but the distal half of the stent remains opacified. A 1 cm hyperdense object is present within the distal stent as well. Query patient ingestion. Luyly-[id number] hiatal hernia. 5. A few right upper lobe pulmonary nodules measuring up to 1.1 cm are now visualized after improved aeration of the right upper lobe. These should be followed to exclude metastatic nodules. 6. Redemonstrated horizontal fracture through the T8 level on a background of DISH. There is persiste nt air-filled fracture cleft raising possibility of Kummel's disease. No retropulsion into the spinal canal.
[2019-06-05] MEDS ORDERED: VANCOMYCIN 1,500 MG in SODIUM CHLORIDE 0.9% 250 ML IVPB ONE (19:00)
[2019-06-05] MEDS ORDERED: NALOXONE 0.4 MG/ML 1 ML VIAL IV PRN (19:08)
[2019-06-05] MEDS: SODIUM CHLORIDE 0.9% 1,000 ML IV SCH (19:22)
[2019-06-05] MEDS ORDERED: NEBIVOLOL 5 MG TAB PO PRN (21:02)
[2019-06-05] MEDS: PANTOPRAZOLE 40 MG TABLET PO SCH (22:17)
[2019-06-05] MEDS: AMIODARONE 200 MG TAB PO SCH (22:17)
[2019-06-05] MEDS: METOPROLOL TARTRATE 25 MG TAB PO SCH (22:17)
[2019-06-05] MEDS: ALPRAZolam 0.5 MG TAB PO SCH (22:17)
[2019-06-06] MEDS: SODIUM CHLORIDE 0.9% 1,000 ML IV SCH ×3 (03:27→21:31)
[2019-06-06] MEDS: VANCOMYCIN 1,500 MG in SODIUM CHLORIDE 0.9% 250 ML IVPB SCH ×3 (05:00→21:31)
[2019-06-06] MEDS: METOPROLOL TARTRATE 25 MG TAB PO SCH ×2 (06:05→21:31)
[2019-06-06] MEDS: DULoxetine HCL 20 MG CAPSULE.DR PO SCH (06:05)
[2019-06-06] MEDS: ALPRAZolam 0.5 MG TAB PO SCH ×2 (06:05→21:31)
[2019-06-06] MEDS: AMIODARONE 200 MG TAB PO SCH ×3 (06:05→21:31)
[2019-06-06] MEDS: PANTOPRAZOLE 40 MG TABLET PO SCH ×2 (06:05→21:31)
[2019-06-06] MEDS ORDERED: PANTOPRAZOLE 40 MG/10 ML VIAL IV SCH (09:00)
--- NOTE | 2019-06-06 10:15 | US ---
EXAMINATION TYPE: US chest DATE OF EXAM: 06/06/2019 COMPARISON: Previous study dated 04/20/2019. CLINICAL HISTORY: Markings for thoracentesis by pulmonary staff. Pleural effusion TECHNIQUE: Targeted ultrasound of the posterior lower bilateral hemithoraces EXAM MEASUREMENTS: Right Pleural Effusion pocket size: 11.2 cm - POSSIBLE effusion noted, complex with solid appearanc e and multiple echogenic foci Right skin surface to fluid distance: 2.4 cm Left Pleural Effusion pocket size: not significant fluid collection visualized at this time Right side marked for possible thoracentesis outside the dept. Left side NOT marked for possible thoracentesis outside the dept. Pulmonologists are able to review the images in the patient?s EMR. IMPRESSIONS: COMPLEX MASSLIKE STRUCTURE IN THE RIGHT HEMITHORAX IS NOT SIMPLE FLUID.
--- NOTE | 2019-06-06 11:26 | P.HPIM ---
History of Present Illness patient is a pleasant 64-year-old gentleman with a history of esophageal cancer was recently discharged about a month ago from the hospitalafter he was treated for malignant pleural effusion on the right side patient did well and lasted a couple days patient started having purulent drainage from the site where he had a chest tube concerning for infection patient was having low-grade fevers at home and feeling weak. Patient denied any chest pain or shortness of breath patient is also found to have hydropneumothorax incidentally because of which pulmonary was consulted patient was vancomycin along with cefepime and was subsequently admitted to the hospital patient's cefepime was discontinued patient remains on vancomycin wound cultures will be obtained. Neurology was consulted for hydropneumothorax Review of Systems REVIEW OF SYSTEMS: CONSTITUTIONAL: No fever, no malaise, no fatigue. HEENT: No recent visual problems or hearing problems. Denied any sore throat. CARDIOVASCULAR: No chest pain, orthopnea, PND, no palpitations, no syncope. PULMONARY: No shortness of breath, no cough, no hemoptysis. GASTROINTESTINAL: No diarrhea, no nausea, no vomiting, no abdominal pain. NEUROLOGICAL: No headaches, no weakness, no numbness. HEMATOLOGICAL: Denies any bleeding or petechiae. GENITOURINARY: Denies any burning micturition, frequency, or urgency. MUSCULOSKELETAL/RHEUMATOLOGICAL: Denies any joint pain, swelling, or any muscle pain. ENDOCRINE: Denies any polyuria or polydipsia. The rest of the 14-point review of systems is negative. Past Medical History Past Medical History: Cancer, CVA/TIA, Deep Vein Thrombosis (DVT), GERD/Reflux, Hyperlipidemia, Hypertension, Pulmonary Embolus (PE), Sleep Apnea/CPAP/BIPAP, Supraventricular Tachycardia (SVT) Additional Past Medical History / Comment(s): no cpap used, diff swallowing, esophagial heigwx-hlzgmjnwl-[id number] radiation 2017 and chemo-last chemo 11-03-18,steroid Oct 2018, esophageal bleed that he was treated at [facility] and they thought was related to his esophageal tumor History of Any Multi-Drug Resistant Organisms: None Reported Past Surgical History: Cardiac Ablation, Hernia Repair Additional Past Surgical History / Comment(s): sivakumar inguinal hernia, vasectomy, PEG tube placement and removal, mediport, stent in esophagus for esophageal cancer Past Anesthesia/Blood Transfusion Reactions: No Reported Reaction Past Psychological History: Anxiety Smoking Status: Never smoker Past Alcohol Use History: None Reported Past Drug Use History: None Reported - Past Family History Mother Family Medical History: Cancer Additional Family Medical History / Comment(s): uterine Medications and Allergies Home Medications Medication Instructions Recorded Confirmed Type Omeprazole [PriLOSEC] 20 mg PO BID@0700,2300 10/02/16 06/05/19 History ALPRAZolam [Xanax] 0.5 mg PO BID@0700,2300 01/20/17 06/05/19 History DULoxetine HCL [Cymbalta] 20 mg PO DAILY@0700 03/09/17 06/05/19 History Apixaban [Eliquis] 5 mg PO BID@0700,2300 11/17/18 06/05/19 History Prochlorperazine [Compazine] 10 mg PO Q6H PRN 05/01/19 06/05/19 History Amiodarone [Cordarone] 200 mg PO TID@0700,1200,2300 06/05/19 06/05/19 History Metoprolol Tartrate [Lopressor] 25 mg PO BID@0700,2300 06/05/19 06/05/19 History Nebivolol HCl [Bystolic] 5 mg PO DAILY PRN 06/05/19 06/05/19 History Allergies Allergy/AdvReac Type Severity Reaction Status Date / Time ondansetron [From Zofran] AdvReac Rapid Verified 06/05/19 19:37 Heart Rate Physical Exam Vitals: Vital Signs Temp Pulse Pulse Resp BP BP Pulse Ox 06/06/19 08:00 97.5 F L 71 16 129/71 97 06/06/19 03:37 98.2 F 80 16 120/72 93 L 06/06/19 00:00 98.1 F 91 18 121/66 96 06/05/19 20:00 98 F 89 18 124/64 97 06/05/19 19:36 98.5 F 06/05/19 18:49 88 28 H 131/77 96 06/05/19 16:36 98.5 F 92 18 135/80 95 Intake and Output 06/05/19 06/06/19 06/06/19 22:59 06:59 14:59 Intake Total 240 Output Total 600 425 Balance -600 -185 Intake: Oral 240 Output: Urine 600 425 Other: # Voids 1 Weight 86.183 kg 86.5 kg PHYSICAL EXAMINATION: GENERAL: The patient is alert and oriented x3, not in any acute distress. Well developed, well nourished. HEENT: Pupils are round and equally reacting to light. EOMI. No scleral icterus. No conjunctival pallor. Normocephalic, atraumatic. No pharyngeal erythema. No thyromegaly. CARDIOVASCULAR: S1 and S2 present. No murmurs, rubs, or gallops. PULMONARY: Chest is clear to auscultation, no wheezing or crackles. reason breath sounds on the right lower lung espinoza ABDOMEN: Soft, nontender, nondistended, normoactive bowel sounds. No palpable organomegaly. MUSCULOSKELETAL: No joint swelling or deformity. EXTREMITIES: No cyanosis, clubbing, or pedal edema. NEUROLOGICAL: Gross neurological examination did not reveal any focal deficits. SKIN: patient had a surgical site area that has purulent drainage. Results CBC & Chem 7: 06/05/19 17:30 06/05/19 17:30 Labs: Abnormal Lab Results - Last 24 Hours (Table) 06/05/19 06/05/19 06/05/19 Range/Units 17:30 17:30 17:30 RBC 2.90 L (4.30-5.90) m/uL Hgb 7.8 L (13.0-17.5) gm/dL Hct 25.4 L (39.0-53.0) % MCHC 30.6 L (31.0-37.0) g/dL RDW 17.1 H (11.5-15.5) % Plt Count 493 H (150-450) k/uL Lymphocytes # 0.8 L (1.0-4.8) k/uL APTT 42.6 H (22.0-30.0) sec Sodium 132 L (137-145) mmol/L Chloride 95 L (98-107) mmol/L Carbon Dioxide 32 H (22-30) mmol/L Glucose 125 H (74-99) mg/dL Calcium 8.0 L (8.4-10.2) mg/dL Alkaline Phosphatase 755 H (38-126) U/L Albumin 2.5 L (3.5-5.0) g/dL Thrombosis Risk Factor Assmnt - Choose All That Apply Each Risk Factor Represents 2 Points: Age 61-74 years Each Risk Factor Represents 3 Points: History of DVT/PE Thrombosis Risk Factor Assessment Total Risk Factor Score: 5 Thrombosis Risk Factor Assessment Level: High Risk Assessment and Plan Plan: -infection of the chest tube site area: Patient will be continued on vancomycin wound cultures will be obtained -Hydropneumothorax: Pulmonology is evaluating the patient patient is also having an ultrasound of the chest. Hydropneumothorax is secondary to his recent chest tube and malignant pleural effusion. -Hyponatremia: Hypervolemic hyponatremia patient will be continued on IV fluids but clear cut down the fluids to 75 mL/h -paroxysmal A. fib: Continue with rate control medications but hisanti- correlation is on hold for possible thoracentesis -Hypertension -Hyperlipidemia -History of CVA -History of DVT and PE -Gastroesophageal reflux disease -Metastatic esophageal cancer The rest of the above-mentioned chronic medical problems patient will be resumed on home medications
[2019-06-06] MEDS: ACETAMINOPHEN TAB 325 MG TAB PO PRN (16:18)
--- NOTE | 2019-06-06 16:29 | CONS ---
CONSULTATION PULMONARY/CRITICAL CARE CONSULTATION: DATE OF SERVICE: 06/06/2019 REASON FOR CONSULTATION: Hydropneumothorax. This is a 64-year-old male who presents to the emergency department on June 04 at 16:32. He apparently comes in for evaluation of his hydropneumothorax. 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 The patient does have a history of esophageal cancer. The patient apparently previously had a chest tube in the chest for drainage of the hydropneumothorax. That apparently came out. More recently he has had a thoracentesis. There was some consideration given to a PleurX catheter. The patient is really not having much in the way of complaints. He is a little short of breath on exertion but not significantly so. A CT scan was done. It showed a moderate to large right-sided hydropneumothorax occupying approximately 50% of the hemothorax. It apparently was less in size compared to a prior study dated May 02, 2019. The patient also appears to have a metallic esophageal stent in the esophagus. Anyway, we were asked to evaluate the patient for the abnormality seen on chest x-ray and CT scan. Interestingly, we ordered an ultrasound of the chest thinking that maybe he would benefit from thoracentesis, but even though the pocket size of the abnormality in the right chest is 11.2 cm, the radiologist said there was maybe a possible effusion and mostly what was seen was complex with a solid appearance with multiple echogenic foci. The patient may benefit from either chest tube placement with tPA instillation or actual video-assisted thoracoscopic procedure with decortication. Again, the patient is minimally symptomatic at this time. Denies any fever or chills. Denies any chest pain or chest discomfort. He is not particularly short of breath. He does have some mild dyspnea when he is exerting himself. He does feel a bit weak and fatigued. I did speak to the emergency room physician. He was the one who told me about the patient and told me that the patient was quite stable appearing. HOME MEDICATIONS: Include Prilosec, Xanax, Cymbalta, Eliquis, vitamin B12, multivitamins, Compazine, Cordarone, Ceftin, Lopressor, scopolamine patch, and Robitussin. ALLERGIES: ZOFRAN. MEDICAL HISTORY: Esophageal cancer, CVA, DVT, GERD/gastroesophageal reflux disease, hyperlipidemia, hypertension, pulmonary embolism, sleep apnea syndrome, and SVT. The patient also apparently has a history of dysphagia secondary to esophageal cancer. The patient has had radiation and chemotherapy as well as stent placement. I do not believe he has ever had any surgery for his esophageal cancer. SURGICAL HISTORY: Includes cardiac ablation, hernia repair, vasectomy, PEG tube placement, esophageal stent, and Mediport insertion. SOCIAL HISTORY: Negative for tobacco use. Denies any alcohol or illicit drug use. FAMILY HISTORY: Positive for mother with uterine cancer. REVIEW OF SYSTEMS: CONSTITUTIONAL: Mild fatigue and weakness. NEUROLOGIC: Negative. HEENT: Negative. CARDIOVASCULAR: Negative. PULMONARY: Shortness of breath on exertion. GI: Dysphagia. : Negative. RHEUMATOLOGIC: Negative. IMMUNOLOGIC: Negative. ENDOCRINOLOGIC: Negative. DERMATOLOGIC: Negative. PHYSICAL EXAMINATION: Current vital signs are reviewed. Temperature is 97.5, heart rate 71, respiratory rate 16, blood pressure 129/71, mean 90 and room air saturation is 97%. No acute distress. No audible wheezing, use of accessory muscles or conversational dyspnea. HEENT: Examination is grossly unremarkable. NECK: Supple. Full range of motion. No adenopathy. Neck veins are flat. CARDIOVASCULAR: Examination reveals regular rhythm rate. S1, S2 normal. No S3, S4, or murmur. Heart rate 71. LUNGS: Reveal diminished breath sounds on the right. A few scattered rhonchi. No wheezes or crackles. Breath sounds are clear on the left side. ABDOMEN: Soft. EXTREMITIES are intact. No cyanosis, clubbing, or edema. SKIN: Without rash. NEUROLOGIC: Examination is brief but nonfocal. LABS: Reviewed. White count 9.3, hemoglobin 7.8, hematocrit 25.4, platelet count 493,000. PT/INR normal. PTT is 42.6. Sodium 132, potassium 3.8, chloride 95, CO2 is 32, anion gap is 5. BUN and creatinine were 10 and 0.76. Lactic acid is 1. Microbiology is negative. Ultrasound and CT scan are reviewed. Current medications are reviewed. The patient is on Tylenol, Xanax, Cordarone, Cymbalta, Lopressor, morphine, Narcan, Zofran, Protonix, 0.9 at 75 mL an hour, and vancomycin. ASSESSMENT: 1. Moderate to large right-sided hydropneumothorax which is actually slightly decreased in size from May 02, 2019, with recent thoracentesis done by my partner. 2. Ultrasound demonstrating a complex mass-like structure in the right hemithorax, which may not be simple fluid. 3. History of esophageal cancer, status post chemoradiation and metallic stent placement. 4. History of cerebrovascular accident. 5. History of deep venous thrombosis. 6. History of pulmonary embolism. 7. History of gastroesophageal reflux disease. 8. History of hyperlipidemia. 9. Benign essential hypertension. 10.Sleep apnea syndrome, currently not using CPAP. 11.Supraventricular tachycardia. 12.Locally recurrent esophageal cancer. PLAN: The ultrasound was reviewed. We will make an attempt at thoracentesis tomorrow. I am not sure how much fluid we will get out. If we do not get out much fluid, we may recommend either a VATS procedure and/or reinsertion of a chest tube with tPA instillation. Additional recommendations and suggestions are forthcoming. Prognosis is guarded. Interestingly, the patient is mostly asymptomatic. We will continue to follow. MMODL / IJN: [id number] /
[2019-06-07] MEDS ORDERED: VANCOMYCIN TROUGH DUE 1 EACH MISC MISCELLANE ONE (04:30)
[2019-06-07 05:32] LABS: African American GFR (CKD) >90 (>60 ml/min/1.73 sqM); Anion Gap 4 mmol/L; Blood Urea Nitrogen 8 mg/dL (9-20); Calcium 7.5 mg/dL (8.4-10.2); Carbon Dioxide 26 mmol/L (22-30); Chloride 100 mmol/L (98-107); Glucose 131 mg/dL (74-99); Non-African American GFR(CKD) >90 (>60 ml/min/1.73 sqM); Potassium 4.2 mmol/L (3.5-5.1); Sodium 130 mmol/L (137-145)
[2019-06-07 05:41] LABS: Anisocytosis Slight; HCT 22.5 % (39.0-53.0); Hypochromasia Moderate; MCHC 30.5 g/dL (31.0-37.0); MCV 88.6 fL (80.0-100.0); Mean Platelet Volume 7.7; Platelet Count 458 k/uL (150-450); RBC 2.53 m/uL (4.30-5.90); RDW 17.7 % (11.5-15.5); WBC 8.8 k/uL (3.8-10.6)
[2019-06-07] MEDS: VANCOMYCIN 1,500 MG in SODIUM CHLORIDE 0.9% 250 ML IVPB SCH ×2 (05:49→14:41)
[2019-06-07 05:59] LABS: HGB 6.9 gm/dL (13.0-17.5)
[2019-06-07] MEDS: PANTOPRAZOLE 40 MG TABLET PO SCH ×2 (06:14→22:57)
[2019-06-07] MEDS: ALPRAZolam 0.5 MG TAB PO SCH ×2 (06:14→22:57)
[2019-06-07] MEDS: AMIODARONE 200 MG TAB PO SCH ×3 (06:14→22:57)
[2019-06-07] MEDS: METOPROLOL TARTRATE 25 MG TAB PO SCH ×2 (06:14→22:57)
[2019-06-07] MEDS: DULoxetine HCL 20 MG CAPSULE.DR PO SCH (06:14)
[2019-06-07] MEDS: ONDANSETRON 4 MG/2 ML VIAL IVP PRN ×2 (08:04→16:33)
--- NOTE | 2019-06-07 09:50 | XR ---
EXAMINATION TYPE: XR chest 1V portable DATE OF EXAM: 06/07/2019 HISTORY: s/p right thoracentesis. REFERENCE: Previous study dated 05/21/2019. FINDINGS: The study is quite kyphotic in its projection. There is an injection port on the right inse rted through a internal jugular approach. The catheter tip is not clearly visualized. The study suffers from poor inspiration. Heart size is obscured. There is right basilar airspace dise ase. There is a right-sided effusion. The overall appearance is similar to previous. IMPRESSION: MARKEDLY SUBOPTIMAL EXAMINATION SHOWING NO DEFINITE INTERVAL CHANGE IN THE APPEARANCE OF THE CHEST.
[2019-06-07] MEDS ORDERED: FUROSEMIDE 10 MG/ML 4 ML VIAL IV STA (09:52)
--- NOTE | 2019-06-07 11:54 | PCN ---
PROCEDURE NOTE PROCEDURE PERFORMED: Right thoracentesis. PREOP DIAGNOSIS: Right pleural effusion. POSTOP DIAGNOSIS: Right pleural effusion. Indication Pleural effusion. A time-out was completed verifying correct patient, procedure, site, positioning , and implant (s) or special equipment if applicable. Ultrasound guidance was used and appropriate fluid pocket was identified and marked. Patient was positioned, prepped and draped in usual sterile fashion. Lidocaine was used to anesthetize the area. A Thoracentesis catheter was introduced into the pleural space and fluid was removed. Blood loss was none. A chest x-ray was ordered to evaluate for pneumothorax. Total Fluid Removed: 400 mL Color of Fluid: Foamy yellow/green Fluid was sent for appropriate laboratory tests. Patient tolerated the procedure well and there were no complications. The posterior chest was marked by ultrasound. 400 mL of foamy yellow/green fluid was removed from the right pleural space. The patient tolerated the procedure well. Chest x-ray was ordered to rule out complication from the procedure. There was informed consent and universal timeout. OPERATORS: Dr. Patel, Dr. Mc and Issa Alegre RN. Again, there was no immediate complication. A chest x-ray was ordered. The posterior right chest was marked by ultrasound. The fluid was sent for analysis including cytology, chemistry, microbiology, as well as cholesterol and triglyceride and amylase. MMODL / IJN: [id number] /
--- NOTE | 2019-06-07 12:00 | P.PN ---
Subjective Progress Note Date: 06/07/19 Principal diagnosis: Right-sided hydropneumothorax The patient is seen today 06/07/2019 in follow-up on the selective care unit. He is currently sitting up at the bedside. Awake and alert in no acute distress. He is still somewhat dyspneic. He is on 10 L high flow nasal cannula and maintaining O2 saturation in the 90s. He is afebrile. Hemodynamically stable. Ultrasound of the chest had revealed complex masslike structure in the right hemithorax and was not simple fluid. The pocket was measuring at approximately 11.[address] scan had redemonstrated moderate to large right- sided hydropneumothorax occupying approximately 50% of the hemithorax. This was actually decreased in size compared to 05/02/2019. There was no longer mass effect on the heart and the pleural air within the upper hemithorax had resolved. There is loculated pleural fluid along the anterolateral right base. There is new patchy peripheral groundglass appearance of the left lung. There were a few right upper lobe pulmonary nodules measuring 1.1 cm. white count 8.8. Hemoglobin 6.9. Platelets 458. Sodium 130. Potassium 4.2. Creatinine 0.68. Objective - Vital Signs Vital signs: Vital Signs Temp 97.5 F L 06/07/19 11:04 Pulse 66 06/07/19 11:04 Resp 14 06/07/19 11:04 BP 112/56 06/07/19 11:04 Pulse Ox 92 L 06/07/19 08:25 Intake & Output 06/06/19 06/07/19 06/07/19 18:59 06:59 18:59 Intake Total 100 Output Total 300 Balance -300 100 Weight 88.5 kg Intake: Oral 100 Blood Product 0 Rc As-1 Unit 0 [id number] Output: Urine 300 Other: # Voids 1 # Bowel Movements 1 - Exam GENERAL EXAM: Alert, very pleasant 64-year-old gentleman, up in a chair at the bedside, and 10 L high flow nasal cannula. Fairly comfortable in no apparent distress. HEAD: Normocephalic. EYES: Normal reaction of pupils, equal size. NOSE: Clear with pink turbinates. THROAT: No erythema or exudates. NECK: No masses, no JVD. CHEST: No chest wall deformity. LUNGS: Equal air entry with few scattered rhonchi crackles in the right base CVS: S1 and S2 normal with no audible murmur, regular rhythm. ABDOMEN: No hepatosplenomegaly, normal bowel sounds, no guarding or rigidity. SPINE: No scoliosis or deformity SKIN: Surgical site area with purulent drainage of the right chest CENTRAL NERVOUS SYSTEM: No focal deficits, tone is normal in all 4 extremities. EXTREMITIES: There is no peripheral edema. No clubbing, no cyanosis. Peripheral pulses are intact. - Labs CBC & Chem 7: 06/07/19 04:52 06/07/19 04:52 Labs: Abnormal Lab Results - Last 24 Hours (Table) 06/07/19 06/07/19 06/07/19 Range/Units 04:52 04:52 06:23 RBC 2.53 L (4.30-5.90) m/uL Hgb 6.9 L* (13.0-17.5) gm/dL Hct 22.5 L (39.0-53.0) % MCHC 30.5 L (31.0-37.0) g/dL RDW 17.7 H (11.5-15.5) % Plt Count 458 H (150-450) k/uL Sodium 130 L (137-145) mmol/L BUN 8 L (9-20) mg/dL Glucose 131 H (74-99) mg/dL Calcium 7.5 L (8.4-10.2) mg/dL Crossmatch See Detail Microbiology - Last 24 Hours (Table) 06/06/19 12:30 Gram Stain - Preliminary Breast - Right Wound Culture - Preliminary 06/05/19 17:30 Blood Culture - Preliminary Blood No Growth after 24 hours 06/06/19 12:36 Anaerobic Culture - Preliminary Breast - Right Assessment and Plan Assessment: 1 Acute hypoxic respiratory failure secondary to right-sided hydropneumothorax occupying 50% of the hemithorax. Ultrasound of the chest reveals an 11.2 cm pocket with multiple echogenic foci. Right-sided thoracentesis performed today 06/07/2019 with approximately 400 ML's of purulent greenish yellow liquid returned. 2 Recurrent right-sided pleural effusion with previous thoracentesis performed on 05/02/2019 with subsequent hydropneumothorax requiring right-sided chest tube placement. Negative for malignancy. Cultures were positive for diphtheroid species. 3 Open wound with drainage from previous chest tube insertion site, cultures pending 4 History of esophageal cancer, status post chemoradiation and metallic stent placement 5 Anemia with a hemoglobin of 6.9, receiving a unit of packed red blood cells today for 2019 6 History of DVT/PE 7 History of GERD 8 Hyperlipidemia 9 Hypertension 10 History of obstructive sleep apnea, currently not using CPAP 11 History of supraventricular tachycardia 12 History of CVA 13 Severe kyphosis Plan: The patient was seen and evaluated by Dr. Patel. He did go ahead and perform a right-sided thoracentesis. Approximately 400 ML's of purulent greenish yellow fluid was returned. Cultures and cytology pending. Follow-up chest x-ray revealed no definite interval change. Initiated on Vancomycin and Unasyn. Cardiothoracic surgeon consulted. Receiving 1 unit of packed red blood cells today for anemia. Titrate down the FiO2 as tolerated. We will continue to follow and make further recommendations based on his clinical status. I, the cosigning physician, performed a history & physical examination of the patient. Lungs sounds with scattered rhonchi, crackles in the right lung base, diminished. Maintaining good O2 saturations in the 90s on 10 L high flow nasal cannula. I discussed the assessment and plan of care with my nurse practitioner, Padmini Mc. I attest to the above note as dictated by her.
--- NOTE | 2019-06-07 12:36 | P.GSCN ---
History of Present Illness Consult date: 06/07/19 Reason for Consult: Recurrent right pleural effusion Requesting physician: Henry Patel History of present illness: This is a 64-year-old gentleman who follows on an outpatient basis with . 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 He presented to the emergency department here at [facility] on 06/05/2019 with instructions from his parts chaser, as the patient had complaints of drainage from his previous chest tube insertion site concerning for infection. Patient also reports that he has been having a low-grade fever and a feeling of generalized weakness at home. He denies any complaints of shortness of breath, chest pain, nausea, vomiting, diarrhea, cough or hemoptysis. In the emergency department a computed tomography scan of his chest was completed which redemonstrated a moderate to large right-sided hydropneumothorax occupying approximately 50% of the hemithorax, decrease in size from 05/02/2019. It also demonstrated worsening, now completed right lower lobe collapse and persistent volume loss and consolidation involving the entire right middle lobe, new patchy peripheral groundglass infiltrates in the left lung, metallic esophageal stent, and continued abnormal esophageal thickening abutting the proximal end of the stent that could represent neoplasm, a few right upper lobe pulmonary nodules measurin g 1.1 cm were visualized in the report, improved aeration of the right upper lobe which could not be excluded for metastatic nodules and redemonstration horizontal fracture through the T8 level. Due to the findings on the computed tomography scan of his chest Dr. Patel from pulmonary medicine was consulted and ordered an ultrasound of the chest with markings. The ultrasound of his chest demonstrated an 11.2 cm right pleural effusion pocket with a complex solid appearance and multiple echogenic foci. Subsequently, the patient underwent a right thoracentesis today performed by Dr. Patel with 400 mL of foamy yellow/green foul-smelling drainage removed. Due to the recurrent right pleural effusion a consult was placed to Dr. Milan Ca from cardiothoracic surgery for further evaluation and treatment recommendations. Review of Systems A 14 point review of systems was completed was negative except as mentioned in the HPI. Past Medical History Past Medical History: Cancer, CVA/TIA, Deep Vein Thrombosis (DVT), GERD/Reflux, Hyperlipidemia, Hypertension, Pulmonary Embolus (PE), Sleep Apnea/CPAP/BIPAP, Supraventricular Tachycardia (SVT) Additional Past Medical History / Comment(s): no cpap used, diff swallowing, esophagial [id number]-doth radiation 2017 and chemo-last chemo Oct 27-02 26,steroid Oct 2018, esophageal bleed that he was treated at [facility] and they thought was related to his esophageal tumor History of Any Multi-Drug Resistant Organisms: None Reported Past Surgical History: Cardiac Ablation, Hernia Repair Additional Past Surgical History / Comment(s): sivakumar inguinal hernia, vasectomy, P EG tube placement and removal, mediport, stent in esophagus for esophageal cancer Past Anesthesia/Blood Transfusion Reactions: No Reported Reaction Past Psychological History: Anxiety Smoking Status: Never smoker Past Alcohol Use History: None Reported Past Drug Use History: None Reported - Past Family History Mother Family Medical History: Cancer Additional Family Medical History / Comment(s): uterine Medications and Allergies Home Medications Medication Instructions Recorded Confirmed Type Omeprazole [PriLOSEC] 20 mg PO BID@0700,2300 10/02/16 06/05/19 History ALPRAZolam [Xanax] 0.5 mg PO BID@0700,2300 01/20/17 06/05/19 History DULoxetine HCL [Cymbalta] 20 mg PO DAILY@0700 03/09/17 06/05/19 History Apixaban [Eliquis] 5 mg PO BID@0700,2300 11/17/18 06/05/19 History Prochlorperazine [Compazine] 10 mg PO Q6H PRN 05/01/19 06/05/19 History Amiodarone [Cordarone] 200 mg PO TID@0700,1200,2300 06/05/19 06/05/19 History Metoprolol Tartrate [Lopressor] 25 mg PO BID@0700,2300 06/05/19 06/05/19 History Nebivolol HCl [Bystolic] 5 mg PO DAILY PRN 06/05/19 06/05/19 History Allergies Allergy/AdvReac Type Severity Reaction Status Date / Time ondansetron [From Zofran] AdvReac Rapid Verified 06/05/19 19:37 Heart Rate Surgical - Exam Vital Signs Temp Pulse Resp BP Pulse Ox 98.5 F 92 18 135/80 95 06/05/19 16:36 06/05/19 16:36 06/05/19 16:36 06/05/19 16:36 06/05/19 16:36 Alert, very pleasant chronically ill 64-year-old gentleman, up in a chair at the bedside, and 10 L high flow nasal cannula with oxygen saturations 93%. Fairly comfortable in no apparent distress. - General no distress, no pain, cachectic, chronically ill - Eyes PERRL, normal ocular movement - ENT Normocephalic normal pinna, normal nares, normal mucosa, no hearing loss, no congestion - Neck Neck is supple, no JVD. no masses, no bruits, trachea midline, no venous distension - Respiratory Lung sounds with equal air entry with few scattered rhonchi crackles in the right base and diminished to his right lower lobe. Respirations are symmetrical and nonlabored. - Cardiovascular Regular rhythm and rate. S1 and S2 normal with no audible murmur, regular rhythm. - Abdomen Abdomen is soft and nontender. Nondistended. No hepatosplenomegaly, normal bowel sounds, no guarding or rigidity. - Genitourinary Deferred - Rectum Deferred - Integumentary Surgical site area with scant purulent drainage of the right chest - Neurologic Cranial nerves II through XII intact. - Musculoskeletal Generalized weakness. Strength equal bilaterally. - Psychiatric oriented to time, oriented to person, oriented to place, speech is normal, memory intact Results - Labs 06/07/19 04:52 06/07/19 04:52 Abnormal Lab Results - Last 24 Hours (Table) 06/07/19 06/07/19 06/07/19 Range/Units 04:52 04:52 06:23 RBC 2.53 L (4.30-5.90) m/uL Hgb 6.9 L* (13.0-17.5) gm/dL Hct 22.5 L (39.0-53.0) % MCHC 30.5 L (31.0-37.0) g/dL RDW 17.7 H (11.5-15.5) % Plt Count 458 H (150-450) k/uL Sodium 130 L (137-145) mmol/L BUN 8 L (9-20) mg/dL Glucose 131 H (74-99) mg/dL Calcium 7.5 L (8.4-10.2) mg/dL Crossmatch See Detail Microbiology - Last 24 Hours (Table) 06/06/19 12:30 Gram Stain - Preliminary Breast - Right Wound Culture - Preliminary 06/05/19 17:30 Blood Culture - Preliminary Blood No Growth after 24 hours 06/06/19 12:36 Anaerobic Culture - Preliminary Breast - Right Diabetes panel 06/07/19 Range/Units 04:52 Sodium 130 L (137-145) mmol/L Potassium 4.2 (3.5-5.1) mmol/L Chloride 100 (98-107) mmol/L Carbon Dioxide 26 (22-30) mmol/L BUN 8 L (9-20) mg/dL Creatinine 0.68 (0.66-1.25) mg/dL Glucose 131 H (74-99) mg/dL Calcium 7.5 L (8.4-10.2) mg/dL Calcium panel 06/07/19 Range/Units 04:52 Calcium 7.5 L (8.4-10.2) mg/dL Pituitary panel 06/07/19 Range/Units 04:52 Sodium 130 L (137-145) mmol/L Potassium 4.2 (3.5-5.1) mmol/L Chloride 100 (98-107) mmol/L Carbon Dioxide 26 (22-30) mmol/L BUN 8 L (9-20) mg/dL Creatinine 0.68 (0.66-1.25) mg/dL Glucose 131 H (74-99) mg/dL Calcium 7.5 L (8.4-10.2) mg/dL Adrenal panel 06/07/19 Range/Units 04:52 Sodium 130 L (137-145) mmol/L Potassium 4.2 (3.5-5.1) mmol/L Chloride 100 (98-107) mmol/L Carbon Dioxide 26 (22-30) mmol/L BUN 8 L (9-20) mg/dL Creatinine 0.68 (0.66-1.25) mg/dL Glucose 131 H (74-99) mg/dL Calcium 7.5 L (8.4-10.2) mg/dL Assessment and Plan Assessment: 1 Acute hypoxic respiratory failure secondary to right-sided hydropneumothorax o ccupying 50% of the hemithorax. Ultrasound of the chest reveals an 11.2 cm pocket with multiple echogenic foci. Right-sided thoracentesis performed today 06/07/2019 with approximately 400 ML's of foul smelling, purulent greenish/yellow liquid drained. 2 Recurrent right-sided pleural effusion with previous thoracentesis performed on 05/02/2019 with subsequent hydropneumothorax requiring right-sided chest tube placement. Negative for malignancy. Cultures were positive for diphtheroid species. 3 Open wound with drainage from previous chest tube insertion site, cultures pending 4 History of esophageal cancer, status post chemoradiation and metallic stent placement 5 Anemia with a hemoglobin of 6.9, receiving a unit of packed red blood cells today for 2019 6 History of DVT/PE 7 History of GERD 8 Hyperlipidemia 9 Hypertension 10 History of obstructive sleep apnea, currently not using CPAP 11 History of supraventricular tachycardia 12 History of CVA 13 Severe kyphosis Plan: The patient was seen and examined with Dr. Milan Ca at his bedside on the cardiac stepdown unit. His chart and diagnostics were reviewed. He is in no acute distress. He is status post a right thoracentesis today with 400 mL of thick foamy purulent greenish/yellow fluid drained which was performed by Dr. Patel from pulmonary medicine. Dr. Ca discussed with the patient the findings on his computed tomography scan of his chest and is recommending right chest Pleurx catheter placement for recurrent pleural effusion. Risks and benefits of the Pleurx catheter placement were discussed with the patient by Dr. Milan Ca. The patient wishes to proceed with an elective right Pleurx catheter placement to be completed on 06/09/2019. He will be made nothing by mouth after midnight on 06/09/2019. Continue IV antibiotic treatments managed by pulmonary medicine. Wean oxygen as tolerated. Encourage use of his incentive spirometry 10 times every hour while awake. Medical management and other comorbidities per primary care service. Thank you Dr. Patel for this consult and look for to work with you in the care of this patient. Time with Patient: Greater than 30
[2019-06-07 12:44] LABS: Appearance,BF Cloudy; Nucleated Cells, Body Fluid 164500 /uL; RBC, Body Fluid 56 /uL
[2019-06-07 12:47] LABS: Mononuclear WBC,Body Fluid 40 %; Polynuclear WBC,Body Fluid 60 %; Total Cells Counted,Body Fluid 100
--- NOTE | 2019-06-07 13:34 | P.PN ---
Subjective 64-year-old gentleman with a history of esophageal cancer was recently discharged about a month ago from the hospitalafter he was treated for malignant pleural effusion on the right side patient did well and lasted a couple days patient started having purulent drainage from the site where he had a chest tube concerning for infection patient was having low-grade fevers at home and feeling weak. Patient denied any chest pain or shortness of breath patient is also found to have hydropneumothorax incidentally because of which pulmonary was cons ulted patient was vancomycin along with cefepime and was subsequently admitted to the hospital patient's cefepime was discontinued patient remains on vancomycin wound cultures will be obtained. Neurology was consulted for hydropneumothorax 06/07/2019 Patient underwent thoracocentesis with drainage of about 400 mL of purulent greenish fluid and the patient's pleural fluid appears to be exudative with highly elevated white blood cell count. We consulted infectious disease, patient won't cultures are positive for gram-negative bacilli patient was started on Unasyn continue with vancomycin. Patient's serum sodium has come down because of which I'm discontinued IV fluids patient was started on fluid restriction Will repeat basic metabolic profile again tomorrow if it continues to go down below further workup for hyponatremia. Patient hemoglobin has come down to 6.9 no evidence of acute bleed and this is probably secondary to hemodilution 3 affect patient was given 1 unit of PRBC transfusion. Constitutional: Denied any fatigue denied any fever. Cardio vascular: denied any chest pain, palpitations Gastrointestinal denied any nausea vomiting Pulmonary: Denied any shortness of breath cough Neurologic denied any new focal deficits All inpatient medications were reviewed and appropriate changes in these medications as dictated in the interval history and assessment and plan. Objective - Vital Signs Vital signs: Vital Signs Temp 97.5 F L 06/07/19 11:34 Pulse 75 06/07/19 11:34 Resp 16 06/07/19 12:00 BP 134/69 06/07/19 11:34 Pulse Ox 98 06/07/19 11:34 Intake & Output 06/06/19 06/07/19 06/07/19 18:59 06:59 18:59 Intake Total 100 Output Total 300 Balance -300 100 Weight 88.5 kg Intake: Oral 100 Blood Product 0 Rc As-1 Unit 0 [id number] Output: Urine 300 Other: # Voids 1 # Bowel Movements 1 - Exam PHYSICAL EXAMINATION: GENERAL: The patient is alert and oriented x3, not in any acute distress. Well developed, well nourished. HEENT: Pupils are round and equally reacting to light. EOMI. No scleral icterus. No conjunctival pallor. Normocephalic, atraumatic. No pharyngeal erythema. No thyromegaly. CARDIOVASCULAR: S1 and S2 present. No murmurs, rubs, or gallops. PULMONARY: Chest is clear to auscultation, no wheezing or crackles. reason breath sounds on the right lower lung espinoza ABDOMEN: Soft, nontender, nondistended, normoactive bowel sounds. No palpable organomegaly. MUSCULOSKELETAL: No joint swelling or deformity. EXTREMITIES: No cyanosis, clubbing, or pedal edema. NEUROLOGICAL: Gross neurological examination did not reveal any focal deficits. SKIN: patient had a surgical site area that has purulent drainage. - Labs CBC & Chem 7: 06/07/19 04:52 06/07/19 04:52 Labs: Abnormal Lab Results - Last 24 Hours (Table) 06/07/19 06/07/19 06/07/19 Range/Units 04:52 04:52 06:23 RBC 2.53 L (4.30-5.90) m/uL Hgb 6.9 L* (13.0-17.5) gm/dL Hct 22.5 L (39.0-53.0) % MCHC 30.5 L (31.0-37.0) g/dL RDW 17.7 H (11.5-15.5) % Plt Count 458 H (150-450) k/uL Sodium 130 L (137-145) mmol/L BUN 8 L (9-20) mg/dL Glucose 131 H (74-99) mg/dL Calcium 7.5 L (8.4-10.2) mg/dL Crossmatch See Detail Microbiology - Last 24 Hours (Table) 06/06/19 12:30 Gram Stain - Preliminary Breast - Right Wound Culture - Preliminary 06/05/19 17:30 Blood Culture - Preliminary Blood No Growth after 24 hours 06/06/19 12:36 Anaerobic Culture - Preliminary Breast - Right Assessment and Plan Plan: -infection of the chest tube site area: Patient will be continued on vancomycin wound cultures are positive for gram-negative bacilli patient was started on Unasyn -Hydropneumothorax: Status post or drainage of 400 mL of purulent fluid patient needs Pleurx catheter, patient's pleural fluid is exudative in nature and probably secondary to cancer -Hyponatremia: Appear to be hypovolemic hyponatremia but worsened with IV fluids because of which I discussed uterine IV fluids and patient will be started on fluid restriction and repeat Respiratory profile tomorrow -paroxysmal A. fib: Continue with rate control medications but his anti-correlation for thoracentesis and patient is postthoracentesis anti- correlation will be resumed -Hypertension -Hyperlipidemia -History of CVA -History of DVT and PE -Gastroesophageal reflux disease -Metastatic esophageal cancer The rest of the above-mentioned chronic medical problems patient will be resumed on home medications
[2019-06-07] MEDS: AMPICILLIN-SULBACTAM 3 GM in SODIUM CHLORIDE 0.9% 100 ML IVPB SCH ×2 (13:58→16:33)
[2019-06-07] MEDS ORDERED: APIXABAN 5 MG TAB PO SCH (23:00)
[2019-06-08] MEDS: AMPICILLIN-SULBACTAM 3 GM in SODIUM CHLORIDE 0.9% 100 ML IVPB SCH ×4 (00:07→23:45)
--- NOTE | 2019-06-08 04:30 | CONS ---
CONSULTATION DATE OF SERVICE: 06/07/2019 REASON FOR CONSULTATION: Right-sided empyema/wound. 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 Recently the patient did have esophageal stent placement for dysphagia and is currently on chemo. Also has history of pulmonary embolism and recurrent pleural effusion. He was recently admitted at this facility about a month ago where the patient did have a thoracocentesis done. Cultures were back diphtheroids. Patient not clear if he was sent home on antibiotic or not. 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 On arrival to the ER, the patient was afebrile. Subsequently spiked a low-grade fever of 100.3 the next day though. The patient did have a normal white count. The patient did have a CT of the chest completed from the ER which did show large right-sided hydropneumothorax, with pleural fluid continues to fill half of the pneumothorax, there is worsening and now complete right lower lobe collapse and persistent volume loss. Patient was evaluated by pulmonary service. He did have a chest subsequently the patient did have a thoracocentesis done today. The patient did have a purulent foul smelling pleural fluid removal of about 400 mL. Analysis showing elevated white count of 164,000. The patient has been empirically treated with vancomycin and Unasyn. I was asked to see the patient today for further recommendations regarding antibiotic therapy. CT surgery has been consulted with plan for the PleurX catheter placement on the . The patient denies high-grade fever, rigors or chills. The patient did have slight pain on the right side of the chest, especially when taking a deep breath. This has been about 3 to 4 out of 10, no radiation. He did have a cough, which is mild in intensity. No sputum. No nausea, no vomiting. No abdominal pain or any diarrhea. REVIEW OF SYSTEMS: Positive points have been mentioned in HPI. Rest of the systems are negative. PAST MEDICAL HISTORY: Adenocarcinoma of the esophagus, CVA, TIA, DVT, gastroesophageal reflux disease, hyperlipidemia, hypertension, pulmonary embolism, sleep apnea. PAST SURGICAL HISTORY: Cardiac ablation, hernia repair, bilateral inguinal hernia, vasectomy, PEG tube placement removed, Mediport placement, stent in esophagus for esophageal cancer. SOCIAL HISTORY: No history of smoking, drinking or drug use. FAMILY HISTORY: Mother history of uterine cancer. ALLERGIES: Allergies to ZOFRAN. MEDICATIONS: Medications include the patient is currently on Unasyn 3 grams q.8 hours. He is on Tylenol, Xanax, amiodarone, Cymbalta, Lovenox, Lopressor, Narcan, Zofran, Protonix. PHYSICAL EXAMINATION: On examination, blood pressure 120/67, pulse of 79, temperature 97.5. He is 96% on room air. General description is an elderly male up in the chair in no distress. No tachypnea or accessory muscle of respiration use. HEENT: Examination shows pallor no scleral icterus. Oral mucous membranes dry. No pharyngeal erythema or thrush. NECK: Trachea central. No thyromegaly. LUNGS: Unlabored breathing, decreased breath sounds at the base. No wheeze. HEART: S1, S2. Regular rate and rhythm. ABDOMEN: Soft, no tenderness. No guarding or rigidity. EXTREMITIES: No edema of feet. SKIN EXAMINATION: No rash or mass palpable. NEUROLOGICAL: Patient is awake, alert, oriented x3. Mood and affect normal. LABS: Hemoglobin 6.9, white count of 8.8, BUN of 8, creatinine 0.68. Electrolytes have been normal. Liver enzymes are normal. Pleural fluid was cloudy with 164,000 WBC, 60% PMNs. Vanco trough slightly elevated. Coronavirus PCR was negative. CT chest report mentioned above. DIAGNOSTIC IMPRESSION AND PLAN: Patient with right-sided empyema in this patient who did have a history of esophageal cancer, status post chemo and radiation though etiology of this effusion possibility to malignancy not entirely excluded in this patient who did have thoracocentesis about a month ago and those cultures were diphtheroids and was foul smelling infection underlying anaerobes are not entirely excluded. PLAN: 1. We will adjust the dose of Unasyn to 3 grams q.6 hours and normal kidney function. 2. Vancomycin, pharmacy to dose, target of 15. However, trough needs to be monitored closely and need to adjust it to keep the trough around 15. 3. The patient will likely need to have outpatient IV antibiotic therapy. 4. We will follow on clinical condition and culture to further adjust medication if needed. Thank you for this consultation. Will follow this patient along with you. MMODL / IJN: [id number] /
[2019-06-08 06:12] LABS: Anisocytosis Slight; HCT 26.6 % (39.0-53.0); HGB 8.2 gm/dL (13.0-17.5); Hypochromasia Marked; MCH 27.1 pg (25.0-35.0); MCHC 30.7 g/dL (31.0-37.0); MCV 88.3 fL (80.0-100.0); Platelet Count 375 k/uL (150-450); Poikilocytosis Slight; RBC 3.01 m/uL (4.30-5.90); RDW 16.8 % (11.5-15.5); WBC 7.9 k/uL (3.8-10.6)
[2019-06-08] MEDS: VANCOMYCIN 1,500 MG in SODIUM CHLORIDE 0.9% 250 ML IVPB SCH ×2 (06:17→20:53)
[2019-06-08] MEDS: DULoxetine HCL 20 MG CAPSULE.DR PO SCH (06:18)
[2019-06-08] MEDS: PANTOPRAZOLE 40 MG TABLET PO SCH ×2 (06:18→22:00)
[2019-06-08] MEDS: AMIODARONE 200 MG TAB PO SCH ×3 (06:18→22:00)
[2019-06-08] MEDS: METOPROLOL TARTRATE 25 MG TAB PO SCH ×2 (06:18→22:00)
[2019-06-08 06:22] LABS: African American GFR (CKD) >90 (>60 ml/min/1.73 sqM); Anion Gap 4 mmol/L; Blood Urea Nitrogen 8 mg/dL (9-20); Calcium 7.8 mg/dL (8.4-10.2); Carbon Dioxide 30 mmol/L (22-30); Chloride 98 mmol/L (98-107); Glucose 119 mg/dL (74-99); Non-African American GFR(CKD) >90 (>60 ml/min/1.73 sqM); Potassium 4.1 mmol/L (3.5-5.1); Sodium 132 mmol/L (137-145)
[2019-06-08] MEDS ORDERED: ENOXAPARIN 40 MG/0.4 ML SYRINGE SQ SCH (09:00)
--- NOTE | 2019-06-08 10:50 | P.PN ---
Subjective 64-year-old gentleman with a history of esophageal cancer was recently discharged about a month ago from the hospitalafter he was treated for malignant pleural effusion on the right side patient did well and lasted a couple days patient started having purulent drainage from the site where he had a chest tube concerning for infection patient was having low-grade fevers at home and feeling weak. Patient denied any chest pain or shortness of breath patient is also found to have hydropneumothorax incidentally because of which pulmonary was cons ulted patient was vancomycin along with cefepime and was subsequently admitted to the hospital patient's cefepime was discontinued patient remains on vancomycin wound cultures will be obtained. Neurology was consulted for hydropneumothorax 06/07/2019 Patient underwent thoracocentesis with drainage of about 400 mL of purulent greenish fluid and the patient's pleural fluid appears to be exudative with highly elevated white blood cell count. We consulted infectious disease, patient won't cultures are positive for gram-negative bacilli patient was started on Unasyn continue with vancomycin. Patient's serum sodium has come down because of which I'm discontinued IV fluids patient was started on fluid restriction Will repeat basic metabolic profile again tomorrow if it continues to go down below further workup for hyponatremia. Patient hemoglobin has come down to 6.9 no evidence of acute bleed and this is probably secondary to hemodilution 3 affect patient was given 1 unit of PRBC transfusion. 06/07/2022 Patient undergo Pleurx catheter placement at from cancer. Patient's serum sodium worsened with IV fluids improved with the Lasix and holding off on IV fluids patient probably has ascites from cancer patient is presently nothing by mouth because of his choking and patient is undergoing evaluation by speech therapy once patient is started on diet patient need to be on the fluid r estriction at 1500 mL we will obtain repeat labs tomorrow. Patient's anti- correlation is on hold for Pleurx catheter placement which need to be restarted back again was a Pleurx catheter was placed. Patient to wound cultures are showing gram-positive bacilli which is a skin contamination, patient remains on Unasyn as an aerobic infection cannot be ruled out. Infectious disease is following the patient Constitutional: Denied any fatigue denied any fever. Cardio vascular: denied any chest pain, palpitations Gastrointestinal denied any nausea vomiting Pulmonary: Denied any shortness of breath cough Neurologic denied any new focal deficits All inpatient medications were reviewed and appropriate changes in these medications as dictated in the interval history and assessment and plan. Objective - Vital Signs Vital signs: Vital Signs Temp 97.5 F L 06/08/19 08:40 Pulse 70 06/08/19 08:40 Resp 16 06/08/19 08:40 BP 122/66 06/08/19 08:40 Pulse Ox 98 06/08/19 08:40 Intake & Output 06/07/19 06/08/19 06/08/19 18:59 06:59 18:59 Intake Total 410 1000 Output Total 500 Balance 410 500 Weight 86.5 kg Intake: Oral 100 1000 Blood Product 310 Rc As-1 Unit 310 [id number] Output: Urine 500 Other: # Voids 2 - Exam PHYSICAL EXAMINATION: GENERAL: The patient is alert and oriented x3, not in any acute distress. Well developed, well nourished. HEENT: Pupils are round and equally reacting to light. EOMI. No scleral icterus. No conjunctival pallor. Normocephalic, atraumatic. No pharyngeal erythema. No thyromegaly. CARDIOVASCULAR: S1 and S2 present. No murmurs, rubs, or gallops. PULMONARY: Chest is clear to auscultation, no wheezing or crackles. reason breath sounds on the right lower lung espinoza ABDOMEN: Soft, nontender, nondistended, normoactive bowel sounds. No palpable organomegaly. MUSCULOSKELETAL: No joint swelling or deformity. EXTREMITIES: No cyanosis, clubbing, or pedal edema. NEUROLOGICAL: Gross neurological examination did not reveal any focal deficits. SKIN: patient had a surgical site area that has purulent drainage. - Labs CBC & Chem 7: 06/08/19 05:31 06/08/19 05:31 Labs: Abnormal Lab Results - Last 24 Hours (Table) 06/07/19 06/08/19 06/08/19 Range/Units 06:23 05:31 05:31 RBC 3.01 L (4.30-5.90) m/uL Hgb 8.2 L (13.0-17.5) gm/dL Hct 26.6 L (39.0-53.0) % MCHC 30.7 L (31.0-37.0) g/dL RDW 16.8 H (11.5-15.5) % Sodium 132 L (137-145) mmol/L BUN 8 L (9-20) mg/dL Glucose 119 H (74-99) mg/dL Calcium 7.8 L (8.4-10.2) mg/dL Crossmatch See Detail Microbiology - Last 24 Hours (Table) 06/06/19 12:30 Gram Stain - Preliminary Breast - Right Wound Culture - Preliminary Gram Positive Bacilli Isolated 06/07/19 10:00 Gram Stain - Preliminary Pleural Fluid Body Fluid Culture - Preliminary 06/05/19 17:30 Blood Culture - Preliminary Blood No Growth after 48 hours 06/07/19 10:00 Acid Fast Bacilli Culture - Preliminary Pleural Fluid 06/07/19 10:00 Fungal Culture - Preliminary Pleural Fluid Assessment and Plan Plan: -infection of the chest tube site area: Patient will be continued on vancomycin wound cultures are positive for for gram-positive bacilli which is diphtheroids which are skin organisms, patient remains on vancomycin and Unasyn to cover staph strep species along with anaerobes. -Hydropneumothorax: Status post or drainage of 400 mL of purulent fluid patient needs Pleurx catheter, patient's pleural fluid is exudative in nature and probably secondary to cancer. Patient will undergo Pleurx catheter placement -Hyponatremia: Probably a series from cancer patient to be in fluid restriction once his she started on diet -Dysphagia speech therapy evaluation patient is presently nothing by mouth -paroxysmal A. fib: Continue with rate control medications but anticoagulation is on hold because of Pleurx catheter placement tomorrow patient can be resumed on Eliquis once the Pleurx catheter was placed -Hypertension -Hyperlipidemia -History of CVA -History of DVT and PE -Gastroesophageal reflux disease -Metastatic esophageal cancer The rest of the above-mentioned chronic medical problems patient will be resumed on home medications
[2019-06-08] MEDS: ALPRAZolam 0.5 MG TAB PO SCH ×2 (11:41→23:40)
--- NOTE | 2019-06-08 11:54 | P.PN ---
Subjective Progress Note Date: 06/08/19 Principal diagnosis: This is a 64-year-old gentleman who follows on an outpatient basis with . 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 Patient also reports that he has been having a low-grade fever and a feeling of generalized weakness at home. He denies any complaints of shortness of breath, chest pain, nausea, vomiting, diarrhea, cough or hemoptysis. In the emergency department a computed tomography scan of his chest was completed which redemonstrated a moderate to large right-sided hydropneumothorax occupying approximately 50% of the hemithorax, decrease in size from 05/02/2019. It also demonstrated worsening, now completed right lower lobe collapse and persistent volume loss and consolidation involving the entire right middle lobe, new patchy peripheral groundglass infiltrates in the left lung, metallic esophageal stent, and continued abnormal esophageal thickening abutting the proximal end of the stent that could represent neoplasm, a few right upper lobe pulmonary nodules measuring 1.1 cm were visualized in the report, improved aeration of the right upper lobe which could not be excluded for metastatic nodules and redemonstration horizontal fracture through the T8 level. Due to the findings on the computed tomography scan of his chest Dr. Patel from pulmonary medicine was consulted and ordered an ultrasound of the chest with markings. The ultrasound of his chest demonstrated an 11.2 cm right pleural effusion pocket with a complex solid appearance and multiple echogenic foci. Subsequently, the patient underwent a right thoracentesis today performed by Dr. Patel with 400 mL of foamy yellow/green foul-smelling drainage removed. Due to the recurrent right pleural effusion a consult was placed to Dr. Milan Ca from cardio thoracic surgery for further evaluation and treatment recommendations. The patient was seen 06/08/2019 in follow-up at his bedside on the cardiac stepdown unit. He is sitting up to the bedside chair and he is in no acute distress. Currently denies any complaints of pain or shortness of breath. He remains hemodynamically stable, afebrile the last 24 hours and his oxygen saturations are 98% on [address] Patel for pulmonary medicine performed a right thoracentesis yesterday with 400 mL of foamy yellow/green foul-smelling fluid drained. Cytology results remain pending. Culture results from his right chest preliminary show gram-positive bacilli and he is on Unasyn and vancomycin for antibiotic coverage which is being followed by infectious disease. He is scheduled for a Pleurx catheter placement tomorrow 06/09/2019. Objective - Vital Signs Vital signs: Vital Signs Temp 97.5 F L 06/08/19 08:40 Pulse 70 06/08/19 08:40 Resp 16 06/08/19 08:40 BP 122/66 06/08/19 08:40 Pulse Ox 98 06/08/19 08:40 Intake & Output 06/07/19 06/08/19 06/08/19 18:59 06:59 18:59 Intake Total 410 1000 Output Total 500 Balance 410 500 Weight 86.5 kg Intake: Oral 100 1000 Blood Product 310 Rc As-1 Unit 310 [id number] Output: Urine 500 Other: # Voids 2 - Exam This is a pleasant 64-year-old gentleman who is in no acute distress. He is sitting up to the bedside chair and is alert and oriented 3. - Constitutional General appearance: Present: average body habitus, cooperative, no acute distress - EENT Eyes: Present: PERRLA. Absent: scleral icterus ENT: Present: hearing grossly normal, normal oropharynx. Absent: thrush - Neck Details: Neck is supple, no lymphadenopathy. - Respiratory Details: Lung sounds are essentially clear throughout, diminished to his right lower lobe. No wheezing, crackles or rhonchi. Respirations are symmetrical and nonlabored. - Cardiovascular Details: Regular rhythm and rate. S1 and S2 present, negative for S3, gallop or murmur. - Gastrointestinal Gastrointestinal Comment(s): Abdomen is soft, nontender and nondistended. Active bowel sounds present all 4 abdominal quadrants. No guarding or rigidity. No organomegaly. - Integumentary Integumentary Comment(s): Skin is warm and dry. No clubbing or cyanosis is present. Surgical site area t o his right chest with scant purulent drainage. - Neurologic Neurologic: Present: CNII-XII intact - Musculoskeletal Musculoskeletal: Present: generalized weakness, strength equal bilaterally - Psychiatric Psychiatric: Present: A&O x's 3, appropriate affect, intact judgment & insight - Allied health notes Allied health notes reviewed: nursing - Labs CBC & Chem 7: 06/08/19 05:31 06/08/19 05:31 Labs: Abnormal Lab Results - Last 24 Hours (Table) 06/07/19 06/08/19 06/08/19 Range/Units 06:23 05:31 05:31 RBC 3.01 L (4.30-5.90) m/uL Hgb 8.2 L (13.0-17.5) gm/dL Hct 26.6 L (39.0-53.0) % MCHC 30.7 L (31.0-37.0) g/dL RDW 16.8 H (11.5-15.5) % Sodium 132 L (137-145) mmol/L BUN 8 L (9-20) mg/dL Glucose 119 H (74-99) mg/dL Calcium 7.8 L (8.4-10.2) mg/dL Crossmatch See Detail Microbiology - Last 24 Hours (Table) 06/06/19 12:30 Gram Stain - Preliminary Breast - Right Wound Culture - Preliminary Gram Positive Bacilli Isolated 06/07/19 10:00 Gram Stain - Preliminary Pleural Fluid Body Fluid Culture - Preliminary 06/05/19 17:30 Blood Culture - Preliminary Blood No Growth after 48 hours 06/07/19 10:00 Acid Fast Bacilli Culture - Preliminary Pleural Fluid 06/07/19 10:00 Fungal Culture - Preliminary Pleural Fluid Assessment and Plan Assessment: 1 Acute hypoxic respiratory failure secondary to right-sided hydropneumothorax occupying 50% of the hemithorax. Ultrasound of the chest reveals an 11.2 cm pocket with multiple echogenic foci. Right-sided thoracentesis performed today 06/07/2019 with approximately 400 ML's of foul smelling, purulent greenish/yellow liquid drained. 2 Recurrent right-sided pleural effusion with previous thoracentesis performed on 05/02/2019 with subsequent hydropneumothorax requiring right-sided chest tube placement. Negative for malignancy. Cultures were positive for diphtheroid species. 3 Open wound with drainage from previous chest tube insertion site, cultures pending 4 History of esophageal cancer, status post chemoradiation and metallic stent placement 5 Anemia with a hemoglobin of 6.9, receiving a unit of packed red blood cells today for 2019 6 History of DVT/PE 7 History of GERD 8 Hyperlipidemia 9 Hypertension 10 History of obstructive sleep apnea, currently not using CPAP 11 History of supraventricular tachycardia 12 History of CVA 13 Severe kyphosis Plan: 1. The patient is scheduled for a right Pleurx catheter to be placed by Dr. Milan Ca tomorrow 06/09/2019. 2. Nothing by mouth after midnight. 3. Antibiotic management and recommendations per infectious disease. 4. Encourage use of his incentive spirometry every hour while awake. 5. CPVID 19 test was negative. 6. Wean oxygen as tolerated. 7. Medical management and other comorbidities per primary care and pulmonary care service. 8. More recommendations to follow based on patient's clinical course. Time with Patient: Less than 30
[2019-06-08 13:58] LABS: Amylase, Fluid Source Pleural Fluid; Cholesterol,BF Source Pleural Fluid; Cholesterol,Body Fluid <10 mg/dL; Glucose, BF Source Pleural Fluid; Glucose, Body Fluid <4 mg/dL; LDH, Body Fluid Source Pleural Fluid; Total Protein, Body Fluid 439.2 mg/dL
--- NOTE | 2019-06-08 17:59 | CDI ---
Documentation Clarification Form Date: 06/08/2019 05:28:08 PM From: Chantelle Jeffers RN CCDS Admit Date: 06/05/2019 07:08:00 PM Patient Name: Gopal Hull Visit Number: [id number] Discharge Date: ATTENTION: The Clinical Documentation Specialists (CDI) and [facility] Coding Staff appreciate your assistance in clarifying documentation. Please respond to the clarification below the line at the bottom and electronically sign. The CDI & [facility] Coding staff will review the response and follow-up if needed. Please note: Queries are made part of the Legal Health Record. If you have any questions, please contact the author of this message via ITS. Toi Stevenson Coding guidelines do not allow coding professionals to code based on laboratory results; therefore, your input is requested. The COVID-19 test obtained on 06/04 was reported as Negative on 06/04 Pending COVID testing is documented in the ED Note 06/04 64-year-old male undergoing treatment of esophageal cancer was told to come to the ED by the Global Marketing Intern for purulent drainage from chest tube. Additional history HTN. Clinical Indicators Patient reported low grade temperatures and feeling weak. 06/04 CT Chest New patchy peripheral ground glass infiltrates in the left lung. 06/04 VS in ED Triage: T: 98.5, P: 92, R 18, Sat 95% on room air 06/04 WBC 9.3 Treatment 06/05 Pulmonary consult Moderate to large right sided hydropneumothorax which is slightly decreased in size from May 02, 2019 with recent thoracentesis. 06/04 Cefepime Ivpb x1, 06/04 Vancomycin Ivpb Q 8 , 06/05 Vancomycin Ivpb changed to Q 12 H, 06/06 Ampicillin Ivpb Q 8, In order to capture the severity of condition, please clarify the COVID-19 status: COVID-19 ruled out Other, please specify (Last Form Revision: April 2019) Most likely patient has no Covid 19. However negative Solorzano virus test by nasal cannula is not 100% sensitive. So by this cyst along with control of Covid 19. But Most likely patient does not have Covid 19 MTDD
--- NOTE | 2019-06-08 22:39 | PN ---
PROGRESS NOTE DATE OF SERVICE: 06/08/2019 REASON FOR FOLLOWUP: Right-sided empyema. INTERVAL HISTORY: The patient is currently afebrile. He is breathing slightly comfortably today. The patient denies having any chest pain. Occasional cough. No sputum. No nausea, no vomiting. No abdominal pain or diarrhea. PHYSICAL EXAMINATION: Blood pressure 109/67 with a pulse of 80, temperature 97.6. He is 100% on 3 L nasal cannula. General description is an elderly male up in the bed in no distress. RESPIRATORY SYSTEM: Unlabored breathing with decreased breath sounds at the base. No wheeze. HEART: S1, S2. Regular rate and rhythm. ABDOMEN: Soft. No tenderness. LABS: Hemoglobin is 8.2 with a white count of 7.9, BUN of 8, creatinine 0.73. DIAGNOSTIC IMPRESSION AND PLAN: Patient with recurrent right-sided pleural effusion with concern about empyema, for PleurX catheter insertion tomorrow. Cultures currently pending. Will keep the patient on Unasyn and vancomycin. He will likely need a PICC line for outpatient IV antibiotic. Continue with supportive care. MMODL / IJN: [id number] /
[2019-06-09] MEDS: AMPICILLIN-SULBACTAM 3 GM in SODIUM CHLORIDE 0.9% 100 ML IVPB SCH ×3 (07:25→23:34)
[2019-06-09] MEDS: ALPRAZolam 0.5 MG TAB PO SCH ×2 (07:25→23:34)
[2019-06-09] MEDS: PANTOPRAZOLE 40 MG TABLET PO SCH ×2 (07:25→21:43)
[2019-06-09] MEDS: METOPROLOL TARTRATE 25 MG TAB PO SCH ×2 (07:25→21:43)
[2019-06-09] MEDS: AMIODARONE 200 MG TAB PO SCH ×3 (07:25→21:43)
[2019-06-09] MEDS: DULoxetine HCL 20 MG CAPSULE.DR PO SCH (07:25)
[2019-06-09] MEDS ORDERED: MIDAZOLAM 2 MG/2 ML VIAL ONE (07:48)
[2019-06-09] MEDS ORDERED: fentaNYL (PF) 50 MCG/ML 2 ML AMP ONE (07:48)
[2019-06-09] MEDS ORDERED: LIDOCAINE 1% INJ 10MG/ML (10 ML MDV) SQ ONE ×2 (08:08)
--- NOTE | 2019-06-09 08:52 | FL ---
Fluoroscopy INDICATION: Pain FINDINGS: Fluoroscopy time: 1 minute 13 seconds. Images obtained: 3. IMPRESSIONS: 1. Documentation of fluoroscopy.
--- NOTE | 2019-06-09 08:53 | P.OP ---
Date of Procedure: 06/09/19 Preoperative Diagnosis: Esophageal carcinoma, right empyema Postoperative Diagnosis: Same Procedure(s) Performed: Right Pleurx catheter placement with fluoroscopy Implants: Pleurx catheter Anesthesia: MAC Surgeon: Milan Ca Estimated Blood Loss (ml): 5 IV fluids (ml): 200 Urine output (ml): 0 Pathology: none sent Condition: stable Disposition: floor Indications for Procedure: Elderly gentleman with diagnosis of esophageal carcinoma 2 years ago treated with radiation and chemotherapy. Presented recently with recurrent esophageal carcinoma and obstruction and was stented. He developed recurrent right pleural effusion and had several chest tubes. Currently he presents with large recurrent right pleural effusion which was tapped and shown to be purulent. Patient has no liver lesions which are new and presumably due to metastatic esophageal carcinoma. He was not felt to represent a good candidate for decortication and drainage was therefore indicated. Operative Findings: 1200 mL of foul-smelling purulent fluid was drained. The pleural cavity was irrigated out with saline until clear. Good placement of the Pleurx catheter in the right lower pleural space was effected using fluoroscopy. Description of Procedure: The patient was brought to the operating room, placed supine on the operating table. IV sedation was given. Right chest and right upper quadrant were sterilely prepped and draped. The left arm was tucked and the right arm left out on an arm board. With 2% lidocaine an 18-gauge needle was used to puncture the empyema space. A guidewire was easily threaded into the space. This was performed under fluoroscopic guidance. The guidewire in place, a counterincision was made in the right upper quadrant using lidocaine anesthesia. The site of the guidewire puncture was enlarged with a 11 blade. Purse catheter was tunneled from the right upper quadrant incision to the guidewire incision and the cuff was secured just under the skin in the right upper quadrant. Introducer and dilator were placed over the guidewire and under fluoroscopic guidance the introducer sheath was placed into the empyema space over the guidewire. Dilator and guidewire were removed and the Pleurx catheter was placed through the introducer sheath into the empyema space. Introducer sheath was then removed. Purse catheter was now connected to suction and over a liter of blood pus was drained. Following this we irrigated with multiple irrigations of saline suctioning after each irrigation to irrigate out the pleural space. A total of over a liter of saline was used for irrigation. A completion of the irrigation, the Pleurx catheter was connected to a chest drainage unit. The catheter was secured at the exit site with 2 suture ligatures of 2-0 silk. The puncture site was closed with a 4-0 Vicryl and skin glue. Dry sterile dressings were applied and the patient was transferred back to his room.
[2019-06-09 09:22] LABS: Anisocytosis Slight; Basophils % (A) 0 %; Eosinophils # (A) 0.1 k/uL (0-0.7); Eosinophils % (A) 1 %; HCT 27.7 % (39.0-53.0); HGB 8.2 gm/dL (13.0-17.5); Hypochromasia Moderate; Lymphocytes # (A) 0.6 k/uL (1.0-4.8); Lymphocytes % (A) 8 %; MCH 26.8 pg (25.0-35.0); MCHC 29.6 g/dL (31.0-37.0); MCV 90.4 fL (80.0-100.0); Mean Platelet Volume 6.9; Monocytes # (A) 0.6 k/uL (0-1.0); Monocytes % (A) 7 %; Neutrophils # (A) 6.1 k/uL (1.3-7.7); Neutrophils % (A) 81 %; Platelet Count 428 k/uL (150-450); RBC 3.07 m/uL (4.30-5.90); RDW 17.6 % (11.5-15.5); WBC 7.5 k/uL (3.8-10.6)
[2019-06-09 09:35] LABS: African American GFR (CKD) >90 (>60 ml/min/1.73 sqM); Anion Gap 5 mmol/L; Blood Urea Nitrogen 8 mg/dL (9-20); Calcium 7.7 mg/dL (8.4-10.2); Carbon Dioxide 29 mmol/L (22-30); Chloride 100 mmol/L (98-107); Glucose 115 mg/dL (74-99); Non-African American GFR(CKD) >90 (>60 ml/min/1.73 sqM); Potassium 3.9 mmol/L (3.5-5.1); Sodium 134 mmol/L (137-145)
--- NOTE | 2019-06-09 10:44 | XR ---
EXAMINATION TYPE: XR chest 1V portable DATE OF EXAM: 06/09/2019 COMPARISON: 06/07/2019 INDICATION: Pleural catheter placement TECHNIQUE: Single frontal view of the chest is obtained. FINDINGS: The heart size is while the prominent. The pulmonary vasculature is normal. There is increased lung markings to the right lung. A moderate right pleural effusion is present. Mil d infiltrate is at the left base. Port is present on the right with the tip in superior vena cava region. This is stable in position. T here is placement of a right basilar catheter, the tip is in the region of the medial left base. This likely posterior. Small to moderate right pleural effusion is present. Cardiac stent is noted. IMPRESSION: 1. Placement of a right basilar catheter. No pneumothorax is evident. 2. Bibasilar infiltrates. 3. Cardiomegaly
--- NOTE | 2019-06-09 11:48 | P.PN ---
Subjective Progress Note Date: 06/09/19 Principal diagnosis: This is a 64-year-old gentleman who follows on an outpatient basis with . 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 Patient also reports that he has been having a low-grade fever and a feeling of generalized weakness at home. He denies any complaints of shortness of breath, chest pain, nausea, vomiting, diarrhea, cough or hemoptysis. In the emergency department a computed tomography scan of his chest was completed which redemonstrated a moderate to large right-sided hydropneumothorax occupying approximately 50% of the hemithorax, decrease in size from 05/02/2019. It also demonstrated worsening, now completed right lower lobe collapse and persistent volume loss and consolidation involving the entire right middle lobe, new patchy peripheral groundglass infiltrates in the left lung, metallic esophageal stent, and continued abnormal esophageal thickening abutting the proximal end of the stent that could represent neoplasm, a few right upper lobe pulmonary nodules measuring 1.1 cm were visualized in the report, improved aeration of the right upper lobe which could not be excluded for metastatic nodules and redemonstration horizontal fracture through the T8 level. Due to the findings on the computed tomography scan of his chest Dr. Patel from pulmonary medicine was consulted and ordered an ultrasound of the chest with markings. The ultrasound of his chest demonstrated an 11.2 cm right pleural effusion pocket with a complex solid appearance and multiple echogenic foci. Subsequently, the patient underwent a right thoracentesis today performed by Dr. Patel with 400 mL of foamy yellow/green foul-smelling drainage removed. Due to the recurrent right pleural effusion a consult was placed to Dr. Milan Ca from cardio thoracic surgery for further evaluation and treatment recommendations. The patient was seen 06/08/2019 in follow-up at his bedside on the cardiac stepdown unit. He is sitting up to the bedside chair and he is in no acute distress. Currently denies any complaints of pain or shortness of breath. He remains hemodynamically stable, afebrile the last 24 hours and his oxygen saturations are 98% on [address] Patel for pulmonary medicine performed a right thoracentesis yesterday with 400 mL of foamy yellow/green foul-smelling fluid drained. Cytology results remain pending. Culture results from his right chest preliminary show gram-positive bacilli and he is on Unasyn and vancomycin for antibiotic coverage which is being followed by infectious disease. He is scheduled for a Pleurx catheter placement tomorrow 06/09/2019. On 06/09/2019 he was seen in follow-up at his bedside on the fourth floor medical surgical unit. The patient is resting comfortably in bed, he is alert and oriented 3 and is in no acute distress. Denies any complaints of shortness of breath or pain at this time. He underwent a placement of a right sided Pleurx catheter with fluoroscopy today performed by Dr. Milan Ca. In the operating room he had 1.2 L of foul-smelling purulent fluid drained, and currently there is 160 mL of serosanguineous drainage in the Pleur-evac chamber. A postoperative chest x-ray was completed which demonstrates placement of a right basilar catheter, no evidence of a pneumothorax, bibasilar infiltrates and cardiomegaly. Oxygen saturations are 100% on 2 L nasal cannula. Laboratory results reviewed and showed a WBC count 7.5, hemoglobin 8.2, platelets 428, BUN 8 and creatinine 0.71. The patient underwent a right thoracentesis on 06/07/2019 with the pleural fluid cytology results pending. Antibiotics in the way of vancomycin and Unasyn are in place for him to coverage, initial wound culture shows gram-positive bacilli. Objective - Vital Signs Vital signs: Vital Signs Temp 96.6 F L 06/09/19 09:20 Pulse 69 06/09/19 11:20 Resp 16 06/09/19 09:20 BP 122/77 06/09/19 11:20 Pulse Ox 100 06/09/19 11:20 Intake & Output 06/08/19 06/09/19 06/09/19 18:59 06:59 18:59 Intake Total 120 Output Total 250 225 Balance -250 -105 Intake: Oral 120 Output: Urine 250 225 - Exam This is a pleasant 64-year-old gentleman who is in no acute distress. He is resting comfortably in bed and is alert and oriented 3. Oxygen saturations 100% on 2 L nasal cannula. - Constitutional General appearance: Present: average body habitus, cooperative, no acute distress - EENT Eyes: Present: PERRLA, normal appearance. Absent: scleral icterus ENT: Present: hearing grossly normal, normal oropharynx. Absent: thrush - Neck Details: Neck is supple, no JVD. Neck: Absent: lymphadenopathy, thyromegaly - Respiratory Details: chrissy sounds are essentially clear throughout, diminished to his right lower lobe. No wheezing, crackles or rhonchi. Respirations are symmetrical and nonlabored. Right chest Pleurx catheter in place to low continuous wall suction -20 cm H2O. Draining thin serosanguineous drainage. - Cardiovascular Details: Regular rhythm and rate. S1 and S2 present, negative for S3, gallop or murmur. - Gastrointestinal Gastrointestinal Comment(s): Abdomen soft, nontender and nondistended. Active bowel sounds present in all 4 abdominal quadrants. No guarding or rigidity. No organomegaly. - Integumentary Integumentary Comment(s): Skin is warm and dry. No clubbing or cyanosis is present. Dressing clean, dry and intact to the right Pleurx catheter. - Neurologic Neurologic: Present: CNII-XII intact - Musculoskeletal Musculoskeletal: Present: generalized weakness, strength equal bilaterally - Psychiatric Psychiatric: Present: A&O x's 3, appropriate affect, intact judgment & insight - Allied health notes Allied health notes reviewed: nursing - Labs CBC & Chem 7: 06/09/19 08:58 06/09/19 08:58 Labs: Abnormal Lab Results - Last 24 Hours (Table) 06/09/19 06/09/19 Range/Units 08:58 08:58 RBC 3.07 L (4.30-5.90) m/uL Hgb 8.2 L (13.0-17.5) gm/dL Hct 27.7 L (39.0-53.0) % MCHC 29.6 L (31.0-37.0) g/dL RDW 17.6 H (11.5-15.5) % Lymphocytes # 0.6 L (1.0-4.8) k/uL Sodium 134 L (137-145) mmol/L BUN 8 L (9-20) mg/dL Glucose 115 H (74-99) mg/dL Calcium 7.7 L (8.4-10.2) mg/dL Microbiology - Last 24 Hours (Table) 06/07/19 10:00 Acid Fast Bacilli Smear - Final Pleural Fluid Acid Fast Bacilli Culture - Preliminary 06/05/19 17:30 Blood Culture - Preliminary Blood No Growth after 72 hours 06/06/19 12:30 Gram Stain - Final Breast - Right Wound Culture - Final Gram Positive Bacilli Isolated - Imaging and Cardiology Chest x-ray: report reviewed, image reviewed Assessment and Plan Assessment: 1 Acute hypoxic respiratory failure secondary to right-sided hydropneumothorax occupying 50% of the hemithorax. Ultrasound of the chest reveals an 11.2 cm pocket with multiple echogenic foci. Right-sided thoracentesis performed today 06/07/2019 with approximately 400 ML's of foul smelling, purulent greenish/yellow liquid drained. 2 Recurrent right-sided empyema pleural effusion with previous thoracentesis performed on 05/02/2019 with subsequent hydropneumothorax requiring right-sided chest tube placement. Negative for malignancy. Cultures were positive for diphtheroid species. Status post right-sided Pleurx catheter placement today 06/09/2019 with 1.2 L of purulent foul-smelling drainage removed in the operating room. 3 Open wound with drainage from previous chest tube insertion site, preliminary wound cultures showing many gram-positive bacilli. 4 History of esophageal cancer, status post chemoradiation and metallic stent placement 5 Anemia with a hemoglobin of 6.9, receiving a unit of packed red blood cells today for 2019 6 History of DVT/PE 7 History of GERD 8 Hyperlipidemia 9 Hypertension 10 History of obstructive sleep apnea, currently not using CPAP 11 History of supraventricular tachycardia 12 History of CVA 13 Severe kyphosis Plan: 1. The patient is underwent placement of a right Pleurx catheter today, keep Pleurx catheter to low continuous wall suction and is 20 cm H2O. 2. Wean oxygen as tolerated. 3. Continue current antibiotic management, Antibiotic management and r ecommendations per infectious disease. Wound culture many showing gram-positive bacilli. 4. Encourage use of his incentive spirometry every hour while awake. 5. CPVID 19 test was negative. 6. Increase activity as tolerated. 7. Medical management and other comorbidities per primary care. 8. More recommendations to follow based on patient's clinical course. I, the cosigning physician, performed a history and physical examination on the patient. Lungs are clear, dimminished to his right lower lobe and maintain O2 saturation in the 90s on 2 L nasal cannula. I discussed the plan and assessment of care with Issa Alegre SLAG DUMPER. I attest that the above note is dictated by him. Time with Patient: Less than 30
[2019-06-09] MEDS: ACETAMINOPHEN TAB 325 MG TAB PO PRN ×2 (12:36→19:04)
--- NOTE | 2019-06-09 12:47 | P.PN ---
Subjective 64-year-old gentleman with a history of esophageal cancer was recently discharged about a month ago from the hospitalafter he was treated for malignant pleural effusion on the right side patient did well and lasted a couple days patient started having purulent drainage from the site where he had a chest tube concerning for infection patient was having low-grade fevers at home and feeling weak. Patient denied any chest pain or shortness of breath patient is also found to have hydropneumothorax incidentally because of which pulmonary was cons ulted patient was vancomycin along with cefepime and was subsequently admitted to the hospital patient's cefepime was discontinued patient remains on vancomycin wound cultures will be obtained. Neurology was consulted for hydropneumothorax 06/07/2019 Patient underwent thoracocentesis with drainage of about 400 mL of purulent greenish fluid and the patient's pleural fluid appears to be exudative with highly elevated white blood cell count. We consulted infectious disease, patient won't cultures are positive for gram-negative bacilli patient was started on Unasyn continue with vancomycin. Patient's serum sodium has come down because of which I'm discontinued IV fluids patient was started on fluid restriction Will repeat basic metabolic profile again tomorrow if it continues to go down below further workup for hyponatremia. Patient hemoglobin has come down to 6.9 no evidence of acute bleed and this is probably secondary to hemodilution 3 affect patient was given 1 unit of PRBC transfusion. 06/07/2022 Patient undergo Pleurx catheter placement at from cancer. Patient's serum sodium worsened with IV fluids improved with the Lasix and holding off on IV fluids patient probably has ascites from cancer patient is presently nothing by mouth because of his choking and patient is undergoing evaluation by speech therapy once patient is started on diet patient need to be on the fluid r estriction at 1500 mL we will obtain repeat labs tomorrow. Patient's anti- correlation is on hold for Pleurx catheter placement which need to be restarted back again was a Pleurx catheter was placed. Patient to wound cultures are showing gram-positive bacilli which is a skin contamination, patient remains on Unasyn as an aerobic infection cannot be ruled out. Infectious disease is following the patient 06/09/2019 Patient status post right Pleurx catheter placement today by surgical team. Pos toperatively patient sitting in bed in some pain in his surgical site but he is not in overt distress. Vitals looks stable. Labs look stable as well. Sodium 134, creatinine 0.7.Questionable dysphagia problem, patient has his esophageal stent related to his esophageal cancer, we'll place a consult for speech and swallow evaluation as well. He remains on Unasyn and vancomycin, with cytology and final wound culture results are pending Constitutional: Denied any fatigue denied any fever. Cardio vascular: denied any chest pain, palpitations Gastrointestinal denied any nausea vomiting Pulmonary: Denied any shortness of breath cough Neurologic denied any new focal deficits Active Medications Generic Name Dose Route Start Last Admin Trade Name Freq PRN Reason Stop Dose Admin Acetaminophen 650 mg 06/05/19 19:08 06/09/19 12:36 Tylenol Tab PO 650 mg Q6HR PRN Administration Mild Pain or Fever > 100.5 Alprazolam 0.5 mg 06/05/19 23:00 06/09/19 07:25 Xanax PO Not Given BID@0700,2300 MELISSA Amiodarone HCl 200 mg 06/05/19 23:00 06/09/19 12:12 Cordarone PO 200 mg TID@0700,1200,2300 MELISSA Administration Duloxetine HCl 20 mg 06/06/19 07:00 06/09/19 07:25 Cymbalta PO 20 mg DAILY@0700 MELISSA Administration Vancomycin HCl 1,500 mg/ 250 mls @ 125 mls/hr 06/07/19 14:00 06/08/19 20:53 Sodium Chloride IVPB 125 mls/hr Q16H MELISSA Administration Ampicillin Sodium/Sulbactam 100 mls @ 200 mls/hr 06/07/19 10:00 06/09/19 07:25 Sodium 3 gm/ Sodium Chloride IVPB 200 mls/hr Q8HR MELISSA Administration Metoprolol Tartrate 25 mg 06/05/19 23:00 06/09/19 07:25 Lopressor PO 25 mg BID@0700,2300 MELISSA Administration Miscellaneous Information 0 each 06/09/19 13:00 Vancomycin Trough Due MISCELLANE 06/09/19 13:01 DIRECTED ONE Morphine Sulfate 4 mg 06/05/19 19:08 Morphine Sulfate (Inj) IV Q4HR PRN Severe Pain Naloxone HCl 0.2 mg 06/05/19 19:08 Narcan IV Q2M PRN Opioid Reversal Ondansetron HCl 4 mg 06/05/19 21:06 06/07/19 16:33 Zofran IVP 4 mg Q6HR PRN Administration Nausea And Vomiting Pantoprazole Sodium 40 mg 06/05/19 23:00 06/09/19 07:25 Protonix PO 40 mg BID@0700,2300 MELISSA Administration Objective - Vital Signs Vital signs: Vital Signs Temp 96.6 F L 06/09/19 09:20 Pulse 69 06/09/19 11:20 Resp 16 06/09/19 09:20 BP 122/77 06/09/19 11:20 Pulse Ox 100 06/09/19 11:20 Intake & Output 06/08/19 06/09/19 06/09/19 18:59 06:59 18:59 Intake Total 120 Output Total 250 225 Balance -250 -105 Intake: Oral 120 Output: Urine 250 225 - Exam -GENERAL: The patient is alert and oriented x3, not in any acute distress. Thin built. HEENT: Pupils are round and equally reacting to light. EOMI. No scleral icterus. No conjunctival pallor. Normocephalic, atraumatic. No pharyngeal erythema. No thyromegaly. CARDIOVASCULAR: S1 and S2 present. No murmurs, rubs, or gallops. -PULMONARY: Chest is clear to auscultation, no wheezing or crackles. Right Pleurx catheter in a Place ABDOMEN: Soft, nontender, nondistended, normoactive bowel sounds. No palpable organomegaly. MUSCULOSKELETAL: No joint swelling or deformity. EXTREMITIES: No cyanosis, clubbing, or pedal edema. NEUROLOGICAL: Gross neurological examination did not reveal any focal deficits. SKIN: patient had a surgical site area that has purulent drainage. - Labs CBC & Chem 7: 06/09/19 08:58 06/09/19 08:58 Labs: Abnormal Lab Results - Last 24 Hours (Table) 06/09/19 06/09/19 Range/Units 08:58 08:58 RBC 3.07 L (4.30-5.90) m/uL Hgb 8.2 L (13.0-17.5) gm/dL Hct 27.7 L (39.0-53.0) % MCHC 29.6 L (31.0-37.0) g/dL RDW 17.6 H (11.5-15.5) % Lymphocytes # 0.6 L (1.0-4.8) k/uL Sodium 134 L (137-145) mmol/L BUN 8 L (9-20) mg/dL Glucose 115 H (74-99) mg/dL Calcium 7.7 L (8.4-10.2) mg/dL Microbiology - Last 24 Hours (Table) 06/07/19 10:00 Acid Fast Bacilli Smear - Final Pleural Fluid Acid Fast Bacilli Culture - Preliminary 06/05/19 17:30 Blood Culture - Preliminary Blood No Growth after 72 hours 06/06/19 12:30 Gram Stain - Final Breast - Right Wound Culture - Final Gram Positive Bacilli Isolated Assessment and Plan Assessment: -infection of the chest tube site area: Patient will be continued on vancomycin wound cultures are positive for for gram-positive bacilli which is diphtheroids which are skin organisms, patient remains on vancomycin and Unasyn to cover staph strep species along with anaerobes. -Hydropneumothorax: Status post or drainage of 400 mL of purulent fluid patient needs Pleurx catheter, patient's pleural fluid is exudative in nature and probably secondary to cancer. Patient will is a status post Pleurx catheter placement -Hyponatremia: Probably a series from cancer patient to be in fluid restriction once his she started on diet -Dysphagia speech therapy evaluation patient is presently nothing by mouth -paroxysmal A. fib: Continue with rate control medications but anticoagulation is on hold because of Pleurx catheter placement tomorrow patient can be resumed on Eliquis once the Pleurx catheter was placed -Hypertension -Hyperlipidemia -History of CVA -History of DVT and PE -Gastroesophageal reflux disease -Metastatic esophageal cancer DVT prophylaxis: Subcutaneous heparin GI prophylaxis: Protonix Prognosis is guarded
[2019-06-09] MEDS ORDERED: VANCOMYCIN TROUGH DUE 1 EACH MISC MISCELLANE ONE (13:00)
[2019-06-09] MEDS: VANCOMYCIN 1,500 MG in SODIUM CHLORIDE 0.9% 250 ML IVPB SCH (14:18)
[2019-06-09] MEDS: MORPHINE SULFATE 4 MG/ML SYRINGE IV PRN ×2 (15:10→23:34)
[2019-06-09] MEDS: HEPARIN SODIUM,PORCINE 5,000 UNIT/ML 1 ML VIAL SQ SCH (20:00)
[2019-06-09] MEDS ORDERED: FAMOTIDINE 20 MG/2 ML VIAL IV SCH (21:00)
--- NOTE | 2019-06-09 23:43 | PN ---
PROGRESS NOTE DATE OF SERVICE: 06/09/2019 REASON FOR CONSULTATION: Right-sided empyema and recurrent pleural effusion. INTERVAL HISTORY: The patient is afebrile. The patient is doing this morning. The patient is status post PleurX catheter placement. He tolerated the procedure. Denies significant chest pain. Minimal cough. No abdominal pain or diarrhea. PHYSICAL EXAMINATION: Blood pressure 118/73 with a pulse of 83, temperature 98.9. He is 96% on 3 L nasal cannula. General description is an elderly male lying in bed in no distress. RESPIRATORY SYSTEM: Unlabored breathing, decreased breath sounds at the bases. No wheeze. HEART: S1, S2. Regular rate and rhythm. ABDOMEN: Soft, no tenderness. LABS: Hemoglobin is 8.2, white count 7.5. BUN of 8, creatinine 0.71. Pleural fluid culture showing coagulase-negative Staph and gram positive Bacilli. DIAGNOSTIC IMPRESSION AND PLAN: Patient with recurrent right-sided pleural effusion with significantly elevated white count on aspirate, likely representing empyema, status post PleurX catheter placement. Culture with coag-negative Staph and gram-positive bacilli. Patient is covered with vancomycin and Unasyn to continue. We are waiting for the culture to finalize and will try to arrange for the outpatient IV antibiotic. Continue supportive care. MMODL / IJN: [id number] /
[2019-06-10] MEDS: ACETAMINOPHEN TAB 325 MG TAB PO PRN ×2 (03:27→19:36)
[2019-06-10] MEDS: VANCOMYCIN 1,500 MG in SODIUM CHLORIDE 0.9% 250 ML IVPB SCH ×2 (05:22→21:28)
[2019-06-10 07:27] LABS: Anisocytosis Slight; Basophils % (A) 0 %; Eosinophils # (A) 0.1 k/uL (0-0.7); Eosinophils % (A) 1 %; HCT 29.8 % (39.0-53.0); HGB 9.1 gm/dL (13.0-17.5); Hypochromasia Marked; Lymphocytes # (A) 0.7 k/uL (1.0-4.8); Lymphocytes % (A) 9 %; MCH 27.5 pg (25.0-35.0); MCHC 30.4 g/dL (31.0-37.0); MCV 90.3 fL (80.0-100.0); Monocytes # (A) 0.6 k/uL (0-1.0); Monocytes % (A) 7 %; Neutrophils # (A) 6.9 k/uL (1.3-7.7); Neutrophils % (A) 82 %; Platelet Count 412 k/uL (150-450); RDW 16.8 % (11.5-15.5); WBC 8.5 k/uL (3.8-10.6)
[2019-06-10 07:47] LABS: Potassium 3.9 mmol/L (3.5-5.1)
[2019-06-10 07:48] LABS: African American GFR (CKD) >90 (>60 ml/min/1.73 sqM); Anion Gap 7 mmol/L; Blood Urea Nitrogen 10 mg/dL (9-20); Calcium 7.9 mg/dL (8.4-10.2); Carbon Dioxide 29 mmol/L (22-30); Chloride 99 mmol/L (98-107); Glucose 124 mg/dL (74-99); Non-African American GFR(CKD) >90 (>60 ml/min/1.73 sqM); Sodium 135 mmol/L (137-145)
[2019-06-10] MEDS: AMIODARONE 200 MG TAB PO SCH ×3 (08:49→21:28)
[2019-06-10] MEDS: PANTOPRAZOLE 40 MG TABLET PO SCH ×2 (08:49→21:28)
[2019-06-10] MEDS: DULoxetine HCL 20 MG CAPSULE.DR PO SCH (08:49)
[2019-06-10] MEDS: METOPROLOL TARTRATE 25 MG TAB PO SCH ×2 (08:49→21:28)
[2019-06-10] MEDS: ALPRAZolam 0.5 MG TAB PO SCH ×2 (08:49→23:40)
[2019-06-10] MEDS: AMPICILLIN-SULBACTAM 3 GM in SODIUM CHLORIDE 0.9% 100 ML IVPB SCH ×3 (08:50→23:40)
[2019-06-10] MEDS: HEPARIN SODIUM,PORCINE 5,000 UNIT/ML 1 ML VIAL SQ SCH ×2 (08:50→19:36)
--- NOTE | 2019-06-10 09:13 | XR ---
EXAMINATION TYPE: XR chest 1V portable DATE OF EXAM: 06/10/2019 COMPARISON: 06/09/2019 HISTORY: Pleural effusions. Follow-up exam. TECHNIQUE: Single frontal view of the chest is obtained. FINDINGS: Masslike consolidations are seen at the right lung base and in the right perihilar region. Loculated appearing small right pleural effusion is similar to the prior. There is redemonstration o f a right-sided Mediport is coiled in its most cranial aspect. Patchy left sided airspace disease is seen with blunting of the left costophrenic angle. Metallic esophageal stent is redemonstrated. The p ulmonary nodule seen on the recent chest CT are poorly defined on chest x-ray. Cardiomediastinal silh ouette is rotated secondary to patient positioning but appears enlarged. Right thoracostomy tube is s imilar in position. IMPRESSION: 1. Similar appearance of the small loculated right pleural effusion in comparison to 06/09/2019 previo usly demonstrated as a right hydropneumothorax on the CT of 06/05/2019. Right pleural catheter has bee n placed and no pneumothorax component is currently visualized. 2. Masslike consolidations at the right lung base are similar as well as stable strand-like probable left basilar atelectasis and trace left pleural effusion.
[2019-06-10] MEDS: ONDANSETRON 4 MG/2 ML VIAL IVP PRN ×2 (11:41→16:57)
--- NOTE | 2019-06-10 12:12 | P.PN ---
Subjective Progress Note Date: 06/10/19 Principal diagnosis: This is a 64-year-old gentleman who follows on an outpatient basis with . 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 Patient also reports that he has been having a low-grade fever and a feeling of generalized weakness at home. He denies any complaints of shortness of breath, chest pain, nausea, vomiting, diarrhea, cough or hemoptysis. In the emergency department a computed tomography scan of his chest was completed which redemonstrated a moderate to large right-sided hydropneumothorax occupying approximately 50% of the hemithorax, decrease in size from 05/02/2019. It also demonstrated worsening, now completed right lower lobe collapse and persistent volume loss and consolidation involving the entire right middle lobe, new patchy peripheral groundglass infiltrates in the left lung, metallic esophageal stent, and continued abnormal esophageal thickening abutting the proximal end of the stent that could represent neoplasm, a few right upper lobe pulmonary nodules measuring 1.1 cm were visualized in the report, improved aeration of the right upper lobe which could not be excluded for metastatic nodules and redemonstration horizontal fracture through the T8 level. Due to the findings on the computed tomography scan of his chest Dr. Patel from pulmonary medicine was consulted and ordered an ultrasound of the chest with markings. The ultrasound of his chest demonstrated an 11.2 cm right pleural effusion pocket with a complex solid appearance and multiple echogenic foci. Subsequently, the patient underwent a right thoracentesis today performed by Dr. Patel with 400 mL of foamy yellow/green foul-smelling drainage removed. Due to the recurrent right pleural effusion a consult was placed to Dr. Milan Ca from cardio thoracic surgery for further evaluation and treatment recommendations. POD #1 Right Pleurx catheter placement with fluoroscopy The patient is seen today 06/10/2019 in follow-up at his bedside on the fourth floor medical surgical unit. The patient is awake, alert and oriented 3. He is sitting up to the bedside chair and is in no acute distress. He reports that his breathing feels improved today and denies any complaints of pain. Oxygen saturations are 97% on 3 L nasal cannula. His right Pleurx catheter is in place to a Pleur-evac drainage system and is connected to low continuous wall suction -20 cm H2O. The patient has had 800 mL of thin serosanguineous drainage in the last 24 hours. A chest x-ray was completed this morning and the report shows a similar appearance of the small loculated right pleural effusion in comparison to his chest x-ray from 06/09/2019, a right pleural catheter in place with no pneumothorax. Laboratory results today show a WBC count 8.5, hemoglobin 9.1, platelets 412, sodium 135, BUN 10, creatinine 0.81. Objective - Vital Signs Vital signs: Vital Signs Temp 96.9 F L 06/10/19 07:00 Pulse 80 06/10/19 07:00 Resp 17 06/10/19 07:00 BP 130/80 06/10/19 07:00 Pulse Ox 97 06/10/19 07:00 Intake & Output 06/09/19 06/10/19 06/10/19 18:59 06:59 18:59 Intake Total 240 240 Output Total 1050 255 640 Balance -1050 -15 -400 Intake: Oral 240 240 Output: Drainage 425 640 Right Chest 425 640 Urine 625 255 Other: # Voids 1,200 - Exam This is a pleasant 64-year-old gentleman who is in no acute distress. He is resting comfortably sitting up to the bedside chair and is alert, oriented 3. Oxygen saturations 97% on 3 L nasal cannula. - Constitutional General appearance: Present: average body habitus, cooperative, no acute distress - EENT Eyes: Present: PERRLA, normal appearance. Absent: scleral icterus ENT: Present: hearing grossly normal, normal oropharynx. Absent: thrush - Neck Details: Neck is supple, No JVD. Neck: Absent: lymphadenopathy, thyromegaly - Respiratory Details: Lung sounds are essentially clear throughout, diminished to his right lower lobe. No wheezing, crackles or rhonchi. Respirations are symmetrical and nonlabored. - Cardiovascular Details: Regular rhythm and rate. S1 and S2 present, negative for S3, gallop or murmur. - Gastrointestinal Gastrointestinal Comment(s): Abdomen is soft, nontender and nondistended. Active bowel sounds present all 4 abdominal quadrants. No guarding or rigidity. No organomegaly. - Integumentary Integumentary Comment(s): kin is warm and dry. No clubbing or cyanosis is present. Right Pleurx catheter dressing is clean dry and in place. - Neurologic Neurologic: Present: CNII-XII intact - Musculoskeletal Musculoskeletal: Present: generalized weakness, strength equal bilaterally - Psychiatric Psychiatric: Present: A&O x's 3, appropriate affect, intact judgment & insight - Allied health notes Allied health notes reviewed: nursing - Labs CBC & Chem 7: 06/10/19 06:30 06/10/19 06:30 Labs: Abnormal Lab Results - Last 24 Hours (Table) 06/10/19 06/10/19 Range/Units 06:30 06:30 RBC 3.30 L (4.30-5.90) m/uL Hgb 9.1 L (13.0-17.5) gm/dL Hct 29.8 L (39.0-53.0) % MCHC 30.4 L (31.0-37.0) g/dL RDW 16.8 H (11.5-15.5) % Lymphocytes # 0.7 L (1.0-4.8) k/uL Sodium 135 L (137-145) mmol/L Glucose 124 H (74-99) mg/dL Calcium 7.9 L (8.4-10.2) mg/dL Microbiology - Last 24 Hours (Table) 06/07/19 10:00 Gram Stain - Final Pleural Fluid Body Fluid Culture - Final Gram Positive Bacilli Isolated Staphylococcus epidermidis 06/09/19 08:50 Gram Stain - Preliminary Pleural Fluid Body Fluid Culture - Preliminary 06/05/19 17:30 Blood Culture - Preliminary Blood No Growth after 96 hours 06/09/19 08:50 Anaerobic Culture - Preliminary Pleural Fluid - Imaging and Cardiology Chest x-ray: report reviewed, image reviewed Assessment and Plan Assessment: 1 Acute hypoxic respiratory failure secondary to right-sided hydropneumothorax occupying 50% of the hemithorax. Ultrasound of the chest reveals an 11.2 cm pocket with multiple echogenic foci. Right-sided thoracentesis performed today 06/07/2019 with approximately 400 ML's of foul smelling, purulent greeni sh/yellow liquid drained. 2 Recurrent right-sided empyema pleural effusion with previous thoracentesis performed on 05/02/2019 with subsequent hydropneumothorax requiring right-sided chest tube placement. Negative for malignancy. Cultures were positive for diphtheroid species. Status post right-sided Pleurx catheter placement yesterday 06/09/2019 with 1.2 L of purulent foul-smelling drainage removed in the operating room. 3 Open wound with drainage from previous chest tube insertion site, preliminary wound cultures showing many gram-positive bacilli. 4 History of esophageal cancer, status post chemoradiation and metallic stent placement 5 Anemia with a hemoglobin of 6.9, receiving a unit of packed red blood cells today for 2019 6 History of DVT/PE 7 History of GERD 8 Hyperlipidemia 9 Hypertension 10 History of obstructive sleep apnea, currently not using CPAP 11 History of supraventricular tachycardia 12 History of CVA 13 Severe kyphosis Plan: 1. Keep the right Pleurx catheter connected to the Pleur-evac with low continuous wall suction -20 cm H2O for another 24 hours. 2. Wean oxygen as tolerated. 3. Continue current antibiotic management, Antibiotic management and recommendations per infectious disease. 4. Encourage use of his incentive spirometry every hour while awake. 5. Increase activity as tolerated. 6. Once his Pleurx catheter is disconnected from the Pleur-evac and he is ready to be discharged home bedside teaching of care of his Pleurx catheter will be completed. 7. Medical management and other comorbidities per primary care. 8. More recommendations to follow based on patient's clinical course. Okay to be discharged home per the cardiothoracic surgery standpoint when okay with primary care service. Time with Patient: Less than 30
--- NOTE | 2019-06-10 14:26 | P.PN ---
Subjective Progress Note Date: 06/10/19 Principal diagnosis: Acute hypoxemia related to hydropneumothorax on the right side, empyema This is a 64-year-old gentleman who follows on an outpatient basis with . 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 He presented to the emergency department here at [facility] on 06/05/2019 with instructions from his office automation clerk, as the patient had complaints of drainage from his previous chest tube insertion site concerning for infection. Patient also reports that he has been having a low-grade fever and a feeling of generalized weakness at home. He denies any complaints of shortness of breath, chest pain, nausea, vomiting, diarrhea, cough or hemoptysis. In the emergency department a computed tomography scan of his chest was completed which redemonstrated a moderate to large right-sided hydropneumothorax occupying approximately 50% of the hemithorax, decrease in size from 05/02/2019. It also demonstrated worsening, now completed right lower lobe collapse and persistent volume loss and consolidation involving the entire right middle lobe, new patchy peripheral groundglass infiltrates in the left lung, metallic esophageal stent, and continued abnormal esophageal thickening abutting the proximal end of the stent that could represent neoplasm, a few right upper lobe pulmonary nodules measuring 1.1 cm were visualized in the report, improved aeration of the right upper lobe which could not be excluded for metastatic nodules and redemonstration horizontal fracture through the T8 level. Due to the findings on the computed tomography scan of his chest Dr. Patel from pulmonary medicine was consulted and ordered an ultrasound of the chest with markings. The ultrasound of his chest demonstrated an 11.2 cm right pleural effusion pocket with a complex solid appearance and multiple echogenic foci. Subsequently, the patient underwent a right thoracentesis today performed by Dr. Patel with 400 mL of foamy yellow/green foul-smelling drainage removed. Due to the recurrent rig ht pleural effusion a consult was placed to Dr. Milan Ca from cardiothoracic surgery for further evaluation and treatment recommendations. On 06/10/2019 patient seen in follow-up on a general medical floor, she is calm and comfortable, he is currently on 3 L of oxygen and the pulse ox of 97%, hemodynamically stable, his been afebrile. Overnight had another 800 mL of thin serous and drainage from his Pleurx catheter was connected to Pleur-evac and to wall suction. Today's chest x-ray shows improvement in the appearance of right-sided pleural effusion compared to yesterday's exam. With the residual small loculated right pleural effusion. Patient's pleural fluid cultures sent yesterday on 06/09/2019 are pending, pleural fluid sent on 06/07/2019 was positive for gram-positive bacilli, and Staphylococcus epidermidis. Current antibiotic coverage includes Unasyn and vancomycin, ID service is following. Likely stable, no worsening dyspnea, no complaints of chest pain. Surgical services are following. Pleural fluid cytology still pending. Objective - Vital Signs Vital signs: Vital Signs Temp 96.9 F L 06/10/19 07:00 Pulse 80 06/10/19 07:00 Resp 17 06/10/19 07:00 BP 130/80 06/10/19 07:00 Pulse Ox 97 06/10/19 07:00 Intake & Output 06/09/19 06/10/19 06/10/19 18:59 06:59 18:59 Intake Total 240 480 Output Total 1050 255 640 Balance -1050 -15 -160 Intake: Oral 240 480 Output: Drainage 425 640 Right Chest 425 640 Urine 625 255 Other: # Voids 1,200 3 - Exam GENERAL EXAM: Alert, very pleasant, white male, on 3 L of oxygen with a pulse ox of 97% comfortable in no apparent distress. HEAD: Normocephalic/atraumatic. EYES: Normal reaction of pupils, equal size. Conjunctiva pink, sclera white. NOSE: Clear with pink turbinates. THROAT: No erythema or exudates. NECK: No masses, no JVD, no thyroid enlargement, no adenopathy. CHEST: No chest wall deformity. Symmetrical expansion. Patient has right-sided Pleurx catheter in place which connected to Pleur-evac with thin serosanguineous output and to wall suction LUNGS: Equal air entry with diminished breath sounds on the right side CVS: Regular rate and rhythm, normal S1 and S2, no gallops, no murmurs, no rubs ABDOMEN: Soft, nontender. No hepatosplenomegaly, normal bowel sounds, no guarding or rigidity. EXTREMITIES: No clubbing, no edema, no cyanosis, 2+ pulses and upper and lower extremities. MUSCULOSKELETAL: Muscle strength and tone normal. SPINE: No scoliosis or deformity SKIN: No rashes CENTRAL NERVOUS SYSTEM: Alert and oriented -3. No focal deficits, tone is normal in all 4 extremities. PSYCHIATRIC: Alert and oriented -3. Appropriate affect. Intact judgment and insight. - Labs CBC & Chem 7: 06/10/19 06:30 06/10/19 06:30 Labs: Abnormal Lab Results - Last 24 Hours (Table) 06/10/19 06/10/19 Range/Units 06:30 06:30 RBC 3.30 L (4.30-5.90) m/uL Hgb 9.1 L (13.0-17.5) gm/dL Hct 29.8 L (39.0-53.0) % MCHC 30.4 L (31.0-37.0) g/dL RDW 16.8 H (11.5-15.5) % Lymphocytes # 0.7 L (1.0-4.8) k/uL Sodium 135 L (137-145) mmol/L Glucose 124 H (74-99) mg/dL Calcium 7.9 L (8.4-10.2) mg/dL Microbiology - Last 24 Hours (Table) 06/06/19 12:36 Anaerobic Culture - Final Breast - Right 06/07/19 10:00 Gram Stain - Final Pleural Fluid Body Fluid Culture - Final Gram Positive Bacilli Isolated Staphylococcus epidermidis 06/09/19 08:50 Gram Stain - Preliminary Pleural Fluid Body Fluid Culture - Preliminary 06/05/19 17:30 Blood Culture - Preliminary Blood No Growth after 96 hours 06/09/19 08:50 Anaerobic Culture - Preliminary Pleural Fluid Assessment and Plan Plan: Assessment: 1 Acute hypoxic respiratory failure secondary to right-sided hydropneumothorax occupying 50% of the hemithorax, status post right-sided thoracentesis, and right Pleurx catheter placement for drainage. Ultrasound of the chest reveals an 11.2 cm pocket with multiple echogenic foci. Right-sided thoracentesis performed today 06/07/2019 with approximately 400 ML's of foul smelling, purulent greenish/yellow liquid drained. 2 Recurrent right-sided empyema pleural effusion with previous thoracentesis performed on 05/02/2019 with subsequent hydropneumothorax requiring right-sided chest tube placement. Negative for malignancy. Cultures were positive for diphtheroid species. Status post right-sided Pleurx catheter placement today 06/09/2019 with 1.2 L of purulent foul-smelling drainage removed in the op erating room. 3 Open wound with drainage from previous chest tube insertion site, preliminary wound cultures showing many gram-positive bacilli. 4 History of esophageal cancer, status post chemoradiation and metallic stent placement 5 Anemia with a hemoglobin of 6.9, receiving a unit of packed red blood cells today for 2019 6 History of DVT/PE 7 History of GERD 8 Hyperlipidemia 9 Hypertension 10 History of obstructive sleep apnea, currently not using CPAP 11 History of supraventricular tachycardia 12 History of CVA 13 Severe kyphosis Plan: Awaiting for the results of the pleural fluid cultures, currently coverage includes Unasyn and vancomycin, clinically stable, afebrile, cytology of the pleural fluid is negative. Continue following with the recommendations of the CT surgery, right Pleurx catheter is draining, still to wall suction, today's chest x-ray has been reviewed showing some improvement in the appearance of the right-sided pleural effusion. Afebrile, hemodynamically patient is stable. Patient will receive education on the management of the Pleurx chest tube, weaning FiO2, follow-up chest x-ray in the morning. ID service is following, will follow the recommendations for antibiotic infusions I performed a history & physical examination of the patient and discussed their management with my nurse practitioner, Amanda Le. I reviewed the nurse practitioner's note and agree with the documented findings and plan of care. Lung sounds are positive for diminished breath sounds. The findings and the impression was discussed with the patient. I attest to the documentation by the nurse practitioner. Time with Patient: Less than 30
--- NOTE | 2019-06-10 15:16 | P.PN ---
Subjective 64-year-old gentleman with a history of esophageal cancer was recently discharged about a month ago from the hospitalafter he was treated for malignant pleural effusion on the right side patient did well and lasted a couple days patient started having purulent drainage from the site where he had a chest tube concerning for infection patient was having low-grade fevers at home and feeling weak. Patient denied any chest pain or shortness of breath patient is also found to have hydropneumothorax incidentally because of which pulmonary was cons ulted patient was vancomycin along with cefepime and was subsequently admitted to the hospital patient's cefepime was discontinued patient remains on vancomycin wound cultures will be obtained. Neurology was consulted for hydropneumothorax 06/07/2019 Patient underwent thoracocentesis with drainage of about 400 mL of purulent greenish fluid and the patient's pleural fluid appears to be exudative with highly elevated white blood cell count. We consulted infectious disease, patient won't cultures are positive for gram-negative bacilli patient was started on Unasyn continue with vancomycin. Patient's serum sodium has come down because of which I'm discontinued IV fluids patient was started on fluid restriction Will repeat basic metabolic profile again tomorrow if it continues to go down below further workup for hyponatremia. Patient hemoglobin has come down to 6.9 no evidence of acute bleed and this is probably secondary to hemodilution 3 affect patient was given 1 unit of PRBC transfusion. 06/07/2022 Patient undergo Pleurx catheter placement at from cancer. Patient's serum sodium worsened with IV fluids improved with the Lasix and holding off on IV fluids patient probably has ascites from cancer patient is presently nothing by mouth because of his choking and patient is undergoing evaluation by speech therapy once patient is started on diet patient need to be on the fluid r estriction at 1500 mL we will obtain repeat labs tomorrow. Patient's anti- correlation is on hold for Pleurx catheter placement which need to be restarted back again was a Pleurx catheter was placed. Patient to wound cultures are showing gram-positive bacilli which is a skin contamination, patient remains on Unasyn as an aerobic infection cannot be ruled out. Infectious disease is following the patient 06/09/2019 Patient status post right Pleurx catheter placement today by surgical team. Pos toperatively patient sitting in bed in some pain in his surgical site but he is not in overt distress. Vitals looks stable. Labs look stable as well. Sodium 134, creatinine 0.7.Questionable dysphagia problem, patient has his esophageal stent related to his esophageal cancer, we'll place a consult for speech and swallow evaluation as well. He remains on Unasyn and vancomycin, with cytology and final wound culture results are pending 06/10/2019 Patient lying in bed comfortable. Hemodynamically stable. No chest pain. Mild dyspnea. This Pleurx catheter drained 150 mL today. CBC and BMP are stable. Cytology of the pleural fluid is negative. Cultures still pending however Gram stain is growing gram-negative bacilli and staph epidermidis with gram-positive bacilli. Patient remains on Unasyn and vancomycin. Patient is followed by several consultants Objective - Vital Signs Vital signs: Vital Signs Temp 96.9 F L 06/10/19 07:00 Pulse 80 06/10/19 07:00 Resp 17 06/10/19 07:00 BP 130/80 06/10/19 07:00 Pulse Ox 97 06/10/19 07:00 Intake & Output 06/09/19 06/10/19 06/10/19 18:59 06:59 18:59 Intake Total 240 480 Output Total 1050 255 640 Balance -1050 -15 -160 Intake: Oral 240 480 Output: Drainage 425 640 Right Chest 425 640 Urine 625 255 Other: # Voids 1,200 3 - Exam -GENERAL: The patient is alert and oriented x3, not in any acute distress. Thin built. HEENT: Pupils are round and equally reacting to light. EOMI. No scleral icterus. No conjunctival pallor. Normocephalic, atraumatic. No pharyngeal erythema. No thyromegaly. CARDIOVASCULAR: S1 and S2 present. No murmurs, rubs, or gallops. -PULMONARY: Chest is clear to auscultation, no wheezing or crackles. Right Pleurx catheter in a Place ABDOMEN: Soft, nontender, nondistended, normoactive bowel sounds. No palpable organomegaly. MUSCULOSKELETAL: No joint swelling or deformity. EXTREMITIES: No cyanosis, clubbing, or pedal edema. NEUROLOGICAL: Gross neurological examination did not reveal any focal deficits. SKIN: patient had a surgical site area that has purulent drainage. - Labs CBC & Chem 7: 06/10/19 06:30 06/10/19 06:30 Labs: Abnormal Lab Results - Last 24 Hours (Table) 06/10/19 06/10/19 Range/Units 06:30 06:30 RBC 3.30 L (4.30-5.90) m/uL Hgb 9.1 L (13.0-17.5) gm/dL Hct 29.8 L (39.0-53.0) % MCHC 30.4 L (31.0-37.0) g/dL RDW 16.8 H (11.5-15.5) % Lymphocytes # 0.7 L (1.0-4.8) k/uL Sodium 135 L (137-145) mmol/L Glucose 124 H (74-99) mg/dL Calcium 7.9 L (8.4-10.2) mg/dL Microbiology - Last 24 Hours (Table) 06/06/19 12:36 Anaerobic Culture - Final Breast - Right 06/07/19 10:00 Gram Stain - Final Pleural Fluid Body Fluid Culture - Final Gram Positive Bacilli Isolated Staphylococcus epidermidis 06/09/19 08:50 Gram Stain - Preliminary Pleural Fluid Body Fluid Culture - Preliminary 06/05/19 17:30 Blood Culture - Preliminary Blood No Growth after 96 hours 06/09/19 08:50 Anaerobic Culture - Preliminary Pleural Fluid Assessment and Plan Assessment: -infection of the chest tube site area: Patient will be continued on vancomycin wound cultures are positive for for gram-positive bacilli which is diphtheroids which are skin organisms, patient remains on vancomycin and Unasyn to cover staph strep species along with anaerobes. -Hydropneumothorax: Status post or drainage of 400 mL of purulent fluid patient needs Pleurx catheter, patient's pleural fluid is exudative in nature and probably secondary to cancer. Patient will is a status post Pleurx catheter placement -Hyponatremia: Probably a series from cancer patient to be in fluid restriction once his she started on diet -Dysphagia speech therapy evaluation patient is presently nothing by mouth -paroxysmal A. fib: Continue with rate control medications but anticoagulation is on hold because of Pleurx catheter placement tomorrow patient can be resumed on Eliquis once the Pleurx catheter was placed -Hypertension -Hyperlipidemia -History of CVA -History of DVT and PE -Gastroesophageal reflux disease -Metastatic esophageal cancer DVT prophylaxis: Subcutaneous heparin GI prophylaxis: Protonix Prognosis is guarded
--- NOTE | 2019-06-10 18:07 | PN ---
PROGRESS NOTE DATE OF SERVICE: 06/10/2019 REASON FOR FOLLOWUP: Empyema. INTERVAL HISTORY: The patient is currently afebrile. The patient has been breathing comfortably. The patient denies having any chest pain. Occasional cough. No nausea, no vomiting. No abdominal pain or diarrhea. PHYSICAL EXAMINATION: Blood pressure 126/81 with a pulse of 91, temperature 97.5. He is 100% on 3 L nasal cannula. General description is an elderly male up in the chair in no distress. RESPIRATORY SYSTEM: Unlabored breathing with decreased breath sounds at the base. No wheeze. HEART: S1, S2. Regular rate and rhythm. ABDOMEN: Soft. No tenderness. LABS: Hemoglobin 9.1, white count 8.5, BUN of 10, creatinine 0.81. DIAGNOSTIC IMPRESSION AND PLAN: Patient with right-sided empyema with recurrent pleural effusion, status post initial leukocytosis followed by PleurX catheter placement. Culture with Gram-positive bacilli and Staph epidermidis. The patient is covered with vancomycin and Unasyn; waiting for the final ID on this Gram-positive to determine his discharge antibiotics. Likely he will need a PICC line for outpatient IV antibiotics. Continue with supportive care. MMODL / IJN: [id number] /
[2019-06-11] MEDS: ACETAMINOPHEN TAB 325 MG TAB PO PRN ×3 (05:06→15:11)
[2019-06-11] MEDS: ONDANSETRON 4 MG/2 ML VIAL IVP PRN (07:02)
[2019-06-11] MEDS: ALPRAZolam 0.5 MG TAB PO SCH (07:09)
[2019-06-11] MEDS: DULoxetine HCL 20 MG CAPSULE.DR PO SCH (07:09)
[2019-06-11] MEDS: AMIODARONE 200 MG TAB PO SCH ×2 (07:09→13:16)
[2019-06-11] MEDS: METOPROLOL TARTRATE 25 MG TAB PO SCH (07:10)
[2019-06-11] MEDS: PANTOPRAZOLE 40 MG TABLET PO SCH (07:10)
[2019-06-11] MEDS: AMPICILLIN-SULBACTAM 3 GM in SODIUM CHLORIDE 0.9% 100 ML IVPB SCH (07:10)
[2019-06-11 08:12] LABS: African American GFR (CKD) >90 (>60 ml/min/1.73 sqM); Anion Gap 5 mmol/L; Blood Urea Nitrogen 9 mg/dL (9-20); Calcium 7.7 mg/dL (8.4-10.2); Carbon Dioxide 33 mmol/L (22-30); Chloride 99 mmol/L (98-107); Glucose 116 mg/dL (74-99); Non-African American GFR(CKD) 81 (>60 ml/min/1.73 sqM); Potassium 4.1 mmol/L (3.5-5.1); Sodium 137 mmol/L (137-145)
[2019-06-11] MEDS ORDERED: APIXABAN 5 MG TAB PO SCH (09:00)
[2019-06-11] MEDS: VANCOMYCIN 1,500 MG in SODIUM CHLORIDE 0.9% 250 ML IVPB SCH (13:16)
--- NOTE | 2019-06-11 13:19 | P.PN ---
Subjective Progress Note Date: 06/11/19 Principal diagnosis: This is a 64-year-old gentleman who follows on an outpatient basis with . 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 He presented to the emergency department here at [facility] on 06/05/2019 with instructions from his computational chemist, as the patient had complaints of drainage from his previous chest tube insertion site concerning for infection. Patient also reports that he has been having a low-grade fever and a feeling of generalized weakness at home. He denies any complaints of shortness of breath, chest pain, nausea, vomiting, diarrhea, cough or hemoptysis. In the emergency department a computed tomography scan of his chest was completed which redemonstrated a moderate to large right-sided hydropneumothorax occupying approximately 50% of the hemithorax, decrease in size from 05/02/2019. It also demonstrated worsening, now completed right lower lobe collapse and persistent volume loss and consolidation involving the entire right middle lobe, new patchy peripheral groundglass infiltrates in the left lung, metallic esophageal stent, and continued abnormal esophageal thickening abutting the proximal end of the stent that could represent neoplasm, a few right upper lobe pulmonary nodules measuring 1.1 cm were visualized in the report, improved aeration of the right upper lobe which could not be excluded for metastatic nodules and redemonstration horizontal fracture through the T8 level. Due to the findings on the computed tomography scan of his chest Dr. Patel from pulmonary medicine was consulted and ordered an ultrasound of the chest with markings. The ultrasound of his chest demonstrated an 11.2 cm right pleural effusion pocket with a complex solid appearance and multiple echogenic foci. Subsequently, the patient underwent a right thoracentesis today performed by Dr. Patel with 400 mL of foamy yellow/green foul-smelling drainage removed. Due to the recurrent right pleural effusion a consult was placed to Dr. Milan Ca from cardio thoracic surgery for further evaluation and treatment recommendations. POD #2 Right Pleurx catheter placement with fluoroscopy The patient is seen today 06/11/2019 in follow-up at his bedside on the fourth floor medical surgical unit. He is awake, alert and oriented x 3, sitting up comfortably to the bedside chair. He is no acute distress, oxygen saturation are 99% on 3 L nasal cannula. He remains hemodynamically stable and has been afebrile last 24 hours. He remains with a right Pleurx catheter in place connected to Pleur-evac with low continuous wall suction -20 cm H2O. No air leak is present. Draining thin serosanguineous drainage with 810 mL output in the last 24 hours. He denies and complaints of pain or shortness of breath. Laboratory results today show a sodium 137, BUN 9, creatinine 0.98 and calcium 7.7. No chest x-ray was completed today. His pleural fluid cytology results remain pending. The pleural fluid culture is showing gram-positive bacilli isolated, coagulase negative staph and alpha hemolytic streptococcus. Current antibiotics are Unasyn and vancomycin managed by infectious disease. Objective - Vital Signs Vital signs: Vital Signs Temp 97.4 F L 06/11/19 07:00 Pulse 72 06/11/19 07:00 Resp 15 06/11/19 07:00 BP 120/76 06/11/19 07:00 Pulse Ox 99 06/11/19 07:00 Intake & Output 06/10/19 06/11/19 06/11/19 18:59 06:59 18:59 Intake Total 480 300 Output Total 810 525 Balance -330 -525 300 Intake: Oral 480 300 Output: Drainage 810 Right Chest 810 Urine 525 Other: # Voids 3 1 - Exam This is a pleasant 64-year-old gentleman who is in no acute distress. He is sitting up to the bedside chair and is alert, oriented 3. Oxygen saturations 99% on 3 L nasal cannula. - Constitutional General appearance: Present: average body habitus, cooperative, no acute distress - EENT Eyes: Present: PERRLA, normal appearance. Absent: scleral icterus ENT: Present: hearing grossly normal, normal oropharynx. Absent: thrush - Neck Details: Neck is supple, no lymphadenopathy. Neck: Absent: lymphadenopathy, stridor - Respiratory Details: Lung sounds are essentially clear throughout, diminished to his right lower lobe. No wheezing, crackles or rhonchi. Respirations are symmetrical and nonlabored. Right Pleurx catheter in place to Pleur-evac and low continuous wall suction -20 cm. No air leak is present. Draining thin so sinus drainage. - Cardiovascular Details: Regular rhythm and rate. S1 and S2 present, negative for S3, gallop or murmur. - Gastrointestinal Gastrointestinal Comment(s): Abdomen is soft, nontender and nondistended. Active bowel sounds present all 4 abdominal quadrants. No guarding or rigidity. No organomegaly. - Integumentary Integumentary Comment(s): Skin is warm and dry. No clubbing or cyanosis present. Dressing to his right Pleurx catheter is clean dry and intact. - Neurologic Neurologic: Present: CNII-XII intact - Musculoskeletal Musculoskeletal: Present: gait normal, generalized weakness, strength equal bilaterally - Psychiatric Psychiatric: Present: A&O x's 3, appropriate affect, intact judgment & insight - Allied health notes Allied health notes reviewed: nursing - Labs CBC & Chem 7: 06/10/19 06:30 06/11/19 07:40 Labs: Abnormal Lab Results - Last 24 Hours (Table) 06/11/19 Range/Units 07:40 Carbon Dioxide 33 H (22-30) mmol/L Glucose 116 H (74-99) mg/dL Calcium 7.7 L (8.4-10.2) mg/dL Microbiology - Last 24 Hours (Table) 06/09/19 08:50 Gram Stain - Preliminary Pleural Fluid Body Fluid Culture - Preliminary Gram Positive Bacilli Isolated Coagulase Negative Staph Alpha Hemolytic Streptococcus 06/05/19 17:30 Blood Culture - Preliminary Blood No Growth after 120 hours 06/06/19 12:36 Anaerobic Culture - Final Breast - Right 06/07/19 10:00 Gram Stain - Final Pleural Fluid Body Fluid Culture - Final Gram Positive Bacilli Isolated Staphylococcus epidermidis Assessment and Plan Assessment: 1. Acute hypoxic respiratory failure secondary to right-sided hydropneumothorax occupying 50% of the hemithorax. Ultrasound of the chest reveals an 11.2 cm pocket with multiple echogenic foci. Right-sided thoracentesis performed today 06/07/2019 with approximately 400 ML's of foul smelling, purulent greenish/yellow liquid drained. 2. Recurrent right-sided empyema pleural effusion with previous thoracentesis performed on 05/02/2019 with subsequent hydropneumothorax requiring right-sided chest tube placement. Negative for malignancy. Cultures were positive for diphtheroid species. Status post right-sided Pleurx catheter placement on 06/09/2019 with 1.2 L of purulent foul-smelling drainage removed in the operating room. Pleural fluid Gram stain pulmonary culture result shows gram- positive bacilli isolated, coagulase-negative staph, alpha hemolytic streptococcus. 3. Open wound with drainage from previous chest tube insertion site, preliminary wound cultures showing many gram-positive bacilli. 4. History of esophageal cancer, status post chemoradiation and metallic stent placement 5. Anemia with a hemoglobin of 6.9, receiving a unit of packed red blood cells today for 2019 6. History of DVT/PE 7. History of GERD 8. Hyperlipidemia 9. Hypertension 10. History of obstructive sleep apnea, currently not using CPAP 11 History of supraventricular tachycardia 12 History of CVA 13 Severe kyphosis Plan: 1. We will His Pleurx catheter today in anticipation of him being discharged home. 2. Wean oxygen as tolerated. 3. Antibiotic management and recommendations per infectious disease. 4. Encourage use of his incentive spirometry every hour while awake. 5. Increase activity as tolerated. 6. The patient will need home care with Pleurx catheter teaching and drainage instructions. 7. Medical management and other comorbidities per primary care. 8. Okay to be discharged home per the cardiothoracic surgery standpoint when okay with primary care service. Time with Patient: Less than 30
--- NOTE | 2019-06-11 13:53 | P.PN ---
Subjective Progress Note Date: 06/11/19 Principal diagnosis: Acute hypoxemia related to hydropneumothorax on the right side, empyema This is a 64-year-old gentleman who follows on an outpatient basis with . 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 He presented to the emergency department here at [facility] on 06/05/2019 with instructions from his fur tailor, as the patient had complaints of drainage from his previous chest tube insertion site concerning for infection. Patient also reports that he has been having a low-grade fever and a feeling of generalized weakness at home. He denies any complaints of shortness of breath, chest pain, nausea, vomiting, diarrhea, cough or hemoptysis. In the emergency department a computed tomography scan of his chest was completed which redemonstrated a moderate to large right-sided hydropneumothorax occupying approximately 50% of the hemithorax, decrease in size from 05/02/2019. It also demonstrated worsening, now completed right lower lobe collapse and persistent volume loss and consolidation involving the entire right middle lobe, new patchy peripheral groundglass infiltrates in the left lung, metallic esophageal stent, and continued abnormal esophageal thickening abutting the proximal end of the stent that could represent neoplasm, a few right upper lobe pulmonary nodules measuring 1.1 cm were visualized in the report, improved aeration of the right upper lobe which could not be excluded for metastatic nodules and redemonstration horizontal fracture through the T8 level. Due to the findings on the computed tomography scan of his chest Dr. Patel from pulmonary medicine was consulted and ordered an ultrasound of the chest with markings. The ultrasound of his chest demonstrated an 11.2 cm right pleural effusion pocket with a complex solid appearance and multiple echogenic foci. Subsequently, the patient underwent a right thoracentesis today performed by Dr. Patel with 400 mL of foamy yellow/green foul-smelling drainage removed. Due to the recurrent rig ht pleural effusion a consult was placed to Dr. Milan Ca from cardiothoracic surgery for further evaluation and treatment recommendations. On 06/10/2019 patient seen in follow-up on a general medical floor, she is calm and comfortable, he is currently on 3 L of oxygen and the pulse ox of 97%, hemodynamically stable, his been afebrile. Overnight had another 800 mL of thin serous and drainage from his Pleurx catheter was connected to Pleur-evac and to wall suction. Today's chest x-ray shows improvement in the appearance of right-sided pleural effusion compared to yesterday's exam. With the residual small loculated right pleural effusion. Patient's pleural fluid cultures sent yesterday on 06/09/2019 are pending, pleural fluid sent on 06/07/2019 was positive for gram-positive bacilli, and Staphylococcus epidermidis. Current antibiotic coverage includes Unasyn and vancomycin, ID service is following. Likely stable, no worsening dyspnea, no complaints of chest pain. Surgical services are following. Pleural fluid cytology still pending. On 06/11/2019 patient is seen in follow-up on the general medical floor, he is awake and alert, he is on 3 L of oxygen his pulse ox of 99%, hemodynamically stable, he is afebrile. He is Pleurx catheter drained 810 mL of thin serosan guineous output from the chest tube. Pleur-evac remains to wall suction. No evidence of air leak, patient is breathing easier, there has been no chest x-ray today, his pleural fluid cytology is still pending. Cultures of the pleural fluid showing gram-positive bacilli, coagulase-negative staph and alpha hemolytic Streptococcus. Patient is currently on a combination of Unasyn and vancomycin, ID service is following, we will put in a consult to interventional radiology for insertion of PICC line but then it was brought to her attention and the patient actually has of MediPort in place which has been accessed and is working properly and can be used for infusion of home antibiotics after dis charge. Objective - Vital Signs Vital signs: Vital Signs Temp 97.4 F L 06/11/19 07:00 Pulse 72 06/11/19 07:00 Resp 15 06/11/19 07:00 BP 120/76 06/11/19 07:00 Pulse Ox 99 06/11/19 07:00 Intake & Output 06/10/19 06/11/19 06/11/19 18:59 06:59 18:59 Intake Total 480 600 Output Total 810 525 Balance -330 -525 600 Intake: Oral 480 600 Output: Drainage 810 Right Chest 810 Urine 525 Other: # Voids 3 1 3 - Exam GENERAL EXAM: Alert, very pleasant, white male, on 3 L of oxygen with a pulse ox of 99% comfortable in no apparent distress. HEAD: Normocephalic/atraumatic. EYES: Normal reaction of pupils, equal size. Conjunctiva pink, sclera white. NOSE: Clear with pink turbinates. THROAT: No erythema or exudates. NECK: No masses, no JVD, no thyroid enlargement, no adenopathy. CHEST: No chest wall deformity. Symmetrical expansion. Patient has right-sided Pleurx catheter in place which connected to Pleur-evac with thin serosanguineous output and to wall suction LUNGS: Equal air entry with diminished breath sounds on the right side CVS: Regular rate and rhythm, normal S1 and S2, no gallops, no murmurs, no rubs ABDOMEN: Soft, nontender. No hepatosplenomegaly, normal bowel sounds, no guarding or rigidity. EXTREMITIES: No clubbing, no edema, no cyanosis, 2+ pulses and upper and lower extremities. MUSCULOSKELETAL: Muscle strength and tone normal. SPINE: No scoliosis or deformity SKIN: No rashes CENTRAL NERVOUS SYSTEM: Alert and oriented -3. No focal deficits, tone is normal in all 4 extremities. PSYCHIATRIC: Alert and oriented -3. Appropriate affect. Intact judgment and insight. - Labs CBC & Chem 7: 06/10/19 06:30 06/11/19 07:40 Labs: Abnormal Lab Results - Last 24 Hours (Table) 06/11/19 Range/Units 07:40 Carbon Dioxide 33 H (22-30) mmol/L Glucose 116 H (74-99) mg/dL Calcium 7.7 L (8.4-10.2) mg/dL Microbiology - Last 24 Hours (Table) 06/09/19 08:50 Gram Stain - Preliminary Pleural Fluid Body Fluid Culture - Preliminary Gram Positive Bacilli Isolated Coagulase Negative Staph Alpha Hemolytic Streptococcus 06/05/19 17:30 Blood Culture - Preliminary Blood No Growth after 120 hours 06/06/19 12:36 Anaerobic Culture - Final Breast - Right 06/07/19 10:00 Gram Stain - Final Pleural Fluid Body Fluid Culture - Final Gram Positive Bacilli Isolated Staphylococcus epidermidis Assessment and Plan Plan: Assessment: 1 Acute hypoxic respiratory failure secondary to right-sided hydropneumothorax occupying 50% of the hemithorax, status post right-sided thoracentesis, and right Pleurx catheter placement for drainage. Ultrasound of the chest reveals an 11.2 cm pocket with multiple echogenic foci. Right-sided thoracentesis performed today 06/07/2019 with approximately 400 ML's of foul smelling, purulent greenish/yellow liquid drained. 2 Recurrent right-sided empyema pleural effusion with previous thoracentesis performed on 05/02/2019 with subsequent hydropneumothorax requiring right-sided chest tube placement. Negative for malignancy. Cultures were positive for diphtheroid species. Status post right-sided Pleurx catheter placement today 06/09/2019 with 1.2 L of purulent foul-smelling drainage removed in the operating room. 3 Open wound with drainage from previous chest tube insertion site, preliminary wound cultures showing many gram-positive bacilli. 4 History of esophageal cancer, status post chemoradiation and metallic stent placement 5 Anemia with a hemoglobin of 6.9, receiving a unit of packed red blood cells today for 2019 6 History of DVT/PE 7 History of GERD 8 Hyperlipidemia 9 Hypertension 10 History of obstructive sleep apnea, currently not using CPAP 11 History of supraventricular tachycardia 12 History of CVA 13 Severe kyphosis Plan: Await results of the pleural fluid cytology, and final results of the cultures, antibiotics per ID service recommendations, from pulmonary perspective patient is doing well, no worsening dyspnea, his been afebrile, still draining significant amount out of his Pleurx catheter. CT surgery is following, once we have the results of the pleural fluid cytology and cultures and recommendations for antibiotics from ID service patient may be considered for discharge home with Pleurx and place and he will receive education regarding the management of the Pleurx catheter. I performed a history & physical examination of the patient and discussed their management with my nurse practitioner, Amanda Le. I reviewed the nurse practitioner's note and agree with the documented findings and plan of care. Lung sounds are positive for diminished breath sounds. The findings and the impression was discussed with the patient. I attest to the documentation by the nurse practitioner. Time with Patient: Less than 30
[2019-06-11 14:21] VITALS: BP 118/75; PULSE 71; RESP 16; TEMP 97.7
[2019-06-11 14:31] VITALS: BMI 25.1
--- NOTE | 2019-06-11 15:46 | P.DS ---
Providers Date of admission: 06/05/19 19:08 Attending physician: Merritt Shay Consults: 06/05/19 18:57 Consult Physician Routine Consulting Provider: Henry Patel Consult Reason/Comments: loculated pleural effusion Do you want consulting provider notified?: Yes 06/07/19 09:53 Consult Physician Routine Consulting Provider: Maddi Reyes Consult Reason/Comments: wound infection Do you want consulting provider notified?: Yes 06/07/19 10:54 Consult Physician Routine Consulting Provider: [place] Ca Consult Reason/Comments: Recurrent right pleural effusion Do you want consulting provider notified?: Already Contacted Primary care physician: Fanta Hanna Hospital Course: Diagnoses: -infection of the chest tube site area, patient is Metastatic esophageal cancer status post recent thoracocentesis about 3 weeks prior to hospitalization. Associated with recurrent pleural effusion -Recurrent Hydropneumothorax: Status post or drainage of 400 mL of purulent fluid patient status post Pleurx catheter placement -Mild Hyponatremia: Stable -paroxysmal A. fib: Continue with rate control medications, on Eliquis -Hypertension -Hyperlipidemia -History of CVA -History of DVT and PE -Gastroesophageal reflux disease Hospital course: 64-year-old gentleman with a history of esophageal cancer was recently discharged about a month ago from the hospitalafter he was treated for malignant pleural effusion on the right side patient did well and lasted a couple days patient started having purulent drainage from the site where he had a chest tube concerning for infection patient was having low-grade fevers at home and feeling weak. Patient denied any chest pain or shortness of breath patient is also found to have hydropneumothorax . Patient was treated empirically with Unasyn and vanco mycin, wound culture showing coagulase-negative staph. Infectious disease followed the patient closely and recommended a PICC line and IV antibiotics upon discharge (see discharge instructions) Also pulmonary evaluated the patient, status post thoracocentesis with 400 mL of purulent fluid drained. cardiothoracic surgeon placed pleurx catheter and extra 150 ml drained out. Patient Doing well, no dyspnea or chest pain, this fever subsided with no leukocytosis. No other complaint like no abdominal pain, no nausea vomiting, no change in urine or bowel habits. Patient does not need home oxygen when checked. Currently saturating 92% on room air. Patient was cleared for discharge by all consultants including pulmonary, cardiothoracic surgery and infectious disease services. Patient will be discharged on IV vancomycin for 4 weeks and Augmentin for 2 weeks per ID team recommendation, please see discharge medication. Vancomycin would be pharmacy to dose. I spoke with the case management manager Mary Beth and already an effusion company from [facility] has been set up for him, and their pharmacist will manage the dose. Also per Mary Beth his Pleurx catheter back his been set up for him as well Problems and management plan were discussed with the patient and he verbalized understanding and acceptance Patient was found stable and can be discharged home however he needs follow-up as an outpatient. Patient was instructed to follow up with PCP within one week and patient agrees. An appointment made for the patient with his PCP and oncologist on 06/14, I called and discussed the case with and he follow-up the cytology results for his pleural effusion. Also patient was instructed to follow up with Dr. Reyes on 07/[address] Sherman the director of financial aid on 06/25 and he agrees with these appointments. Gen: patient is a AAOx3, no distress CVS: S1-S2, RRR, no murmur Lungs: B/L CTA, no wheezing. Pleurx catheter is in a Place Abdomen: soft, no distention, no tenderness, positive bowel sounds Extremity: no leg edema or induration Time spent more than 35 minutes Patient Condition at Discharge: Fair Plan - Discharge Summary Discharge Rx Participant: No New Discharge Prescriptions: New Amoxicillin/Potassium Clav [Augmentin 875-125 Tablet] 1 tab PO Q12HR 14 Days #28 tab Continue Omeprazole [PriLOSEC] 20 mg PO BID@0700,2300 ALPRAZolam [Xanax] 0.5 mg PO BID@0700,2300 DULoxetine HCL [Cymbalta] 20 mg PO DAILY@0700 Apixaban [Eliquis] 5 mg PO BID@0700,2300 Prochlorperazine [Compazine] 10 mg PO Q6H PRN PRN Reason: Nausea Nebivolol HCl [Bystolic] 5 mg PO DAILY PRN PRN Reason: high bp Metoprolol Tartrate [Lopressor] 25 mg PO BID@0700,2300 Amiodarone [Cordarone] 200 mg PO TID@0700,1200,2300 Discharge Medication List Omeprazole [PriLOSEC] 20 mg PO BID@0700,2300 10/02/16 [History] ALPRAZolam [Xanax] 0.5 mg PO BID@0700,2300 01/20/17 [History] DULoxetine HCL [Cymbalta] 20 mg PO DAILY@0700 03/09/17 [History] Apixaban [Eliquis] 5 mg PO BID@0700,2300 11/17/18 [History] Prochlorperazine [Compazine] 10 mg PO Q6H PRN 05/01/19 [History] Amiodarone [Cordarone] 200 mg PO TID@0700,1200,2300 06/05/19 [History] Metoprolol Tartrate [Lopressor] 25 mg PO BID@0700,2300 06/05/19 [History] Nebivolol HCl [Bystolic] 5 mg PO DAILY PRN 06/05/19 [History] Amoxicillin/Potassium Clav [Augmentin 875-125 Tablet] 1 tab PO Q12HR 14 Days #28 tab 06/11/19 [Rx] Follow up Appointment(s)/Referral(s): Alejandro Rogers MD [STAFF PHYSICIAN] - 06/26/19 9:00 am [facility], [REFERR[facility]] - Maddi Reyes MD [STAFF PHYSICIAN] - 07/06/19 2:00 pm [facility], [NON-STAFF] - Fanta Hanna MD [Primary Care Provider] - 06/15/19 1:00 pm (This is a tele health appointment, staff will be in contact to go over the instructions for this) Activity/Diet/Wound Care/Special Instructions: DISCHARGE INSTRUCTIONS: 1. Home care is ordered, they will obtain new bottles. 2. May shower after 24 hours, no baths/hot tubs. 3. Do not drain more than 1 L or 1000 mL from the Pleurx catheter in 24 hours. 4. NEW drainage bottles needed with each drainage. 5. Drainage frequency dictated by the patient's symptoms, may be every day, every other day, weekly or as needed if the patient is symptomatic. 6. Please notify the nurse practitioner or surgeons office if temperature is greater than 101F, excessive pain at insertion site, drainage consistency changes to cloudy or smells bad, catheter falls out. 7. Contact surgery office with weekly drainage amount. May fax the amounts. 8. Once drainage is less than 50 mL 3 times in a row, notify the surgery office for possible removal. Surgery office phone number is [phone], fax number is [phone] The Nurse practitioner numbers: Issa [phone]. HOME IV ANTIBIOTICS: 1. Patient will go home on Vancomycin - Pharmacy to dose for [address] Reyes. 2. [facility] will deliver the IV antibiotics and supplies tonight - they will call first 3. [facility] will call to set up first visit for 06/12/2019 in the morning to begin antibiotic infusions Discharge Disposition: HOME WITH HOME HEALTH SERVICES
--- NOTE | 2019-06-11 16:00 | PN ---
PROGRESS NOTE DATE OF SERVICE: 06/11/2019 REASON FOR FOLLOWUP: Right-sided recurrent pleural effusion/empyema. INTERVAL HISTORY: The patient is currently afebrile. He has been breathing comfortably. The patient denies any chest pain. Minimal cough. No nausea, no vomiting. No abdominal pain or diarrhea. PHYSICAL EXAMINATION: Blood pressure is 118/75 with a pulse of 71, temperature 97.7. He is 92% on room air. General description is an elderly male up in the chair in no distress. RESPIRATORY SYSTEM: Unlabored breathing with decreased breath sounds at the base. No wheeze. HEART: S1, S2. Regular rate and rhythm. ABDOMEN: Soft. No tenderness. LABS: Hemoglobin is 9.1, white count 8.5 with a creatinine 0.98. DIAGNOSTIC IMPRESSION AND PLAN: Patient with recurrent right-sided pleural effusion in this patient whose culture has been alpha hemolytic Streptococcus, coagulase-negative Staph and Gram-positive bacilli. Plan is for vancomycin, Pharmacy to dose, target of 15, for a total of 3 to 4 weeks along with oral Augmentin. Will monitor weekly CBC, BMP, sedimentation rate and CRP and close outpatient followup. MMODL / IJN: [id number] /
[2019-06-12] MEDS ORDERED: VANCOMYCIN TROUGH DUE 1 EACH MISC MISCELLANE ONE (05:00)
== END 2019-06-11 16:38 | disposition home health service (06) | DRG 919 ==
LOC: EC 16:32 → 3SCARD 19:08 → 4SSUR 06-08 12:37
PROVIDERS: ADMIT Hospitalist; ATTEND Hospitalist
PROC: 0W993ZZ Drainage of Right Pleural Cavity, Percutaneous Approach (ICD-10-PCS; 2019-06-07)
PROC: 30233N1 Transfusion of Nonautologous Red Blood Cells into Peripheral Vein, Percutaneous Approach (ICD-10-PCS; 2019-06-07)
PROC: 0W9930Z Drainage of Right Pleural Cavity with Drainage Device, Percutaneous Approach (ICD-10-PCS; principal; 2019-06-09 07:30)
DX: T85.79XA Infection and inflammatory reaction due to other internal prosthetic devices, implants and grafts, initial encounter (principal); J86.9 Pyothorax without fistula; J96.01 Acute respiratory failure with hypoxia; C15.9 Malignant neoplasm of esophagus, unspecified; E87.1 Hypo-osmolality and hyponatremia; I47.1 Supraventricular tachycardia; J90 Pleural effusion, not elsewhere classified; J94.2 Hemothorax; R18.8 Other ascites; D64.9 Anemia, unspecified; E78.5 Hyperlipidemia, unspecified; F41.9 Anxiety disorder, unspecified; I48.0 Paroxysmal atrial fibrillation; Z20.828 Contact with and (suspected) exposure to other viral communicable diseases; K21.9 Gastro-esophageal reflux disease without esophagitis; M40.209 Unspecified kyphosis, site unspecified; R13.10 Dysphagia, unspecified; Z79.01 Long term (current) use of anticoagulants; Z79.899 Other long term (current) drug therapy; Z85.01 Personal history of malignant neoplasm of esophagus; Z86.711 Personal history of pulmonary embolism; Z86.718 Personal history of other venous thrombosis and embolism; Z86.73 Personal history of transient ischemic attack (TIA), and cerebral infarction without residual deficits; Z92.21 Personal history of antineoplastic chemotherapy; Z92.3 Personal history of irradiation
CPT/HCPCS: 36415; 71045; 71260; 76604; 80048; 80053; 80202; 82150; 82465; 82945; 83605; 83615; 84157; 84478; 85025; 85027; 85610; 85652; 85730; 86140; 86850; 86900; 86901; 86920; 87040; 87070; 87075; 87077; 87102; 87116; 87186; 87205; 87206; 87252; 87496; 87498; 87502; 87529; 87634; 87635; 87798; 88108; 88305; 89050; 93005; 94760; 96365; 99285

== ENCOUNTER → 2019-07-03 | Outpatient (CLI) | payer MEDICARE | END | disposition home or self-care (01) | LOC: LABWHC1 15:36 | PROVIDERS: ATTEND Internal Medicine Hematology & Oncology | DX: Z11.59 Encounter for screening for other viral diseases (principal) | CPT/HCPCS: 87635 ==

== ENCOUNTER → 2019-07-06 | Outpatient (CLI) | payer MEDICARE ==
[2019-07-06 11:32] LABS: African American GFR (CKD) >90 (>60 ml/min/1.73 sqM); Blood Urea Nitrogen 12 mg/dL (9-20); Non-African American GFR(CKD) 89 (>60 ml/min/1.73 sqM)
--- NOTE | 2019-07-06 12:22 | CT ---
EXAMINATION TYPE: CT ChestAbdPelvis w con DATE OF EXAM: 07/06/2019 COMPARISON: Most recent whole body CT April 10, 2019 and older CTs. PET CTs from 2017. Most recent CT June 05, 2019. HISTORY: Malignant neoplasm lower third of esophagus. CT DLP: 856.7 mGycm. Automated Exposure Control for Dose Reduction was Utilized. CONTRAST: CT scan of the thorax, abdomen and pelvis is performed without oral but with IV Contrast, patient inj ected with 100 mL of Isovue M300. FINDINGS: LUNGS: Since most recent chest CT there is placement of percutaneous drainage catheter and right-side d pleural fluid collection. Fluid collection decreased in size from most recent CT but small to moder ate size nonsimple fluid collection with bubbles of nondependent air noted. There is associated right lung atelectasis and/or consolidation with some relative sparing of the right upper lobe. Some right -sided volume loss remains present. Recurrent small to tiny left pleural effusion. New areas of retic ulation and groundglass opacity multifocal throughout the left lung greatest involving the left upper lobe and lingula. MEDIASTINUM: There are no greater than 1 cm hilar or mediastinal lymph nodes. Stable tiny pericardial effusion. Stable mild cardiomegaly. Redemonstration of mid to distal esophageal metallic stent with soft tissue density filling entire lumen distally and some irregular soft tissue density encroaching along the anterior superior margin of the stent. Suspicious enlarging borderline 1 cm prevascular ly mph node axial image 27. OTHER: Stable right internal jugular Mediport catheter terminating before the brachiocephalic conflue nce. LIVER/GB: Vague subcentimeter hypodense lesions throughout the liver are stable largest just over 1 c m periphery right hepatic lobe image 53 with capsular retraction redemonstrated. PANCREAS: No significant abnormality is seen. SPLEEN: No significant abnormality is seen. ADRENALS: No significant abnormality is seen. KIDNEYS: Bilateral small nonobstructing renal calculi redemonstrated. Simple appearing parapelvic cys t centrally in the left kidney again seen. Symmetrical measuring uptake and excretion without hydrone phrosis seen bilaterally. BOWEL: Rounded and oval densities and bowel loops of the pelvis consistent with nondigested pills. No suspicious small or large bowel dilatation. GENITAL ORGANS: No gross abnormality seen. LYMPH NODES: No greater than 1cm abdominal or pelvic lymph nodes are appreciated. OSSEOUS STRUCTURES: Exaggerated thoracic kyphosis with moderate compression of T9 and mild compressio n T10 levels. Sclerotic area posterior aspect T9 vertebra with more lucent area anteriorly. Additiona l lucent foci consistent with osseous metastatic disease are thought present scattered throughout the spine. OTHER: No significant additional abnormality is seen. IMPRESSION: Stable appearance of the esophageal stent. Suspicious enlarging thoracic lymph node in t he prevascular space. Interval placement of right-sided percutaneous pleural drainage catheter with i mprovement in right-sided pleural fluid collection. No new suspicious mass or adenopathy below the di aphragm. Osseous metastatic disease suspected though stable.
== END | disposition home or self-care (01) ==
LOC: RADPROMAIN 10:29
PROVIDERS: ATTEND Internal Medicine Hematology & Oncology
DX: Z46.82 Encounter for fitting and adjustment of non-vascular catheter (principal); C79.51 Secondary malignant neoplasm of bone; C15.5 Malignant neoplasm of lower third of esophagus
CPT/HCPCS: 82565; 84520; 71260; 74177; 36415; Q9967

== ENCOUNTER 2019-08-13 14:21 | Inpatient (IN) | payer MEDICARE ==
[~2019-08-13 14:21] MED LIST changes: +ETOMIDATE 2 MG/ML 10 ML VIAL ONE; -LIDOCAINE 1% 20 ML VIAL (10MG/ML) FOR IV START INTRADERMA PRN; +SUCCINYLCHOLINE CHLORIDE VIAL 200 MG/10 ML VIAL IV ONE
[2019-08-13] MEDS ORDERED: ACETAMINOPHEN TAB 500 MG TAB PO STA (15:11)
[2019-08-13] MEDS ORDERED: SODIUM CHLORIDE 0.9% 1,000 ML IV STA (15:11)
--- NOTE | 2019-08-13 15:12 | ED ---
General Adult HPI - General Chief complaint: Shortness of Breath Stated complaint: fever,chills,weakness Time Seen by Provider: 08/13/19 14:37 Source: patient Mode of arrival: wheelchair Limitations: no limitations - History of Present Illness Initial comments: Dictation was produced using [employer] dictation software. please excuse any grammatical, word or spelling errors. This patient was cared for during a federal and state declared state of ergency secondary to Covid 19 Chief Complaint: 64-year-old male multiple comorbidities presents with fever, dyspnea. History of Present Illness: Patient is 64-year-old male has multiple co morbidities including supraventricular tachycardia, pulmonary embolus, esophageal cancer, chronic lung effusions, infectious pleuritis presents with fever and dyspnea. Patient states that he's been feeling dyspneic since yesterday. This morning he woke up with a fever. Family member at bedside they would explain patient's medical history. Patient has history of esophageal cancer he has not had any sort of cancer treatment in several months due to all these ongoing medical issues. He was recently admitted for infectious pleuritis. He has had multiple thoracenteses. 2 weeks ago patient had cultures that all appear to be negative. He has been in relatively good health for the last 10 days until today when he spiked a temperature. Patient is been admitted multiple occasions for sepsis. Patient had recently completed course of antibiotics. Does have a computing architect managing his respiratory issues. The ROS documented in this emergency department record has been reviewed and confirmed by me. Those systems with pertinent positive or negative responses have been documented in the HPI. All other systems are other negative and/or noncontributory. PHYSICAL EXAM: General Impression: Alert and oriented x3, mildly dyspneic no retractions HEENT: Normocephalic atraumatic, extra-ocular movements intact, pupils equal and reactive to light bilaterally, dry mucous membranes Cardiovascular: Heart regular rate and rhythm, with several second episodes of what appears to be ventricular tachycardia on the monitor Chest: Able to complete full sentences, no retractions, no tachypnea Abdomen: abdomen soft, non-tender, non-distended, no organomegaly Musculoskeletal: Pulses present and equal in all extremities, no peripheral edema Motor: no focal deficits noted Neurological: CN II-XII grossly intact, no focal motor or sensory deficits noted Skin: Intact with no visualized rashes Psych: Normal affect and mood ED course: 64-year-old male presents with fever, dyspnea and cough. It has multiple comorbidities. Temperature upon arrival was 103, heart rate 129, blood pressure within acceptable limits. Oxygen saturation 91% on room air. Laboratory evaluation obtained. Leukocytosis of 11.4 rest of CBC within acceptable limits. Coag panel unremarkable. Metabolic panel sodium 131. Magnesium 1.4. Slight elevation in liver markers. Urinalysis shows 6 red blood cells and 2 white blood cells. Otherwise metabolic panel is within acceptable limits. Chest x-ray obtained showing stable findings without any new infiltrates. At this point is unclear what is causing patient's pyrexia. His medications were reviewed. Patient with broad-spectrum antibiotics. Patient be admitted. Discussed patient case Dr. Shay who is willing to accept patients care. Infectious disease and pulmonology will be consulted. EKG interpretation: Ventricular rate 117, H fibrillation, QRS 100, QTC 440. No AL prolongation, no QTC prolongation, no ST or T-wave changes noted. EKG compared to 06/05/2019 showing no changes. Patient reports history of atrial fibrillation. - Related Data Home Medications Medication Instructions Recorded Confirmed Omeprazole [PriLOSEC] 20 mg PO BID@0700,2300 10/02/16 08/13/19 ALPRAZolam [Xanax] 0.5 mg PO TID 01/20/17 08/13/19 DULoxetine HCL [Cymbalta] 20 mg PO DAILY@0700 03/09/17 08/13/19 Apixaban [Eliquis] 5 mg PO BID@0700,2300 11/17/18 08/13/19 Prochlorperazine [Compazine] 10 mg PO Q6H PRN 05/01/19 08/13/19 Amiodarone [Cordarone] 200 mg PO TID@0700,1200,2300 06/05/19 08/13/19 Metoprolol Tartrate [Lopressor] 25 mg PO BID@0700,2300 06/05/19 08/13/19 Prochlorperazine [Compazine] 10 mg PO DAILY 08/13/19 08/13/19 Previous Rx's Medication Instructions Recorded Amoxicillin/Potassium Clav 1 tab PO Q12HR 14 Days #28 tab 06/11/19 [Augmentin 875-125 Tablet] Allergies Allergy/AdvReac Type Severity Reaction Status Date / Time No Known Allergies Allergy Verified 08/13/19 16:35 Review of Systems ROS Statement: Those systems with pertinent positive or pertinent negative responses have been documented in the HPI. ROS Other: All systems not noted in ROS Statement are negative. Past Medical History Past Medical History: Cancer, CVA/TIA, Deep Vein Thrombosis (DVT), GERD/Reflux, Hyperlipidemia, Hypertension, Pulmonary Embolus (PE), Sleep Apnea/CPAP/BIPAP, Supraventricular Tachycardia (SVT) Additional Past Medical History / Comment(s): no cpap used, diff swallowing, esophagial [id number]-[id number] radiation 2017 and chemo-last chemo 11-03-18,steroid Oct 2018, esophageal bleed that he was treated at [facility] and they thought was related to his esophageal tumor, pleural effusion History of Any Multi-Drug Resistant Organisms: None Reported Past Surgical History: Cardiac Ablation, Hernia Repair Additional Past Surgical History / Comment(s): sivakumar inguinal hernia, vasectomy, PEG tube placement and removal, mediport, stent in esophagus for esophageal cancer, pleural - x Past Anesthesia/Blood Transfusion Reactions: No Reported Reaction Past Psychological History: Anxiety Smoking Status: Never smoker Past Alcohol Use History: None Reported Past Drug Use History: None Reported - Past Family History Mother Family Medical History: Cancer Additional Family Medical History / Comment(s): uterine General Exam Limitations: no limitations Course Vital Signs 08/13/19 08/13/19 08/13/19 14:29 15:50 16:56 Temperature 103.0 F H 102.6 F H Pulse Rate 129 H 114 H 112 H Respiratory 22 18 18 Rate Blood Pressure 152/75 127/79 122/82 O2 Sat by Pulse 91 L 96 98 Oximetry Medical Decision Making - Lab Data Result diagrams: 08/13/19 15:15 08/13/19 15:15 Lab Results 08/13/19 08/13/19 08/13/19 Range/Units 15:15 15:15 15:15 WBC 11.4 H (3.8-10.6) k/uL RBC 4.18 L (4.30-5.90) m/uL Hgb 11.3 L (13.0-17.5) gm/dL Hct 35.9 L (39.0-53.0) % MCV 85.8 D (80.0-100.0) fL MCH 27.1 (25.0-35.0) pg MCHC 31.6 (31.0-37.0) g/dL RDW 16.4 H (11.5-15.5) % Plt Count 288 (150-450) k/uL Neutrophils % 92 % Lymphocytes % 5 % Monocytes % 2 % Eosinophils % 1 % Basophils % 0 % Neutrophils # 10.4 H (1.3-7.7) k/uL Lymphocytes # 0.5 L (1.0-4.8) k/uL Monocytes # 0.3 (0-1.0) k/uL Eosinophils # 0.1 (0-0.7) k/uL Basophils # 0.0 (0-0.2) k/uL Anisocytosis Slight PT 10.8 (9.0-12.0) sec INR 1.1 (<1.2) APTT 26.5 (22.0-30.0) sec Sodium 131 L (137-145) mmol/L Potassium 4.2 (3.5-5.1) mmol/L Chloride 98 (98-107) mmol/L Carbon Dioxide 22 (22-30) mmol/L Anion Gap 11 mmol/L BUN 10 (9-20) mg/dL Creatinine 0.79 (0.66-1.25) mg/dL Est GFR (CKD-EPI)AfAm >90 (>60 ml/min/1.73 sqM) Est GFR (CKD-EPI)NonAf >90 (>60 ml/min/1.73 sqM) Glucose 177 H (74-99) mg/dL POC Glucose (mg/dL) (75-99) mg/dL POC Glu Medical Record Retrieval Specialist ID Plasma Lactic Acid [place] (0.7-2.0) mmol/L Calcium 8.3 L (8.4-10.2) mg/dL Magnesium 1.4 L (1.6-2.3) mg/dL Total Bilirubin 0.5 (0.2-1.3) mg/dL AST 66 H (17-59) U/L ALT 96 H (4-49) U/L Alkaline Phosphatase 174 H (38-126) U/L Troponin I (0.000-0.034) ng/mL NT-Pro-B Natriuret Pep pg/mL Total Protein 7.6 (6.3-8.2) g/dL Albumin 3.1 L (3.5-5.0) g/dL Urine Color Urine Appearance (Clear) Urine pH (5.0-8.0) Ur Specific [place] (1.001-1.035) Urine Protein (Negative) Urine Glucose (UA) (Negative) Urine Ketones (Negative) Urine Blood (Negative) Urine Nitrite (Negative) Urine Bilirubin (Negative) Urine Urobilinogen (<2.0) mg/dL Ur Leukocyte Esterase (Negative) Urine RBC (0-5) /hpf Urine WBC (0-5) /hpf Hyaline Casts (0-2) /lpf Urine Mucus (None) /hpf 08/13/19 08/13/19 08/13/19 Range/Units 15:15 15:15 15:15 WBC (3.8-10.6) k/uL RBC (4.30-5.90) m/uL Hgb (13.0-17.5) gm/dL Hct (39.0-53.0) % MCV (80.0-100.0) fL MCH (25.0-35.0) pg MCHC (31.0-37.0) g/dL RDW (11.5-15.5) % Plt Count (150-450) k/uL Neutrophils % % Lymphocytes % % Monocytes % % Eosinophils % % Basophils % % Neutrophils # (1.3-7.7) k/uL Lymphocytes # (1.0-4.8) k/uL Monocytes # (0-1.0) k/uL Eosinophils # (0-0.7) k/uL Basophils # (0-0.2) k/uL Anisocytosis PT (9.0-12.0) sec INR (<1.2) APTT (22.0-30.0) sec Sodium (137-145) mmol/L Potassium (3.5-5.1) mmol/L Chloride (98-107) mmol/L Carbon Dioxide (22-30) mmol/L Anion Gap mmol/L BUN (9-20) mg/dL Creatinine (0.66-1.25) mg/dL Est GFR (CKD-EPI)AfAm (>60 ml/min/1.73 sqM) Est GFR (CKD-EPI)NonAf (>60 ml/min/1.73 sqM) Glucose (74-99) mg/dL POC Glucose (mg/dL) (75-99) mg/dL POC Glu Medical Record Retrieval Specialist ID Plasma Lactic Acid [place] 1.7 (0.7-2.0) mmol/L Calcium (8.4-10.2) mg/dL Magnesium (1.6-2.3) mg/dL Total Bilirubin (0.2-1.3) mg/dL AST (17-59) U/L ALT (4-49) U/L Alkaline Phosphatase (38-126) U/L Troponin I <0.012 (0.000-0.034) ng/mL NT-Pro-B Natriuret Pep 2050 pg/mL Total Protein (6.3-8.2) g/dL Albumin (3.5-5.0) g/dL Urine Color Urine Appearance (Clear) Urine pH (5.0-8.0) Ur Specific [place] (1.001-1.035) Urine Protein (Negative) Urine Glucose (UA) (Negative) Urine Ketones (Negative) Urine Blood (Negative) Urine Nitrite (Negative) Urine Bilirubin (Negative) Urine Urobilinogen (<2.0) mg/dL Ur Leukocyte Esterase (Negative) Urine RBC (0-5) /hpf Urine WBC (0-5) /hpf Hyaline Casts (0-2) /lpf Urine Mucus (None) /hpf 08/13/19 08/13/19 Range/Units 15:15 15:41 WBC (3.8-10.6) k/uL RBC (4.30-5.90) m/uL Hgb (13.0-17.5) gm/dL Hct (39.0-53.0) % MCV (80.0-100.0) fL MCH (25.0-35.0) pg MCHC (31.0-37.0) g/dL RDW (11.5-15.5) % Plt Count (150-450) k/uL Neutrophils % % Lymphocytes % % Monocytes % % Eosinophils % % Basophils % % Neutrophils # (1.3-7.7) k/uL Lymphocytes # (1.0-4.8) k/uL Monocytes # (0-1.0) k/uL Eosinophils # (0-0.7) k/uL Basophils # (0-0.2) k/uL Anisocytosis PT (9.0-12.0) sec INR (<1.2) APTT (22.0-30.0) sec Sodium (137-145) mmol/L Potassium (3.5-5.1) mmol/L Chloride (98-107) mmol/L Carbon Dioxide (22-30) mmol/L Anion Gap mmol/L BUN (9-20) mg/dL Creatinine (0.66-1.25) mg/dL Est GFR (CKD-EPI)AfAm (>60 ml/min/1.73 sqM) Est GFR (CKD-EPI)NonAf (>60 ml/min/1.73 sqM) Glucose (74-99) mg/dL POC Glucose (mg/dL) 172 H (75-99) mg/dL POC Glu Medical Record Retrieval Specialist ID Jessica Glover Plasma Lactic Acid [place] (0.7-2.0) mmol/L Calcium (8.4-10.2) mg/dL Magnesium (1.6-2.3) mg/dL Total Bilirubin (0.2-1.3) mg/dL AST (17-59) U/L ALT (4-49) U/L Alkaline Phosphatase (38-126) U/L Troponin I (0.000-0.034) ng/mL NT-Pro-B Natriuret Pep pg/mL Total Protein (6.3-8.2) g/dL Albumin (3.5-5.0) g/dL Urine Color Yellow Urine Appearance Clear (Clear) Urine pH 6.5 (5.0-8.0) Ur Specific [place] 1.015 (1.001-1.035) Urine Protein Negative (Negative) Urine Glucose (UA) Negative (Negative) Urine Ketones Negative (Negative) Urine Blood Trace H (Negative) Urine Nitrite Negative (Negative) Urine Bilirubin Negative (Negative) Urine Urobilinogen <2.0 (<2.0) mg/dL Ur Leukocyte Esterase Negative (Negative) Urine RBC 6 H (0-5) /hpf Urine WBC 2 (0-5) /hpf Hyaline Casts 3 H (0-2) /lpf Urine Mucus Rare H (None) /hpf Disposition Clinical Impression: Fever Disposition: ADMITTED IP TO THIS HOSP Condition: Fair Referrals: Jacinto Hartman MD [Primary Care Provider] - 1-2 days Decision Time: 16:59
[2019-08-13 15:42] LABS: Anisocytosis Slight; Basophils % (A) 0 %; Eosinophils # (A) 0.1 k/uL (0-0.7); Eosinophils % (A) 1 %; HCT 35.9 % (39.0-53.0); HGB 11.3 gm/dL (13.0-17.5); Lymphocytes # (A) 0.5 k/uL (1.0-4.8); Lymphocytes % (A) 5 %; MCH 27.1 pg (25.0-35.0); MCHC 31.6 g/dL (31.0-37.0); Mean Platelet Volume 7.3; Monocytes # (A) 0.3 k/uL (0-1.0); Monocytes % (A) 2 %; Neutrophils # (A) 10.4 k/uL (1.3-7.7); Neutrophils % (A) 92 %; Platelet Count 288 k/uL (150-450); RBC 4.18 m/uL (4.30-5.90); RDW 16.4 % (11.5-15.5); WBC 11.4 k/uL (3.8-10.6)
[2019-08-13 15:44] LABS: Glucose,Whole Blood 172 mg/dL (75-99)
--- NOTE | 2019-08-13 15:45 | XR ---
EXAMINATION TYPE: XR chest 1V portable DATE OF EXAM: 08/13/2019 COMPARISON: 06/10/2019 HISTORY: Fever and shortness of breath TECHNIQUE: Single frontal view of the chest is obtained. FINDINGS: Right-sided consolidation and pleural effusion noted. Mediport catheter stable. Esophageal stent not as well seen but believed to be present. No pneumothorax. Subsegmental changes at the left lung base with tiny effusion slightly improved. IMPRESSION: 1. Stable right-sided consolidation and pleural effusion. 2. Improving left lower lobe consolidation and pleural effusion.
[2019-08-13 15:46] LABS: Appearance,Urine Clear (Clear); Bilirubin,Urine Negative (Negative); Blood,Urine Trace (Negative); Color,Urine Yellow; Glucose,Urine (UA) Negative (Negative); Hyaline Casts,Urine 3 /lpf (0-2); Ketones,Urine Negative (Negative); Leukocyte Esterase,Urine Negative (Negative); Mucus,Urine Rare /hpf; Nitrite,Urine Negative (Negative); PH, Urine 6.5 (5.0-8.0); Protein,Urine Negative (Negative); RBC,Urine 6 /hpf (0-5); Specific Gravity,Urine 1.015 (1.001-1.035); Urobilinogen,Urine <2.0 mg/dL (<2.0); WBC,Urine 2 /hpf (0-5)
[2019-08-13 15:48] LABS: MCV 85.8 fL (80.0-100.0)
[2019-08-13] MEDS ORDERED: VANCOMYCIN IV PER PHARMACY 1 EACH MISC MISCELLANE PRN ×2 (15:56→17:20)
[2019-08-13] MEDS ORDERED: CEFEPIME 2 GM in SODIUM CHLORIDE 0.9% 100 ML IVPB STA (15:56)
[2019-08-13 15:59] LABS: ALT 96 U/L (4-49); AST 66 U/L (17-59); African American GFR (CKD) >90 (>60 ml/min/1.73 sqM); Albumin 3.1 g/dL (3.5-5.0); Alkaline Phosphatase 174 U/L (38-126); Anion Gap 11 mmol/L; Blood Urea Nitrogen 10 mg/dL (9-20); Calcium 8.3 mg/dL (8.4-10.2); Carbon Dioxide 22 mmol/L (22-30); Chloride 98 mmol/L (98-107); Glucose 177 mg/dL (74-99); Magnesium 1.4 mg/dL (1.6-2.3); Non-African American GFR(CKD) >90 (>60 ml/min/1.73 sqM); Potassium 4.2 mmol/L (3.5-5.1); Sodium 131 mmol/L (137-145); Total Bilirubin 0.5 mg/dL (0.2-1.3); Total Protein 7.6 g/dL (6.3-8.2)
[2019-08-13 16:05] LABS: INR 1.1 (<1.2); Partial Thromboplastin Time 26.5 sec (22.0-30.0); Prothrombin Time 10.8 sec (9.0-12.0)
[2019-08-13] MEDS ORDERED: VANCOMYCIN 1,500 MG in SODIUM CHLORIDE 0.9% 250 ML IVPB ONE (16:30)
[2019-08-13] MEDS ORDERED: IBUPROFEN 400 MG TAB PO STA (16:56)
[2019-08-13] MEDS ORDERED: ACETAMINOPHEN TAB 325 MG TAB PO PRN (16:59)
[2019-08-13] MEDS ORDERED: ONDANSETRON 4 MG/2 ML VIAL IVP PRN (16:59)
[2019-08-13] MEDS ORDERED: NALOXONE 0.4 MG/ML 1 ML VIAL IV PRN (16:59)
[2019-08-13] MEDS ORDERED: ALPRAZolam 0.25 MG TAB PO PRN (17:10)
[2019-08-13] MEDS ORDERED: PROCHLORPERAZINE 10 MG TAB PO PRN (17:10)
[2019-08-13] MEDS: SODIUM CHLORIDE 0.9% 1,000 ML IV SCH ×2 (17:14→21:46)
[2019-08-13] MEDS: SODIUM CHLORIDE 0.9% 1,000 ML IV ONE ×2 (18:30→19:34)
[2019-08-13 19:00] LABS: Glucose,Whole Blood 148 mg/dL (75-99)
[2019-08-13] MEDS ORDERED: PROCHLORPERAZINE 5 MG TAB PO STA (19:32)
[2019-08-13] MEDS ORDERED: RX INFO: IV CONTRAST WAS GIVEN 1 EACH MISC MISCELLANE PRN (19:42)
[2019-08-13] MEDS: IPRATROPIUM-ALBUTEROL 3 ML NEB INHALATION SCH (19:56)
--- NOTE | 2019-08-13 20:52 | CT ---
EXAMINATION TYPE: CT chest w con DATE OF EXAM: 08/13/2019 COMPARISON: 07/06/2019 HISTORY: SOB CT DLP: 385.4 mGycm Automated exposure control for dose reduction was used. CONTRAST: Performed with IV Contrast, patient injected with 100 mL of Isovue 300. Multiple axial sections were obtained from the thoracic inlet to the diaphragm with intravenous contr ast. There is large right pleural effusion with right sided chest tube. There is stent in the lower esopha josefa. There is increased soft tissue density involving the lower thoracic esophagus consistent with tu mor. There is patchy atelectasis in the right lower lobe. There are small areas of atelectasis in the left lower lobe. Heart size is normal. There is no pericardial effusion. There is no mediastinal aimee nopathy. Thoracic aorta is intact. There is thoracic kyphotic deformity with anterior wedging of T9 and T8 vertebra up to 30%. There is osteopenia. Unchanged. IMPRESSION: Extensive consolidation and atelectasis in the right lower lobe with large right pleural effusion not significantly different than last exam. Esophageal increased density consistent with tumor similar t o old exam. There is some clearing of the infiltrate and pleural fluid at the left lung base compared to old exam.
[2019-08-13] MEDS: MAGNESIUM SULFATE-D5W PMX 1 GM in DEXTROSE/WATER 1 100ML.BAG IVPB SCH ×2 (20:56→22:56)
[2019-08-13 21:37] LABS: Glucose,Whole Blood 159 mg/dL (75-99)
[2019-08-13] MEDS ORDERED: NON FORMULARY DRUG (Omeprazole 20 MG) PO SCH (23:00)
[2019-08-13] MEDS: NOREPINEPHRINE 4 MG in SODIUM CHLORIDE 0.9% 250 ML IV SCH (23:11)
[2019-08-13] MEDS: METOPROLOL TARTRATE 25 MG TAB PO SCH (23:13)
--- NOTE | 2019-08-13 23:22 | HP ---
HISTORY AND PHYSICAL DATE OF SERVICE: 08/13/2019 CHIEF COMPLAINT: Shortness of breath. HISTORY OF PRESENT ILLNESS: This 64-year-old gentleman with a past medical history of multiple medical problems, including history of CVA, TIA, history of DVT, history of esophageal carcinoma, history of GERD, hypertension, hyperlipidemia, pulmonary embolism, sleep apnea, being followed by Dr. Hartman in the outpatient setting, had a PleurX drain inserted by Dr. Ca. The patient apparently had 50 mL of drainage yesterday which was rather thick and purulent. The patient developed rigors and chills and was taken to [facility], admitted for further evaluation and treatment. There is some pain in the chest also. There is no history of any fever, rigor or chills. No history of headache, loss of consciousness, seizures. Culture done 2 weeks ago was negative apparently. PAST MEDICAL HISTORY: History of CVA, TIA, DVT, history of GERD, hypertension, hyperlipidemia, history of pulmonary embolism, history of SVT. HOME MEDICATIONS: 1. Compazine 10 mg p.o. daily and 10 mg q.6 p.r.n. 2. Prilosec 20 mg p.o. daily. 3. Lopressor 25 mg p.o. b.i.d. 4. Cymbalta 20 mg daily. 5. Eliquis 5 mg p.o. b.i.d. 6. Augmentin 1 tablet p.o. b.i.d. 7. Cordarone 200 mg p.o. t.i.d. 8. Xanax 0.5 t.i.d. ALLERGIES: NONE. FAMILY HISTORY: History of uterine cancer in the family. SOCIAL HISTORY: No history of smoking. No history of alcohol intake. REVIEW OF SYSTEMS: ENT: No diminished hearing. No diminished vision. CARDIOVASCULAR SYSTEM: No angina, palpitations. RESPIRATORY SYSTEM: As mentioned earlier. GI: No nausea, vomiting, diarrhea. : No dysuria or retention. NERVOUS SYSTEM: No numbness, weakness. ALLERGY/IMMUNOLOGY: No asthma, hayfever. MUSCULOSKELETAL: As mentioned earlier. HEMATOLOGY/ONCOLOGY: No history of anemia. ENDOCRINE: No history of diabetes, hypothyroidism. CONSTITUTIONAL: As mentioned earlier. DERMATOLOGY: Negative. RHEUMATOLOGY: Negative. PSYCHIATRY: As mentioned earlier. PHYSICAL EXAMINATION: Patient is alert and oriented x3. Pulse 112, blood pressure 122/82, respiration 18, temperature 102.6, pulse ox 98% on 3 L. HEENT: Conjunctivae normal. Oral mucosa moist. NECK: No jugular venous distention. No carotid bruit. No lymph node enlargement. CARDIOVASCULAR SYSTEM: S1, S2 muffled. RESPIRATORY SYSTEM: Breath sounds diminished at the bases. Bilateral scattered rhonchi and crackles. ABDOMEN: Soft, non-tender. No mass palpable. LEGS: No edema. No swelling. NERVOUS SYSTEM: Diffusely weak. LABS: WBC 11.4, hemoglobin 11.3. Sodium 131, potassium 4.2. Glucose 177. Calcium is 8.3, AST 66, ALT is 96. ASSESSMENT: 1. Right pleural effusion with possible empyema with sepsis, present on admission. 2. Increased white count. 3. Anemia, normocytic. 4. Hyponatremia. 5. Increased AST, ALT. 6. History of PleurX draining and multiple thoracocenteses. 7. History of deep vein thrombosis. 8. History of esophageal carcinoma, status post radiation and chemo. 9. History of esophageal bleeding related to esophageal tumor. 10.Hypertension. 11.Hyperlipidemia. 12.History of pulmonary embolism. 13.Sleep apnea. 14.History of supraventricular tachycardia. 15.History of cardiac ablation. 16.History of bilateral inguinal hernia. 17.History of PEG tube placement and removal. 18.History of MediPort. 19.History of stent in the esophagus for esophageal cancer. 20.History of anxiety. 21.FULL CODE. RECOMMENDATIONS AND DISCUSSION: In this 64-year-old gentleman who presented with multiple complex medical issues, we will monitor the patient closely, continue the current medications, continue symptomatic treatment. Will initiate broad-spectrum IV antibiotics and bronchodilators. Will consult Pulmonology as well as Infectious Disease. The patient might need decortication of the possible empyema. Once again, overall prognosis is guarded because of multiple complex medical issues. Further recommendations to follow. A copy of this dictation is being forwarded to Dr. Hartman's office. MMODL / IJN: [id number] /
[2019-08-13] MEDS: CEFEPIME 2 GM in SODIUM CHLORIDE 0.9% 100 ML IVPB SCH (23:49)
[2019-08-13] MEDS: AMIODARONE 200 MG TAB PO SCH (23:49)
[2019-08-13] MEDS: HEPARIN SODIUM,PORCINE 5,000 UNIT/ML 1 ML VIAL SQ SCH (23:49)
[2019-08-14 00:09] LABS: Glucose,Whole Blood 180 mg/dL (75-99)
[2019-08-14] MEDS ORDERED: propofoL 100 ML IV ONE (00:31)
--- NOTE | 2019-08-14 01:23 | CT ---
EXAMINATION TYPE: CT brain wo con DATE OF EXAM: 08/14/2019 COMPARISON: None HISTORY: ams CT DLP: 1190.4 mGycm Automated exposure control for dose reduction was used. There is cerebral cortical atrophy. There is gyriform increased attenuation in the right parietal lob e that measures 6 x 1 cm and consistent with acute parenchymal hemorrhage. This extends to the cerebr al falx. There is no midline shift. There is similar cortical increased density in the anterior right temporal lobe that measures 3 x 1.5 cm. The calvarium is intact. The ventricles of normal size. Ther e is no evidence of posterior fossa mass. Temporal bones appear normal. IMPRESSION: Gyriform high attenuation in the anterior right temporal lobe and right parietal lobe suggestive of a cute parenchymal hemorrhage. This could be acute hemorrhagic infarct. No mass effect. This exam was discussed with the patient's nurse in the ICU at 1:20 AM.
--- NOTE | 2019-08-14 01:25 | XR ---
EXAMINATION TYPE: XR chest 1V portable DATE OF EXAM: 08/14/2019 COMPARISON: Yesterday HISTORY: Check tube placement TECHNIQUE: Single view FINDINGS: Endotracheal tube is 4.5 cm from the vitaliy. There is large right pleural effusion with maurizio e pulmonary vascular congestion. There is airspace consolidation in the right lower lobe. There is ri ght jugular catheter apparently with the tip in the superior vena cava. There is nasogastric tube in the stomach. IMPRESSION: Large right pleural effusion and right pulmonary consolidation unchanged compared to yest erday. There is probably some heart failure.
[2019-08-14 01:27] LABS: ABG HCO3 23 mmol/L (21-25); ABG PCO2 30 mmHg (35-45); ABG PH 7.48 (7.35-7.45); ABG PO2 >400 mmHg (83-108); ABG TCO2 23 mmol/L (19-24); Allen Test Performed? Yes
[2019-08-14 02:10] LABS: Appearance,Urine Clear (Clear); Bilirubin,Urine Negative (Negative); Blood,Urine Small (Negative); Color,Urine Yellow; Glucose,Urine (UA) Negative (Negative); Hyaline Casts,Urine 14 /lpf (0-2); Ketones,Urine Negative (Negative); Leukocyte Esterase,Urine Negative (Negative); Mucus,Urine Occasional /hpf; Nitrite,Urine Negative (Negative); Protein,Urine Trace (Negative); RBC,Urine 10 /hpf (0-5); Specific Gravity,Urine 1.028 (1.001-1.035); Urobilinogen,Urine <2.0 mg/dL (<2.0); WBC,Urine 3 /hpf (0-5)
[2019-08-14] MEDS: VANCOMYCIN 1,500 MG in SODIUM CHLORIDE 0.9% 250 ML IVPB SCH ×2 (04:26→10:53)
[2019-08-14] MEDS: CHLORHEXIDINE GLUCONATE 15 ML CUP MUCOUS MEM SCH ×2 (04:30→09:21)
[2019-08-14 04:47] LABS: ABG Base Excess -1.8 mmol/L; ABG HCO3 23 mmol/L (21-25); ABG Oxygen Saturation 99.4 % (94-97); ABG PCO2 37 mmHg (35-45); ABG PO2 208 mmHg (83-108); ABG TCO2 24 mmol/L (19-24); Allen Test Performed? Yes
[2019-08-14 05:24] LABS: Anisocytosis Slight; Basophils % (A) 0 %; Eosinophils # (A) 0.1 k/uL (0-0.7); Eosinophils % (A) 0 %; HCT 34.6 % (39.0-53.0); HGB 10.5 gm/dL (13.0-17.5); Hypochromasia Moderate; Lymphocytes # (A) 0.5 k/uL (1.0-4.8); Lymphocytes % (A) 4 %; MCH 26.9 pg (25.0-35.0); MCHC 30.3 g/dL (31.0-37.0); MCV 88.6 fL (80.0-100.0); Mean Platelet Volume 7.3; Monocytes # (A) 0.2 k/uL (0-1.0); Monocytes % (A) 2 %; Neutrophils # (A) 10.8 k/uL (1.3-7.7); Neutrophils % (A) 93 %; Platelet Count 253 k/uL (150-450); RBC 3.91 m/uL (4.30-5.90); RDW 16.4 % (11.5-15.5); WBC 11.7 k/uL (3.8-10.6)
[2019-08-14 05:51] LABS: African American GFR (CKD) >90 (>60 ml/min/1.73 sqM); Anion Gap 9 mmol/L; Blood Urea Nitrogen 15 mg/dL (9-20); Calcium 8.1 mg/dL (8.4-10.2); Carbon Dioxide 22 mmol/L (22-30); Chloride 101 mmol/L (98-107); Glucose 155 mg/dL (74-99); Magnesium 2.2 mg/dL (1.6-2.3); Non-African American GFR(CKD) 89 (>60 ml/min/1.73 sqM); Sodium 132 mmol/L (137-145)
[2019-08-14] MEDS: NOREPINEPHRINE 4 MG in SODIUM CHLORIDE 0.9% 250 ML IV SCH ×4 (05:58→15:42)
[2019-08-14] MEDS ORDERED: levETIRAcetam IV 1,000 MG in SALINE 1 100ML.BAG IVPB SCH (06:00)
[2019-08-14] MEDS ORDERED: DULoxetine HCL 20 MG CAPSULE.DR PO SCH (07:00)
[2019-08-14] MEDS: IPRATROPIUM-ALBUTEROL 3 ML NEB INHALATION SCH ×2 (07:05→11:05)
[2019-08-14] MEDS: METOPROLOL TARTRATE 25 MG TAB PO SCH (08:05)
[2019-08-14] MEDS: AMIODARONE 200 MG TAB PO SCH ×2 (08:12→15:00)
[2019-08-14] MEDS ORDERED: PANTOPRAZOLE 40 MG/10 ML VIAL IV SCH (09:00)
[2019-08-14] MEDS ORDERED: PROCHLORPERAZINE 10 MG TAB PO SCH (09:00)
[2019-08-14] MEDS: CEFEPIME 2 GM in SODIUM CHLORIDE 0.9% 100 ML IVPB SCH (09:22)
[2019-08-14] MEDS: HEPARIN SODIUM,PORCINE 5,000 UNIT/ML 1 ML VIAL SQ SCH (09:23)
--- NOTE | 2019-08-14 10:35 | XR ---
EXAMINATION TYPE: XR chest 1V DATE OF EXAM: 08/14/2019 COMPARISON: 08/14/2019 HISTORY: SOB, Follow Up FINDINGS: Indwelling tubes and catheters are unchanged. Esophageal stent is noted. No pneumothorax evident. Persistent right basilar pleural-parenchymal opacity is stable. Stable appearance of the cardio-mediastinal structures at this time. Pleural effusion unchanged. IMPRESSION: 1. Stable portable chest. Clinical correlation and follow up until resolution is recommended.
--- NOTE | 2019-08-14 10:57 | P.CNNES ---
History of Present Illness Consult date: 08/14/19 Reason for Consult: Abnormal computed tomography scan of head Chief complaint: Large intraparenchymal bleed involving anterior temporal and right parietal History of Present Illness: This is a 64-year-old gentleman who was admitted for increasing dyspnea and fever on the day of admission. He has end-stage esophageal cancer along with multiple comorbidities: Chronic lung effusions, infectious pleuritis, prior history of strokes and DVT. Review of the computed tomography scan does confirm gyriform high attenuation involving the RIGHT anterior temporal lobe / parietal lobe consistent with an acute parenchymal hemorrhage however this also could represent metastatic brain lesion with hemorraghe and/or acute hemorrhagic infarct. The size measuring on the right parietal lobe is 30.54 cm. At the bedside the patient is intubated under propofol sedation. His daughter is present and has informed me that they are waiting for family to arrive in [place] to finalize hospice. The family member asked to review the computed tomography scan of the head which I did. The family member understands the significance of this intraparenchymal bleed and potential risk factors for further extension and possibly herniation. Due to this patient transitioning to hospice status neurology will sign off. If there is any further change in his status and neurological consultation is needed please do not hesitate to call me at [phone]. Please be aware that there is no on-site neurologist this weekend if there is any change and he is no longer on hospice status. Mary Lou Frausto M.D. Board Certified in neurology and Sleep Medicine Past Medical History Past Medical History: Cancer, CVA/TIA, Deep Vein Thrombosis (DVT), GERD/Reflux, Hyperlipidemia, Hypertension, Pulmonary Embolus (PE), Sleep Apnea/CPAP/BIPAP, Supraventricular Tachycardia (SVT) Additional Past Medical History / Comment(s): no cpap used, diff swallowing, esophagial [id number]-lepy radiation 2017 and chemo-last chemo 11-03-18,steroid Oct 2018, esophageal bleed that he was treated at [facility] and they thought was related to his esophageal tumor, pleural effusion History of Any Multi-Drug Resistant Organisms: None Reported Past Surgical History: Cardiac Ablation, Hernia Repair Additional Past Surgical History / Comment(s): sivakumar inguinal hernia, vasectomy, PEG tube placement and removal, mediport, stent in esophagus for esophageal cancer, pleural - x Past Anesthesia/Blood Transfusion Reactions: No Reported Reaction Past Psychological History: Anxiety Smoking Status: Former smoker Past Alcohol Use History: None Reported Past Drug Use History: None Reported - Past Family History Mother Family Medical History: Cancer Additional Family Medical History / Comment(s): uterine Medications and Allergies Home Medications Medication Instructions Recorded Confirmed Type Omeprazole [PriLOSEC] 20 mg PO BID@0700,2300 10/02/16 08/13/19 History ALPRAZolam [Xanax] 0.5 mg PO TID 01/20/17 08/13/19 History DULoxetine HCL [Cymbalta] 20 mg PO DAILY@0700 03/09/17 08/13/19 History Apixaban [Eliquis] 5 mg PO BID@0700,2300 11/17/18 08/13/19 History Prochlorperazine [Compazine] 10 mg PO Q6H PRN 05/01/19 08/13/19 History Amiodarone [Cordarone] 200 mg PO TID@0700,1200,2300 06/05/19 08/13/19 History Metoprolol Tartrate [Lopressor] 25 mg PO BID@0700,2300 06/05/19 08/13/19 History Amoxicillin/Potassium Clav 1 tab PO Q12HR 14 Days #28 tab 06/11/19 08/13/19 Rx [Augmentin 875-125 Tablet] Prochlorperazine [Compazine] 10 mg PO DAILY 08/13/19 08/13/19 History Allergies Allergy/AdvReac Type Severity Reaction Status Date / Time No Known Allergies Allergy Verified 08/13/19 16:35 Physical Examination - Vital Signs Vital Signs: Vital Signs Temp Pulse Resp BP Pulse Ox 08/14/19 10:15 78 18 130/65 99 08/14/19 10:00 74 18 133/67 99 08/14/19 09:45 72 33 H 133/68 99 08/14/19 09:30 69 18 134/70 100 08/14/19 09:15 70 18 137/70 100 08/14/19 09:00 82 18 109/55 99 08/14/19 08:45 94 18 70/47 97 08/14/19 08:30 90 18 120/59 98 08/14/19 08:15 98.2 F 89 18 73/44 99 08/14/19 08:00 88 31 H 114/52 99 08/14/19 07:45 87 37 H 115/53 99 08/14/19 07:30 75 19 117/65 100 08/14/19 07:21 89 08/14/19 07:15 71 18 112/59 100 08/14/19 07:07 88 08/14/19 07:00 76 18 111/61 100 08/14/19 06:45 71 18 114/60 99 08/14/19 06:30 72 18 103/60 100 08/14/19 06:15 71 18 97/55 100 08/14/19 06:00 67 18 103/56 100 08/14/19 05:45 66 17 79/48 98 08/14/19 05:30 68 18 98/56 99 08/14/19 05:15 67 22 117/60 99 08/14/19 05:00 81 25 H 105/78 93 L 08/14/19 04:45 85 24 118/78 98 08/14/19 04:30 94 18 105/72 95 08/14/19 04:15 71 18 103/72 97 08/14/19 04:00 97.7 F 98 9 L 97/52 97 08/14/19 03:45 73 35 H 112/79 97 08/14/19 03:30 70 18 96/63 99 08/14/19 03:15 69 18 109/74 99 08/14/19 03:00 82 17 116/84 99 08/14/19 02:45 72 18 103/68 99 08/14/19 02:30 68 18 99/64 99 08/14/19 02:20 96 08/14/19 02:15 71 18 90/63 99 08/14/19 02:00 53 L 22 112/66 100 08/14/19 01:45 65 27 H 98/63 99 08/14/19 01:30 48 L 18 90/55 99 08/14/19 00:45 59 L 18 102/70 08/14/19 00:30 66 25 H 130/78 99 08/14/19 00:15 70 23 114/62 99 08/14/19 00:00 97.8 F 77 22 134/82 97 08/13/19 23:45 60 18 93/57 98 06/25/20 23:30 61 20 95/51 98 08/13/19 23:24 61 21 95/51 96 08/13/19 23:15 58 L 26 H 79/51 97 08/13/19 23:00 62 20 80/49 96 08/13/19 22:45 62 21 81/53 96 08/13/19 22:30 60 34 H 85/49 97 08/13/19 22:15 65 21 79/50 97 08/13/19 22:00 66 26 H 84/53 97 08/13/19 21:45 96.4 F L 64 24 84/53 98 08/13/19 21:15 97.8 F 96 18 84/54 97 08/13/19 19:30 98 19 83/54 97 08/13/19 19:17 83/52 08/13/19 19:00 79/59 08/13/19 18:52 84/50 08/13/19 18:46 67/43 08/13/19 18:11 99.9 F H 123 H 20 101/64 97 08/13/19 16:56 102.6 F H 112 H 18 122/82 98 08/13/19 15:50 114 H 18 127/79 96 08/13/19 14:29 103.0 F H 129 H 22 152/75 91 L Intake and Output 08/13/19 08/14/19 08/14/19 22:59 06:59 14:59 Intake Total 175 1380.534 388.103 Output Total 0 480 15 Balance 175 900.534 373.103 Intake: IV 175 1050 75 Cefepime 2 gm In Sodium 100 Chloride 0.9% 100 ml @ 200 mls/hr IVPB Q8HR MELISSA Rx#:[id number] Magnesium Sulfate-D5w Pmx 100 1 gm In Dextrose/Water 1 100ml.bag @ 100 mls/hr IVPB Q1H MELISSA Rx#: [id number] Sodium Chloride 0.9% 1, 75 600 75 000 ml @ 75 mls/hr IV . [id number] MELISSA Rx#:[id number] Vancomycin 1,500 mg In 250 Sodium Chloride 0.9% 250 ml @ 125 mls/hr IVPB Q8H MELISSA Rx#:[id number] levETIRAcetam IV 1,000 mg 100 In Saline 1 100ml.bag @ 400 mls/hr IVPB Q12H MELISSA Rx#:[id number] Intake, IV Titration 330.534 313.103 Amount Norepinephrine 4 mg In 301.958 313.103 Sodium Chloride 0.9% 250 ml @ 0.05 MCG/KG/MIN 15. 554 mls/hr IV .[id number] MELISSA Rx#:[id number] Propofol 1,000 mg In 28.576 Empty Bag 1 bag @ Titrate IV .Q0M MELISSA Rx#: [id number] Output: Urine 0 480 15 Other: Voiding Method Urinal Indwelling Catheter Weight 78.2 kg 78.2 kg Results - Laboratory Findings CBC and BMP: 08/14/19 04:28 08/14/19 04:28 Abnormal Lab Findings: Abnormal Labs 08/13/19 08/13/19 08/13/19 15:15 15:15 15:15 WBC 11.4 H RBC 4.18 L Hgb 11.3 L Hct 35.9 L MCHC RDW 16.4 H Neutrophils # 10.4 H Lymphocytes # 0.5 L ABG pH ABG pCO2 ABG pO2 ABG O2 Saturation Sodium 131 L Glucose 177 H POC Glucose (mg/dL) Calcium 8.3 L Magnesium 1.4 L AST 66 H ALT 96 H Alkaline Phosphatase 174 H Albumin 3.1 L Procalcitonin Urine Protein Urine Blood Trace H Urine RBC 6 H Hyaline Casts 3 H Urine Mucus Rare H 08/13/19 08/13/19 08/13/19 15:15 15:41 18:54 WBC RBC Hgb Hct MCHC RDW Neutrophils # Lymphocytes # ABG pH ABG pCO2 ABG pO2 ABG O2 Saturation Sodium Glucose POC Glucose (mg/dL) 172 H 148 H Calcium Magnesium AST ALT Alkaline Phosphatase Albumin Procalcitonin 0.35 H Urine Protein Urine Blood Urine RBC Hyaline Casts Urine Mucus 08/13/19 08/14/19 08/14/19 21:36 00:07 01:22 WBC RBC Hgb Hct MCHC RDW Neutrophils # Lymphocytes # ABG pH 7.48 H ABG pCO2 30 L ABG pO2 >400 H ABG O2 Saturation 100.0 H Sodium Glucose POC Glucose (mg/dL) 159 H 180 H Calcium Magnesium AST ALT Alkaline Phosphatase Albumin Procalcitonin Urine Protein Urine Blood Urine RBC Hyaline Casts Urine Mucus 08/14/19 08/14/19 08/14/19 01:45 03:33 04:28 WBC 11.7 H RBC 3.91 L Hgb 10.5 L Hct 34.6 L MCHC 30.3 L RDW 16.4 H Neutrophils # 10.8 H Lymphocytes # 0.5 L ABG pH ABG pCO2 ABG pO2 208 H ABG O2 Saturation 99.4 H Sodium Glucose POC Glucose (mg/dL) Calcium Magnesium AST ALT Alkaline Phosphatase Albumin Procalcitonin Urine Protein Trace H Urine Blood Small H Urine RBC 10 H Hyaline Casts 14 H Urine Mucus Occasional H 08/14/19 04:28 WBC RBC Hgb Hct MCHC RDW Neutrophils # Lymphocytes # ABG pH ABG pCO2 ABG pO2 ABG O2 Saturation Sodium 132 L Glucose 155 H POC Glucose (mg/dL) Calcium 8.1 L Magnesium AST ALT Alkaline Phosphatase Albumin Procalcitonin Urine Protein Urine Blood Urine RBC Hyaline Casts Urine Mucus
[2019-08-14] MEDS: SODIUM CHLORIDE 0.9% 1,000 ML IV SCH (12:11)
--- NOTE | 2019-08-14 13:35 | P.CNPUL ---
History of Present Illness Consult date: 08/14/19 Chief complaint: Hypotension, unresponsiveness History of present illness: This is a 64-year-old male patient is well-known to me as the patient has been under my care on few occasions for metastatic esophageal cancer, recurrent right-sided pleural effusion, right-sided pleural space infection requiring frequent drainage and the patient has a Pleurx catheter placed for now. The patient has been off chemotherapy for now. 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 He was treated with chemotherapy and radiation and was subsequently scheduled for surgery. However prior to surgery he developed extensive PEs and was placed on anticoagulation. He is continued on eliquis since.The patient had also developed pleural effusions at that time which were negative for malignancy. Du e to these, and other medical issues surgery was not performed. The patient was then on observation till the follow-up 2018 when he developed progressive dysphagia. He had an EGD in 12/06 revealing a stricture with biopsy negative. Due to persistent symptoms a repeat EGD was done in 01/06, with biopsy now positive for local recurrence. he did have stent placemeThe patient was then started back on treatment with Taxotere and Cyramza. After starting treatment he did develop right-sided pleural effusion with thoracentesis on 04/20/19. Cytology was negative for malignancy and treatment was continued. Subsequently, his course was Again by development of a hydropneumothorax on the right side of the chest and subsequent pleural space infection with diphtheroids species. He also had staph epidermidis and gram-positive bacilli and alpha streptococcus growing in the pleural fluid on several occasions. Ultimately, was taken to the operating room and the patient underwent a right pleural space drainage with a total of 1.2 L of foul-smelling current fluid was drained. The pleural cavity was irrigated with saline. Ultimately a Pleurx catheter was inserted into the right lower pleural space and the patient been able to drain the fluid on outpatient basis. He also completed outpatient course of antibiotics. I saw her in my office and he was doing relatively well and the patient had been gaining weight. Note that he has been off systemic chemotherapy. He had a CAT scan of the chest was done on 07/06/2019 that showed suspicious enlarging thoracic lymph nodes in the prevascular space. There was evidence of osseous metastases that were quite stable on CAT scan images. The patient contacted our office as the patient was having some generalized weakness and fever. He was instructed to go to the emergency department. He presented to the ED and he was complaining of some shortness of breath. The patient was also found to be hypotensive. He was given IV fluids. Based on the fact that the patient was not responding well to the fluids, the patient got transferred to the intensive care unit for further monitoring. Lactic acid level was 1.7. The patient had a white cell count of 11.7. Once in the ICU, the patient was given IV fluids and he received 2 L bolus and he was started on normal saline at the rate of 75 mL an hour. At the later stage, he started on pressors with low-dose levo fed to maintain a systolic blood pressure above 90 and a mean above 65. Blood culture came back positive for gram-positive cocci and further cultures and sensitivities are still pending for now. A CAT scan of the chest that was done in the emergency department showed extensive consolidation and atelectasis in the right lower lobe with a large right-sided pleural effusion is not significantly different compared to the previous examination. There was evidence of increased esophageal density consistent with tumor similar to the old x-ray and there was some clearing of the infiltrate in the left lung base along with some clearing of the left-sided pleural effusion. Deformity and anterior wedging of the T8 and T9 vertebral spine. Acutely unresponsive. I was informed of his acute as the patient was being treated for sepsis, the patient became acutely unresponsive. The patient accordingly was unable to protect his airway and he was quite obtunded. I instructed to proceed with intubation and he was placed on a mechanical ventilator. He was also placed on propofol for sedation. Following that, a CAT scan of the brain was done that showed a gyriform high attenuation involving the right anterior temporal lobe/parietal lobe consistent with an acute parenchymal hemorrhage. This also raised the possibility of metastatic brain lesion with secondary bleeding versus an acute CVA with hemorrhagic transformation. Note that the patient has history of chronic atrial fibrillation. He had been on Eliquis on outpatient basis regarding previous history of pulmonary embolism. He also has PAF.. His cardiac rhythm is sinus. Overnight, the patient stayed on the [employer] ventilator. This morning, is an assist-control mode with a tidal volume of 500, FiO2 of 35% with a PEEP of 5 and they rate of 18. He is receiving normal saline at rate of 50 mL an hour. Levo fed is running at 0.35 mg per KG per minute and the patient is also on propofol at 50 g per KG per minute. Cardiac rhythm is sinus. He has had no seizure activity. Review of Systems ROS unobtainable: due to endotracheal tube Past Medical History Past Medical History: Cancer (History of esophageal cancer details discussed above, ), CVA/TIA, Deep Vein Thrombosis (DVT), GERD/Reflux, Hyperlipidemia, Hypertension, Pulmonary Embolus (PE), Sleep Apnea/CPAP/BIPAP, Supraventricular Tachycardia (SVT) Additional Past Medical History / Comment(s): no cpap used, diff swallowing, esophagial memayc-[id number] radiation 2017 and chemo-last chemo 11-03-18,steroid Oct 2018, esophageal bleed that he was treated at [facility] and they thought was related to his esophageal tumor, history of empyema and pleural space infection with polymicrobial growth on previous pleural cultures, history of pulmonary embolism, hypertension, hyperlipidemia, history of CVA, obstructive sleep apnea, DVT History of Any Multi-Drug Resistant Organisms: None Reported Past Surgical History: Cardiac Ablation, Hernia Repair Additional Past Surgical History / Comment(s): sivakumar inguinal hernia, vasectomy, PEG tube placement and removal, mediport, stent in esophagus for esophageal cancer, pleural - x Past Anesthesia/Blood Transfusion Reactions: No Reported Reaction Past Psychological History: Anxiety Smoking Status: Former smoker Past Alcohol Use History: None Reported Past Drug Use History: None Reported - Past Family History Mother Family Medical History: Cancer Additional Family Medical History / Comment(s): uterine Medications and Allergies Home Medications Medication Instructions Recorded Confirmed Type Omeprazole [PriLOSEC] 20 mg PO BID@0700,2300 10/02/16 08/13/19 History ALPRAZolam [Xanax] 0.5 mg PO TID 01/20/17 08/13/19 History DULoxetine HCL [Cymbalta] 20 mg PO DAILY@0700 03/09/17 08/13/19 History Apixaban [Eliquis] 5 mg PO BID@0700,2300 11/17/18 08/13/19 History Prochlorperazine [Compazine] 10 mg PO Q6H PRN 05/01/19 08/13/19 History Amiodarone [Cordarone] 200 mg PO TID@0700,1200,2300 06/05/19 08/13/19 History Metoprolol Tartrate [Lopressor] 25 mg PO BID@0700,2300 06/05/19 08/13/19 History Amoxicillin/Potassium Clav 1 tab PO Q12HR 14 Days #28 tab 06/11/19 08/13/19 Rx [Augmentin 875-125 Tablet] Prochlorperazine [Compazine] 10 mg PO DAILY 08/13/19 08/13/19 History Allergies Allergy/AdvReac Type Severity Reaction Status Date / Time No Known Allergies Allergy Verified 08/13/19 16:35 Physical Exam Vitals: Vital Signs Temp Pulse Resp BP Pulse Ox 08/14/19 12:45 109 H 35 H 107/66 100 08/14/19 12:30 101 H 18 116/73 100 08/14/19 12:15 90 53 H 131/79 100 08/14/19 12:00 94 39 H 126/74 100 08/14/19 11:45 102 H 18 113/73 100 08/14/19 11:30 98 18 68/52 99 08/14/19 11:25 90 08/14/19 11:15 101 H 18 78/51 99 08/14/19 11:07 76 08/14/19 11:00 80 18 124/62 99 08/14/19 10:45 84 18 124/65 99 08/14/19 10:30 80 18 120/62 99 08/14/19 10:15 78 18 130/65 99 08/14/19 10:00 74 18 133/67 99 08/14/19 09:45 72 33 H 133/68 99 08/14/19 09:30 69 18 134/70 100 08/14/19 09:15 70 18 137/70 100 08/14/19 09:00 82 18 109/55 99 08/14/19 08:45 94 18 70/47 97 08/14/19 08:30 90 18 120/59 98 08/14/19 08:15 98.2 F 89 18 73/44 99 08/14/19 08:00 88 18 114/52 99 08/14/19 07:45 87 37 H 115/53 99 08/14/19 07:30 75 19 117/65 100 08/14/19 07:21 89 08/14/19 07:15 71 18 112/59 100 08/14/19 07:07 88 08/14/19 07:00 76 18 111/61 100 08/14/19 06:45 71 18 114/60 99 08/14/19 06:30 72 18 103/60 100 08/14/19 06:15 71 18 97/55 100 08/14/19 06:00 67 18 103/56 100 08/14/19 05:45 66 17 79/48 98 08/14/19 05:30 68 18 98/56 99 08/14/19 05:15 67 22 117/60 99 08/14/19 05:00 81 25 H 105/78 93 L 08/14/19 04:45 85 24 118/78 98 08/14/19 04:30 94 18 105/72 95 08/14/19 04:15 71 18 103/72 97 08/14/19 04:00 97.7 F 98 9 L 97/52 97 08/14/19 03:45 73 35 H 112/79 97 08/14/19 03:30 70 18 96/63 99 08/14/19 03:15 69 18 109/74 99 08/14/19 03:00 82 17 116/84 99 08/14/19 02:45 72 18 103/68 99 08/14/19 02:30 68 18 99/64 99 08/14/19 02:20 96 08/14/19 02:15 71 18 90/63 99 08/14/19 02:00 53 L 22 112/66 100 08/14/19 01:45 65 27 H 98/63 99 08/14/19 01:30 48 L 18 90/55 99 08/14/19 00:45 59 L 18 102/70 08/14/19 00:30 66 25 H 130/78 99 08/14/19 00:15 70 23 114/62 99 08/14/19 00:00 97.8 F 77 22 134/82 97 08/13/19 23:45 60 18 93/57 98 08/13/19 23:30 61 20 95/51 98 08/13/19 23:24 61 21 95/51 96 08/13/19 23:15 58 L 26 H 79/51 97 08/13/19 23:00 62 20 80/49 96 08/13/19 22:45 62 21 81/53 96 08/13/19 22:30 60 34 H 85/49 97 08/13/19 22:15 65 21 79/50 97 08/13/19 22:00 66 26 H 84/53 97 08/13/19 21:45 96.4 F L 64 24 84/53 98 08/13/19 21:15 97.8 F 96 18 84/54 97 08/13/19 19:30 98 19 83/54 97 08/13/19 19:17 83/52 08/13/19 19:00 79/59 08/13/19 18:52 84/50 08/13/19 18:46 67/43 08/13/19 18:11 99.9 F H 123 H 20 101/64 97 08/13/19 16:56 102.6 F H 112 H 18 122/82 98 08/13/19 15:50 114 H 18 127/79 96 08/13/19 14:29 103.0 F H 129 H 22 152/75 91 L Intake and Output 08/13/19 08/14/19 08/14/19 22:59 06:59 14:59 Intake Total 175 2063.553 7301.770 Output Total 0 480 115 Balance 175 984.472 9150.770 Intake: IV 175 1050 475 Cefepime 2 gm In Sodium 100 100 Chloride 0.9% 100 ml @ 200 mls/hr IVPB Q8HR MELISSA Rx#:[id number] Magnesium Sulfate-D5w Pmx 100 1 gm In Dextrose/Water 1 100ml.bag @ 100 mls/hr IVPB Q1H MELISSA Rx#: [id number] Sodium Chloride 0.9% 1, 75 600 375 000 ml @ 75 mls/hr IV . [id number] MELISSA Rx#:[id number] Vancomycin 1,500 mg In 250 Sodium Chloride 0.9% 250 ml @ 125 mls/hr IVPB Q8H MELISSA Rx#:[id number] levETIRAcetam IV 1,000 mg 100 In Saline 1 100ml.bag @ 400 mls/hr IVPB Q12H MELISSA Rx#:[id number] Intake, IV Titration 330.534 774.770 Amount Norepinephrine 4 mg In 301.958 453.346 Sodium Chloride 0.9% 250 ml @ 0.05 MCG/KG/MIN 15. 554 mls/hr IV .[id number] MELISSA Rx#:[id number] Propofol 1,000 mg In 28.576 71.424 Empty Bag 1 bag @ Titrate IV .Q0M MELISSA Rx#: [id number] Vancomycin 1,500 mg In 250 Sodium Chloride 0.9% 250 ml @ 125 mls/hr IVPB Q8H MELISSA Rx#:[id number] Output: Urine 0 480 115 Other: Voiding Method Urinal Indwelling Catheter Indwelling Catheter Weight 78.2 kg 78.2 kg Gen. appearance the patient is currently intubated on a mechanical ventilator and the patient is under the influence of propofol. The patient does not respond to any painful stimulation. Is well sedated for now. He episodically coughs. Head exam was generally normal. There was no scleral icterus or corneal arcus. Mucous membranes were moist. Neck was supple and without jugular venous distension, thyromegaly, or carotid bruits. Carotids were easily palpable bilaterally. There was no adenopathy. Lungs sounds are diminished bilaterally and there is evidence of thoracic kyphosis. The breath sounds are diminished in the right compared to left. There is a right-sided Cabrera catheter which is in place. No rhonchi. No wheeze. Cardiac exam revealed the PMI to be normally situated and sized. The rhythm was regular and no extrasystoles were noted during several minutes of auscultation. The first and second heart sounds were normal and physiologic splitting of the second heart sound was noted. There were no murmurs, rubs, clicks, or gallops. Abdominal exam revealed normal bowel sounds. The abdomen was soft, non-tender, and without masses, organomegaly, or appreciable enlargement of the abdominal aorta. Examination of the extremities revealed easily palpable radial, femoral and p edal pulses. There was no cyanosis, clubbing or edema. Examination of the skin revealed no evidence of significant rashes, suspicious appearing nevi or other concerning lesions. Neurologically, the patient is unresponsive. His pupils are unequal with the left being slightly larger than the right. Not withdrawing to any painful stimulation at this point in time. Unable to do any sensory function assessment. Cranial nerves shows no preferential gaze. The patient has no facial asymmetry. Weak cough and a weak gag. Results - Laboratory Findings CBC and BMP: 08/14/19 04:28 08/14/19 04:28 ABG ABG pH 7.40 (7.35-7.45) 08/14/19 03:33 ABG pCO2 37 mmHg (35-45) 08/14/19 03:33 ABG pO2 208 mmHg (83-108) H 08/14/19 03:33 ABG O2 Saturation 99.4 % (94-97) H 08/14/19 03:33 PT/INR, D-dimer PT 10.8 sec (9.0-12.0) 08/13/19 15:15 INR 1.1 (<1.2) 08/13/19 15:15 Abnormal lab findings: Abnormal Labs 08/13/19 08/13/19 08/13/19 15:15 15:15 15:15 WBC 11.4 H RBC 4.18 L Hgb 11.3 L Hct 35.9 L MCHC RDW 16.4 H Neutrophils # 10.4 H Lymphocytes # 0.5 L ABG pH ABG pCO2 ABG pO2 ABG O2 Saturation Sodium 131 L Glucose 177 H POC Glucose (mg/dL) Calcium 8.3 L Magnesium 1.4 L AST 66 H ALT 96 H Alkaline Phosphatase 174 H Albumin 3.1 L Procalcitonin Urine Protein Urine Blood Trace H Urine RBC 6 H Hyaline Casts 3 H Urine Mucus Rare H 08/13/19 08/13/19 08/13/19 15:15 15:41 18:54 WBC RBC Hgb Hct MCHC RDW Neutrophils # Lymphocytes # ABG pH ABG pCO2 ABG pO2 ABG O2 Saturation Sodium Glucose POC Glucose (mg/dL) 172 H 148 H Calcium Magnesium AST ALT Alkaline Phosphatase Albumin Procalcitonin 0.35 H Urine Protein Urine Blood Urine RBC Hyaline Casts Urine Mucus 08/13/19 08/14/19 08/14/19 21:36 00:07 01:22 WBC RBC Hgb Hct MCHC RDW Neutrophils # Lymphocytes # ABG pH 7.48 H ABG pCO2 30 L ABG pO2 >400 H ABG O2 Saturation 100.0 H Sodium Glucose POC Glucose (mg/dL) 159 H 180 H Calcium Magnesium AST ALT Alkaline Phosphatase Albumin Procalcitonin Urine Protein Urine Blood Urine RBC Hyaline Casts Urine Mucus 08/14/19 08/14/19 08/14/19 01:45 03:33 04:28 WBC 11.7 H RBC 3.91 L Hgb 10.5 L Hct 34.6 L MCHC 30.3 L RDW 16.4 H Neutrophils # 10.8 H Lymphocytes # 0.5 L ABG pH ABG pCO2 ABG pO2 208 H ABG O2 Saturation 99.4 H Sodium Glucose POC Glucose (mg/dL) Calcium Magnesium AST ALT Alkaline Phosphatase Albumin Procalcitonin Urine Protein Trace H Urine Blood Small H Urine RBC 10 H Hyaline Casts 14 H Urine Mucus Occasional H 08/14/19 08/14/19 04:28 04:28 WBC RBC Hgb Hct MCHC RDW Neutrophils # Lymphocytes # ABG pH ABG pCO2 ABG pO2 ABG O2 Saturation Sodium 132 L Glucose 155 H POC Glucose (mg/dL) Calcium 8.1 L Magnesium AST ALT Alkaline Phosphatase Albumin Procalcitonin 13.70 H Urine Protein Urine Blood Urine RBC Hyaline Casts Urine Mucus - Diagnostic Findings Chest x-ray: image reviewed Assessment and Plan Plan: 1 acute unresponsiveness secondary to brain bleed. CAT scan of the brain showed acute parenchymal hemorrhage involving the right anterior temporal lobe/parietal lobe. This could be an acute hemorrhagic stroke versus [employer] metastases with subsequent hemorrhage. There is a significant bleed in the right parietal lobe as noted on the CAT scan of the brain. 2 acute hypoxic respiratory failure. The patient was mainly intubated as the patient was unable to protect his airways secondary to the massive intra-cerebra l bleed 3 sepsis with gram-positive cocci in the blood, consider pneumonia with recurrent pleural space infection subsequent septicemia. 4 septic shock currently on high-dose pressors addition to fluids 40 without any support 5 metastatic esophageal cancer currently off treatment. Please refer to the CAT scan of the chest that showed a opacity in the distal esophagus consistent with recurrent tumor. Patient also has also is metastases. 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 I also had a discussion with the neurologist and discussed the case also with the family at the bedside. I talked to the and the children. There are 2 more children coming in from [place] of state. Unfortunately his prognosis extremely poor specially with his underlying poor baseline performance and functional status. He has metastatic esophageal cancer. He has also pleural space infection and currently septic. Furthermore his course was further complicated by a brain hemorrhage which probably either a metastatic lesion that bled versus an acute CVA with hemorrhagic transformation. In both his situations, his prognosis extremely poor and he'll likely not recover from this event. We have changes, status is DNR/DNI. The patient's family is awaiting more children to arrive to proceed with hospice care measures. Prognosis extremely poor. We'll continue our supportive measures including fluids and pressors and antibiotics for now pending a further change in his CODE STATUS to comfort measures/hospice. Time with Patient: Greater than 30
[2019-08-14] MEDS ORDERED: MORPHINE SULFATE 10 MG/ML 1ML VIAL IVP ONE (15:31)
[2019-08-14] MEDS: MORPHINE SULFATE (100 MG/2 ML) 100 MG in SODIUM CHLORIDE 0.9% 100 ML IV SCH (18:38)
[2019-08-14] MEDS: SCOPOLAMINE 1.5MG/72HR PATCH TRANSDERM SCH ×2 (18:45→23:37)
[2019-08-14] MEDS: MORPHINE SULFATE 4 MG/ML SYRINGE IV PRN ×2 (20:01→21:41)
[2019-08-14 22:23] VITALS: TEMP 97.5
[2019-08-15] MEDS: MORPHINE SULFATE 4 MG/ML SYRINGE IV PRN (00:24)
[2019-08-15] MEDS ORDERED: VANCOMYCIN TROUGH DUE 1 EACH MISC MISCELLANE ONE (01:00)
[2019-08-15 09:52] VITALS: BP 89/57; PULSE 112; RESP 9
[2019-08-15] MEDS: MORPHINE SULFATE (100 MG/2 ML) 100 MG in SODIUM CHLORIDE 0.9% 100 ML IV SCH (10:21)
--- NOTE | 2019-08-15 12:47 | P.PN ---
Progress Note - Text Progress Note Date: 08/15/19 On 08/15/2019, the patient was seen briefly in the intensive care unit. Events from yesterday was noted. Family arrived from the [facility] and the patient is currently receiving comfort care measures. All of the medication was discontinued. The patient is on a morphine drip in addition to morphine pushes 4 mg every 50 minutes on a when necessary basis. He also has a scopolamine patch. Nevertheless, is calm and comfortable and is not in acute respiratory distress. Discussed the case with the nursing staff. Discussed the case with the family. No other intervention from our standpoint. Continue comfort care measures. We'll proceed and [place] this patient to a private room for further comfort care treatment. He will likely not survive this event. Note that he is also septic with L5 mouth except for glucose that grew in his blood cultures were obtained on 08/13/2019. No agitation. No signs of any respiratory distress. No issues with pain control.
--- NOTE | 2019-08-15 21:23 | PN ---
PROGRESS NOTE DATE OF SERVICE: 08/14/2019 This 64-year-old gentleman with a past medical history of multiple medical problems was admitted with hypotension. Subsequently, patient became unresponsive and the patient had a suspected brain bleed. Patient closely monitored at this time. Past medical history reviewed. Review of system could not be taken. CURRENT MEDICATIONS: Tylenol, Cordarone, Cefepime, Cymbalta, heparin, Lopressor. Doses reviewed. PHYSICAL EXAM: Patient is stuporous. Pulse is 105. Blood pressure is 94/51, respiration 18, temp is normal. HEENT: Conjunctivae normal. NECK: No JVD. CARDIOVASCULAR: S1, S2 muffled. RESPIRATORY SYSTEM: Breath sounds diminished at the bases. A few bilateral scattered rhonchi and crackles. ABDOMEN: Soft, nontender. LEGS are no edema. No swelling. NERVOUS SYSTEM: No focal deficits. Labs reviewed. ASSESSMENT: 1. Right pleural effusion with possible empyema and sepsis present on admission. 2. Acute unresponsive secondary to acute parenchymal hemorrhage involving the right anterior temporal lobe cerebral hemorrhage. 3. Increased WBC. 4. Anemia, normocytic. 5. Hyponatremia. 6. Increased AST, ALT. 7. History of PleurX drainage multiple thoracocentesis. 8. History of deep vein thrombosis. 9. History of esophageal carcinoma status post radiation chemo. 10.History of esophageal bleeding and related to esophageal tumor. 11.Hypertension. 12.Hyperlipidemia. 13.History of pulmonary embolism. 14.History of sleep apnea. 15.History of SVT. 16.History of cardiac ablation. 17.History of bilateral inguinal pain. 18.History of PEG tube placement and removal. 19.History of MediPort. 20.History of stent in the esophagus for esophageal cancer. 21.Anxiety. 22.FULL CODE. RECOMMENDATIONS AND DISCUSSION: Recommend to continue current medications, symptomatic treatment. Otherwise, continue empiric antibiotics. Monitor closely. Follow with Dr. Hartman. Repeat labs. Prognosis guarded because of multiple complex medical issues. Further recommendations to follow. MMODL / IJN: [id number] /
--- NOTE | 2019-08-15 21:26 | PN ---
PROGRESS NOTE DATE OF SERVICE: 08/15/2019 This 64-year-old gentleman admitted with right empyema and possible sepsis also had right anterior temporal parietal lobe hemorrhage in the CT scan. The patient became unresponsive. Dr. Hartman saw the patient his care. Detailed discussion held with the family. The patient was made comfort care. The patient is started on morphine at this time. Past medical history reviewed. Review of systems could not be taken. CURRENT MEDICATIONS: Reviewed and include: DuoNeb, Xanax, Cordarone, Cefepime, Cymbalta, heparin, Lopressor, vancomycin, Narcan, [place], and Zofran, Protonix, Compazine. Doses reviewed. PHYSICAL EXAM: Patient is sedated. The pulse is 102. Blood pressure 82/62, respiration 10, temperature normal, pulse ox 99 percent on 2 L. HEENT: Conjunctivae normal. NECK: No JVD. CARDIOVASCULAR; S1, S2 muffled. RESPIRATION: Breath sounds diminished at the bases. A few scattered rhonchi and crackles. ABDOMEN: Soft, nontender. LEGS no edema. No swelling. NERVOUS SYSTEM: Diffusely weak, unresponsive. Labs are WBC 11.7, hemoglobin 10.5, sodium 130, potassium 4. UA noted. ASSESSMENT: 1. Acute intracranial bleeding involving the right anterior temporal parietal lobe with unresponsiveness. 2. Right pleural effusion with possible empyema and sepsis present on admission. 3. Increased WBC. 4. Anemia, normocytic. 5. Change in mental status, metabolic encephalopathy. 6. Hyponatremia. 7. Increased AST, ALT. 8. History of PleurX drainage and multiple thoracocenteses. 9. History of deep vein thrombosis. 10.History of esophageal carcinoma, status post radiation chemo. 11.History of esophageal bleeding secondary to esophageal tumor. 12.Hypertension. 13.Hyperlipidemia. 14.History of pulmonary embolism. 15.History of sleep apnea. 16.History of supraventricular tachycardia. 17.History of cardiac ablation. 18.History of bilateral inguinal hernia. 19.History of PEG tube placement and removal. 20.History of MediPort. 21.History of stent in the esophagus for esophageal cancer. 22.History of anxiety. 23.NO CODE, NO CPR. 24.HOSPICE CARE. RECOMMENDATIONS AND DISCUSSION: In this 64-year-old gentleman who presented with multiple medical issues, at this time the family decided to go with hospice care. Continue the morphine drip with no upper limit. Consult hospice and transition to hospice service. Otherwise, use p.r.n. Ativan and other medications. Symptomatic treatment. Discussed with the family at length. Further recommendations to follow. Follow closely with Dr. Hartman. IFTIKHAR / KATY: [id number] / ADAIR
--- NOTE | 2019-08-17 09:02 | DS ---
DISCHARGE SUMMARY PRIMARY CAUSE OF : Acute intracranial bleeding involving the right anterior temporoparietal lobe with unresponsiveness. OTHER DIAGNOSES: 1. Right pleural effusion with possible empyema and sepsis, present on admission. 2. Increased WBC. 3. Anemia, normocytic. 4. Change in mental status, metabolic encephalopathy, acute. 5. Hyponatremia. 6. Increased AST/ALT. 7. History of PleurX drainage and multiple thoracocentesis. 8. History of deep vein thrombosis. 9. History of esophageal carcinoma status post radiation chemo. 10.History of esophageal bleeding secondary to esophageal tumor. 11.Hypertension. 12.Hyperlipidemia. 13.History of pulmonary embolism. 14.History of sleep apnea. 15.History of supraventricular tachycardia. 16.History of cardiac ablation. 17.History of bilateral inguinal hernia. 18.History of PEG tube placement and removal. 19.History of MediPort. 20.History of stent in the esophagus for esophageal cancer. 21.History of anxiety. 22.NO CODE, NO CPR, NO VENT. 23.Hospice care. HISTORY OF PRESENT ILLNESS: This 61-year-old gentleman with a past medical history of multiple medical problems was admitted with right pleural effusion as well as empyema and sepsis. The patient was noted to have unresponsiveness with acute intracranial bleeding was noted. The patient was closely monitored. Patient was monitored in ICU. The patient has multiple complex medical issues as mentioned. The prognosis extremely guarded throughout hospitalization. The patient was evaluated by multiple consultants including Neurology and as well as bone tender Dr. Hartman and case discussed with the family and the family decided to go with hospice care and the patient subsequently because of the above mentioned multiple complex medical issues. The prognosis remained extremely guarded and please refer to the multiple progress notes and consultation notes for evaluation. Neurology also opined that metastatic lesion in the brain with secondary hemorrhage or acute hemorrhagic infarct is also possibility. MMODL / IJN: [id number] /
--- NOTE | 2019-08-19 07:29 | CDI ---
Documentation Clarification Form Date: 08/19/19 From: Sharlene Kimball Phone: If you have a question about this query, please contact Mirna Celaya, Relationship Management Lead at [phone] between 8am and 5pm. Admit Date: 08/13/19 Discharge Date:08/15/19 Patient Name: Gopal Hull Visit Number: [id number] ATTENTION: The Clinical Documentation Specialists (CDI) and [facility] Coding Staff appreciate your assistance in clarifying documentation. Please respond to the clarification below the line at the bottom and electronically sign. The CDI & [facility] Coding staff will review the response and follow-up if needed. Please note: Queries are made part of the Legal Health Record. If you have any questions, please contact the author of this message via ITS. Dear Dr. Shay Normocytic anemia is documented in both of your 08/16 progress notes, the H&P and discharge summary. 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 History/Risk Factors: Cancer of the esophagus, bone and brain, sepsis, empyema Clinical indicators: Decreased hgb & hct Hemoglobin: 11.3, 10.5 Hematocrit: 35.9, 34.6 Treatment: No blood given, no meds given In order to capture the severity of condition, please clarify the type of anemia and etiology if known:. Iron deficiency anemia Anemia due to malignancy Nutritional anemia Normocytic anemia Chronic anemia Unable to determine Other, please specify Unable to determine MTDD
== END 2019-08-15 22:07 | disposition expired | DRG 871 ==
LOC: EC 14:21 → 3SCARD 16:59 → 2SICU 19:48
PROVIDERS: ADMIT Hospitalist; ATTEND Hospitalist
PROC: 3E033XZ Introduction of Vasopressor into Peripheral Vein, Percutaneous Approach (ICD-10-PCS; 2019-08-13)
PROC: 5A1935Z Respiratory Ventilation, Less than 24 Consecutive Hours (ICD-10-PCS; principal; 2019-08-14)
PROC: 0BH17EZ Insertion of Endotracheal Airway into Trachea, Via Natural or Artificial Opening (ICD-10-PCS; principal; 2019-08-14)
DX: A41.89 Other specified sepsis (principal); R65.21 Severe sepsis with septic shock; G93.41 Metabolic encephalopathy; I61.1 Nontraumatic intracerebral hemorrhage in hemisphere, cortical; J86.9 Pyothorax without fistula; J96.01 Acute respiratory failure with hypoxia; C15.9 Malignant neoplasm of esophagus, unspecified; C79.31 Secondary malignant neoplasm of brain; C79.51 Secondary malignant neoplasm of bone; E87.1 Hypo-osmolality and hyponatremia; J90 Pleural effusion, not elsewhere classified; J98.11 Atelectasis; M48.54XA Collapsed vertebra, not elsewhere classified, thoracic region, initial encounter for fracture; C15.5 Malignant neoplasm of lower third of esophagus; I48.0 Paroxysmal atrial fibrillation; Z20.828 Contact with and (suspected) exposure to other viral communicable diseases; Z51.5 Encounter for palliative care; Z66 Do not resuscitate; D64.9 Anemia, unspecified; E78.5 Hyperlipidemia, unspecified; F41.9 Anxiety disorder, unspecified; I10 Essential (primary) hypertension; K21.9 Gastro-esophageal reflux disease without esophagitis; G47.33 Obstructive sleep apnea (adult) (pediatric); R74.0 Nonspecific elevation of levels of transaminase and lactic acid dehydrogenase [LDH]; M40.204 Unspecified kyphosis, thoracic region; Z79.01 Long term (current) use of anticoagulants; Z79.899 Other long term (current) drug therapy; Z86.73 Personal history of transient ischemic attack (TIA), and cerebral infarction without residual deficits; Z92.3 Personal history of irradiation; Z92.21 Personal history of antineoplastic chemotherapy; Z86.718 Personal history of other venous thrombosis and embolism; Z86.711 Personal history of pulmonary embolism; Z87.891 Personal history of nicotine dependence; Z98.52 Vasectomy status; Z80.49 Family history of malignant neoplasm of other genital organs
CPT/HCPCS: 36415; 36600; 70450; 71045; 71260; 80048; 80053; 81001; 82805; 83605; 83735; 83880; 84145; 84484; 85025; 85610; 85730; 87040; 87070; 87077; 87186; 87205; 93005; 94002; 94640; 96361; 96365; 96366; 96367; 96368; 99285